=== PATIENT | female | born 1935 | race Caucasian/White ===

== ENCOUNTER 2022-03-20 14:02 | Outpatient (REF) | payer BC, SELFPAY ==
[2022-03-20 15:09] LABS: Appearance Urine Cloudy (Clear); Bilirubin Urine Negative (Negative); Blood Urine Trace-intact (Negative); Color Urine Yellow (Yellow); Glucose Urine Negative (Negative); Ketones Urine Negative (Negative); Leukocyte Esterase Urine 3+ (Negative); Nitrite Urine Positive (Negative); Protein Urine Negative (Negative); Specific Gravity Urine 1.015 (1.000-1.030); Urobilinogen Urine 0.2 (0.2-1.0)
[2022-03-20 15:28] LABS: Bacteria Urine Many
[2022-03-20 15:29] LABS: Coarse Granular Casts Urine Few; Squamous Epithelial Cell Urine Moderate (None-Few)
[2022-03-21 14:09] LABS: RBC Urine 0-2 (0-2)
== END 2022-03-20 14:03 | disposition home or self-care (01) ==
LOC: NPINS 14:02
PROVIDERS: Visit Provider Family Medicine
DX: R31.9 Hematuria, unspecified (principal)
CPT/HCPCS: 81001; 87086; 87186

== ENCOUNTER 2022-05-21 15:24 | Outpatient (REF) | payer BC, SELFPAY ==
[2022-05-21 16:45] LABS: Appearance Urine Clear (Clear); Bilirubin Urine Negative (Negative); Blood Urine Negative (Negative); Color Urine Yellow (Yellow); Glucose Urine Negative (Negative); Ketones Urine Negative (Negative); Leukocyte Esterase Urine Trace (Negative); Nitrite Urine Negative (Negative); Protein Urine Negative (Negative); Specific Gravity Urine 1.015 (1.000-1.030); Urobilinogen Urine 0.2 (0.2-1.0)
[2022-05-21 17:38] LABS: RBC Urine 0-2 (0-2); Squamous Epithelial Cell Urine Few (None-Few); WBC Urine 0-2 (0-5)
[2022-05-21 17:39] LABS: Bacteria Urine Few; Hyaline Casts Urine Few (None-Few)
== END 2022-05-21 15:25 | disposition home or self-care (01) ==
LOC: NPINS 15:24
PROVIDERS: Visit Provider Nurse Practitioner Gerontology
DX: N89.8 Other specified noninflammatory disorders of vagina (principal)
CPT/HCPCS: 81001; 87086

== ENCOUNTER 2022-09-30 09:29 | Outpatient (REF) | payer BC, SELFPAY ==
[2022-09-30 09:51] LABS: Chloride* 101 mmol/L (96-114); Sodium* 143 mmol/L (135-149)
[2022-09-30 09:52] LABS: Potassium* 4.2 mmol/L (3.6-5.1)
[2022-09-30 09:54] LABS: Creatinine* 1.4 mg/dL (0.5-1.5); Estimated Glomerular Filt Rate 37 ml/min
[2022-09-30 09:55] LABS: Blood Urea Nitrogen* 27 mg/dL (7-30); Carbon Dioxide* 34 mmol/L (20-32)
[2022-09-30 09:56] LABS: Calcium* 9.6 mg/dL (8.4-10.6); Glucose* 87 mg/dL (60-115)
== END 2022-09-30 09:30 | disposition home or self-care (01) ==
LOC: NPINS 09:29
PROVIDERS: Visit Provider Family Medicine
DX: I50.9 Heart failure, unspecified (principal); E03.9 Hypothyroidism, unspecified
CPT/HCPCS: 80048; 84443

== ENCOUNTER 2022-12-09 10:59 | Outpatient (REF) | payer BC, SELFPAY ==
[2022-12-09 11:44] LABS: Albumin* 4.5 g/dL (3.3-5.0); Chloride* 105 mmol/L (96-114)
[2022-12-09 11:45] LABS: Potassium* 4.6 mmol/L (3.6-5.1); Sodium* 142 mmol/L (135-149)
[2022-12-09 11:47] LABS: Aspartate Amino Transferase* 26 U/L (12-35); Bilirubin Direct* 0.3 mg/dL (0.0-0.5); Bilirubin Total* 0.5 mg/dL (0.1-1.5); Blood Urea Nitrogen* 26 mg/dL (7-30); Carbon Dioxide* 28 mmol/L (20-32); Creatinine* 1.2 mg/dL (0.5-1.5); Estimated Glomerular Filt Rate 44 ml/min; Total Protein* 7.4 g/dL (6.0-8.3)
[2022-12-09 11:48] LABS: Alanine Aminotransferase* 18 U/L (4-35); Alkaline Phosphatase* 66 U/L (40-150); Calcium* 9.6 mg/dL (8.4-10.6); Glucose* 99 mg/dL (60-115)
== END 2022-12-09 11:00 | disposition home or self-care (01) ==
LOC: NPINS 10:59
PROVIDERS: PCP Family Medicine; Visit Provider Nurse Practitioner Gerontology
DX: E03.9 Hypothyroidism, unspecified (principal); I50.9 Heart failure, unspecified
CPT/HCPCS: 80048; 80076; 84443

== ENCOUNTER 2023-01-08 11:01 | Outpatient (CLI) | payer BC, SELFPAY ==
--- NOTE | 2023-01-08 11:15 | CRLHL7_ITS ---
For Patients: As a result of the Century Cures Act, medical imaging exams and procedure reports are released immediately into your electronic medical record. You may view this report before your referring provider. If you have questions, please contact your health care provider. INDICATION: HIATAL HERNIA TECHNIQUE: Modified barium swallow. Fluoroscopic time 82 seconds. FINDINGS/IMPRESSION: Laryngeal penetration occurred with thin barium. No aspiration. Mild prominence of the cricopharyngeus muscle. Decreased esophageal motility distally with associated hiatal hernia and tertiary distal esophageal contractions. Dictated by Amando Navarro MD @ 01/08/2023 11:43:22 AM (Electronically Signed)
== END 2023-01-08 11:02 | disposition home or self-care (01) ==
LOC: RAD 11:03
PROVIDERS: PCP Family Medicine; Visit Provider Nurse Practitioner Gerontology
DX: K44.9 Diaphragmatic hernia without obstruction or gangrene (principal)
CPT/HCPCS: 74230; 92611

== ENCOUNTER 2023-02-10 10:09 | Outpatient (REF) | payer BC, SELFPAY ==
[2023-02-10 11:32] LABS: Basophils Absolute Auto 0.02 K/uL (0.00-0.30); Basophils Percent Auto 0.3 % (0.0-3.0); Eosinophils Absolute Auto 0.16 K/uL (0.00-0.50); Eosinophils Percent Auto 2.4 % (0.0-7.0); Hematocrit 42.3 % (33.0-51.0); Hemoglobin* 13.6 gm/dL (12.0-16.0); Immature Granulocytes Abs Auto 0.02 K/uL (0.00-0.30); Immature Granulocytes Pct Auto 0.3 %; Lymphocytes Absolute Auto 1.62 K/uL (0.90-2.90); Lymphocytes Percent Auto 24.6 % (20-44); Mean Corpuscular HGB Conc 32 gm/dL (32-36); Mean Corpuscular Hemoglobin 33 pg (26-34); Mean Corpuscular Volume 102 fL (80-100); Monocytes Percent Auto 9.6 % (0.0-11.0); Neutrophils Absolute Auto 4.14 K/uL (1.7-7.0); Neutrophils Percent Auto 62.8 % (42.0-72.0); Platelet Count* 220 K/uL (140-440); RDW Coefficient of Variation % 11.9 % (11.5-15.5); Red Blood Count 4.15 m/uL (4.00-5.20); White Blood Count* 6.59 K/uL (4.50-11.00)
[2023-02-10 11:35] LABS: Slide Review Reflex No
== END 2023-02-10 10:10 | disposition home or self-care (01) ==
LOC: NPINS 10:09
PROVIDERS: PCP Family Medicine; Visit Provider Family Medicine
DX: D64.9 Anemia, unspecified (principal)
CPT/HCPCS: 85025

== ENCOUNTER 2023-03-05 08:50 | Outpatient (CLI) | payer BC, SELFPAY | END 2023-03-05 08:51 | disposition home or self-care (01) | LOC: AMB 03-10 09:22 | PROVIDERS: PCP Family Medicine; Visit Provider Family Medicine | DX: S09.90XA Unspecified injury of head, initial encounter (principal); W01.0XXA Fall on same level from slipping, tripping and stumbling without subsequent striking against object, initial encounter; Y92.120 Kitchen in nursing home as the place of occurrence of the external cause | CPT/HCPCS: A0425; A0429 ==

== ENCOUNTER 2023-03-05 09:02 | Emergency (ER) | payer BC, SELFPAY ==
[2023-03-05] VITALS (14 sets, daily range): BP systolic 158–180; BP diastolic 68–83; PULSE 40–68; RESP 18–22; TEMP 36.4; O2SAT 88–94
--- NOTE | 2023-03-05 09:25 | CT_ITS ---
Patient: NORM KIMBLE Facility:?[facility] RIS Patient ID:?[id number] Site Patient ID:?[id number]. Site :?[id number] Study:?CT-Chest W/O-03/05/2023 10:40:57 AM Ordering Physician:?DR. SOLARES Final Report: INDICATION: History of sternal/chest pain. History of fall. TECHNIQUE: 3 mm axial imaging has been performed through the chest without contrast. Sagittal and coronal reconstructions have been obtained. COMPARISON: 10/01/2020. FINDINGS: Within the chest there is no mediastinal fluid. No suspicious lymphadenopathy is seen. Moderate to large hiatal hernia noted and stable. Extensive endo grafting of aorta with, mesenteric vessels and bilateral renal arteries is again identified and stable. Lungs demonstrate moderate to advanced emphysematous changes. Chronic changes are noted. No acute infiltrate is seen. No pneumothorax is seen. There is no visualized sternal or displaced rib fracture demonstrated. No fluid is seen adjacent to the sternum. Upper abdomen demonstrates a small gallstones. Aortic endograft as described above. Small posterior left diaphragmatic hernia is again identified and stable. IMPRESSION: 1. No mediastinal fluid noted. No visualized sternal fracture seen. 2. Moderate to advanced emphysematous changes of the lungs are noted. No acute appearing infiltrate noted. Chronic changes noted. 3. 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 4. Small gallstone noted. Stable hiatal hernia noted. Please note that all CT scans at this facility use dose modulation, iterative reconstruction, and/or weight-based dosing when appropriate to reduce radiation dose to as low as reasonably achievable. Dictated by José Miguel Franklin MD @ 03/05/2023 11:30:41 AM Signed by:?José Miguel Franklin MD @03/05/2023 11:30:41 AM (Electronic Signature)
--- NOTE | 2023-03-05 09:26 | CT_ITS ---
Patient: NORM KIMBLE Facility:?[facility] RIS Patient ID:?[id number] Site Patient ID:?[id number]. Site :?[id number] Study:?CT-Spine Cervical -03/05/2023 9:44:20 AM Ordering Physician:?DR. SOLARES Final Report: INDICATION: Fall. TECHNIQUE: CT cervical spine without contrast. COMPARISON: None. FINDINGS: Vertebrae: Alignment is normal. There are no fractures or suspicious bony lesions. Discs and facet joints: Disc spaces are within normal limits. Diffuse facet joint spondylosis. Extraspinal findings: Paraspinous soft tissues are unremarkable. IMPRESSION: 1. No sign of acute injury. 2. Multilevel degenerative spondylosis. Please note that all CT scans at this facility use dose modulation, iterative reconstruction, and/or weight-based dosing when appropriate to reduce radiation dose to as low as reasonably achievable. Dictated by Jesus Andino MD @ 03/05/2023 10:22:44 AM Signed by:?Jesus Andino MD @03/05/2023 10:22:44 AM (Electronic Signature)
--- NOTE | 2023-03-05 09:26 | CT_ITS ---
Patient: NORM KIMBLE Facility:?[facility] RIS Patient ID:?[id number] Site Patient ID:?[id number]. Site :?[id number] Study:?CT-Head -03/05/2023 9:45:50 AM Ordering Physician:?DR SOLARES Final Report: INDICATION: Fall. TECHNIQUE: Head CT without contrast. COMPARISON: None. FINDINGS: CSF spaces: Within normal limits for age. Brain parenchyma and extra-axial spaces: There are nonspecific low attenuation white matter changes consistent with chronic microvascular disease. No sign of mass, hemorrhage, or midline shift. Skull base and calvarium: The visualized paranasal sinuses and mastoid air cells demonstrate no acute or significant findings. The visualized orbits are grossly unremarkable. No skull fractures. IMPRESSION: No acute or significant findings. Please note that all CT scans at this facility use dose modulation, iterative reconstruction, and/or weight-based dosing when appropriate to reduce radiation dose to as low as reasonably achievable. Dictated by Jesus Andino MD @ 03/05/2023 10:32:36 AM Signed by:?Jesus Andino MD @03/05/2023 10:32:36 AM (Electronic Signature)
--- NOTE | 2023-03-05 09:37 | ED_ITS ---
HPI - Fall General Date Seen: 03/05/23 Chief Complaint: Fall/Minor Trauma Stated Complaint: Fell, hit head Time Seen by Provider: 03/05/23 09:14 Source: patient and EMS Mode of arrival: EMS Limitations: no limitations History of Present Illness HPI Narrative: Patient is 88-year-old female presents here from assisted living, with a history of a fall, ?that laurel walker that they make me use, cause me to fall she presents on Eliquis, that she takes for anticoagulation, she did hit her head, when she went over her walker, and also struck her chest, and says his sore over the sternal area. She did not have chest pain before this, this was a trip she tells me, no loss of consciousness no amnesia, she denies any extremity injury, she is brought in by EMS for this. Do note that she is supposed to be on oxygen but she was not on oxygen at the residence he was at. She has a history of COPD, complaint: fall Onset (ago): minute(s) Fall from: standing Fall witnessed: no Place fall occurred: home Loss of consciousness: No Prolonged down time: no Symptoms prior to fall: none Context: tripped/slipped Location of injury: head and chest Severity: moderate Associated symptoms (after fall): denies Related Data Home Medications Medication Instructions Recorded Confirmed acetaminophen 500 mg tablet (Pain 1,000 mg PO 3XD 03/05/23 03/05/23 Reliever Extra Strength (acetaminophen)) albuterol sulfate 90 mcg/actuation inhalation 03/05/23 aerosol inhaler amiodarone 200 mg tablet 100 mg PO DAILY 03/05/23 03/05/23 amoxicillin 500 mg capsule 500 mg PO BID 03/05/23 03/05/23 apixaban 2.5 mg tablet (Eliquis) 2.5 mg PO BID 03/05/23 03/05/23 aspirin 81 mg chewable tablet 1 tab PO DAILY 03/05/23 03/05/23 atorvastatin 40 mg tablet 40 mg PO DAILY 03/05/23 03/05/23 furosemide 40 mg tablet 40 mg PO BID 03/05/23 03/05/23 lamotrigine 100 mg tablet 200 mg PO QPM 03/05/23 03/05/23 levothyroxine 100 mcg tablet 100 mcg PO QAM 03/05/23 03/05/23 loratadine 10 mg tablet 10 mg PO DAILY 03/05/23 03/05/23 melatonin 3 mg capsule 3 mg PO HS PRN 03/05/23 03/05/23 pantoprazole 40 mg tablet,delayed 40 mg PO DAILY 03/05/23 03/05/23 release potassium chloride 20 mEq 20 meq PO BID 03/05/23 03/05/23 tablet,extended release(part/cryst) sennosides 8.6 mg tablet (Marley-sheela) 8.6 mg PO BID 03/05/23 03/05/23 simethicone 80 mg chewable tablet 80 mg PO QID PRN 03/05/23 03/05/23 (Gas Relief 80 (simethicone)) tramadol 50 mg tablet mg PO 03/05/23 Allergies Allergy/AdvReac Type Severity Reaction Status Date / Time No Known Drug Allergies Allergy Verified 01/08/23 11:32 Review of Systems Status of ROS: Reports: 10 or more systems reviewed and unremarkable except as noted in History and below PFSH [facility] Social History Smoking Status: Unknown if ever smoked How often do you have a drink containing alcohol: monthly or less AUDIT-C Alcohol total score: 1 Non-prescribed substance use: denies use service: No Exam Narrative: Exam Narrative: She is seen and stabilization room 1, she is speaking to me in room normally she is alert oriented in 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 Pupils are equal round reactive to light, oropharynx is normal, neck as range of motion from 8 cm to 18 cm, which she says is normal, she has no tenderness to palpation over her neck, side flexion is 10?, rotation is 30?, her chest as good air entry bilaterally, no wheezing crackles noted she is somewhat sore over sternal region. On palpation percussion, her heart sounds no clicks murmurs or gallops, poor air entry is noted bilaterally, which may be her normal with a prolonged expiratory phase I do not hear any subcutaneous emphysema, crackles, wheezes. Abdomen is soft and obese, there is no organomegaly, no tenderness to palpation over liver anywhere else, or pelvis normal stable, her back is palpated and thoracic and lumbar spines palpate normally, extremities are all normal, she is able to move them she is very is some bruises on her extremities which she has tells me is from that laurel Herrera neurologically intact in her upper lower extremities both proximally and distally, cranial nerves 3-12 are normal, Const: Vital Signs, click to edit/add: Vital Signs - 24 hr 03/05/23 09:05 03/05/23 09:28 03/05/23 10:12 Temperature 97.6 F Pulse Rate 66 Pulse Rate [Right Pulse Oximeter] 68 Respiratory Rate 18 22 Blood Pressure 180/82 H Blood Pressure [Ri ght Upper Arm] 180/83 H Pulse Oximetry 88 92 93 Oxygen Delivery Me thod Room Air Nasal Cannula Oxygen Flow Rate 2 03/05/23 10:27 03/05/23 10:30 03/05/23 10:31 Temperature Pulse Rate 40 L 61 61 Pulse Rate [Right Pulse Oximeter] Respiratory Rate Blood Pressure 171/74 H Blood Pressure [Ri ght Upper Arm] Pulse Oximetry 92 93 93 Oxygen Delivery Me thod Oxygen Flow Rate 03/05/23 10:32 03/05/23 11:00 03/05/23 11:02 Temperature Pulse Rate 61 58 L 60 Pulse Rate [Right Pulse Oximeter] Respiratory Rate Blood Pressure 167/73 H Blood Pressure [Ri ght Upper Arm] Pulse Oximetry 93 92 92 Oxygen Delivery Me thod Oxygen Flow Rate 03/05/23 11:30 03/05/23 11:32 03/05/23 12:00 Temperature Pulse Rate 57 L 58 L 59 L Pulse Rate [Right Pulse Oximeter] Respiratory Rate Blood Pressure 161/70 H Blood Pressure [Ri ght Upper Arm] Pulse Oximetry 94 94 93 Oxygen Delivery Me thod Oxygen Flow Rate 03/05/23 12:02 Temperature Pulse Rate 59 L Pulse Rate [Right Pulse Oximeter] Respiratory Rate Blood Pressure 158/68 H Blood Pressure [Ri ght Upper Arm] Pulse Oximetry 94 Oxygen Delivery Me thod Oxygen Flow Rate Documenting provider has reviewed patient's vital signs: yes Course Course Hospital Course: Patient's head CT came back showing no acute findings, her cervical spine CT also was negative, she did well here, she received Tylenol for discomfort, and chest CT without contrast showed no evidence of sternal fracture rib fracture no fluid, his troponins x2 were normal, her EKG showed normal sinus rhythm, there is some T-wave flattening but otherwise no acute changes were noted. I discussed with her son in her patient, that we should the lower to go home and she was in agreement. She should wear oxygen, and be more cognizant of walking, she was very comfortable with this plan. Vital Signs Vital signs: Initial Vital Signs Temperature 97.6 F 03/05/23 09:05 Temperature Source Temporal Artery Scan 03/05/23 09:05 Pulse Rate 68 03/05/23 09:05 Respiratory Rate 18 03/05/23 09:05 Blood Pressure 180/83 H 03/05/23 09:05 Blood Pressure Mean 115 H 03/05/23 09:05 Blood Pressure Position Sitting 03/05/23 09:05 Pulse Oximetry 88 03/05/23 09:05 Oxygen Delivery Method Room Air 03/05/23 09:05 Vital Signs Temperature 97.6 F 03/05/23 09:05 Pulse Rate 68 03/05/23 09:05 Respiratory Rate 18 03/05/23 09:05 Blood Pressure 180/83 H 03/05/23 09:05 Pulse Oximetry 88 03/05/23 09:05 Oxygen Delivery Method Room Air 03/05/23 09:05 Temperature 97.6 F 03/05/23 09:05 Pulse Rate 59 L 03/05/23 12:02 Respiratory Rate 22 03/05/23 09:28 Blood Pressure 158/68 H 03/05/23 12:02 Pulse Oximetry 94 03/05/23 12:02 Oxygen Delivery Method Nasal Cannula 03/05/23 09:28 Oxygen Flow Rate 2 03/05/23 09:28 MDM - Fall MDM Narrative Medical decision making narrative: Life-threatening differential diagnosis is considered include: Subarachnoid hemorrhage, subdural hemorrhage, epidural hemorrhage. Other differential diagnosis considered include concussion, closed head injury, or neck fracture. Medical Records Attestation: I reviewed the patient's medical records. Lab Data Attestation: I reviewed the patient's lab results. Labs: Lab Results 03/05/23 03/05/23 03/05/23 Range/Units 09:27 09:28 11:21 WBC 7.31 (4.50-11.00) K/uL RBC 4.27 (4.00-5.20) m/uL Hgb 13.9 (12.0-16.0) gm/dL Hct 43.4 (33.0-51.0) % MCV 102 H (80-100) fL MCH 33 (26-34) pg MCHC 32 (32-36) gm/dL RDW Coeff of Chely 12.3 (11.5-15.5) % Plt Count 212 (140-440) K/uL Neut % (Auto) 63.0 (42.0-72.0) % Lymph % (Auto) 23.8 (20-44) % [place] % (Auto) 11.1 H (0.0-11.0) % Eos % (Auto) 1.5 (0.0-7.0) % Baso % (Auto) 0.1 (0.0-3.0) % Neut # (Auto) 4.60 (1.7-7.0) K/uL Lymph # (Auto) 1.74 (0.90-2.90) K/uL [place] # (Auto) 0.80 (0.00-0.90) K/UL Eos # (Auto) 0.11 (0.00-0.50) K/uL Baso # (Auto) 0.01 (0.00-0.30) K/uL Sodium 141 (135-149) mmol/L Potassium 3.9 (3.6-5.1) mmol/L Chloride 104 (96-114) mmol/L Carbon Dioxide 29 (20-32) mmol/L BUN 23 (7-30) mg/dL Creatinine 1.3 (0.5-1.5) mg/dL Estimated GFR 40 ml/min Glucose 95 (60-115) mg/dL Calcium 9.4 (8.4-10.6) mg/dL POC Troponin I 0.00 L 0.01 (0.01-0.04) ng/ml Imaging Data CT scan - chest: Attestation: I have reviewed the pertinent imaging results. Radiologist's impression: Patient: NORM KIMBLE Facility:?[facility] Patient ID:?[id number] Site Patient ID:?[id number] Site :?[id number] Study:?CT Spine Cervical -03/05/2023 9:44:20 AM Ordering Physician:?DR. MCLEAN Final Report: INDICATION: Fall. TECHNIQUE: CT cervical spine without contrast. COMPARISON: None. FINDINGS: Vertebrae: Alignment is normal. There are no fractures or suspicious bony lesions. Discs and facet joints: Disc spaces are within normal limits. Diffuse facet joint spondylosis. Extraspinal findings: Paraspinous soft tissues are unremarkable. IMPRESSION: 1. No sign of acute injury. 2. Multilevel degenerative spondylosis. Please note that all CT scans at this facility use dose modulation, iterative reconstruction, and/or weight-based dosing when appropriate to reduce radiation dose to as low as reasonably achievable. Dictated by Jesus Andino MD @ 03/05/2023 10:22:44 AM (Electronic Signature) Patient: NORM KIMBLE Facility:?[facility] Patient ID:?[id number] Site Patient ID:?[id number]. Site :?1935 Study:?CT Head -03/05/2023 9:45:50 AM Ordering Physician:?DR MCLEAN Final Report: INDICATION: Fall. TECHNIQUE: Head CT without contrast. COMPARISON: None. FINDINGS: CSF spaces: Within normal limits for age. Brain parenchyma and extra-axial spaces: There are nonspecific low attenuation white matter changes consistent with chronic microvascular disease. No sign of mass, hemorrhage, or midline shift. Skull base and calvarium: The visualized paranasal sinuses and mastoid air cells demonstrate no acute or significant findings. The visualized orbits are grossly unremarkable. No skull fractures. IMPRESSION: No acute or significant findings. Please note that all CT scans at this facility use dose modulation, iterative reconstruction, and/or weight-based dosing when appropriate to reduce radiation dose to as low as reasonably achievable. Dictated by Jesus Andino MD @ 03/05/2023 10:32:36 AM (Electronic Signature) Patient: NORM KIMBLE Facility:?[facility] Patient ID:?[id number] Site Patient ID:?[id number]. Site :?1935 Study:?CT Chest W/O-03/05/2023 10:40:57 AM Ordering Physician:?DR. MCLEAN Final Report: INDICATION: History of sternal/chest pain. History of fall. TECHNIQUE: 3 mm axial imaging has been performed through the chest without contrast. Sagittal and coronal reconstructions have been obtained. COMPARISON: 10/01/2020. FINDINGS: Within the chest there is no mediastinal fluid. No suspicious lymphadenopathy is seen. Moderate to large hiatal hernia noted and stable. Extensive endo grafting of aorta with, mesenteric vessels and bilateral renal arteries is again identified and stable. Lungs demonstrate moderate to advanced emphysematous changes. Chronic changes are noted. No acute infiltrate is seen. No pneumothorax is seen. There is no visualized sternal or displaced rib fracture demonstrated. No fluid is seen adjacent to the sternum. Upper abdomen demonstrates a small gallstones. Aortic endograft as described above. Small posterior left diaphragmatic hernia is again identified and stable. IMPRESSION: 1. No mediastinal fluid noted. No visualized sternal fracture seen. 2. Moderate to advanced emphysematous changes of the lungs are noted. No acute appearing infiltrate noted. Chronic changes noted. 3. 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 4. Small gallstone noted. Stable hiatal hernia noted. Please note that all CT scans at this facility use dose modulation, iterative reconstruction, and/or weight-based dosing when appropriate to reduce radiation dose to as low as reasonably achievable. Dictated by José Miguel Franklin MD @ 03/05/2023 11:30:41 AM (Electronic Signature) ECG Data Attestation: I personally reviewed and interpreted this ECG as follows: ECG interpretation date: 03/05/23 Interpretation: EKG shows normal sinus rhythm, nonspecific ST wave abnormality, abnormal EKG with no acute changes. Discharge Plan Discharge Clinical Impression: Chest wall pain, COPD (chronic obstructive pulmonary disease), Fall Patient Disposition: Home w/ Parent or Adult Condition: Stable Instructions: Chest Pain (DC), Fall Prevention for Older Adults (ED), Fall Prevention (ED), How to Transfer a Person Safely (DC) Additional Instructions: Home rest acetaminophen 1 g p.o. t.i.d., please use her oxygen at home, use the walker and be careful, return as needed. Prescriptions: No Action amoxicillin 500 mg capsule 500 mg PO BID furosemide 40 mg tablet 40 mg PO BID atorvastatin 40 mg tablet 40 mg PO DAILY amiodarone 200 mg tablet 100 mg PO DAILY acetaminophen [Pain Reliever ES(acetaminophn)] 500 mg tablet 1,000 mg PO 3XD levothyroxine 100 mcg tablet 100 mcg PO QAM aspirin 81 mg tablet,chewable 1 tab PO DAILY albuterol sulfate 90 mcg/actuation HFA aerosol inhaler inhalation lamotrigine 100 mg tablet 200 mg PO QPM loratadine 10 mg tablet 10 mg PO DAILY Eliquis 2.5 mg tablet 2.5 mg PO BID melatonin 3 mg capsule 3 mg PO HS PRN sennosides [Marley-sheela] 8.6 mg tablet 8.6 mg PO BID tramadol 50 mg tablet PO potassium chloride 20 mEq tablet,ER particles/crystals 20 meq PO BID pantoprazole 40 mg tablet,delayed release (DR/EC) 40 mg PO DAILY simethicone [Gas Relief 80 (simethicone)] 80 mg tablet,chewable 80 mg PO QID PRN Follow Up/Referrals: Inder Tanner MD [Primary Care Provider] - Stand Alone Forms: [facility] Info Instructions
[2023-03-05 09:40] LABS: Basophils Absolute Auto 0.01 K/uL (0.00-0.30); Basophils Percent Auto 0.1 % (0.0-3.0); Eosinophils Absolute Auto 0.11 K/uL (0.00-0.50); Eosinophils Percent Auto 1.5 % (0.0-7.0); Hematocrit 43.4 % (33.0-51.0); Hemoglobin* 13.9 gm/dL (12.0-16.0); Immature Granulocytes Abs Auto 0.04 K/uL (0.00-0.30); Immature Granulocytes Pct Auto 0.5 %; Lymphocytes Absolute Auto 1.74 K/uL (0.90-2.90); Lymphocytes Percent Auto 23.8 % (20-44); Mean Corpuscular HGB Conc 32 gm/dL (32-36); Mean Corpuscular Hemoglobin 33 pg (26-34); Mean Corpuscular Volume 102 fL (80-100); Monocytes Percent Auto 11.1 % (0.0-11.0); Platelet Count* 212 K/uL (140-440); RDW Coefficient of Variation % 12.3 % (11.5-15.5); Red Blood Count 4.27 m/uL (4.00-5.20); White Blood Count* 7.31 K/uL (4.50-11.00)
[2023-03-05 09:44] LABS: Slide Review Reflex No
[2023-03-05] MEDS: ONDANSETRON 2 MG/ML inj 4 MG IVP (09:45)
[2023-03-05] MEDS: 0.9 % SODIUM CHLORIDE 1000 ml 1,000 ML IV (09:45)
[2023-03-05] MEDS: MORPHINE 2 MG/ML inj IVP (09:46)
[2023-03-05 09:53] LABS: Chloride* 104 mmol/L (96-114); Potassium* 3.9 mmol/L (3.6-5.1); Sodium* 141 mmol/L (135-149)
[2023-03-05 09:56] LABS: Blood Urea Nitrogen* 23 mg/dL (7-30); Carbon Dioxide* 29 mmol/L (20-32); Creatinine* 1.3 mg/dL (0.5-1.5); Estimated Glomerular Filt Rate 40 ml/min; Glucose* 95 mg/dL (60-115)
[2023-03-05 09:57] LABS: Calcium* 9.4 mg/dL (8.4-10.6)
[2023-03-05 11:32] LABS: Troponin, Point-of-Care* 0.01 ng/ml (0.01-0.04)
[2023-03-05] MEDS: OxyCODONE/APAP 5-325 TABLET 2 TAB PO (12:47)
[2023-03-05] MEDS: ONDANSETRON ODT 4 MG TAB PO (12:57)
== END 2023-03-05 13:18 | disposition home or self-care (01) ==
PROVIDERS: Emergency Provider Family Medicine; PCP Family Medicine
DX: R07.9 Chest pain, unspecified (principal); J44.9 Chronic obstructive pulmonary disease, unspecified; W19.XXXA Unspecified fall, initial encounter
CPT/HCPCS: 36415; 70450; 71250; 72125; 80048; 84484; 85025; 93005; 96374; 96375; 99284; 99291; A9270; G0390; J2270; J2405; J7030

== ENCOUNTER 2023-03-26 15:22 | Outpatient (REF) | payer BC, SELFPAY ==
[2023-03-26 15:57] LABS: Basophils Absolute Auto 0.04 K/uL (0.00-0.30); Basophils Percent Auto 0.6 % (0.0-3.0); Eosinophils Absolute Auto 0.21 K/uL (0.00-0.50); Eosinophils Percent Auto 3.1 % (0.0-7.0); Hematocrit 40.3 % (33.0-51.0); Hemoglobin* 12.8 gm/dL (12.0-16.0); Immature Granulocytes Abs Auto 0.02 K/uL (0.00-0.30); Immature Granulocytes Pct Auto 0.3 %; Lymphocytes Percent Auto 27.8 % (20-44); Mean Corpuscular HGB Conc 32 gm/dL (32-36); Mean Corpuscular Hemoglobin 33 pg (26-34); Mean Corpuscular Volume 103 fL (80-100); Monocytes Percent Auto 11.4 % (0.0-11.0); Neutrophils Absolute Auto 3.88 K/uL (1.7-7.0); Neutrophils Percent Auto 56.8 % (42.0-72.0); Platelet Count* 262 K/uL (140-440); RDW Coefficient of Variation % 13.2 % (11.5-15.5); Red Blood Count 3.91 m/uL (4.00-5.20); White Blood Count* 6.83 K/uL (4.50-11.00)
[2023-03-26 16:01] LABS: Slide Review Reflex No
== END 2023-03-26 15:23 | disposition home or self-care (01) ==
LOC: NPINS 15:22
PROVIDERS: PCP Family Medicine; Visit Provider Family Medicine
DX: D64.9 Anemia, unspecified (principal)
CPT/HCPCS: 85025

== ENCOUNTER 2023-04-02 10:47 | Outpatient (CLI) | payer BC, SELFPAY ==
--- NOTE | 2023-04-02 11:00 | CRLHL7_ITS ---
For Patients: As a result of the Century Cures Act, medical imaging exams and procedure reports are released immediately into your electronic medical record. You may view this report before your referring provider. If you have questions, please contact your health care provider. Indication: STERNUM PAIN, RELATED TO FALL Technique: Noncontrast CT chest Please note that all CT scans at this facility use dose modulation, iterative reconstruction, and/or weight-based dosing when appropriate to reduce radiation dose to as low as reasonably achievable. Comparison: 03/05/2023 Findings: Vascular stents are present. Layering densities within the gallbladder. Hiatal hernia. No pleural or pericardial effusion. Left shoulder replacement. No upper abdominal ascites. No adenopathy. COPD/emphysema. Incidental Bochdalek`s hernia contain fat on the left. Patchy areas of parenchymal scarring. No suspicious pulmonary nodule or mass. There is a new mildly displaced fracture involving the proximal sternum. The manubrium appears intact. No thoracic vertebral body compression fracture or evidence of rib fracture. Rightward curvature of the thoracic spine is noted. No retrosternal hematoma. Impression: Acute mildly displaced fracture of the proximal sternum. No retro sternal hematoma. Chronic hiatal hernia and cholelithiasis. COPD/emphysema with bilateral areas of scarring. No pneumothorax. No pleural or pericardial effusion. No pulmonary contusion. Please note that all CT scans at this facility use dose modulation, iterative reconstruction, and/or weight-based dosing when appropriate to reduce radiation dose to as low as reasonably achievable. Dictated by Amando Navarro MD @ 04/02/2023 1:53:54 PM (Electronically Signed)
--- NOTE | 2023-04-02 11:30 | CRLHL7_ITS ---
For Patients: As a result of the Century Cures Act, medical imaging exams and procedure reports are released immediately into your electronic medical record. You may view this report before your referring provider. If you have questions, please contact your health care provider. Pain Technique: Noncontrast CT thoracic spine Please note that all CT scans at this facility use dose modulation, iterative reconstruction, and/or weight-based dosing when appropriate to reduce radiation dose to as low as reasonably achievable. Comparison: CT chest 03/05/2023 Findings: Mild wedging of the T4 vertebral body is similar to the prior study. Chronic benign sclerotic focus within the T9 superior endplate. Increased thoracic kyphosis noted. Mild degenerative disc disease with disc space narrowing and spurring in the mid thoracic spine. Atherosclerotic changes with vascular stents. No intrathoracic adenopathy. Hiatal hernia. Cholelithiasis. Left posterior Bochdalek`s hernia. COPD/emphysema/scarring. No pneumothorax. Intact ribs. Sternum not visualized. Impression: Chronic mild wedging of T4. No acute thoracic spine fracture. Please note that all CT scans at this facility use dose modulation, iterative reconstruction, and/or weight-based dosing when appropriate to reduce radiation dose to as low as reasonably achievable. Dictated by Amando Navarro MD @ 04/02/2023 1:57:40 PM (Electronically Signed)
--- NOTE | 2023-04-02 11:30 | CRLHL7_ITS ---
For Patients: As a result of the Cures Act, medical imaging exams and procedure reports are released immediately into your electronic medical record. You may view this report before your referring provider. If you have questions, please contact your health care provider. Indication: Fall, pain Technique: Noncontrast CT lumbar spine Please note that all CT scans at this facility use dose modulation, iterative reconstruction, and/or weight-based dosing when appropriate to reduce radiation dose to as low as reasonably achievable. Comparison: CT 10/01/2020 Findings: Degenerative facet arthropathy L4-5 and L5-S1 with grade 1 degenerative spondylolisthesis of L4 on L5. This is unchanged. No vertebral body compression fracture. No pars defect. Minimal discogenic spurring throughout the lumbar spine. No evidence of significant canal or foraminal stenosis. Vascular stents are present. No paraspinal soft tissue mass. The transverse processes are intact. Impression: No lumbar spine fracture. Please note that all CT scans at this facility use dose modulation, iterative reconstruction, and/or weight-based dosing when appropriate to reduce radiation dose to as low as reasonably achievable. Dictated by Amando Navarro MD @ 04/02/2023 2:06:55 PM (Electronically Signed)
== END 2023-04-02 10:48 | disposition home or self-care (01) ==
LOC: CT 10:48
PROVIDERS: PCP Family Medicine; Visit Provider Nurse Practitioner Gerontology
DX: R07.89 Other chest pain (principal); S22.20XA Unspecified fracture of sternum, initial encounter for closed fracture; K44.9 Diaphragmatic hernia without obstruction or gangrene; K80.20 Calculus of gallbladder without cholecystitis without obstruction
CPT/HCPCS: 71250; 72128; 72131

== ENCOUNTER 2023-04-17 14:38 | Outpatient (REF) | payer BC, SELFPAY ==
[2023-04-17 15:13] LABS: Appearance Urine Cloudy (Clear); Bilirubin Urine Negative (Negative); Blood Urine Trace-intact (Negative); Color Urine Yellow (Yellow); Glucose Urine Negative (Negative); Ketones Urine Negative (Negative); Leukocyte Esterase Urine 1+ (Negative); Nitrite Urine Negative (Negative); Protein Urine Negative (Negative); Specific Gravity Urine 1.015 (1.000-1.030); Urobilinogen Urine 0.2 (0.2-1.0); pH Urine 5.5 (5.0-8.5)
[2023-04-17 15:22] LABS: Bacteria Urine Moderate; Squamous Epithelial Cell Urine Moderate (None-Few)
== END 2023-04-17 14:39 | disposition home or self-care (01) ==
LOC: NPINS 14:38
PROVIDERS: PCP Family Medicine; Visit Provider Nurse Practitioner Gerontology
DX: R30.0 Dysuria (principal)
CPT/HCPCS: 81003; 81015; 87086; 87186

== ENCOUNTER 2023-05-12 10:33 | Outpatient (REF) | payer BC, SELFPAY ==
[2023-05-12 11:40] LABS: Basophils Absolute Auto 0.03 K/uL (0.00-0.30); Basophils Percent Auto 0.6 % (0.0-3.0); Eosinophils Absolute Auto 0.12 K/uL (0.00-0.50); Eosinophils Percent Auto 2.4 % (0.0-7.0); Hematocrit 38.3 % (33.0-51.0); Hemoglobin* 12.4 gm/dL (12.0-16.0); Lymphocytes Absolute Auto 1.35 K/uL (0.90-2.90); Lymphocytes Percent Auto 26.6 % (20-44); Mean Corpuscular HGB Conc 32 gm/dL (32-36); Mean Corpuscular Hemoglobin 34 pg (26-34); Mean Corpuscular Volume 105 fL (80-100); Monocytes Percent Auto 10.5 % (0.0-11.0); Neutrophils Absolute Auto 3.04 K/uL (1.7-7.0); Neutrophils Percent Auto 59.9 % (42.0-72.0); Platelet Count* 192 K/uL (140-440); RDW Coefficient of Variation % 13.4 % (11.5-15.5); Red Blood Count 3.64 m/uL (4.00-5.20); White Blood Count* 5.07 K/uL (4.50-11.00)
[2023-05-12 11:41] LABS: Slide Review Reflex No
== END 2023-05-12 10:34 | disposition home or self-care (01) ==
LOC: NPINS 10:33
PROVIDERS: PCP Family Medicine; Visit Provider Family Medicine
DX: D50.9 Iron deficiency anemia, unspecified (principal)
CPT/HCPCS: 85025

== ENCOUNTER 2023-05-30 18:54 | Emergency (ER) | payer BC, SELFPAY ==
[2023-05-30 19:06] VITALS: BP 166/80; PULSE 76; RESP 22; TEMP 36.7; O2SAT 92; BMI 29.4
--- NOTE | 2023-05-30 19:59 | CRLHL7_ITS ---
For Patients: As a result of the Century Cures Act, medical imaging exams and procedure reports are released immediately into your electronic medical record. You may view this report before your referring provider. If you have questions, please contact your health care provider. INDICATION: Mid and right-sided back pain for 1 week TECHNIQUE: CT chest without contrast. COMPARISON: April 02, 2023 FINDINGS: Cardiovascular structures: Heart size is normal. Aortic wall and coronary artery calcifications. 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 Mediastinum and ruben: No sign of mass or adenopathy. Large hiatal hernia. Lungs: Emphysema. Pleura and pericardium: No effusions. Chest wall and axilla: No mass or adenopathy. Upper abdomen: Likely layering gallbladder sludge. There is a left-sided Bochdalek hernia. Bones: Status post left shoulder arthroplasty increased kyphosis of the thoracic spine. Old T5 compression fracture. New T7 compression fracture with less than 20 percent vertebral height loss. Old fracture of the proximal sternum. IMPRESSION: New mild compression fracture of the T7 vertebral body. Additional nonacute findings as described above. Please note that all CT scans at this facility use dose modulation, iterative reconstruction, and/or weight-based dosing when appropriate to reduce radiation dose to as low as reasonably achievable. Dictated by Inessa Richard MD @ 05/30/2023 9:39:46 PM (Electronically Signed)
--- NOTE | 2023-05-30 21:17 | ED_ITS ---
HPI - General Adult General Date Seen: 05/30/23 Chief complaint: Back Injury/Pain Stated complaint: pain between shoulder blades in the back Time Seen by Provider: 05/30/23 19:48 Source: patient Mode of arrival: ambulatory Limitations: no limitations History of Present Illness HPI narrative: Patient is an 88-year-old woman who lives at [facility] in assisted living. She is oxygen dependent on 1 L nasal cannula. She said a week ago she bent forward to pick something up off the floor and as she stood up she experienced what she describes as severe pain in her back, she said it extended from her sacrum all the way up to the base of her neck. Initially she said it was in the midline and now it is more on the right side. It is present all the time although it bothers her especially when she is trying to sleep. She says she has experienced a number of injuries over her life time was recently a sternal fracture, for which she was prescribed oxycodone. She had been taking that p.r.n. but had titrated down to just at night. Over the past couple of days she has been taking it p.r.n. again. She says the pain gets so bad that it is making her cry, and she said she needed just to know what was causing it. She has not had any fevers, vomiting, it does hurt to breathe but she has not been more short of breath. Related Data Home Medications Medication Instructions Recorded Confirmed acetaminophen 500 mg tablet (Pain 1,000 mg PO 3XD 03/05/23 03/05/23 Reliever Extra Strength (acetaminophen)) albuterol sulfate 90 mcg/actuation inhalation 03/05/23 aerosol inhaler amiodarone 200 mg tablet 100 mg PO DAILY 03/05/23 03/05/23 amoxicillin 500 mg capsule 500 mg PO BID 03/05/23 03/05/23 apixaban 2.5 mg tablet (Eliquis) 2.5 mg PO BID 03/05/23 03/05/23 aspirin 81 mg chewable tablet 1 tab PO DAILY 03/05/23 03/05/23 atorvastatin 40 mg tablet 40 mg PO DAILY 03/05/23 03/05/23 furosemide 40 mg tablet 40 mg PO BID 03/05/23 03/05/23 lamotrigine 100 mg tablet 200 mg PO QPM 03/05/23 03/05/23 levothyroxine 100 mcg tablet 100 mcg PO QAM 03/05/23 03/05/23 loratadine 10 mg tablet 10 mg PO DAILY 03/05/23 03/05/23 melatonin 3 mg capsule 3 mg PO HS PRN 03/05/23 03/05/23 pantoprazole 40 mg tablet,delayed 40 mg PO DAILY 03/05/23 03/05/23 release potassium chloride 20 mEq 20 meq PO BID 03/05/23 03/05/23 tablet,extended release(part/cryst) sennosides 8.6 mg tablet (Marley-sheela) 8.6 mg PO BID 03/05/23 03/05/23 simethicone 80 mg chewable tablet 80 mg PO QID PRN 03/05/23 03/05/23 (Gas Relief 80 (simethicone)) tramadol 50 mg tablet mg PO 03/05/23 Previous Rx's Medication Instructions Recorded calcitonin (salmon) 200 1 spray intranasal (ALT) DAILY 05/30/23 unit/actuation nasal spray #3.7 mL Allergies Allergy/AdvReac Type Severity Reaction Status Date / Time No Known Drug Allergies Allergy Verified 01/08/23 11:32 [facility] Medical History (Updated 05/30/23 @ 21:44 by Sommer Bhagat MD) POLST (Physician Orders for Life-Sustaining Treatment) ?Z78.9 - Other specified health status (ICD-10) Social History Smoking Status: Former smoker Do you use any of these nicotine containing products: None How often do you have a drink containing alcohol: never AUDIT-C Alcohol total score: 0 Non-prescribed substance use: denies use service: No Exam Narrative: Exam Narrative: Vital signs as noted above. In general, an alert, nontoxic elderly woman. She is breathing easily on her oxygen, speaks in full sentences. Head: Normocephalic, atraumatic. Eyes: Pupils are equal reactive. Extraocular movements are full. Conjunctivae are normal. ENT: Mucous membranes are moist. Throat is normal. Neck: Supple without lymphadenopathy. Heart: Regular rate and rhythm. Lungs: Lungs are clear, no increased work of breathing. Back: Atraumatic in appearance. She has diffuse tenderness of the right back to palpation. No specific midline tenderness. Abdomen: Soft and nontender. No organomegaly. Extremities: Well perfused. No edema. No calf tenderness. Pulses intact. Neurologic: Patient is alert and oriented to person and place. Speech is fluent. Face is symmetric. Moves all extremities equally. Affect: Normal. Skin: Warm and dry. Well perfused. Const: Vital Signs, click to edit/add: Vital Signs - 24 hr 05/30/23 19:06 Temperature 98.0 F Pulse Rate [Apical ] 76 Respiratory Rate 22 Blood Pressure [Ri ght Upper Arm] 166/80 H Pulse Oximetry 92 Oxygen Delivery Me thod Nasal Cannula Oxygen Flow Rate 1 Documenting provider has reviewed patient's vital signs: yes Course Course ED Course: I elected to do a CT scan of the chest without contrast just to see if she has a compression fracture or less likely any kind of rib injury given that she now says the pain is more on the right side of her back. It is very diffuse kind of all up and down her back, more thoracic than lumbar at this point. Discussed with her that if there are no bony injuries then pain is more likely muscle spasm, and will need to focus on pain control and wait till this gets better. By my review, CT does seem to show a compression fracture, awaiting radiology read Final radiology read as follows:Bones: Status post left shoulder arthroplasty increased kyphosis of the thoracic spine. Old T5 compression fracture. New T7 compression fracture with less than 20 percent vertebral height loss. Old fracture of the proximal sternum. IMPRESSION: New mild compression fracture of the T7 vertebral body. Discussed findings with patient and her son. I recommended continued use of p.r.n. oxycodone as she has been and I have added calcitonin nasal spray. Follow up with primary care as needed if she is not doing well with this regimen. Vital Signs Vital signs: Initial Vital Signs Temperature 98.0 F 05/30/23 19:06 Temperature Source Temporal Artery Scan 05/30/23 19:06 Pulse Rate 76 05/30/23 19:06 Pulse Rhythm Regular 05/30/23 19:06 Respiratory Rate 22 05/30/23 19:06 Blood Pressure 166/80 H 05/30/23 19:06 Blood Pressure Mean 108 H 05/30/23 19:06 Blood Pressure Position Sitting 05/30/23 19:06 Pulse Oximetry 92 05/30/23 19:06 Oxygen Delivery Method Nasal Cannula 05/30/23 19:06 Oxygen Flow Rate 1 05/30/23 19:06 Vital Signs Temperature 98.0 F 05/30/23 19:06 Pulse Rate 76 05/30/23 19:06 Respiratory Rate 22 05/30/23 19:06 Blood Pressure 166/80 H 05/30/23 19:06 Pulse Oximetry 92 05/30/23 19:06 Oxygen Delivery Method Nasal Cannula 05/30/23 19:06 Oxygen Flow Rate 1 05/30/23 19:06 Temperature 98.0 F 05/30/23 19:06 Pulse Rate 76 05/30/23 19:06 Respiratory Rate 22 05/30/23 19:06 Blood Pressure 166/80 H 05/30/23 19:06 Pulse Oximetry 92 05/30/23 19:06 Oxygen Delivery Method Nasal Cannula 05/30/23 19:06 Oxygen Flow Rate 1 05/30/23 19:06 Discharge Plan Discharge Clinical Impression: Closed wedge compression fracture of T7 vertebra Patient Disposition: Home, Self-Care Condition: Stable Instructions: Vertebral Compression Fracture (ED) Additional Instructions: P.r.n. oxycodone as you have been. Calcitonin as prescribed. Primary care follow-up as needed for ongoing symptoms. Prescriptions: New calcitonin (salmon) 200 unit/actuation spray,non-aerosol 1 spray intranasal (ALT) DAILY Qty: 3.7 2RF No Action amoxicillin 500 mg capsule 500 mg PO BID furosemide 40 mg tablet 40 mg PO BID atorvastatin 40 mg tablet 40 mg PO DAILY amiodarone 200 mg tablet 100 mg PO DAILY acetaminophen [Pain Reliever ES(acetaminophn)] 500 mg tablet 1,000 mg PO 3XD levothyroxine 100 mcg tablet 100 mcg PO QAM aspirin 81 mg tablet,chewable 1 tab PO DAILY albuterol sulfate 90 mcg/actuation HFA aerosol inhaler inhalation lamotrigine 100 mg tablet 200 mg PO QPM loratadine 10 mg tablet 10 mg PO DAILY Eliquis 2.5 mg tablet 2.5 mg PO BID melatonin 3 mg capsule 3 mg PO HS PRN sennosides [Marley-sheela] 8.6 mg tablet 8.6 mg PO BID tramadol 50 mg tablet PO potassium chloride 20 mEq tablet,ER particles/crystals 20 meq PO BID pantoprazole 40 mg tablet,delayed release (DR/EC) 40 mg PO DAILY simethicone [Gas Relief 80 (simethicone)] 80 mg tablet,chewable 80 mg PO QID PRN Follow Up/Referrals: Inder Tanner MD [Primary Care Provider] - Stand Alone Forms: [employer] Info Instructions
== END 2023-05-30 22:14 | disposition home or self-care (01) ==
PROVIDERS: Emergency Provider Emergency Medicine; PCP Family Medicine
DX: S22.060A Wedge compression fracture of T7-T8 vertebra, initial encounter for closed fracture (principal)
CPT/HCPCS: 71250; 99283; 99284

== ENCOUNTER 2023-06-04 12:59 | Outpatient (CLI) | payer BC, SELFPAY | END 2023-06-04 13:00 | disposition home or self-care (01) | LOC: AMB 06-06 16:13 | PROVIDERS: PCP Family Medicine; Visit Provider Emergency Medicine | DX: M54.9 Dorsalgia, unspecified (principal) | CPT/HCPCS: A0425; A0429 ==

== ENCOUNTER 2023-06-04 13:18 | Observation (INO) | payer BC, SELFPAY ==
[2023-06-04] VITALS (16 sets, daily range): BP systolic 134–162; BP diastolic 63–90; PULSE 62–84; RESP 16–20; TEMP 36.9–37; O2SAT 86–100; BMI 29.3; BMI 30.3
--- NOTE | 2023-06-04 14:22 | PC.NURSE ---
pt states the pain is ridiculous. taking medication today without relief.
--- NOTE | 2023-06-04 14:30 | CRLHL7_ITS ---
For Patients: As a result of the Century Cures Act, medical imaging exams and procedure reports are released immediately into your electronic medical record. You may view this report before your referring provider. If you have questions, please contact your health care provider. INDICATION: Severe thoracic back pain. Recent T7 fracture. TECHNIQUE: CT chest, abdomen and pelvis acquired without contrast. COMPARISON: CT chest May 30, 2023. FINDINGS: CHEST: Cardiovascular structures: Heart size is normal. Thoracic aorta and main pulmonary artery are normal in caliber. Coronary artery atherosclerosis is present. Mediastinum and ruben: Rnutlwvw-[id number]-tlbch hiatal hernia. No mass or lymphadenopathy. Lungs and pleura: Severe emphysema. No nodules or infiltrates. Pleural spaces are clear. No pneumothorax. Chest wall and axilla: No mass or adenopathy. Bones: Interval worsening of a moderately compressed T6 vertebral body compression fracture since the prior exam from 5 days ago. Unchanged subacute or chronic appearing sternal fracture. ABDOMEN AND PELVIS: Liver: Unremarkable. Gallbladder and bile ducts: Few tiny gallbladder stones. Pancreas: Unremarkable. Spleen: Unremarkable. Adrenal glands: Unremarkable. Kidneys: Unremarkable. GI tract: Moderate constipation pattern in the colon. Unremarkable small bowel. 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 Lymph nodes: Unremarkable. Miscellaneous: Unremarkable. No free air or significant free fluid. Pelvic Organs: Unremarkable. Bones: No suspicious bone lesions. Unremarkable for age. IMPRESSION: 1. This is a noncontrast exam due to infiltration of the IV. This precludes assessment for aortic dissection. Repeat exam with IV contrast would be necessary to re-evaluate for dissection if deemed necessary. 2. Interval worsening of a moderately compressed T6 vertebral body compression fracture compared to the prior exam from 5 days ago. 3. No other acute or specific finding to explain pain. Please note that all CT scans at this facility use dose modulation, iterative reconstruction, and/or weight-based dosing when appropriate to reduce radiation dose to as low as reasonably achievable. Dictated by Jesus Andino MD @ 06/04/2023 7:35:50 PM (Electronically Signed)
[2023-06-04] MEDS: ONDANSETRON 2 MG/ML inj 4 MG IVP (15:29)
[2023-06-04 15:30] LABS: Basophils Absolute Auto 0.03 K/uL (0.00-0.30); Basophils Percent Auto 0.4 % (0.0-3.0); Eosinophils Absolute Auto 0.16 K/uL (0.00-0.50); Eosinophils Percent Auto 2.2 % (0.0-7.0); Hematocrit 41.6 % (33.0-51.0); Immature Granulocytes Abs Auto 0.01 K/uL (0.00-0.30); Immature Granulocytes Pct Auto 0.1 %; Lymphocytes Percent Auto 13.6 % (20-44); Mean Corpuscular HGB Conc 31 gm/dL (32-36); Mean Corpuscular Hemoglobin 32 pg (26-34); Mean Corpuscular Volume 104 fL (80-100); Monocytes Percent Auto 10.2 % (0.0-11.0); Neutrophils Percent Auto 73.5 % (42.0-72.0); Platelet Count* 225 K/uL (140-440); Red Blood Count 4.02 m/uL (4.00-5.20); White Blood Count* 7.26 K/uL (4.50-11.00)
[2023-06-04] MEDS: HYDROmorphone 0.5 mg/0.5 ml inj IVP (15:30)
[2023-06-04 15:33] LABS: Slide Review Reflex No
[2023-06-04 15:43] LABS: Chloride* 102 mmol/L (96-114); Potassium* 4.4 mmol/L (3.6-5.1); Sodium* 141 mmol/L (135-149)
[2023-06-04 15:46] LABS: Anion Gap 6 mEq/L (7-15); Blood Urea Nitrogen* 25 mg/dL (7-30); Carbon Dioxide* 33 mmol/L (20-32); Creatinine* 1.3 mg/dL (0.5-1.5); Est. Creatinine Clearance* 24.11; Estimated Glomerular Filt Rate 40 ml/min
[2023-06-04 15:47] LABS: Calcium* 9.7 mg/dL (8.4-10.6); Glucose* 100 mg/dL (60-115)
[2023-06-04 16:01] LABS: Troponin I* < 0.01 ng/mL (0.01-0.04)
--- NOTE | 2023-06-04 16:23 | ED.GENADULT ---
HPI - General Adult General Date Seen: 06/04/23 Chief complaint: Back Injury/Pain Stated complaint: Ill Time Seen by Provider: 06/04/23 13:57 History of Present Illness HPI narrative: This is a pleasant 88-year-old female with a past history including osteoporosis, previous T5 compression fracture, recent T7 compression fracture, COPD, oxygen dependent on 1 L, who presents to the ER today with thoracic back pain. She was seen in the ER on 05/30 for thoracic back pain. She reports that about a week prior to that visit she had bent over to pick something up and had been having pain since then. No falls recently. She had a fall in February for which she was evaluated and had CT scans that apparently did not show any fractures. On 05/30, CT scan showed subacute T5 an acute T7 fractures CT chest 05/30 FINDINGS: Cardiovascular structures: Heart size is normal. Aortic wall and coronary artery calcifications. 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 Mediastinum and ruben: No sign of mass or adenopathy. Large hiatal hernia. Lungs: Emphysema. Pleura and pericardium: No effusions. Chest wall and axilla: No mass or adenopathy. Upper abdomen: Likely layering gallbladder sludge. There is a left-sided Bochdalek hernia. Bones: Status post left shoulder arthroplasty increased kyphosis of the thoracic spine. Old T5 compression fracture. New T7 compression fracture with less than 20 percent vertebral height loss. Old fracture of the proximal sternum. IMPRESSION: New mild compression fracture of the T7 vertebral body. She had been on long-term oxycodone for previous injuries. Not liking the pain medication she had been trying to wean herself off the oxycodone in the weeks leading up to her most recent injury. Since she had bent over to injured her back she has been eating more oxycodone again. She thinks she is taking approximately 3 pills per day. She had 2 pills yesterday, a bili midnight, and another dose this morning. She feels like it is no longer helping her pain. Up until yesterday had been somewhat effective but today her pain is uncontrolled by her usual dose of oxycodone. She does not have any new injuries. The pain is still radiating across the back of her thorax. It is severe and excruciating in nature. It does not radiate through to the front. It hurts when she breathes in and out, but no other shortness of breath. She is on her baseline oxygen supplementation. No abdominal pain. Related Data Home Medications Medication Instructions Recorded Confirmed acetaminophen 500 mg tablet (Pain 1,000 mg PO 3XD 03/05/23 03/05/23 Reliever Extra Strength (acetaminophen)) albuterol sulfate 90 mcg/actuation inhalation 03/05/23 aerosol inhaler amiodarone 200 mg tablet 100 mg PO DAILY 03/05/23 03/05/23 amoxicillin 500 mg capsule 500 mg PO BID 03/05/23 03/05/23 apixaban 2.5 mg tablet (Eliquis) 2.5 mg PO BID 03/05/23 03/05/23 aspirin 81 mg chewable tablet 1 tab PO DAILY 03/05/23 03/05/23 atorvastatin 40 mg tablet 40 mg PO DAILY 03/05/23 03/05/23 furosemide 40 mg tablet 40 mg PO BID 03/05/23 03/05/23 lamotrigine 100 mg tablet 200 mg PO QPM 03/05/23 03/05/23 levothyroxine 100 mcg tablet 100 mcg PO QAM 03/05/23 03/05/23 loratadine 10 mg tablet 10 mg PO DAILY 03/05/23 03/05/23 melatonin 3 mg capsule 3 mg PO HS PRN 03/05/23 03/05/23 pantoprazole 40 mg tablet,delayed 40 mg PO DAILY 03/05/23 03/05/23 release potassium chloride 20 mEq 20 meq PO BID 03/05/23 03/05/23 tablet,extended release(part/cryst) sennosides 8.6 mg tablet (Marley-sheela) 8.6 mg PO BID 03/05/23 03/05/23 simethicone 80 mg chewable tablet 80 mg PO QID PRN 03/05/23 03/05/23 (Gas Relief 80 (simethicone)) tramadol 50 mg tablet mg PO 03/05/23 Previous Rx's Medication Instructions Recorded calcitonin (salmon) 200 1 spray intranasal (ALT) DAILY 05/30/23 unit/actuation nasal spray #3.7 mL Allergies Allergy/AdvReac Type Severity Reaction Status Date / Time No Known Drug Allergies Allergy Verified 06/04/23 13:23 [facility] Medical History (Updated 06/04/23 @ 17:03 by Alcon Mittal MD) POLST (Physician Orders for Life-Sustaining Treatment) ?Z78.9 - Other specified health status (ICD-10) Social History Smoking Status: Former smoker Do you use any of these nicotine containing products: None How often do you have a drink containing alcohol: never AUDIT-C Alcohol total score: 0 Non-prescribed substance use: denies use service: No Exam Narrative: Exam Narrative: Constitutional: Appears well-developed and well-nourished. Alert. Conversant. Non toxic. Breathing easily on nasal cannula. HENT: Head: Atraumatic. Nose: Nose normal. Mouth/Throat: Oral mucosa is clear and moist. no trismus. Pharynx normal. Tonsils symmetric. No tonsillar enlargement, erythema, or exudate. Eyes: Conjunctivae normal. EOM normal. Pupils equal, round, and reactive to light. No scleral icterus. Neck: Normal range of motion. Neck supple. No tracheal deviation present. Cardiovascular: Normal rate, regular rhythm. No gallop. No friction rub. No murmur heard. Symmetric radial artery pulses Pulmonary/Chest: Effort normal. No stridor. No respiratory distress. No wheezes. No rales. No rhonchi . No tenderness. Abdominal: Soft. Bowel sounds normal. No distension. No mass. No tenderness. No rebound. No guarding. Musculoskeletal: RUE: Normal range of motion. No tenderness. No deformity LUE: Normal range of motion. No tenderness. No deformity RLE: Normal range of motion. No edema. No tenderness. No deformity LLE: Normal range of motion. No edema. No tenderness. No deformity Marked tenderness across her thoracic back. no rash. no bruising. No midline step-off. Neurological: Alert and oriented to person, place, and time. Normal strength. CN II-VII intact. No sensory deficit. GCS eye subscore is 4. GCS verbal subscore is 5. GCS motor subscore is 6. Normal flexion and extension of her hips, knees, ankles. Intact sensory function bilaterally in the lower extremities. Normal coordination D[employer] Worker strength 5/5 bilaterally. Biceps, triceps 5/5 bilaterally. Skin: Skin is warm and dry. No rash noted. No pallor. Normal capillary refill. Psychiatric: Normal mood. Normal affect. Const: Vital Signs, click to edit/add: Vital Signs - 24 hr 06/04/23 13:20 06/04/23 14:21 Temperature 98.4 F Pulse Rate [Right Pulse Oximeter] 72 66 Respiratory Rate 18 18 Blood Pressure [Ri t Upper Arm] 150/75 H 162/83 H Pulse Oximetry 95 97 Oxygen Delivery Me thod Nasal Cannula Nasal Cannula Oxygen Flow Rate 2 2 Course Vital Signs Vital signs: Initial Vital Signs Temperature 98.4 F 06/04/23 13:20 Temperature Source Temporal Artery Scan 06/04/23 13:20 Pulse Rate 72 06/04/23 13:20 Pulse Rhythm Regular 06/04/23 13:20 Pulse Strength 3+ Normal 06/04/23 13:20 Respiratory Rate 18 06/04/23 13:20 Blood Pressure 150/75 H 06/04/23 13:20 Blood Pressure Mean 100 06/04/23 13:20 Blood Pressure Position Supine 06/04/23 13:20 Pulse Oximetry 95 06/04/23 13:20 Oxygen Delivery Method Nasal Cannula 06/04/23 13:20 Oxygen Flow Rate 2 06/04/23 13:20 Vital Signs Temperature 98.4 F 06/04/23 13:20 Pulse Rate 72 06/04/23 13:20 Respiratory Rate 18 06/04/23 13:20 Blood Pressure 150/75 H 06/04/23 13:20 Pulse Oximetry 95 06/04/23 13:20 Oxygen Delivery Method Nasal Cannula 06/04/23 13:20 Oxygen Flow Rate 2 06/04/23 13:20 Temperature 98.4 F 06/04/23 13:20 Pulse Rate 66 06/04/23 14:21 Respiratory Rate 18 06/04/23 14:21 Blood Pressure 162/83 H 06/04/23 14:21 Pulse Oximetry 97 06/04/23 14:21 Oxygen Delivery Method Nasal Cannula 06/04/23 14:21 Oxygen Flow Rate 2 06/04/23 14:21 Medical Decision Making MDM Narrative Medical decision making narrative: This is a pleasant 88-year-old female who has a past medical history of COPD (on chronic oxygen) and a recent T7 thoracic compression fracture who presents to the ER today with worsening pain in her upper back. She did not have any recent fall took to cause her T7 fracture but it sounds like it happened when she was bending forward. No clear new injury in the past couple of days to explain her worsening pain. I have ordered repeat CT scan of her chest to reassess the fracture to see if it is worsening or if there are other associated injuries. Differential would also include non orthopedic causes of her upper back pain. I have ordered a aortic protocol CT chest to evaluate for possible aortic dissection. EKG nonischemic and troponin negative. No evidence for acute coronary syndrome. No cough or fever or new shortness of breath or new hypoxia to suggest pneumonia or pleural effusion. At this point initial lab workup and EKG are reassuring. Her chest imaging has been delayed due to the busy ER. I have discussed this patient with my oncoming partner and she will follow up on the chest CT results. Lab Data Labs: Lab Results 06/04/23 Range/Units 15:03 WBC 7.26 (4.50-11.00) K/uL RBC 4.02 (4.00-5.20) m/uL Hgb 13.0 (12.0-16.0) gm/dL Hct 41.6 (33.0-51.0) % MCV 104 H (80-100) fL MCH 32 (26-34) pg MCHC 31 L (32-36) gm/dL RDW Coeff of Chely 13.0 (11.5-15.5) % Plt Count 225 (140-440) K/uL Neut % (Auto) 73.5 H (42.0-72.0) % Lymph % (Auto) 13.6 L (20-44) % [place] % (Auto) 10.2 (0.0-11.0) % Eos % (Auto) 2.2 (0.0-7.0) % Baso % (Auto) 0.4 (0.0-3.0) % Neut # (Auto) 5.30 (1.7-7.0) K/uL Lymph # (Auto) 1.00 (0.90-2.90) K/uL [place] # (Auto) 0.70 (0.00-0.90) K/UL Eos # (Auto) 0.16 (0.00-0.50) K/uL Baso # (Auto) 0.03 (0.00-0.30) K/uL Abs Immat Gran (auto) 0.01 (0.00-0.30) K/uL Imm/Tot Granulo (auto) 0.1 % Sodium 141 (135-149) mmol/L Potassium 4.4 (3.6-5.1) mmol/L Chloride 102 (96-114) mmol/L Carbon Dioxide 33 H (20-32) mmol/L Anion Gap 6 L (7-15) mEq/L BUN 25 (7-30) mg/dL Creatinine 1.3 (0.5-1.5) mg/dL Estimated Creat Clear 24.11 Estimated GFR 40 ml/min Glucose 100 (60-115) mg/dL Calcium 9.7 (8.4-10.6) mg/dL Troponin I < 0.01 L (0.01-0.04) ng/mL Discharge Plan Discharge Clinical Impression: Acute thoracic back pain Prescriptions: No Action calcitonin (salmon) 200 unit/actuation spray,non-aerosol 1 spray intranasal (ALT) DAILY Qty: 3.7 2RF amoxicillin 500 mg capsule 500 mg PO BID furosemide 40 mg tablet 40 mg PO BID atorvastatin 40 mg tablet 40 mg PO DAILY amiodarone 200 mg tablet 100 mg PO DAILY acetaminophen [Pain Reliever ES(acetaminophn)] 500 mg tablet 1,000 mg PO 3XD levothyroxine 100 mcg tablet 100 mcg PO QAM aspirin 81 mg tablet,chewable 1 tab PO DAILY albuterol sulfate 90 mcg/actuation HFA aerosol inhaler inhalation lamotrigine 100 mg tablet 200 mg PO QPM loratadine 10 mg tablet 10 mg PO DAILY Eliquis 2.5 mg tablet 2.5 mg PO BID melatonin 3 mg capsule 3 mg PO HS PRN sennosides [Marley-sheela] 8.6 mg tablet 8.6 mg PO BID tramadol 50 mg tablet PO potassium chloride 20 mEq tablet,ER particles/crystals 20 meq PO BID pantoprazole 40 mg tablet,delayed release (DR/EC) 40 mg PO DAILY simethicone [Gas Relief 80 (simethicone)] 80 mg tablet,chewable 80 mg PO QID PRN Follow Up/Referrals: Inder Tanner MD [Primary Care Provider] -
[2023-06-04] MEDS: OXYCODONE 5 MG TABLET 7.5 MG PO (17:38)
--- NOTE | 2023-06-04 22:52 | PC.NURSE ---
Pt admitted at 2100 accompanied by her son Herbert. She requests him to be her primary contact. VSS, slightly hypertensive and 94% on 1.5L/O2 via NC. She states she is comfortable in a semi-awad's position. She's able to move to the BSC with assist of 1-2 and she has been continent. Pupils noticeably constricted. Occasionally trials off during conversation but is overall a/o and able to verbalize her needs. IV to right AC infiltrated prior to arrival on /S resulting in significant edema. Right arm elevated.
--- NOTE | 2023-06-04 23:27 | P.IMHP_ITS ---
Hospitalist- H&P: [facility] History of Present Illness Time Seen by Provider: 21:00 Date Seen: 06/04/23 Chief complaint: Worsening back pain, s/p T6 compression fracture Narrative: Amy Lobo is a 88 year old woman with advanced osteoporosis presents to the emergency department on 05/30/2023 for thoracic back pain assessment. 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 It did not resolve. It seemed to get worse over time. Thus she presented for assessment on 05/30/2023. CT scan at that time demonstrated subacute T5 fracture and acute T7 fracture. Was started on calcitonin, schedule acetaminophen, as needed oxycodone. Her pain has not resolved since. Her pain has gotten worse. She started schedule oxycodone in addition to the as needed oxycodone and the pain still is not adequately controlled. That she presents to the emergency department tonight. Denies urinary incontinence or bowel incontinence. Continues to be able to stand and move. Hard for her to get comfortable. Notes chronic constipation. Denies any other weakness. Review of Systems Status of ROS: Reports: 10 or more systems reviewed and unremarkable except as noted in History and below Narrative: She notes her thoughts are not as clear as they have been. She thinks part of it is the pain in the other part is the medicine she is using to treat the pain. Because of her discomfort she has not been as interested in eating and drinking. Denies nausea or vomiting. Denies cardiopulmonary symptoms aside from her chronic usual. [facility] Medical History (Updated 06/04/23 @ 23:41 by Carlos Vieira MD) Chronic hypoxemic respiratory failure ?J96.11 - Chronic respiratory failure with hypoxia (ICD-10) Former smoker ?Z87.891 - Personal history of nicotine dependence (ICD-10) Chronic diastolic heart failure ?I50.32 - Chronic diastolic (congestive) heart failure (ICD-10) Chronic kidney disease, stage 3b ?N18.32 - Chronic kidney disease, stage 3b (ICD-10) Normal pressure hydrocephalus ?G91.2 - (Idiopathic) normal pressure hydrocephalus (ICD-10) Diaphragmatic hernia ?K44.9 - Diaphragmatic hernia without obstruction or gangrene (ICD-10) Gastroesophageal reflux disease ?K21.9 - Gastro-esophageal reflux disease without esophagitis (ICD-10) Major depressive disorder ?F32.9 - Major depressive disorder, single episode, unspecified (ICD-10) Bipolar II disorder ?F31.81 - Bipolar II disorder (ICD-10) Osteoporosis ?M81.0 - Age-related osteoporosis without current pathological fracture (ICD- 10) Ventricular premature complexes ?I49.3 - Ventricular premature depolarization (ICD-10) Pulmonary hypertension ?I27.20 - Pulmonary hypertension, unspecified (ICD-10) Paroxysmal atrial fibrillation ?I48.0 - Paroxysmal atrial fibrillation (ICD-10) Primary hypothyroidism ?E03.9 - Hypothyroidism, unspecified (ICD-10) Essential hypertension ?I10 - Essential (primary) hypertension (ICD-10) Hyperlipidemia ?E78.5 - Hyperlipidemia, unspecified (ICD-10) History of bacteremia ?Z87.898 - Personal history of other specified conditions (ICD-10) Unspecified dementia, unspecified severity, without behavioral disturbance, psychotic disturbance, mood disturbance, and anxiety ?F03.90 - Unspecified dementia, unspecified severity, without behavioral disturbance, psychotic disturbance, mood disturbance, and anxiety (ICD-10) Spondylosis of lumbar spine ?M47.816 - Spondylosis without myelopathy or radiculopathy, lumbar region (ICD-10) History of COVID-19 ?Z86.16 - Personal history of COVID-19 (ICD-10) Peripheral vascular disease ?I73.9 - Peripheral vascular disease, unspecified (ICD-10) COPD (chronic obstructive pulmonary disease) ?J44.9 - Chronic obstructive pulmonary disease, unspecified (ICD-10) POLST (Physician Orders for Life-Sustaining Treatment) ?Z78.9 - Other specified health status (ICD-10) Surgical History (Updated 06/04/23 @ 23:27 by Carlos Vieira MD) Status post hysterectomy ?Z90.710 - Acquired absence of both cervix and uterus (ICD-10) Acquired absence of both cervix and uterus ?Z90.710 - Acquired absence of both cervix and uterus (ICD-10) Social History (Updated 06/04/23 @ 23:25 by Carlos Vieira MD) Narrative: Lives in assisted living facility, [place], [place]. Her son, Herbert Lobo, is her power of contract attorney for health should that be required, cell phone [phone]. Requests DNR DNI resuscitation status. Dr. Inder Tanner is her primary care physician What is your current living situation?: I presently have a place to live Problems where you live: no known problems Problems where you live details: N/A In the past 12 months, utilities in danger of being shut off: no In the past 12 mos, have been you worried that your food would run out before you had money to buy more?: never true In the past 12 mos, the food you bought just didn't last and you didn't have money to buy more?: never true Highest level of school completed/degree received: Associate degree: o ccupational, technical, vocational program Smoking Status: Former smoker Do you use any of these nicotine containing products: None How often do you have a drink containing alcohol: never AUDIT-C Alcohol total score: 0 Non-prescribed substance use: denies use Caffeine: Yes How often does anyone, including family, friends and others, physically hurt you : never How often does anyone, including family, friends and others, insult or talk down to you: never How often does anyone, including family, friends and others, threaten you with harm: never How often does anyone, including family, friends and others, scream or curse at you: never service: No Meds Home Medications and Allergies Home Medications Medication Instructions Recorded Confirmed Type acetaminophen 500 mg tablet (Pain 1,000 mg PO 3XD 03/05/23 03/05/23 History Reliever Extra Strength (acetaminophen)) albuterol sulfate 90 mcg/actuation inhalation 03/05/23 History aerosol inhaler amiodarone 200 mg tablet 100 mg PO DAILY 03/05/23 03/05/23 History amoxicillin 500 mg capsule 500 mg PO BID 03/05/23 03/05/23 History apixaban 2.5 mg tablet (Eliquis) 2.5 mg PO BID 03/05/23 03/05/23 History aspirin 81 mg chewable tablet 1 tab PO DAILY 03/05/23 03/05/23 History atorvastatin 40 mg tablet 40 mg PO DAILY 03/05/23 03/05/23 History furosemide 40 mg tablet 40 mg PO BID 03/05/23 03/05/23 History lamotrigine 100 mg tablet 200 mg PO QPM 03/05/23 03/05/23 History levothyroxine 100 mcg tablet 100 mcg PO QAM 03/05/23 03/05/23 History loratadine 10 mg tablet 10 mg PO DAILY 03/05/23 03/05/23 History melatonin 3 mg capsule 3 mg PO HS PRN 03/05/23 03/05/23 History pantoprazole 40 mg tablet,delayed 40 mg PO DAILY 03/05/23 03/05/23 History release potassium chloride 20 mEq 20 meq PO BID 03/05/23 03/05/23 History tablet,extended release(part/cryst) sennosides 8.6 mg tablet (Marley-sheela) 8.6 mg PO BID 03/05/23 03/05/23 History simethicone 80 mg chewable tablet 80 mg PO QID PRN 03/05/23 03/05/23 History (Gas Relief 80 (simethicone)) tramadol 50 mg tablet mg PO 03/05/23 History Allergies Allergy/AdvReac Type Severity Reaction Status Date / Time No Known Drug Allergies Allergy Verified 06/04/23 13:23 Exam 2 Narrative: Exam Narrative: I examine her in her hospital room. Appears comfortable and in no acute distress when laying still. Able to transfer and ambulate with standby assist. Vision and hearing are both grossly adequate. Alert, oriented to self, place, time, in part to situation. Looks to her son, Herbert Lobo, to help her with some of her recollection and thoughts. Articulate and cooperative. Mood and affect are congruent. Tympanic membranes are normal bilaterally. Midline nasal septum. Buccal mucosa is moist. Dentition in fair repair. Pupils equally round and reactive to light and accommodation. Extraocular muscles are intact. Conjugate gaze. No icterus or conjunctival injection. Neck is supple. Midline trachea. No JVD or hepatojugular reflux. No carotid bruits. Lungs clear auscultation at this time. Barrel-shaped chest. Chest wall excursions full with respiratory efforts. No CVA tenderness. Tenderness to palpation mid thoracic spine. Heart tones with regular rhythm, normal S1-S2. Distant sounds. Abdomen with active bowel sounds, soft, nontender. Extravasation of right proximal arm or patient was given IV contrast at time of CT scan. Trace edema pretibial bilaterally. No focal motor neurologic deficits. Const: Vital Signs, click to edit/add: Vital Signs - 24 hr 06/04/23 13:20 06/04/23 14:21 06/04/23 15:38 Temperature 98.4 F Pulse Rate 67 Pulse Rate [Right Pulse Oximeter] 72 66 Respiratory Rate 18 18 Blood Pressure Blood Pressure [Ri ght Arm] Blood Pressure [Ri ght Upper Arm] 150/75 H 162/83 H Pulse Oximetry 95 97 98 Oxygen Delivery Me thod Nasal Cannula Nasal Cannula Oxygen Flow Rate 2 2 06/04/23 15:45 06/04/23 16:00 06/04/23 16:15 Temperature Pulse Rate 67 68 78 Pulse Rate [Right Pulse Oximeter] Respiratory Rate Blood Pressure Blood Pressure [Ri ght Arm] Blood Pressure [Ri ght Upper Arm] Pulse Oximetry 98 99 100 Oxygen Delivery Me thod Oxygen Flow Rate 06/04/23 18:30 06/04/23 18:41 06/04/23 18:45 Temperature Pulse Rate 62 67 Pulse Rate [Right Pulse Oximeter] Respiratory Rate Blood Pressure 135/74 Blood Pressure [Ri ght Arm] Blood Pressure [Ri ght Upper Arm] Pulse Oximetry 91 91 Oxygen Delivery Me thod Oxygen Flow Rate 06/04/23 19:00 06/04/23 19:00 06/04/23 19:00 Temperature Pulse Rate 68 Pulse Rate [Right Pulse Oximeter] Respiratory Rate Blood Pressure Blood Pressure [Ri ght Arm] Blood Pressure [Ri ght Upper Arm] Pulse Oximetry 92 97 98 Oxygen Delivery Me thod Nasal Cannula Oxygen Flow Rate 2 06/04/23 19:01 06/04/23 19:15 06/04/23 19:21 Temperature Pulse Rate 67 69 66 Pulse Rate [Right Pulse Oximeter] Respiratory Rate Blood Pressure 145/79 H 134/90 H Blood Pressure [Ri ght Arm] Blood Pressure [Ri ght Upper Arm] Pulse Oximetry 91 91 91 Oxygen Delivery Me thod Oxygen Flow Rate 06/04/23 19:36 06/04/23 20:19 06/04/23 21:06 Temperature 98.4 F 98.6 F Pulse Rate 84 Pulse Rate [Right Pulse Oximeter] 66 73 Respiratory Rate 18 20 Blood Pressure Blood Pressure [Ri ght Arm] 160/63 H Blood Pressure [Ri ght Upper Arm] 162/83 H Pulse Oximetry 86 L 91 Oxygen Delivery Me thod Nasal Cannula Oxygen Flow Rate 2 06/04/23 21:06 Temperature Pulse Rate Pulse Rate [Right Pulse Oximeter] Respiratory Rate 16 Blood Pressure Blood Pressure [Ri ght Arm] Blood Pressure [Ri ght Upper Arm] Pulse Oximetry 94 Oxygen Delivery Me thod Nasal Cannula Oxygen Flow Rate 1.5 Documenting provider has reviewed patient's vital signs: yes Hospitalist - H&P: Result Labs Labs: Short CBC 06/04/23 Range/Units 15:03 WBC 7.26 (4.50-11.00) K/uL Hgb 13.0 (12.0-16.0) gm/dL Hct 41.6 (33.0-51.0) % Plt Count 225 (140-440) K/uL BMP 06/04/23 15:03 Sodium 141 Potassium 4.4 Chloride 102 Carbon Dioxide 33 H BUN 25 Creatinine 1.3 Glucose 100 Calcium 9.7 Cardiac Enzymes 06/04/23 Range/Units 15:03 Troponin I < 0.01 L (0.01-0.04) ng/mL Imaging CT scan of abdomen and pelvis: Attestation: I have reviewed the pertinent imaging results. Radiologist's impression: 06/04/2023 IMPRESSION: 1. This is a noncontrast exam due to infiltration of the IV. This precludes assessment for aortic dissection. Repeat exam with IV contrast would be necessary to re-evaluate for dissection if deemed necessary. 2. Interval worsening of a moderately compressed T6 vertebral body compression fracture compared to the prior exam from 5 days ago. 3. No other acute or specific finding to explain pain. Assessment and Plan Assessment and plan (1) Extravasation of intravenous contrast medium: Problem comment: Proximal right arm, 06/04/2023 Status: Acute (2) Acute thoracic back pain: Status: Acute (3) Closed wedge compression fracture of T7 vertebra: Problem comment: 06/04/2023: Progression of acute fracture 1st noted on 05/30/2023. No neurologic deficits. Status: Acute (4) Osteoporosis: Status: Acute Plan 1. Reviewed impression with patient and her son, Herbert. Answered their questions. 2. Admit to observation. 3. Physical therapy, occupational therapy, and social services specialist to assist with assessment and establishment of safe discharge disposition plan. Ordinarily lives at [place], [place]. Would prefer to return there if at all possible. Is open to short terms transitional care services if warranted. 4. Scheduled acetaminophen, scheduled oxycodone, p.r.n. oxycodone. Anti muscle spasmodic p.r.n.. Consider lidocaine patch. Intranasal calcitonin. 5. Continue with other supportive efforts. 6. Warm compression to area of extravasation right proximal arm. 7. Consider additional osteoporosis treatment in outpatient setting. 8. Patient and son are agreeable to above stated plans and recommendations.
[2023-06-05 01:00] VITALS: BP 141/62; PULSE 63; PULSE 73; RESP 16; RESP 18; TEMP 36.4; O2SAT 92
[2023-06-05] MEDS: OXYCODONE 5 MG TABLET PO ×2 (01:20→09:10)
[2023-06-05] MEDS: HYDROmorphone 0.5 mg/0.5 ml inj IVP ×2 (01:27→06:23)
[2023-06-05] MEDS: SODIUM CHLORIDE 0.9 % (FLUSH) 10 ML SYRINGE 5 ML IVF ×3 (01:27→09:21)
[2023-06-05 01:46] LABS: Appearance Urine Clear (Clear); Bilirubin Urine Negative (Negative); Blood Urine Negative (Negative); Color Urine Yellow (Yellow); Glucose Urine Negative (Negative); Ketones Urine Negative (Negative); Leukocyte Esterase Urine Negative (Negative); Nitrite Urine Negative (Negative); Protein Urine Negative (Negative); Urobilinogen Urine 0.2 (0.2-1.0); pH Urine 5.5 (5.0-8.5)
[2023-06-05 01:55] LABS: RBC Urine 0-2 (0-2); Squamous Epithelial Cell Urine Few (None-Few); WBC Urine 0-2 (0-5)
[2023-06-05 01:56] LABS: Bacteria Urine Few
[2023-06-05 06:00] VITALS: BP 132/60; PULSE 62; RESP 18; TEMP 36.5; O2SAT 93
[2023-06-05] MEDS: LEVOTHYROXINE 100 MCG TABLET PO (06:25)
[2023-06-05 07:00] VITALS: BP 128/64; PULSE 71; RESP 18; TEMP 36.1; O2SAT 94
--- NOTE | 2023-06-05 07:28 | PC.NURSE ---
END OF SHIFT NOTE: PT PLEASANT AND COOPERATIVE. A&Ox3. DENIES CP, SOB, N/V. A2 PIVOT TO BSC. VSS ON 2L NC; AFEBRILE. C/O BACK PAIN 4-5/10 WITH RELIEF FROM PRN PAIN MEDS (SEE EMAR). BED ALARM ON AND CALL LIGHT WITHIN PT?S REACH.
[2023-06-05] MEDS: POTASSIUM CHLORIDE 10 MEQ CAPSULE ER 20 MEQ PO (09:09)
[2023-06-05] MEDS: ACETAMINOPHEN 325 MG TABLET 650 MG PO (09:10)
[2023-06-05] MEDS: ASPIRIN 81 MG TAB.CHEW PO (09:10)
[2023-06-05] MEDS: GABAPENTIN 100 MG CAPSULE PO (09:10)
[2023-06-05] MEDS: SENNOSIDES/DOCUSATE TABLET 1 TAB PO (09:13)
[2023-06-05] MEDS: APIXABAN 5 MG TABLET 2.5 MG PO (09:13)
[2023-06-05] MEDS: OMEPRAZOLE 20 MG CAPSULE DR 40 MG PO (09:13)
[2023-06-05] MEDS: FUROSEMIDE 40 MG TABLET PO (09:13)
[2023-06-05] MEDS: AMIODARONE 200 MG TABLET 100 MG PO (09:13)
[2023-06-05] MEDS: ATORVASTATIN CALCIUM 40 MG TABLET PO (09:13)
[2023-06-05] MEDS: AMOXICILLIN 250 MG CAPSULE 500 MG PO (09:17)
[2023-06-05] MEDS: ALBUTEROL INHALER 2 PUFF IH (09:17)
[2023-06-05] MEDS: CALCITONIN SALMON NASAL SPRAY 200 UNIT 1 SPRAY NOSTRIL-B (09:18)
--- NOTE | 2023-06-05 10:21 | P.IMPN_ITS ---
Progress Note: A&P Assessment and plan (1) Acute thoracic back pain: Problem details: -Acute on chronic back pain, old T5 fracture along with new T7 fracture noted on CT 05/30/23. T6 fracture noted on CT 06/04/23. Nontraumatic, no falls. H/o osteoporosis -scheduled Tylenol, lidocaine patch, oxycodone p.r.n., ice/heat as needed -senna b.i.d., MiraLax p.r.n. -up with assist, fall precautions -PT/OT consults pending -social studies department chair to assist with discharge planning, may need increased services at [facility] versus SNF placement, patient in agreement Status: Acute (2) Closed wedge compression fracture of T7 vertebra: Problem details: -acute T6/T7 fractures. Management as above Status: Acute (3) Hyperlipidemia: Problem details: -continue statin Status: Acute (4) Essential hypertension: Problem details: -continue amiodarone Status: Acute (5) COPD (chronic obstructive pulmonary disease): Problem details: -baseline 1-2 L O2 per NC. DuoNebs q.i.d., continue home inhalers Status: Acute (6) Paroxysmal atrial fibrillation: Problem details: -on chronic anticoagulation, continue apixaban Status: Acute (7) Chronic kidney disease, stage 3b: Problem details: -creatinine at baseline 1.3, avoid nephrotoxic medications, continue to monitor Status: Acute (8) Chronic diastolic heart failure: Problem details: -Continue furosemide, monitor Status: Acute Plan CODE: DNR/DNI VTE PPX: Apixaban Disposition: Observation, social studies department chair to assist with discharge planning/placement needs Time Spent With Patient Total time spent: Total time spent caring for the patient today was 45 minutes. This includes time spent for the visit reviewing the chart, time spent during the visit, time spent after the visit and documentation and planning in coordination of care. Subjective Date Seen: 06/05/23 Interval history: Patient reports feeling better this morning with improvement in back pain. Slept well overnight. Denies headache or dizziness. Denies chest pain. Smita rtness of breath no worse than usual however has noticed she is more wheezy. Normally uses 1-2 L O2 per NC at home. Uses nebulizers and inhalers at home. Tolerating orals without nausea vomiting. Tells me she is ?discouraged? with her back pain. Has been using scheduled Tylenol which she feels was not helpful. Was previously on tramadol but has since been transitioned to oxycodone. Uses senna twice daily while on narcotics but continues to have issues with constipation. Does not like using MiraLax however as it causes large messy bowel movements. Exam Narrative: Exam Narrative: PHYSICAL EXAM General: Sitting up in bed, very pleasant, conversant, NAD HEENT: Normocephalic, atraumatic, sclera white, EOMI, oral mucosa moist Cardiovascular: RRR, S1S2. No pitting edema Pulmonary: Mildly diminished, few extra wheezes noted, no dyspnea on N/C Abdominal: Soft, nondistended, NTTP Neurological: Alert, answering questions appropriately, cranial nerves intact, no focal findings Extremities: No gross joint deformity or swelling. AROMI Skin: Warm, dry. No rash Const: Vital Signs, click to edit/add: Vital Signs - 24 hr 06/04/23 13:20 06/04/23 14:21 06/04/23 15:38 Temperature 98.4 F Pulse Rate 67 Pulse Rate [Right Pulse Oximeter] 72 66 Respiratory Rate 18 18 Blood Pressure Blood Pressure [Ri ght Arm] Blood Pressure [Ri ght Upper Arm] 150/75 H 162/83 H Pulse Oximetry 95 97 98 Oxygen Delivery Me thod Nasal Cannula Nasal Cannula Oxygen Flow Rate 2 2 06/04/23 15:45 06/04/23 16:00 06/04/23 16:15 Temperature Pulse Rate 67 68 78 Pulse Rate [Right Pulse Oximeter] Respiratory Rate Blood Pressure Blood Pressure [Ri ght Arm] Blood Pressure [Ri ght Upper Arm] Pulse Oximetry 98 99 100 Oxygen Delivery Me thod Oxygen Flow Rate 06/04/23 18:30 06/04/23 18:41 06/04/23 18:45 Temperature Pulse Rate 62 67 Pulse Rate [Right Pulse Oximeter] Respiratory Rate Blood Pressure 135/74 Blood Pressure [Ri ght Arm] Blood Pressure [Ri ght Upper Arm] Pulse Oximetry 91 91 Oxygen Delivery Me thod Oxygen Flow Rate 06/04/23 19:00 06/04/23 19:00 06/04/23 19:00 Temperature Pulse Rate 68 Pulse Rate [Right Pulse Oximeter] Respiratory Rate Blood Pressure Blood Pressure [Ri ght Arm] Blood Pressure [Ri ght Upper Arm] Pulse Oximetry 92 97 98 Oxygen Delivery Me thod Nasal Cannula Oxygen Flow Rate 2 06/04/23 19:01 06/04/23 19:15 06/04/23 19:21 Temperature Pulse Rate 67 69 66 Pulse Rate [Right Pulse Oximeter] Respiratory Rate Blood Pressure 145/79 H 134/90 H Blood Pressure [Ri ght Arm] Blood Pressure [Ri ght Upper Arm] Pulse Oximetry 91 91 91 Oxygen Delivery Me thod Oxygen Flow Rate 06/04/23 19:36 06/04/23 20:19 06/04/23 21:06 Temperature 98.4 F 98.6 F Pulse Rate 84 Pulse Rate [Right Pulse Oximeter] 66 73 Respiratory Rate 18 20 Blood Pressure Blood Pressure [Ri ght Arm] 160/63 H Blood Pressure [Ri ght Upper Arm] 162/83 H Pulse Oximetry 86 L 91 Oxygen Delivery Me thod Nasal Cannula Oxygen Flow Rate 2 06/04/23 21:06 06/05/23 01:00 06/05/23 01:00 Temperature Pulse Rate Pulse Rate [Right Pulse Oximeter] 63 Respiratory Rate 16 18 18 Blood Pressure Blood Pressure [Ri ght Arm] Blood Pressure [Ri ght Upper Arm] Pulse Oximetry 94 92 Oxygen Delivery Me thod Nasal Cannula Nasal Cannula Oxygen Flow Rate 1.5 2 06/05/23 01:00 06/05/23 06:00 06/05/23 07:00 Temperature 97.6 F 97.7 F Pulse Rate Pulse Rate [Right Pulse Oximeter] 73 62 71 Respiratory Rate 16 18 18 Blood Pressure Blood Pressure [Ri ght Arm] 141/62 H 132/60 Blood Pressure [Ri ght Upper Arm] Pulse Oximetry 92 93 Oxygen Delivery Me thod Nasal Cannula Nasal Cannula Oxygen Flow Rate 2 2 06/05/23 07:00 06/05/23 07:00 Temperature 97.0 F L Pulse Rate Pulse Rate [Right Pulse Oximeter] 71 Respiratory Rate 18 18 Blood Pressure Blood Pressure [Ri ght Arm] 128/64 Blood Pressure [Ri ght Upper Arm] Pulse Oximetry 94 94 Oxygen Delivery Me thod Nasal Cannula Nasal Cannula Oxygen Flow Rate 2 2 Labs Labs: Laboratory Results - last 24 hr 06/04/23 06/05/23 15:03 01:30 WBC 7.26 RBC 4.02 Hgb 13.0 Hct 41.6 MCV 104 H MCH 32 MCHC 31 L RDW Coeff of [place] 13.0 Plt Count 225 Neut % (Auto) 73.5 H Lymph % (Auto) 13.6 L [place] % (Auto) 10.2 Eos % (Auto) 2.2 Baso % (Auto) 0.4 Neut # (Auto) 5.30 Lymph # (Auto) 1.00 [place] # (Auto) 0.70 Eos # (Auto) 0.16 Baso # (Auto) 0.03 Abs Immat Gran (auto) 0.01 Imm/Tot Granulo (auto) 0.1 Sodium 141 Potassium 4.4 Chloride 102 Carbon Dioxide 33 H Anion Gap 6 L BUN 25 Creatinine 1.3 Estimated Creat Clear 24.11 Estimated GFR 40 Glucose 100 Calcium 9.7 Troponin I < 0.01 L Urine Color Yellow Urine Appearance Clear Urine pH 5.5 Ur Specific [place] 1.010 Urine Protein Negative Urine Glucose (UA) Negative Urine Ketones Negative Urine Blood Negative Urine Nitrite Negative Urine Bilirubin Negative Urine Urobilinogen 0.2 Ur Leukocyte Esterase Negative Urine RBC 0-2 Urine WBC 0-2 Ur Squamous Epith Cells Few Urine Bacteria Few A
[2023-06-05 11:00] VITALS: BP 133/63; PULSE 71; RESP 18; TEMP 36.4; O2SAT 91
[2023-06-05] MEDS: LORATADINE 10 MG TABLET PO (11:05)
[2023-06-05] MEDS: LIDOCAINE 5% PATCH 1 PATCH TRANSDERMA (11:07)
[2023-06-05] MEDS: IPRAT-ALBUT 0.5-2.5 MG/3 ML NEB 1 NEB IH (11:08)
--- NOTE | 2023-06-05 11:55 | PC.SOCIAL ---
Discharge Planning: Patient will discharge back home to [facility] with PT and OT orders. Son, Herbert ([phone]) will transfer her by car at 1:00pm today. Monet from [facility] evaluated her today and agreed to accept back and facility will provide OT and PT. Patient, Amy is very happy to return back to her apartment. Social work to follow up as needed.
--- NOTE | 2023-06-05 11:58 | P.DS_ITS ---
DS: Providers Provider Date Seen: 06/05/23 Date of admission: 06/04/23 20:11 Primary care physician: Inder Tanner MD Admitting Clinician: Carlos Vieira MD Consults: 06/04/23 22:21 Consult to Physical Therapy [CONS] Routine Comment: Reason(s) for PT Consult:: Evaluate and Treat Any Restrictions?:: No Restrictions Consult to Fire Watcher [CONS] Routine Comment: Reason for Consult:: Discharge Planning Needs 06/04/23 22:22 Consult to Occupational Therapy [CONS] Routine Comment: Reason(s) for OT Consult:: Evaluate and Treat Any Restrictions?:: No Restrictions 06/04/23 22:41 Consult to Occupational Therapy [CONS] Routine Comment: Reason(s) for OT Consult:: ADLs Prior to Discharge Any Restrictions?:: No Restrictions Attending Physician on discharge: GABRIELA Verduzco, IVONNE [facility] Hospitalist Date of Discharge: 06/05/23 DS: Diagnosis Discharge Diagnosis (1) Acute thoracic back pain: Status: Acute Problem details: -Acute on chronic back pain, old T5 fracture along with new T7 fracture noted on CT 05/30/23. T6 fracture noted on CT 06/04/23. Nontraumatic, no falls reported recently. H/o osteoporosis -scheduled Tylenol 650mg qid, lidocaine patch (can be purchased OTC), scheduled oxycodone, ice/heat as needed provided adequate relief and should be continued on discharge. Monitor for sedation, change in mental status. -continued senna b.i.d., MiraLax p.r.n. while on narcotics -PT/OT consulted, recommending ongoing acute therapy upon return to assisted living. -social insurance administrator consulted to assist in discharge planning. RN from [facility] evaluated patient on morning of discharge and accepted patient back to center with PT/OT orders (2) Closed wedge compression fracture of T7 vertebra: Status: Acute Problem details: -acute T6/T7 fractures. Managed as above DS: Summary Hospital Course Hospital Course: [age] year old female past medical history significant for hypertension, hyperlipidemia, COPD on chronic oxygen 1-2 L, PAF on chronic anticoagulation, CKD, CHF was admitted to the medical floor for acute on chronic worsening back pain in setting of old T5 fracture and new T 6-7 fractures. Course of care and details as noted above. Remainder of chronic medical comorbidities were monitored and managed with home medications. Status at Discharge Overall status at discharge: patient is back to baseline Time Spent with Patient Time attestation: Total time spent providing and/or coordinating discharge services: Time spent: Greater than 30 minutes Exam Narrative: Exam Narrative: PHYSICAL EXAM General: Sitting reclined in bed, very pleasant, conversant, NAD HEENT: Normocephalic, atraumatic, sclera white, EOMI, oral mucosa moist Cardiovascular: RRR, no pitting edema Pulmonary: Diffusely diminished, mild expiratory wheezes Abdominal: Soft, nondistended, NTTP Neurological: Alert, answering questions appropriately, cranial nerves intact, no focal findings Extremities: No gross joint deformity or swelling. AROMI Skin: Warm, dry. No rash Const: Vital Signs, click to edit/add: Vital Signs - 24 hr 06/04/23 13:20 06/04/23 14:21 06/04/23 15:38 Temperature 98.4 F Pulse Rate 67 Pulse Rate [Right Pulse Oximeter] 72 66 Respiratory Rate 18 18 Blood Pressure Blood Pressure [Ri ght Arm] Blood Pressure [Ri ght Upper Arm] 150/75 H 162/83 H Pulse Oximetry 95 97 98 Oxygen Delivery Me thod Nasal Cannula Nasal Cannula Oxygen Flow Rate 2 2 06/04/23 15:45 06/04/23 16:00 06/04/23 16:15 Temperature Pulse Rate 67 68 78 Pulse Rate [Right Pulse Oximeter] Respiratory Rate Blood Pressure Blood Pressure [Ri ght Arm] Blood Pressure [Ri ght Upper Arm] Pulse Oximetry 98 99 100 Oxygen Delivery Me thod Oxygen Flow Rate 06/04/23 18:30 06/04/23 18:41 06/04/23 18:45 Temperature Pulse Rate 62 67 Pulse Rate [Right Pulse Oximeter] Respiratory Rate Blood Pressure 135/74 Blood Pressure [Ri ght Arm] Blood Pressure [Ri ght Upper Arm] Pulse Oximetry 91 91 Oxygen Delivery Me thod Oxygen Flow Rate 06/04/23 19:00 06/04/23 19:00 06/04/23 19:00 Temperature Pulse Rate 68 Pulse Rate [Right Pulse Oximeter] Respiratory Rate Blood Pressure Blood Pressure [Ri ght Arm] Blood Pressure [Ri ght Upper Arm] Pulse Oximetry 92 97 98 Oxygen Delivery Me thod Nasal Cannula Oxygen Flow Rate 2 06/04/23 19:01 06/04/23 19:15 06/04/23 19:21 Temperature Pulse Rate 67 69 66 Pulse Rate [Right Pulse Oximeter] Respiratory Rate Blood Pressure 145/79 H 134/90 H Blood Pressure [Ri ght Arm] Blood Pressure [Ri ght Upper Arm] Pulse Oximetry 91 91 91 Oxygen Delivery Me thod Oxygen Flow Rate 06/04/23 19:36 06/04/23 20:19 06/04/23 21:06 Temperature 98.4 F 98.6 F Pulse Rate 84 Pulse Rate [Right Pulse Oximeter] 66 73 Respiratory Rate 18 20 Blood Pressure Blood Pressure [Ri ght Arm] 160/63 H Blood Pressure [Ri ght Upper Arm] 162/83 H Pulse Oximetry 86 L 91 Oxygen Delivery Me thod Nasal Cannula Oxygen Flow Rate 2 06/04/23 21:06 06/05/23 01:00 06/05/23 01:00 Temperature Pulse Rate Pulse Rate [Right Pulse Oximeter] 63 Respiratory Rate 16 18 18 Blood Pressure Blood Pressure [Ri ght Arm] Blood Pressure [Ri ght Upper Arm] Pulse Oximetry 94 92 Oxygen Delivery Me thod Nasal Cannula Nasal Cannula Oxygen Flow Rate 1.5 2 06/05/23 01:00 06/05/23 06:00 06/05/23 07:00 Temperature 97.6 F 97.7 F Pulse Rate Pulse Rate [Right Pulse Oximeter] 73 62 71 Respiratory Rate 16 18 18 Blood Pressure Blood Pressure [Ri ght Arm] 141/62 H 132/60 Blood Pressure [Ri ght Upper Arm] Pulse Oximetry 92 93 Oxygen Delivery Me thod Nasal Cannula Nasal Cannula Oxygen Flow Rate 2 2 06/05/23 07:00 06/05/23 07:00 06/05/23 11:00 Temperature 97.0 F L 97.6 F Pulse Rate Pulse Rate [Right Pulse Oximeter] 71 71 Respiratory Rate 18 18 18 Blood Pressure Blood Pressure [Ri ght Arm] 128/64 133/63 Blood Pressure [Ri ght Upper Arm] Pulse Oximetry 94 94 91 Oxygen Delivery Me thod Nasal Cannula Nasal Cannula Nasal Cannula Oxygen Flow Rate 2 2 2 DS: Data Data Completed and Pending Labs on day of discharge: Labs from last 24 hours 06/05/23 06/04/23 01:30 15:03 WBC 7.26 RBC 4.02 Hgb 13.0 Hct 41.6 MCV 104 H MCH 32 MCHC 31 L RDW Coeff of [place] 13.0 Plt Count 225 Neut % (Auto) 73.5 H Lymph % (Auto) 13.6 L [place] % (Auto) 10.2 Eos % (Auto) 2.2 Baso % (Auto) 0.4 Neut # (Auto) 5.30 Lymph # (Auto) 1.00 [place] # (Auto) 0.70 Eos # (Auto) 0.16 Baso # (Auto) 0.03 Abs Immat Gran (auto) 0.01 Imm/Tot Granulo (auto) 0.1 Sodium 141 Potassium 4.4 Chloride 102 Carbon Dioxide 33 H Anion Gap 6 L BUN 25 Creatinine 1.3 Estimated Creat Clear 24.11 Estimated GFR 40 Glucose 100 Calcium 9.7 Troponin I < 0.01 L Urine Color Yellow Urine Appearance Clear Urine pH 5.5 Ur Specific [place] 1.010 Urine Protein Negative Urine Glucose (UA) Negative Urine Ketones Negative Urine Blood Negative Urine Nitrite Negative Urine Bilirubin Negative Urine Urobilinogen 0.2 Ur Leukocyte Esterase Negative Urine RBC 0-2 Urine WBC 0-2 Ur Squamous Epith Cells Few Urine Bacteria Few A Preliminary micro results at discharge 06/05/23 01:30 Urine Culture - Preliminary Urine,Clean Catch Culture in Progress Discharge Plan Discharge Disposition: [facility] Date of Admission: 06/04/23 20:11 Attending Provider on Discharge: Deidre Diana Primary Care Provider: Inder Tanner Medications: New acetaminophen 325 mg Tablet 650 mg PO QID Qty: 120 0RF Continued calcitonin (salmon) 200 unit/actuation spray,non-aerosol 1 spray intranasal (ALT) DAILY Qty: 3.7 2RF oxycodone 5 mg tablet 5 mg PO TID polyethylene glycol 3350 17 gram/dose powder 17 g PO DAILY amoxicillin 500 mg capsule 500 mg PO BID furosemide 40 mg tablet 40 mg PO BID atorvastatin 40 mg tablet 40 mg PO DAILY amiodarone 200 mg tablet 100 mg PO DAILY levothyroxine 100 mcg tablet 100 mcg PO QAM aspirin 81 mg tablet,chewable 1 tab PO DAILY albuterol sulfate 90 mcg/actuation HFA aerosol inhaler 2 puff inhalation Q4H PRN lamotrigine 100 mg tablet 200 mg PO HS loratadine 10 mg tablet 10 mg PO DAILY Eliquis 2.5 mg tablet 2.5 mg PO BID melatonin 3 mg capsule 3 mg PO HS PRN sennosides [Marley-sheela] 8.6 mg tablet 17.2 mg PO BID potassium chloride 20 mEq tablet,ER particles/crystals 20 meq PO BID pantoprazole 40 mg tablet,delayed release (DR/EC) 40 mg PO DAILY simethicone [Gas Relief 80 (simethicone)] 80 mg tablet,chewable 80 mg PO QID PRN Discontinued acetaminophen [Pain Reliever ES(acetaminophn)] 500 mg tablet 1,000 mg PO TID tramadol 50 mg tablet 50 mg PO BID Discharge Orders: Discharge Order (Routine); Ordered 06/05/23 Ordered By: Deidre Diana Consulting provider completed their portion of the discharge: Yes Activity Level: Activity as Tolerated Activity Detail: per PT/OT recommendations Discharge Diet: Regular Follow Up Appointments: Inder Tanner MD [Primary Care Provider] - 06/12/23 (Follow up acute on chronic back pain with new T6-7 fractures. Pain management) Admit to: Assisted Living Therapy: Physical Therapy and Occupational Therapy Therapy Orders: Evaluate and Treat Oxygen: Yes (continue previous outpatient order, chronic) Oxygen Delivery Method: Nasal Cannula Signature: GABRIELA Verduzco, PA-C [place] Hospitalist
--- NOTE | 2023-06-05 13:50 | PC.NURSE ---
Discharge: Patient alert and oriented, Denies N/V, rates pain at 4/10 Lidocaine patch applied, scheduled Oxy and tylenol administered with relief. Patient on 2 L NC. Discharged today accompanied back to [facility] with Son. Patient's IV removed intact. Patient and son needed some clarification on discharge orders, RADHA Gonzalez. was able to answer questions prior to discharge. Belongings sheet signed and discharge sheet signed. Patient and son verbalized understanding of instructions. Monet Briscoe from [facility] was notified of patients return to facility.
== END 2023-06-05 13:00 ==
LOC: ED 17:11 → MEDSURG 20:11
PROVIDERS: Emergency Medicine; Admitting Provider Internal Medicine; Emergency Provider Family Medicine; PCP Family Medicine; Visit Provider Internal Medicine
DX: S22.060A Wedge compression fracture of T7-T8 vertebra, initial encounter for closed fracture (principal); M81.0 Age-related osteoporosis without current pathological fracture; M54.6 Pain in thoracic spine; T80.818A Extravasation of other vesicant agent, initial encounter; I48.0 Paroxysmal atrial fibrillation; E78.5 Hyperlipidemia, unspecified; J44.9 Chronic obstructive pulmonary disease, unspecified; I13.0 Hypertensive heart and chronic kidney disease with heart failure and stage 1 through stage 4 chronic kidney disease, or unspecified chronic kidney disease; N18.32 Chronic kidney disease, stage 3b; I50.32 Chronic diastolic (congestive) heart failure; K21.9 Gastro-esophageal reflux disease without esophagitis; K59.00 Constipation, unspecified; R06.2 Wheezing; E03.9 Hypothyroidism, unspecified; F03.90 Unspecified dementia, unspecified severity, without behavioral disturbance, psychotic disturbance, mood disturbance, and anxiety; F31.81 Bipolar II disorder; Z99.81 Dependence on supplemental oxygen; F18.90 Inhalant use, unspecified, uncomplicated; Z79.82 Long term (current) use of aspirin; Z79.01 Long term (current) use of anticoagulants; Z87.891 Personal history of nicotine dependence; Z87.310 Personal history of (healed) osteoporosis fracture; Z78.9 Other specified health status; Z87.898 Personal history of other specified conditions; Z86.16 Personal history of COVID-19; Z90.710 Acquired absence of both cervix and uterus; Z66 Do not resuscitate
CPT/HCPCS: 36415; 71275; 74174; 80048; 81001; 84484; 85025; 87081; 87086; 94640; 94761; 96374; 96375; 96376; 97116; 97162; 97165; 99283; 99285; A9270; G0378; J1170; J2405; Q9967

== ENCOUNTER 2023-06-16 11:05 | Outpatient (CLI) | payer BC, SELFPAY | END 2023-06-16 11:06 | disposition home or self-care (01) | LOC: AMB 06-20 13:41 | PROVIDERS: Visit Provider Emergency Medicine | DX: R06.09 Other forms of dyspnea (principal) | CPT/HCPCS: A0425; A0427 ==

== ENCOUNTER 2023-06-16 11:32 | Observation (INO) | payer BC, SELFPAY ==
[2023-06-16] VITALS (27 sets, daily range): BP systolic 128–174; BP diastolic 63–81; PULSE 60–95; RESP 16–18; TEMP 36.6–36.7; O2SAT 88–98
--- NOTE | 2023-06-16 12:10 | CRLHL7_ITS ---
For Patients: As a result of the Century Cures Act, medical imaging exams and procedure reports are released immediately into your electronic medical record. You may view this report before your referring provider. If you have questions, please contact your health care provider. INDICATION: Shortness of breath. Edema, not otherwise described. TECHNIQUE: Chest 2 views. COMPARISON: 02/09/2019, 10/27/2020. CT 06/04/2023. FINDINGS: Heart and mediastinum: Stable. Moderate hiatus hernia. Endovascular stent graft repair of the descending thoracic aorta with multiple abdominal visceral arterial stent limbs, as on the prior exam. Lungs and pleural spaces: Apparent pulmonary vascular redistribution could be due to mild congestive heart failure in the correct clinical setting. No focal pulmonary infiltrates or significant pleural effusion. Bones and soft tissues: No significant interval findings. Reverse left shoulder arthroplasty. IMPRESSION: Apparent pulmonary vascular redistribution could be due to mild congestive heart failure in the correct clinical setting. No focal pulmonary infiltrates or significant pleural effusion. Incidental findings described above. Dictated by Bryson Saba MD @ 06/16/2023 1:58:44 PM (Electronically Signed)
--- NOTE | 2023-06-16 12:12 | ED_ITS ---
HPI - General Adult General Date Seen: 06/16/23 Chief complaint: Shortness of Breath/Dyspnea Stated complaint: Shortness of breath Time Seen by Provider: 06/16/23 11:54 History of Present Illness HPI narrative: This is a pleasant 88-year-old female brought to the ER today by EMS from the [facility] for evaluation of hypoxia. She has a past medical history including atrial fibrillation, diastolic CHF, hypertension, COPD, pulmonary hypertension, and it sounds like she has been on oxygen in the past. It sounds like she is not currently on oxygen at home. She also has recent T6 and T7 fractures (diagnosed by CT within the past several weeks, no definite trauma). She notes that for about the past week or 2 she has developed a little bit of slowly worsening shortness of breath. Along with that she has gained about 10 lb and she has noted that she has some peripheral edema in her ankles in particular for the past couple of days. She was feeling much more short of breath overnight last night and this morning. She had a previously scheduled checkup with [facility] (for her bipolar), but was also very short of breath. When she arrived to the clinic she was apparently hypoxic in the 80s in apparently desaturated temporally down to the 70s. She was placed on 4 L nasal cannula and sats came up to 94. She was brought here to the ER by EMS. Other than shortness of breath and peripheral edema she has no other complaints. She does not have any chest pain. No palpitations. She thinks she might have had a brief run of her paroxysmal AFib for about 15 minutes last week. No cough. No fever. She does have some ongoing back pain from her thoracic compression fractures and takes oxycodone for that. She is not on NSAIDs. She does use Tylenol for that. No abdominal pain. No headache. No vomiting. No diarrhea. He takes Eliquis for stroke prophylaxis with AFib. No recent bloody stools. Related Data Home Medications Medication Instructions Recorded Confirmed albuterol sulfate 90 mcg/actuation 2 puff inhalation TID 03/05/23 06/16/23 aerosol inhaler amiodarone 200 mg tablet 100 mg PO DAILY 03/05/23 06/16/23 amoxicillin 500 mg capsule 500 mg PO BID 03/05/23 06/16/23 apixaban 2.5 mg tablet (Eliquis) 2.5 mg PO BID 03/05/23 06/16/23 aspirin 81 mg chewable tablet 1 tab PO DAILY 03/05/23 06/16/23 atorvastatin 40 mg tablet 40 mg PO HS 03/05/23 06/16/23 furosemide 40 mg tablet 40 mg PO BID 03/05/23 06/16/23 lamotrigine 100 mg tablet 200 mg PO HS 03/05/23 06/16/23 levothyroxine 100 mcg tablet 100 mcg PO QAM 03/05/23 06/16/23 loratadine 10 mg tablet 10 mg PO DAILY 03/05/23 06/16/23 melatonin 3 mg capsule 3 mg PO HS PRN 03/05/23 06/16/23 pantoprazole 40 mg tablet,delayed 40 mg PO DAILY 03/05/23 06/16/23 release potassium chloride 20 mEq 20 meq PO BID 03/05/23 06/16/23 tablet,extended release(part/cryst) sennosides 8.6 mg tablet (Marley-sheela) 17.2 mg PO BID 03/05/23 06/16/23 simethicone 80 mg chewable tablet 80 mg PO QID PRN 03/05/23 06/16/23 (Gas Relief 80 (simethicone)) oxycodone 5 mg tablet 5 mg PO .5X/D 06/05/23 06/16/23 polyethylene glycol 3350 17 17 g PO DAILY 06/05/23 06/16/23 gram/dose oral powder lidocaine 4 % topical patch 1 patch topical BID 06/16/23 06/16/23 (Lidocaine Pain Relief) Previous Rx's Medication Instructions Recorded calcitonin (salmon) 200 1 spray intranasal (ALT) DAILY 05/30/23 unit/actuation nasal spray #3.7 mL acetaminophen 325 mg tablet 650 mg (2 x 325 mg) PO QID #120 06/05/23 tabs Allergies Allergy/AdvReac Type Severity Reaction Status Date / Time No Known Drug Allergies Allergy Verified 06/04/23 13:23 [facility] Medical History (Updated 06/16/23 @ 15:55 by Parag Reyes MD) Chronic diastolic heart failure ?I50.32 - Chronic diastolic (congestive) heart failure (ICD-10) Chronic kidney disease, stage 3b ?N18.32 - Chronic kidney disease, stage 3b (ICD-10) Paroxysmal atrial fibrillation ?I48.0 - Paroxysmal atrial fibrillation (ICD-10) COPD (chronic obstructive pulmonary disease) ?J44.9 - Chronic obstructive pulmonary disease, unspecified (ICD-10) Extravasation of intravenous contrast medium ?T80.818A - Extravasation of other vesicant agent, initial encounter (ICD-10) Chronic hypoxemic respiratory failure ?J96.11 - Chronic respiratory failure with hypoxia (ICD-10) Former smoker ?Z87.891 - Personal history of nicotine dependence (ICD-10) Normal pressure hydrocephalus ?G91.2 - (Idiopathic) normal pressure hydrocephalus (ICD-10) Diaphragmatic hernia ?K44.9 - Diaphragmatic hernia without obstruction or gangrene (ICD-10) Gastroesophageal reflux disease ?K21.9 - Gastro-esophageal reflux disease without esophagitis (ICD-10) Major depressive disorder ?F32.9 - Major depressive disorder, single episode, unspecified (ICD-10) Bipolar II disorder ?F31.81 - Bipolar II disorder (ICD-10) Osteoporosis ?M81.0 - Age-related osteoporosis without current pathological fracture (ICD- 10) Ventricular premature complexes ?I49.3 - Ventricular premature depolarization (ICD-10) Pulmonary hypertension ?I27.20 - Pulmonary hypertension, unspecified (ICD-10) Primary hypothyroidism ?E03.9 - Hypothyroidism, unspecified (ICD-10) Essential hypertension ?I10 - Essential (primary) hypertension (ICD-10) Hyperlipidemia ?E78.5 - Hyperlipidemia, unspecified (ICD-10) History of bacteremia ?Z87.898 - Personal history of other specified conditions (ICD-10) Unspecified dementia, unspecified severity, without behavioral disturbance, psychotic disturbance, mood disturbance, and anxiety ?F03.90 - Unspecified dementia, unspecified severity, without behavioral disturbance, psychotic disturbance, mood disturbance, and anxiety (ICD-10) Spondylosis of lumbar spine ?M47.816 - Spondylosis without myelopathy or radiculopathy, lumbar region (ICD-10) History of COVID-19 ?Z86.16 - Personal history of COVID-19 (ICD-10) Peripheral vascular disease ?I73.9 - Peripheral vascular disease, unspecified (ICD-10) POLST (Physician Orders for Life-Sustaining Treatment) ?Z78.9 - Other specified health status (ICD-10) Surgical History (Updated 06/04/23 @ 23:27 by Carlos Vieira MD) Status post hysterectomy ?Z90.710 - Acquired absence of both cervix and uterus (ICD-10) Acquired absence of both cervix and uterus ?Z90.710 - Acquired absence of both cervix and uterus (ICD-10) Social History (Updated 06/04/23 @ 23:25 by Carlos Vieira MD) Narrative: [place] [facility] [place] [place] Her son, Herbert Lobo, is her power of professor of theater for health should that be required, cell phone [phone]. Requests DNR DNI resuscitation status. Dr. Inder Tanner is her primary care physician What is your current living situation?: I presently have a place to live Problems where you live: no known problems Problems where you live details: NA In the past 12 months, utilities in danger of being shut off: no In past 12 months, lack of transportation kept you from medical appts, meetings, work, or getting things needed for daily living: no In the past 12 mos, have been you worried that your food would run out before you had money to buy more?: never true In the past 12 mos, the food you bought just didn't last and you didn't have money to buy more?: never true Highest level of school completed/degree received: Associate degree: occupational, technical, vocational program Smoking Status: Former smoker Do you use any of these nicotine containing products: None How often do you have a drink containing alcohol: never How often do you have six or more drinks on one occasion: Never AUDIT-C Alcohol total score: 0 Non-prescribed substance use: denies use Caffeine: Yes How often does anyone, including family, friends and others, physically hurt you : never How often does anyone, including family, friends and others, insult or talk down to you: never How often does anyone, including family, friends and others, threaten you with harm: never How often does anyone, including family, friends and others, scream or curse at you: never service: No Exam Narrative: Exam Narrative: Constitutional: Appears well-developed and well-nourished. Alert. Conversant. At times struggles to remember details, such as the name of the facility where she lives. She can not remember the name of her blood pressure medicine, but she is very fascile naming other meds including Eliquis and her dose of Lasix 40 mg twice a day. Non toxic. Breathing easily. Sat 93% on 4 L nasal cannula. HENT: Head: Atraumatic. Nose: Nose normal. Mouth/Throat: Oral mucosa is clear and moist. no trismus. Pharynx normal. Tonsils symmetric. No tonsillar enlargement, erythema, or exudate. Eyes: Conjunctivae normal. EOM normal. Pupils equal, round, and reactive to light. No scleral icterus. Neck: Normal range of motion. Neck supple. No tracheal deviation present. Cardiovascular: Normal rate, regular rhythm. No gallop. No friction rub. No murmur heard. Symmetric radial and DP artery pulses. No JVD Pulmonary/Chest: Effort normal. No stridor. No respiratory distress. No wheezes. Bibasilar rales. No rhonchi . No tenderness. Abdominal: Soft. Bowel sounds normal. No distension. No mass. No tenderness. No rebound. No guarding. Musculoskeletal: RUE: Normal range of motion. No tenderness. No deformity LUE: Normal range of motion. No tenderness. No deformity RLE: Normal range of motion. 1+ edema. No tenderness. No deformity LLE: Normal range of motion. 1+ edema. No tenderness. No deformity Neurological: Alert and oriented to person, place, and time. Normal strength. CN II-VII intact. No sensory deficit. GCS eye subscore is 4. GCS verbal subscore is 5. GCS motor subscore is 6. Normal coordination Skin: Skin is warm and dry. No rash noted. No pallor. Normal capillary refill. Psychiatric: Normal mood. Normal affect. She mentions that people of told her she has dementia but she disputes this. Const: Vital Signs, click to edit/add: Vital Signs - 24 hr 06/16/23 11:35 06/16/23 11:45 06/16/23 11:53 Temperature 98.0 F Pulse Rate 65 Pulse Rate [Left P ulse Oximeter] 73 Respiratory Rate 16 Blood Pressure Blood Pressure [Ri ght Upper Arm] 143/74 H Pulse Oximetry 94 94 95 Oxygen Delivery Me thod Nasal Cannula Nasal Cannula Nasal Cannula Oxygen Flow Rate 3 3 3 06/16/23 12:00 06/16/23 12:02 06/16/23 12:15 Temperature Pulse Rate 67 67 61 Pulse Rate [Left P ulse Oximeter] Respiratory Rate Blood Pressure 148/74 H Blood Pressure [Ri ght Upper Arm] Pulse Oximetry 97 94 95 Oxygen Delivery Me thod Nasal Cannula Nasal Cannula Nasal Cannula Oxygen Flow Rate 3 3 3 06/16/23 12:30 06/16/23 12:32 06/16/23 12:33 Temperature Pulse Rate 62 64 62 Pulse Rate [Left P ulse Oximeter] Respiratory Rate Blood Pressure 134/63 Blood Pressure [Ri ght Upper Arm] Pulse Oximetry 95 95 95 Oxygen Delivery Me thod Nasal Cannula Nasal Cannula Nasal Cannula Oxygen Flow Rate 3 3 3 06/16/23 13:17 06/16/23 13:22 06/16/23 13:37 Temperature Pulse Rate 72 67 80 Pulse Rate [Left P ulse Oximeter] Respiratory Rate Blood Pressure 174/65 H Blood Pressure [Ri ght Upper Arm] Pulse Oximetry 95 93 88 Oxygen Delivery Me thod Nasal Cannula Nasal Cannula Nasal Cannula Oxygen Flow Rate 3 3 3 06/16/23 13:45 06/16/23 14:00 06/16/23 14:02 Temperature Pulse Rate 66 63 65 Pulse Rate [Left P ulse Oximeter] Respiratory Rate Blood Pressure 136/72 Blood Pressure [Ri ght Upper Arm] Pulse Oximetry 94 94 95 Oxygen Delivery Me thod Nasal Cannula Nasal Cannula Nasal Cannula Oxygen Flow Rate 2 2 2 06/16/23 14:15 06/16/23 14:30 06/16/23 14:32 Temperature Pulse Rate 65 68 64 Pulse Rate [Left P ulse Oximeter] Respiratory Rate Blood Pressure 128/80 Blood Pressure [Ri ght Upper Arm] Pulse Oximetry 96 94 96 Oxygen Delivery Me thod Nasal Cannula Nasal Cannula Nasal Cannula Oxygen Flow Rate 2 2 2 06/16/23 14:45 06/16/23 15:00 06/16/23 15:02 Temperature Pulse Rate 64 60 64 Pulse Rate [Left P ulse Oximeter] Respiratory Rate Blood Pressure 149/64 H Blood Pressure [Ri ght Upper Arm] Pulse Oximetry 96 96 98 Oxygen Delivery Me thod Nasal Cannula Nasal Cannula Nasal Cannula Oxygen Flow Rate 2 2 2 06/16/23 15:15 06/16/23 15:30 06/16/23 15:32 Temperature Pulse Rate 71 68 65 Pulse Rate [Left P ulse Oximeter] Respiratory Rate Blood Pressure 146/66 H Blood Pressure [Ri ght Upper Arm] Pulse Oximetry 94 97 95 Oxygen Delivery Me thod Nasal Cannula Nasal Cannula Nasal Cannula Oxygen Flow Rate 2 2 2 06/16/23 15:45 Temperature Pulse Rate 69 Pulse Rate [Left P ulse Oximeter] Respiratory Rate Blood Pressure Blood Pressure [Ri ght Upper Arm] Pulse Oximetry 95 Oxygen Delivery Me thod Nasal Cannula Oxygen Flow Rate 2 Course Vital Signs Vital signs: Initial Vital Signs Pulse Oximetry 94 06/16/23 11:35 Oxygen Delivery Method Nasal Cannula 06/16/23 11:35 Oxygen Flow Rate 3 06/16/23 11:35 Vital Signs Pulse Oximetry 94 06/16/23 11:35 Oxygen Delivery Method Nasal Cannula 06/16/23 11:35 Oxygen Flow Rate 3 06/16/23 11:35 Temperature 98 F 06/16/23 17:17 Pulse Rate 95 06/16/23 17:17 Respiratory Rate 18 06/16/23 17:17 Blood Pressure 141/81 H 06/16/23 17:17 Pulse Oximetry 95 06/16/23 17:17 Oxygen Delivery Method Nasal Cannula 06/16/23 17:17 Oxygen Flow Rate 2 06/16/23 17:17 Medical Decision Making MDM Narrative Medical decision making narrative: This is a pleasant 88-year-old female sent to the ER today from clinic for evaluation of shortness of breath and hypoxia. Differential for her breathing difficulty was broad including COPD, pneumonia, COVID, CHF, pneumothorax, pleural effusion, ACS, PE, among others Patient has no significant wheezing or sounds of bronchospasm on her lung exam. No focal consolidation on clinical exam or x-ray to suggest pneumonia. COVID negative. She is not febrile. White count normal. Clinical history would be suggestive for probable CHF with recent weight gain in bilateral peripheral edema now with shortness of breath and hypoxia. She has a known history of diastolic CHF. Chest x-ray does confirm vascular congestion. Troponin negative. EKG shows no definite ischemia. No clear evidence for CHF. She had received an IV dose of Lasix 40 mg here in the ER. She will be admitted to the hospitalist service. She remained stable on nasal cannula. No signs of a progressive respiratory fatigue requiring BiPAP or CPAP. No marked blood pressure elevation requiring nitro drip. Lab Data Labs: Lab Results 06/16/23 06/16/23 Range/Units 11:43 12:25 WBC 5.79 (4.50-11.00) K/uL RBC 3.58 L (4.00-5.20) m/uL Hgb 11.7 L (12.0-16.0) gm/dL Hct 37.1 (33.0-51.0) % MCV 104 H (80-100) fL MCH 33 (26-34) pg MCHC 32 (32-36) gm/dL RDW Coeff of Chely 12.8 (11.5-15.5) % Plt Count 281 (140-440) K/uL Neut % (Auto) 68.1 (42.0-72.0) % Lymph % (Auto) 16.6 L (20-44) % [place] % (Auto) 11.7 H (0.0-11.0) % Eos % (Auto) 2.6 (0.0-7.0) % Baso % (Auto) 0.5 (0.0-3.0) % Neut # (Auto) 3.94 (1.7-7.0) K/uL Lymph # (Auto) 1.00 (0.90-2.90) K/uL [place] # (Auto) 0.70 (0.00-0.90) K/UL Eos # (Auto) 0.15 (0.00-0.50) K/uL Baso # (Auto) 0.03 (0.00-0.30) K/uL Abs Immat Gran (auto) 0.03 (0.00-0.30) K/uL Imm/Tot Granulo (auto) 0.5 % Sodium 139 (135-149) mmol/L Potassium 4.4 (3.6-5.1) mmol/L Chloride 100 (96-114) mmol/L Carbon Dioxide 32 (20-32) mmol/L Anion Gap 7 (7-15) mEq/L BUN 27 (7-30) mg/dL Creatinine 1.4 (0.5-1.5) mg/dL Estimated GFR 36 ml/min Glucose 97 (60-115) mg/dL Lactate 1.1 (0.5-1.9) mmol/L Calcium 9.3 (8.4-10.6) mg/dL Troponin I < 0.01 L (0.01-0.04) ng/mL NT-Pro-B Natriuret Pep 331 pg/mL SARS-CoV-2 (PCR) Negative SARS-CoV-2 (Negative) Influenza Type A (PCR) Negative PCR FLU A (Negative) Influenza Type B (PCR) Negative PCR FLU B (Negative) RSV (PCR) Negative PCR RSV (Negative) Imaging Data Chest x-ray: Attestation: I have reviewed the pertinent imaging results. Radiologist's impression: IMPRESSION: Apparent pulmonary vascular redistribution could be due to mild congestive heart failure in the correct clinical setting. No focal pulmonary infiltrates or significant pleural effusion. ECG Data Attestation: I personally reviewed and interpreted this ECG as follows: Interpretation: Normal sinus rhythm rate 66 ND 156 QRS axis : Normal axis. No pathologic Q-waves. ST segment/T wave: No ST segment elevation or depression. QTc: 450 Discharge Plan Discharge Patient Disposition: Admitted As Observation
[2023-06-16 12:26] LABS: PCR FLU A Negative PCR FLU A (Negative); PCR FLU B Negative PCR FLU B (Negative); PCR RSV Negative PCR RSV (Negative); SARS PCR* Negative SARS-CoV-2 (Negative)
[2023-06-16] MEDS: FUROSEMIDE 10 MG/ML inj 40 MG IVP (12:30)
[2023-06-16 12:37] LABS: Lactate* 1.1 mmol/L (0.5-1.9)
[2023-06-16 12:42] LABS: Basophils Absolute Auto 0.03 K/uL (0.00-0.30); Basophils Percent Auto 0.5 % (0.0-3.0); Eosinophils Absolute Auto 0.15 K/uL (0.00-0.50); Eosinophils Percent Auto 2.6 % (0.0-7.0); Hematocrit 37.1 % (33.0-51.0); Hemoglobin* 11.7 gm/dL (12.0-16.0); Immature Granulocytes Abs Auto 0.03 K/uL (0.00-0.30); Immature Granulocytes Pct Auto 0.5 %; Lymphocytes Percent Auto 16.6 % (20-44); Mean Corpuscular HGB Conc 32 gm/dL (32-36); Mean Corpuscular Hemoglobin 33 pg (26-34); Mean Corpuscular Volume 104 fL (80-100); Monocytes Percent Auto 11.7 % (0.0-11.0); Neutrophils Absolute Auto 3.94 K/uL (1.7-7.0); Neutrophils Percent Auto 68.1 % (42.0-72.0); Platelet Count* 281 K/uL (140-440); RDW Coefficient of Variation % 12.8 % (11.5-15.5); Red Blood Count 3.58 m/uL (4.00-5.20); White Blood Count* 5.79 K/uL (4.50-11.00)
[2023-06-16 12:45] LABS: Slide Review Reflex No
[2023-06-16 12:57] LABS: Chloride* 100 mmol/L (96-114); Potassium* 4.4 mmol/L (3.6-5.1); Sodium* 139 mmol/L (135-149)
[2023-06-16 13:00] LABS: Anion Gap 7 mEq/L (7-15); Blood Urea Nitrogen* 27 mg/dL (7-30); Carbon Dioxide* 32 mmol/L (20-32); Creatinine* 1.4 mg/dL (0.5-1.5); Estimated Glomerular Filt Rate 36 ml/min
[2023-06-16] MEDS: OXYCODONE 5 MG TABLET PO ×2 (13:00→20:39)
[2023-06-16 13:01] LABS: Calcium* 9.3 mg/dL (8.4-10.6); Glucose* 97 mg/dL (60-115)
--- NOTE | 2023-06-16 13:04 | ED.NURSE ---
Pt assisted to bedside commode. Assist of 2 to transfer and pivot.
[2023-06-16 13:14] LABS: NT Pro B Type NatriureticPept* 331 pg/mL; Troponin I* < 0.01 ng/mL (0.01-0.04)
--- NOTE | 2023-06-16 13:40 | ED.NURSE ---
O2 titrated down to 2L NC.
--- NOTE | 2023-06-16 13:40 | ED.NURSE ---
Pt assisted to use bedside commode. Pt is assist of 2. Pt has difficulty transferring in and out of bed due to back pain.
--- NOTE | 2023-06-16 14:28 | ED.NURSE ---
Pt assisted to transfer to bedside commode. Assist of 2. Pt tolerated movement and transfer somewhat better than last time.
--- NOTE | 2023-06-16 15:24 | P.IMHP_ITS ---
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 The patient was seen in PCP clinic this morning. She complained of SOB and was found to be hypoxic. Endorsed MURRIETA. Endorsed 10 pound weight gain in last 1-2 weeks with increased lower extremity swelling. Denies chest pain, pressure, fever, cough. In the ED notable labs included normal WBC, Cr 1.4, Trop WNL, BNP 331. COVID/Influenza pcr negative. CXR with findings of pulmonary vascular congestion. She was given 40 mg IV lasix and admitted for further evaluation. cxr Apparent pulmonary vascular redistribution could be due to mild congestive heart failure in the correct clinical setting. No focal pulmonary infiltrates or significant pleural effusion. Review of Systems Status of ROS: Reports: 10 or more systems reviewed and unremarkable except as noted in History and below [facility] Medical History (Updated 06/16/23 @ 15:55 by Parag Reyes MD) Chronic diastolic heart failure ?I50.32 - Chronic diastolic (congestive) heart failure (ICD-10) Chronic kidney disease, stage 3b ?N18.32 - Chronic kidney disease, stage 3b (ICD-10) Paroxysmal atrial fibrillation ?I48.0 - Paroxysmal atrial fibrillation (ICD-10) COPD (chronic obstructive pulmonary disease) ?J44.9 - Chronic obstructive pulmonary disease, unspecified (ICD-10) Extravasation of intravenous contrast medium ?T80.818A - Extravasation of other vesicant agent, initial encounter (ICD-10) Chronic hypoxemic respiratory failure ?J96.11 - Chronic respiratory failure with hypoxia (ICD-10) Former smoker ?Z87.891 - Personal history of nicotine dependence (ICD-10) Normal pressure hydrocephalus ?G91.2 - (Idiopathic) normal pressure hydrocephalus (ICD-10) Diaphragmatic hernia ?K44.9 - Diaphragmatic hernia without obstruction or gangrene (ICD-10) Gastroesophageal reflux disease ?K21.9 - Gastro-esophageal reflux disease without esophagitis (ICD-10) Major depressive disorder ?F32.9 - Major depressive disorder, single episode, unspecified (ICD-10) Bipolar II disorder ?F31.81 - Bipolar II disorder (ICD-10) Osteoporosis ?M81.0 - Age-related osteoporosis without current pathological fracture (ICD- 10) Ventricular premature complexes ?I49.3 - Ventricular premature depolarization (ICD-10) Pulmonary hypertension ?I27.20 - Pulmonary hypertension, unspecified (ICD-10) Primary hypothyroidism ?E03.9 - Hypothyroidism, unspecified (ICD-10) Essential hypertension ?I10 - Essential (primary) hypertension (ICD-10) Hyperlipidemia ?E78.5 - Hyperlipidemia, unspecified (ICD-10) History of bacteremia ?Z87.898 - Personal history of other specified conditions (ICD-10) Unspecified dementia, unspecified severity, without behavioral disturbance, psychotic disturbance, mood disturbance, and anxiety ?F03.90 - Unspecified dementia, unspecified severity, without behavioral disturbance, psychotic disturbance, mood disturbance, and anxiety (ICD-10) Spondylosis of lumbar spine ?M47.816 - Spondylosis without myelopathy or radiculopathy, lumbar region (ICD-10) History of COVID-19 ?Z86.16 - Personal history of COVID-19 (ICD-10) Peripheral vascular disease ?I73.9 - Peripheral vascular disease, unspecified (ICD-10) POLST (Physician Orders for Life-Sustaining Treatment) ?Z78.9 - Other specified health status (ICD-10) Surgical History (Updated 06/04/23 @ 23:27 by Carlos Vieira MD) Status post hysterectomy ?Z90.710 - Acquired absence of both cervix and uterus (ICD-10) Acquired absence of both cervix and uterus ?Z90.710 - Acquired absence of both cervix and uterus (ICD-10) Social History (Updated 06/04/23 @ 23:25 by Carlos Vieira MD) Narrative: Lives in assisted living facility, [facility]. Her son, Herbert Lobo, is her power of senior sales manager for health should that be required, cell phone [phone]. Requests DNR DNI resuscitation status. Dr. Inder Tanner is her primary care physician What is your current living situation?: I presently have a place to live Problems where you live: no known problems Problems where you live details: NA In the past 12 months, utilities in danger of being shut off: no In past 12 months, lack of transportation kept you from medical appts, meetings, work, or getting things needed for daily living: no In the past 12 mos, have been you worried that your food would run out before you had money to buy more?: never true In the past 12 mos, the food you bought just didn't last and you didn't have money to buy more?: never true Highest level of school completed/degree received: Associate degree: occupational, technical, vocational program Smoking Status: Former smoker Do you use any of these nicotine containing products: None How often do you have a drink containing alcohol: never How often do you have six or more drinks on one occasion: Never AUDIT-C Alcohol total score: 0 Non-prescribed substance use: denies use Caffeine: Yes How often does anyone, including family, friends and others, physically hurt you : never How often does anyone, including family, friends and others, insult or talk down to you: never How often does anyone, including family, friends and others, threaten you with harm: never How often does anyone, including family, friends and others, scream or curse at you: never service: No Meds Home Medications and Allergies Home Medications Medication Instructions Recorded Confirmed Type albuterol sulfate 90 mcg/actuation 2 puff inhalation TID 03/05/23 06/16/23 History aerosol inhaler amiodarone 200 mg tablet 100 mg PO DAILY 03/05/23 06/16/23 History amoxicillin 500 mg capsule 500 mg PO BID 03/05/23 06/16/23 History apixaban 2.5 mg tablet (Eliquis) 2.5 mg PO BID 03/05/23 06/16/23 History aspirin 81 mg chewable tablet 1 tab PO DAILY 03/05/23 06/16/23 History atorvastatin 40 mg tablet 40 mg PO HS 03/05/23 06/16/23 History furosemide 40 mg tablet 40 mg PO BID 03/05/23 06/16/23 History lamotrigine 100 mg tablet 200 mg PO HS 03/05/23 06/16/23 History levothyroxine 100 mcg tablet 100 mcg PO QAM 03/05/23 06/16/23 History loratadine 10 mg tablet 10 mg PO DAILY 03/05/23 06/16/23 History melatonin 3 mg capsule 3 mg PO HS PRN 03/05/23 06/16/23 History pantoprazole 40 mg tablet,delayed 40 mg PO DAILY 03/05/23 06/16/23 History release potassium chloride 20 mEq 20 meq PO BID 03/05/23 06/16/23 History tablet,extended release(part/cryst) sennosides 8.6 mg tablet (Marley-sheela) 17.2 mg PO BID 03/05/23 06/16/23 History simethicone 80 mg chewable tablet 80 mg PO QID PRN 03/05/23 06/16/23 History (Gas Relief 80 (simethicone)) oxycodone 5 mg tablet 5 mg PO .5X/D 06/05/23 06/16/23 History polyethylene glycol 3350 17 17 g PO DAILY 06/05/23 06/16/23 History gram/dose oral powder lidocaine 4 % topical patch 1 patch topical BID 06/16/23 06/16/23 History (Lidocaine Pain Relief) Allergies Allergy/AdvReac Type Severity Reaction Status Date / Time No Known Drug Allergies Allergy Verified 06/04/23 13:23 Exam Const: Vital Signs, click to edit/add: Vital Signs - 24 hr 06/16/23 11:35 06/16/23 11:45 06/16/23 11:53 Temperature 98.0 F Pulse Rate 65 Pulse Rate [Left P ulse Oximeter] 73 Respiratory Rate 16 Blood Pressure Blood Pressure [Ri ght Upper Arm] 143/74 H Pulse Oximetry 94 94 95 Oxygen Delivery Me thod Nasal Cannula Nasal Cannula Nasal Cannula Oxygen Flow Rate 3 3 3 06/16/23 12:00 06/16/23 12:02 06/16/23 12:15 Temperature Pulse Rate 67 67 61 Pulse Rate [Left P ulse Oximeter] Respiratory Rate Blood Pressure 148/74 H Blood Pressure [Ri ght Upper Arm] Pulse Oximetry 97 94 95 Oxygen Delivery Me thod Nasal Cannula Nasal Cannula Nasal Cannula Oxygen Flow Rate 3 3 3 06/16/23 12:30 06/16/23 12:32 06/16/23 12:33 Temperature Pulse Rate 62 64 62 Pulse Rate [Left P ulse Oximeter] Respiratory Rate Blood Pressure 134/63 Blood Pressure [Ri ght Upper Arm] Pulse Oximetry 95 95 95 Oxygen Delivery Me thod Nasal Cannula Nasal Cannula Nasal Cannula Oxygen Flow Rate 3 3 3 06/16/23 13:17 06/16/23 13:22 06/16/23 13:37 Temperature Pulse Rate 72 67 80 Pulse Rate [Left P ulse Oximeter] Respiratory Rate Blood Pressure 174/65 H Blood Pressure [Ri ght Upper Arm] Pulse Oximetry 95 93 88 Oxygen Delivery Me thod Nasal Cannula Nasal Cannula Nasal Cannula Oxygen Flow Rate 3 3 3 06/16/23 13:45 06/16/23 14:00 06/16/23 14:02 Temperature Pulse Rate 66 63 65 Pulse Rate [Left P ulse Oximeter] Respiratory Rate Blood Pressure 136/72 Blood Pressure [Ri ght Upper Arm] Pulse Oximetry 94 94 95 Oxygen Delivery Me thod Nasal Cannula Nasal Cannula Nasal Cannula Oxygen Flow Rate 2 2 2 06/16/23 14:15 06/16/23 14:30 06/16/23 14:32 Temperature Pulse Rate 65 68 64 Pulse Rate [Left P ulse Oximeter] Respiratory Rate Blood Pressure 128/80 Blood Pressure [Ri ght Upper Arm] Pulse Oximetry 96 94 96 Oxygen Delivery Me thod Nasal Cannula Nasal Cannula Nasal Cannula Oxygen Flow Rate 2 2 2 06/16/23 14:45 Temperature Pulse Rate 64 Pulse Rate [Left P ulse Oximeter] Respiratory Rate Blood Pressure Blood Pressure [Ri ght Upper Arm] Pulse Oximetry 96 Oxygen Delivery Me thod Nasal Cannula Oxygen Flow Rate 2 Hospitalist - H&P: Result Labs Labs: Short CBC 06/16/23 Range/Units 12:25 WBC 5.79 (4.50-11.00) K/uL Hgb 11.7 L (12.0-16.0) gm/dL Hct 37.1 (33.0-51.0) % Plt Count 281 (140-440) K/uL BMP 06/16/23 12:25 Sodium 139 Potassium 4.4 Chloride 100 Carbon Dioxide 32 BUN 27 Creatinine 1.4 Glucose 97 Calcium 9.3 Cardiac Enzymes 06/16/23 Range/Units 12:25 Troponin I < 0.01 L (0.01-0.04) ng/mL Assessment and Plan Assessment and plan (1) Chronic diastolic heart failure: Problem comment: -Continue furosemide, monitor Status: Acute (2) Closed wedge compression fracture of T7 vertebra: Problem comment: -acute T6/T7 fractures. Managed as above Status: Acute (3) COPD (chronic obstructive pulmonary disease): Problem comment: -baseline 1-2 L O2 per NC. 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 The patient was seen in PCP clinic this morning. She complained of SOB and was found to be hypoxic. Endorsed MURRIETA. Endorsed 10 pound weight gain in last 1-2 weeks with increased lower extremity swelling. Denies chest pain, pressure, fever, cough. In the ED notable labs included normal WBC, Cr 1.4, Trop WNL, BNP 331. COVID/Influenza pcr negative. CXR with findings of pulmonary vascular congestion. She was given 40 mg IV lasix and admitted for further evaluation. 1. Acute decompensated CHF exacerbation Plan -admit to inpatient -tele -echo -daily weight -monitor I&O -continue IV lasix -electrolyte replacement as needed -continue eliquis -daily BMP/mg -PT evaluation -pain control Code-DNR/DNI DVT ppx-eliquis
--- NOTE | 2023-06-16 16:00 | ED.NURSE ---
Report called to M/S RN.
[2023-06-16] MEDS: ACETAMINOPHEN 325 MG TABLET 650 MG PO (16:32)
[2023-06-16] MEDS: ATORVASTATIN CALCIUM 40 MG TABLET PO (20:39)
[2023-06-16] MEDS: MELATONIN 3 MG TABLET PO (20:39)
[2023-06-16] MEDS: lamoTRIgine 100 MG TABLET 200 MG PO (20:39)
[2023-06-16] MEDS: APIXABAN 5 MG TABLET 2.5 MG PO (20:39)
[2023-06-16] MEDS: SENNOSIDES 1 TAB TABLET 2 TAB PO (20:39)
[2023-06-16] MEDS: SODIUM CHLORIDE 0.9 % (FLUSH) 10 ML SYRINGE 5 ML IVF (20:40)
--- NOTE | 2023-06-16 22:35 | PC.NURSE ---
Shift [id number]- Patient arrives to floor at approximately 1615. She is slid over from stretcher, which resulted in increase back pain. She agrees to tylenol and eventually aquak pad- which is administered. She is up with assist of 1, gait belt, to [facility]. She states no BM for 5 days, she refuses suppository. Upon arrival, she has ecchymosis/bruising to right lateral arm, she states this is from a previous contrast infiltration. She also arrives with small superficial wound to upper gluteal crease, right side. Quarter sized bruise/echymosis to posterior right hip. Scattered bruises to upper extremities otherwise. She is assisted to reposition for comfort throughout shift.
[2023-06-17] VITALS (11 sets, daily range): BP systolic 135–155; BP diastolic 60–81; PULSE 56–74; RESP 18–20; TEMP 36.3–36.7; O2SAT 91–95
[2023-06-17] MEDS: OXYCODONE 5 MG TABLET PO ×4 (04:07→20:00)
[2023-06-17] MEDS: OMEPRAZOLE 20 MG CAPSULE DR PO (06:23)
[2023-06-17] MEDS: SODIUM CHLORIDE 0.9 % (FLUSH) 10 ML SYRINGE 5 ML IVF ×3 (06:23→20:02)
[2023-06-17] MEDS: FUROSEMIDE 10 MG/ML inj 40 MG IVP ×2 (06:23→14:58)
[2023-06-17] MEDS: LEVOTHYROXINE 100 MCG TABLET PO (06:23)
[2023-06-17 06:26] LABS: Basophils Absolute Auto 0.03 K/uL (0.00-0.30); Basophils Percent Auto 0.6 % (0.0-3.0); Eosinophils Absolute Auto 0.19 K/uL (0.00-0.50); Eosinophils Percent Auto 3.7 % (0.0-7.0); Immature Granulocytes Abs Auto 0.01 K/uL (0.00-0.30); Immature Granulocytes Pct Auto 0.2 %; Lymphocytes Percent Auto 17.8 % (20-44); Mean Corpuscular HGB Conc 31 gm/dL (32-36); Mean Corpuscular Hemoglobin 33 pg (26-34); Mean Corpuscular Volume 104 fL (80-100); Monocytes Percent Auto 13.4 % (0.0-11.0); Neutrophils Absolute Auto 3.32 K/uL (1.7-7.0); Neutrophils Percent Auto 64.3 % (42.0-72.0); Platelet Count* 265 K/uL (140-440); RDW Coefficient of Variation % 12.8 % (11.5-15.5); Red Blood Count 3.38 m/uL (4.00-5.20); White Blood Count* 5.16 K/uL (4.50-11.00)
[2023-06-17 06:33] LABS: Slide Review Reflex No
[2023-06-17 06:44] LABS: Chloride* 100 mmol/L (96-114); Potassium* 3.6 mmol/L (3.6-5.1); Sodium* 139 mmol/L (135-149)
[2023-06-17 06:47] LABS: Anion Gap 5 mEq/L (7-15); Blood Urea Nitrogen* 23 mg/dL (7-30); Carbon Dioxide* 34 mmol/L (20-32); Creatinine* 1.3 mg/dL (0.5-1.5); Estimated Glomerular Filt Rate 40 ml/min
[2023-06-17 06:48] LABS: Calcium* 9.2 mg/dL (8.4-10.6); Glucose* 91 mg/dL (60-115); Magnesium* 2.3 mg/dL (1.5-2.6)
--- NOTE | 2023-06-17 07:18 | PC.NURSE ---
SHIFT NOTE 23-: Pt is A&O, forgetful. Pt had a flair up of back pain after using the BSC, up 2 assist because of pain, called MD and received a one time PRN dose of Oxycodone, given to pt with pt reporting relief. SOB with exertion, oxygen saturation are low 90's on 1.5L O2 (pt on 1-2L O2 at home). Denies CP and N/V. Pt has a calloused area on her left buttock, pt stated it is sore, Mepilex applied.
--- NOTE | 2023-06-17 09:18 | NUTR.NU ---
RDN with nutrition screen for 2 gram sodium diet for heart failure. Patient is familiar with the heart healthy diet and notes being mindful of sodium intake. Patient comes from [facility] where 3 meals are provided daily. Brief education was provided on limiting sodium to 2,000 mg per day per patient request. Discussed foods recommended and to avoid. Handouts provided to support discussion per patient request. RDN's contact information was provided and patient was encouraged to call with questions. RDN will continue to follow PRN.
[2023-06-17] MEDS: polyethylene glycoL 3350 17 GM PACK PO (09:24)
[2023-06-17] MEDS: APIXABAN 5 MG TABLET 2.5 MG PO ×2 (09:24→20:01)
[2023-06-17] MEDS: SENNOSIDES 1 TAB TABLET 2 TAB PO ×2 (09:24→20:00)
[2023-06-17] MEDS: ASPIRIN 81 MG TAB.CHEW PO (09:24)
[2023-06-17] MEDS: LIDOCAINE 5% PATCH 1 PATCH TRANSDERMA ×2 (09:25→20:01)
[2023-06-17] MEDS: LORATADINE 10 MG TABLET PO (09:25)
[2023-06-17] MEDS: AMIODARONE 200 MG TABLET 100 MG PO (09:26)
--- NOTE | 2023-06-17 13:13 | P.IMPN_ITS ---
Progress Note: A&P Assessment and plan (1) Chronic diastolic heart failure: Problem details: -CXR shows pulmonary vascular redistribution consistent with mild congestive heart failure. BNP 331. Peripheral pitting edema noted. -Continue IV furosemide b.i.d., strict I&Os, daily weights. Hold home furosemide, may need to adjust dose at discharge. -ECHO ordered -consider CT chest if new or worsening symptoms or no improvement. Wells Criteria score essentially 0 Status: Acute (2) Closed wedge compression fracture of T7 vertebra: Problem details: -T6/T7 fractures -calcitonin spray, lidocaine patch, ice/heat, Tylenol p.r.n., oxycodone p.r.n. Status: Acute (3) COPD (chronic obstructive pulmonary disease): Problem details: -baseline 1-2 L O2 per NC. Maintain saturations 88-92% -albuterol nebs p.r.n., incentive spirometry Status: Acute (4) Chronic kidney disease, stage 3b: Problem details: -creatinine at baseline 1.3, avoid nephrotoxic medications, continue to monitor Status: Acute (5) Paroxysmal atrial fibrillation: Problem details: -rate controlled, on chronic anticoagulation, continue apixaban Status: Acute Plan CODE: DNR/DNI VTE PPX: Apixaban Disposition: Observation Time Spent With Patient Total time spent: Total time spent caring for the patient today was 45 minutes. This includes time spent for the visit reviewing the chart, time spent during the visit, time spent after the visit and documentation and planning in coordination of care. Subjective Date Seen: 06/17/23 Interval history: Patient reports feeling better this morning since admission. Breathing has improved. Continues to require usual chronic 1-2 L O2. Reports being compliant with her home dose of furosemide. Denies chest pain. Denies headache or dizziness. Continues to have thoracic back pain related to recent T6-7 fractures. Has been using a lidocaine patch to the area for this pain. Frustrated that her health has declined recently and that her pain has been slow to improve. Exam Narrative: Exam Narrative: PHYSICAL EXAM General: Sitting up in chair, very pleasant, conversant, NAD HEENT: Normocephalic, atraumatic, sclera white, EOMI, oral mucosa moist Cardiovascular: IRRR, +2 pitting edema bilaterally Pulmonary: Diffusely mildly diminished without expiratory wheezes. No dyspnea on 1.5 L NC Abdominal: Soft, nondistended, NTTP Neurological: Alert, answering questions appropriately, cranial nerves intact, no focal findings Extremities: No gross joint deformity or swelling. AROMI. Neurovascularly intact Skin: Warm, dry. Const: Vital Signs, click to edit/add: Vital Signs - 24 hr 06/16/23 13:17 06/16/23 13:22 06/16/23 13:37 Temperature Pulse Rate 72 67 80 Pulse Rate [Pulse Oximeter] Respiratory Rate Blood Pressure 174/65 H Blood Pressure [Ri ght Arm] Pulse Oximetry 95 93 88 Oxygen Delivery Me thod Nasal Cannula Nasal Cannula Nasal Cannula Oxygen Flow Rate 3 3 3 06/16/23 13:45 06/16/23 14:00 06/16/23 14:02 Temperature Pulse Rate 66 63 65 Pulse Rate [Pulse Oximeter] Respiratory Rate Blood Pressure 136/72 Blood Pressure [Ri ght Arm] Pulse Oximetry 94 94 95 Oxygen Delivery Me thod Nasal Cannula Nasal Cannula Nasal Cannula Oxygen Flow Rate 2 2 2 06/16/23 14:15 06/16/23 14:30 06/16/23 14:32 Temperature Pulse Rate 65 68 64 Pulse Rate [Pulse Oximeter] Respiratory Rate Blood Pressure 128/80 Blood Pressure [Ri ght Arm] Pulse Oximetry 96 94 96 Oxygen Delivery Me thod Nasal Cannula Nasal Cannula Nasal Cannula Oxygen Flow Rate 2 2 2 06/16/23 14:45 06/16/23 15:00 06/16/23 15:02 Temperature Pulse Rate 64 60 64 Pulse Rate [Pulse Oximeter] Respiratory Rate Blood Pressure 149/64 H Blood Pressure [Ri ght Arm] Pulse Oximetry 96 96 98 Oxygen Delivery Me thod Nasal Cannula Nasal Cannula Nasal Cannula Oxygen Flow Rate 2 2 2 06/16/23 15:15 06/16/23 15:30 06/16/23 15:32 Temperature Pulse Rate 71 68 65 Pulse Rate [Pulse Oximeter] Respiratory Rate Blood Pressure 146/66 H Blood Pressure [Ri ght Arm] Pulse Oximetry 94 97 95 Oxygen Delivery Me thod Nasal Cannula Nasal Cannula Nasal Cannula Oxygen Flow Rate 2 2 2 06/16/23 15:45 06/16/23 17:17 06/16/23 19:15 Temperature 98 F 97.8 F Pulse Rate 69 Pulse Rate [Pulse Oximeter] 95 63 Respiratory Rate 18 18 Blood Pressure Blood Pressure [Ri ght Arm] 141/81 H 150/70 H Pulse Oximetry 95 95 95 Oxygen Delivery Me thod Nasal Cannula Nasal Cannula Nasal Cannula Oxygen Flow Rate 2 2 2 06/17/23 01:00 06/17/23 01:00 06/17/23 01:00 Temperature Pulse Rate 56 L Pulse Rate [Pulse Oximeter] 56 L Respiratory Rate 20 Blood Pressure Blood Pressure [Ri ght Arm] Pulse Oximetry 91 Oxygen Delivery Me thod Oxygen Flow Rate 06/17/23 01:00 06/17/23 01:00 06/17/23 03:00 Temperature 97.5 F L 97.4 F L Pulse Rate Pulse Rate [Pulse Oximeter] 56 L 62 Respiratory Rate 18 18 20 Blood Pressure Blood Pressure [Ri ght Arm] 155/70 H 152/81 H Pulse Oximetry 91 91 92 Oxygen Delivery Me thod Nasal Cannula Nasal Cannula Nasal Cannula Oxygen Flow Rate 1.5 1.5 1.5 06/17/23 07:00 06/17/23 07:31 06/17/23 07:31 Temperature 97.9 F Pulse Rate Pulse Rate [Pulse Oximeter] 70 Respiratory Rate 18 18 Blood Pressure Blood Pressure [Ri ght Arm] 148/69 H Pulse Oximetry 94 94 94 Oxygen Delivery Me thod Nasal Cannula Nasal Cannula Oxygen Flow Rate 1.5 1.5 06/17/23 10:37 06/17/23 10:50 Temperature 97.9 F Pulse Rate 64 Pulse Rate [Pulse Oximeter] 69 Respiratory Rate 18 Blood Pressure Blood Pressure [Ri ght Arm] 150/60 H Pulse Oximetry 93 Oxygen Delivery Me thod Room Air Oxygen Flow Rate Labs Labs: Laboratory Results - last 24 hr 06/16/23 06/17/23 12:25 06:00 WBC 5.16 RBC 3.38 L Hgb 11.0 L Hct 35.0 MCV 104 H MCH 33 MCHC 31 L RDW Coeff of [place] 12.8 Plt Count 265 Neut % (Auto) 64.3 Lymph % (Auto) 17.8 L [place] % (Auto) 13.4 H Eos % (Auto) 3.7 Baso % (Auto) 0.6 Neut # (Auto) 3.32 Lymph # (Auto) 0.90 [place] # (Auto) 0.70 Eos # (Auto) 0.19 Baso # (Auto) 0.03 Abs Immat Gran (auto) 0.01 Imm/Tot Granulo (auto) 0.2 Sodium 139 139 Potassium 4.4 3.6 Chloride 100 100 Carbon Dioxide 32 34 H Anion Gap 7 5 L BUN 27 23 Creatinine 1.4 1.3 Estimated GFR 36 40 Glucose 97 91 Calcium 9.3 9.2 Magnesium 2.3 Troponin I < 0.01 L NT-Pro-B Natriuret Pep 331
--- NOTE | 2023-06-17 18:11 | PC.NURSE ---
Pt alert and oriented. Pt had complaints of pain ranging from 2-4 scheduled medications given; see EMAR. Pt up to chair during shift.? ?
[2023-06-17] MEDS: ALBUTEROL SULFATE 2.5 MG/3 ML VIAL.NEB NEB (19:50)
[2023-06-17] MEDS: ATORVASTATIN CALCIUM 40 MG TABLET PO (20:00)
[2023-06-17] MEDS: lamoTRIgine 100 MG TABLET 200 MG PO (20:01)
[2023-06-18 03:00] VITALS: PULSE 73; RESP 18; TEMP 36.6; O2SAT 92
[2023-06-18] MEDS: ACETAMINOPHEN 325 MG TABLET 650 MG PO ×2 (03:23→08:42)
[2023-06-18 05:48] LABS: Hematocrit 35.5 % (33.0-51.0); Hemoglobin* 11.3 gm/dL (12.0-16.0); Mean Corpuscular HGB Conc 32 gm/dL (32-36); Mean Corpuscular Hemoglobin 33 pg (26-34); Mean Corpuscular Volume 102 fL (80-100); Platelet Count* 263 K/uL (140-440); Red Blood Count 3.47 m/uL (4.00-5.20)
[2023-06-18 06:00] LABS: Slide Review Reflex No
[2023-06-18 06:02] LABS: Chloride* 98 mmol/L (96-114); Potassium* 3.6 mmol/L (3.6-5.1); Sodium* 139 mmol/L (135-149)
[2023-06-18 06:05] LABS: Anion Gap 5 mEq/L (7-15); Blood Urea Nitrogen* 23 mg/dL (7-30); Carbon Dioxide* 36 mmol/L (20-32); Creatinine* 1.1 mg/dL (0.5-1.5); Estimated Glomerular Filt Rate 49 ml/min; Glucose* 94 mg/dL (60-115)
[2023-06-18 06:06] LABS: Calcium* 9.4 mg/dL (8.4-10.6)
[2023-06-18] MEDS: LEVOTHYROXINE 100 MCG TABLET PO (06:32)
[2023-06-18] MEDS: SODIUM CHLORIDE 0.9 % (FLUSH) 10 ML SYRINGE 5 ML IVF (06:32)
[2023-06-18] MEDS: FUROSEMIDE 10 MG/ML inj 40 MG IVP (06:32)
[2023-06-18] MEDS: OMEPRAZOLE 20 MG CAPSULE DR PO (06:32)
--- NOTE | 2023-06-18 06:48 | PC.NURSE ---
[id number] Pt up in recliner for evening and slept well during night in bed, pain managed during shift with scheduled/prn pain medication. O2 1-2 LPM NC to maintain sats >88%. denies SOB, states she feels much better.
[2023-06-18 07:00] VITALS: BP 153/64; PULSE 68; PULSE 73; RESP 18; TEMP 36.4; O2SAT 92; O2SAT 93
[2023-06-18] MEDS: CALCITONIN SALMON NASAL SPRAY 200 UNIT 1 SPRAY NOSTRIL-B (08:41)
[2023-06-18] MEDS: APIXABAN 5 MG TABLET 2.5 MG PO (08:42)
[2023-06-18] MEDS: ASPIRIN 81 MG TAB.CHEW PO (08:43)
[2023-06-18] MEDS: SENNOSIDES 1 TAB TABLET 2 TAB PO (08:43)
[2023-06-18] MEDS: polyethylene glycoL 3350 17 GM PACK PO (08:43)
[2023-06-18] MEDS: OXYCODONE 5 MG TABLET PO (08:43)
[2023-06-18] MEDS: LORATADINE 10 MG TABLET PO (08:43)
[2023-06-18] MEDS: AMIODARONE 200 MG TABLET 100 MG PO (08:43)
--- NOTE | 2023-06-18 11:15 | PM.DS1 ---
DS: Providers Provider Date Seen: 06/18/23 Date of admission: 06/17/23 12:35 Primary care physician: Inder Tanner MD Admitting Clinician: Parag Reyes MD Attending Physician on discharge: Herbert Mota MD Date of Discharge: 06/18/23 DS: Diagnosis Discharge Diagnosis (1) Acute thoracic back pain: Status: Acute Problem details: -Acute on chronic back pain, old T5 fracture along with new T7 fracture noted on CT 05/30/23. T6 fracture noted on CT 06/04/23. Nontraumatic, no falls reported recently. H/o osteoporosis Patient has much improved pain control on acetaminophen and oxycodone. (2) Closed wedge compression fracture of T7 vertebra: Status: Acute Problem details: -T6/T7 fractures (3) COPD (chronic obstructive pulmonary disease): Status: Acute Problem details: -baseline 1-2 L O2 per NC. Maintain saturations 88-92% Also has pulmonary hypertension (4) Chronic diastolic heart failure: Status: Acute Problem details: Respiratory status improved on IV furosemide. Increase home dose of furosemide from 40 mg b.i.d. to 80 mg b.i.d.. May need a reduction in dose depending on clinical course. No increase in potassium does needed so far. Echocardiogram shows fairly severe pulmonary hypertension likely due to COPD. (5) Chronic kidney disease, stage 3b: Status: Acute Problem details: -creatinine at baseline 1.3, improved to 1.1 with diuresis. (6) Constipation: Status: Acute Problem details: Secondary to opioid use. Increased senna and MiraLax as needed. (7) Osteoporosis: Status: Acute Problem details: Not taking anti resorptive therapy, calcium or vitamin-D. Consider initiating outpatient anti resorptive therapy (8) Atrial fibrillation: Status: Acute Problem details: Adequate rate control. On anticoagulation and aspirin. Unclear need for aspirin therapy. Consider discontinuing. DS: Summary Hospital Course Hospital Course: 88-year-old female admitted to the hospital with acute on chronic hypoxic respiratory failure. Also having uncontrolled mid back pain secondary to midthoracic compression fractures. Progression of osteoporotic fractures noted over the last month. During hospital stay sofiya received IV furosemide for volume control for her heart failure exacerbation. With this she is back to her normal oxygen supplementation. Creatinine improved from 1.3-1.1. Potassium was also normal. Echocardiogram showed preserved ejection fraction and fairly severe pulmonary hypertension, presumably secondary to COPD. Rate control with AFib was good. Back pain is treated with oxycodone which worked well for her. She did develop constipation on this. Increased senna. Status at Discharge Functional status at discharge: uses cane/walker Overall status at discharge: patient is progressing back to baseline Time Spent with Patient Time attestation: Total time spent providing and/or coordinating discharge services: 45 minutes Time spent: Greater than 30 minutes Exam Narrative: Exam Narrative: She is alert and in no distress. She gives her own history with fairly good detail. Respirations with diminished breath sounds but otherwise clear to auscultation without wheezing rales or rhonchi. Breathing is unlabored on supplemental oxygen. Cardiovascular: S1, S2, irregular rhythm. Abdomen: Bowel sounds active. Abdomen is soft without tenderness or mass. Extremities with trace edema. Palpation over her back shows tenderness in the area of T6-7 midline Const: Vital Signs, click to edit/add: Vital Signs - 24 hr 06/17/23 15:00 06/17/23 15:00 06/17/23 15:00 Temperature 97.8 F Pulse Rate Pulse Rate [Pulse Oximeter] 62 Respiratory Rate 18 18 Blood Pressure [Ri ght Arm] 141/70 H Pulse Oximetry 95 95 95 Oxygen Delivery Me thod Nasal Cannula Room Air Oxygen Flow Rate 1 06/17/23 16:30 06/17/23 19:00 06/17/23 22:52 Temperature 97.9 F Pulse Rate 74 Pulse Rate [Pulse Oximeter] 72 Respiratory Rate 18 Blood Pressure [Ri ght Arm] 135/75 Pulse Oximetry 92 93 Oxygen Delivery Me thod Nasal Cannula Oxygen Flow Rate 1 06/17/23 22:52 06/17/23 22:52 06/17/23 22:52 Temperature 98.1 F Pulse Rate Pulse Rate [Pulse Oximeter] 72 73 Respiratory Rate 18 18 Blood Pressure [Ri ght Arm] 155/76 H Pulse Oximetry 93 93 Oxygen Delivery Me thod Nasal Cannula Nasal Cannula Oxygen Flow Rate 1 1 06/17/23 23:00 06/18/23 03:00 06/18/23 07:00 Temperature 97.9 F 97.6 F Pulse Rate 74 Pulse Rate [Pulse Oximeter] 73 73 Respiratory Rate 18 18 Blood Pressure [Ri ght Arm] 153/64 H Pulse Oximetry 92 93 Oxygen Delivery Me thod Nasal Cannula Nasal Cannula Oxygen Flow Rate 1 1.5 06/18/23 07:00 06/18/23 07:00 06/18/23 07:00 Temperature Pulse Rate Pulse Rate [Pulse Oximeter] 73 Respiratory Rate 18 18 Blood Pressure [Ri t Arm] Pulse Oximetry 92 93 Oxygen Delivery Me thod Nasal Cannula Oxygen Flow Rate 1.5 06/18/23 07:00 Temperature Pulse Rate 68 Pulse Rate [Pulse Oximeter] Respiratory Rate Blood Pressure [Ri t Arm] Pulse Oximetry Oxygen Delivery Me thod Oxygen Flow Rate Documenting provider has reviewed patient's vital signs: yes DS: Data Data Completed and Pending Labs on day of discharge: Labs from last 24 hours 06/18/23 05:37 WBC 6.20 RBC 3.47 L Hgb 11.3 L Hct 35.5 MCV 102 H MCH 33 MCHC 32 Plt Count 263 Sodium 139 Potassium 3.6 Chloride 98 Carbon Dioxide 36 H Anion Gap 5 L BUN 23 Creatinine 1.1 Estimated GFR 49 Glucose 94 Calcium 9.4 Discharge Plan Discharge Disposition: Home, Self-Care Date of Admission: 06/17/23 12:35 Attending Provider on Discharge: Phong Mota Primary Care Provider: Inder Tanner Condition: Improved Anticipated Discharge Date/Time: 06/18/23 11:07 Discharge Medications: Continued calcitonin (salmon) 200 unit/actuation spray,non-aerosol 1 spray intranasal (ALT) DAILY Qty: 3.7 2RF oxycodone 5 mg tablet 5 mg PO .5X/D Rx Instructions: HAS BEEN TAKING 5 TIMES DAILY PLUS Q4H PRN polyethylene glycol 3350 17 gram/dose powder 17 g PO DAILY acetaminophen 325 mg Tablet 650 mg PO QID Qty: 120 0RF lidocaine [Lidocaine Pain Relief] 4 % adhesive patch,medicated 1 patch topical BID amoxicillin 500 mg capsule 500 mg PO BID atorvastatin 40 mg tablet 40 mg PO HS amiodarone 200 mg tablet 100 mg PO DAILY levothyroxine 100 mcg tablet 100 mcg PO QAM aspirin 81 mg tablet,chewable 1 tab PO DAILY albuterol sulfate 90 mcg/actuation HFA aerosol inhaler 2 puff inhalation TID Rx Instructions: 2 PUFF TID SCHEDULED PLUS Q4H PRN lamotrigine 100 mg tablet 200 mg PO HS loratadine 10 mg tablet 10 mg PO DAILY Eliquis 2.5 mg tablet 2.5 mg PO BID melatonin 3 mg capsule 3 mg PO HS PRN potassium chloride 20 mEq tablet,ER particles/crystals 20 meq PO BID pantoprazole 40 mg tablet,delayed release (DR/EC) 40 mg PO DAILY simethicone [Gas Relief 80 (simethicone)] 80 mg tablet,chewable 80 mg PO QID PRN Changed furosemide 40 mg tablet 80 mg PO BID Qty: 120 0RF sennosides [Marley-sheela] 8.6 mg tablet 34.4 mg PO BID Qty: 100 0RF Discharge Orders: Discharge Order (Routine); Ordered 06/18/23 Ordered By: Phong Mota Additional Instructions: We treated you for congestive heart failure in the hospital. I have increased your furosemide from 40 mg twice a day to 80 mg twice a day. He will need to be checked next week to see if this dose is correct. This will require a blood test and assessment of your symptoms. You should check your weight every day when you wake up. Record your weight on paper and show your doctor your daily weights. We are also treating your back pain from her compression fracture. You on oxycodone 5 mg 3 times a day. As your back is feeling better you can wean the dose down. I would initially wean the medication by cutting the pills in half. This medicine is making you constipated. Because of this I have increased your senna to 4 pills twice a day. You can use MiraLax as well if you are still constipated. As you reduce your oxycodone use, you will need less laxative Activity Level: Activity as Tolerated Discharge Diet: Heart Healthy (2 gm sodium, low fat) Follow Up Appointments: Inder Tanner MD [Primary Care Provider] - Forms: MyHealth Info Instructions Discharge Comments: Check basic metabolic panel in 5-7 days
--- NOTE | 2023-06-18 13:16 | PC.NURSE ---
Discharge-- Very pleasant and cooperative, alert and oriented but forgetful patient discharged back to [facility] via wheelchair with son. VSS and pt is afebrile. SPO2 maintained >90% on 1-2L per n.c. Sats dropped as low as mid 80s with exertion, but patient was able to recover rapidly. Pain in her back has been well controlled with scheduled Oxycodone and Tylenol as needed. A few fine crackles noted in bilateral bases of pt's lungs, but she stated that she feels much better than she did at admission. Telemetry showed a sinus arrhythmia. She denied nausea and ate 50% of a regular breakfast without difficulty. Pt had a large, hard, formed BM this morning. Pt showered prior to discharge and tolerated it well. Discharge education was provided including diagnosis, symptoms to report, medications and follow up plan. All questions answered. SL was removed with tip intact.
--- NOTE | 2023-06-23 16:18 | ED_ITS ---
HPI - General Adult General Chief complaint: Shortness of Breath/Dyspnea Stated complaint: Shortness of breath Time Seen by Provider: 06/16/23 11:54 History of Present Illness HPI narrative: THIS NOTE IS AN ADDENDUM TO MY ER NOTE FROM 06/16/23. THIS NOTE INCLUDES THE CLINICAL IMPRESSION/ DIAGNOSIS SECTION WHICH I INADVERTENTLY OMITTED FROM MY ORIGINAL NOTE. Related Data Home Medications Medication Instructions Recorded Confirmed albuterol sulfate 90 mcg/actuation 2 puff inhalation TID 03/05/23 06/16/23 aerosol inhaler amiodarone 200 mg tablet 100 mg PO DAILY 03/05/23 06/16/23 amoxicillin 500 mg capsule 500 mg PO BID 03/05/23 06/16/23 apixaban 2.5 mg tablet (Eliquis) 2.5 mg PO BID 03/05/23 06/16/23 aspirin 81 mg chewable tablet 1 tab PO DAILY 03/05/23 06/16/23 atorvastatin 40 mg tablet 40 mg PO HS 03/05/23 06/16/23 lamotrigine 100 mg tablet 200 mg PO HS 03/05/23 06/16/23 levothyroxine 100 mcg tablet 100 mcg PO QAM 03/05/23 06/16/23 loratadine 10 mg tablet 10 mg PO DAILY 03/05/23 06/16/23 melatonin 3 mg capsule 3 mg PO HS PRN 03/05/23 06/16/23 pantoprazole 40 mg tablet,delayed 40 mg PO DAILY 03/05/23 06/16/23 release potassium chloride 20 mEq 20 meq PO BID 03/05/23 06/16/23 tablet,extended release(part/cryst) simethicone 80 mg chewable tablet 80 mg PO QID PRN 03/05/23 06/16/23 (Gas Relief 80 (simethicone)) oxycodone 5 mg tablet 5 mg PO .5X/D 06/05/23 06/16/23 polyethylene glycol 3350 17 17 g PO DAILY 06/05/23 06/16/23 gram/dose oral powder lidocaine 4 % topical patch 1 patch topical BID 06/16/23 06/16/23 (Lidocaine Pain Relief) Previous Rx's Medication Instructions Recorded calcitonin (salmon) 200 1 spray intranasal (ALT) DAILY 05/30/23 unit/actuation nasal spray #3.7 mL acetaminophen 325 mg tablet 650 mg (2 x 325 mg) PO QID #120 06/05/23 tabs furosemide 40 mg tablet 80 mg (2 x 40 mg) PO BID #120 tabs 06/18/23 sennosides 8.6 mg tablet (Marley-sheela) 34.4 mg (4 x 8.6 mg) PO BID #100 06/18/23 tabs Allergies Allergy/AdvReac Type Severity Reaction Status Date / Time No Known Drug Allergies Allergy Verified 06/04/23 13:23 [facility] Medical History (Updated 06/23/23 @ 16:18 by Alcon Mittal MD) Atrial fibrillation ?I48.91 - Unspecified atrial fibrillation (ICD-10) Osteoporosis ?M81.0 - Age-related osteoporosis without current pathological fracture (ICD- 10) Chronic diastolic heart failure ?I50.32 - Chronic diastolic (congestive) heart failure (ICD-10) Chronic kidney disease, stage 3b ?N18.32 - Chronic kidney disease, stage 3b (ICD-10) Paroxysmal atrial fibrillation ?I48.0 - Paroxysmal atrial fibrillation (ICD-10) COPD (chronic obstructive pulmonary disease) ?J44.9 - Chronic obstructive pulmonary disease, unspecified (ICD-10) Extravasation of intravenous contrast medium ?T80.818A - Extravasation of other vesicant agent, initial encounter (ICD-10) Chronic hypoxemic respiratory failure ?J96.11 - Chronic respiratory failure with hypoxia (ICD-10) Former smoker ?Z87.891 - Personal history of nicotine dependence (ICD-10) Normal pressure hydrocephalus ?G91.2 - (Idiopathic) normal pressure hydrocephalus (ICD-10) Diaphragmatic hernia ?K44.9 - Diaphragmatic hernia without obstruction or gangrene (ICD-10) Gastroesophageal reflux disease ?K21.9 - Gastro-esophageal reflux disease without esophagitis (ICD-10) Major depressive disorder ?F32.9 - Major depressive disorder, single episode, unspecified (ICD-10) Bipolar II disorder ?F31.81 - Bipolar II disorder (ICD-10) Ventricular premature complexes ?I49.3 - Ventricular premature depolarization (ICD-10) Pulmonary hypertension ?I27.20 - Pulmonary hypertension, unspecified (ICD-10) Primary hypothyroidism ?E03.9 - Hypothyroidism, unspecified (ICD-10) Essential hypertension ?I10 - Essential (primary) hypertension (ICD-10) Hyperlipidemia ?E78.5 - Hyperlipidemia, unspecified (ICD-10) History of bacteremia ?Z87.898 - Personal history of other specified conditions (ICD-10) Unspecified dementia, unspecified severity, without behavioral disturbance, psychotic disturbance, mood disturbance, and anxiety ?F03.90 - Unspecified dementia, unspecified severity, without behavioral disturbance, psychotic disturbance, mood disturbance, and anxiety (ICD-10) Spondylosis of lumbar spine ?M47.816 - Spondylosis without myelopathy or radiculopathy, lumbar region (ICD-10) History of COVID-19 ?Z86.16 - Personal history of COVID-19 (ICD-10) Peripheral vascular disease ?I73.9 - Peripheral vascular disease, unspecified (ICD-10) POLST (Physician Orders for Life-Sustaining Treatment) ?Z78.9 - Other specified health status (ICD-10) Surgical History (Updated 06/04/23 @ 23:27 by Carlos Vieira MD) Status post hysterectomy ?Z90.710 - Acquired absence of both cervix and uterus (ICD-10) Acquired absence of both cervix and uterus ?Z90.710 - Acquired absence of both cervix and uterus (ICD-10) Social History (Updated 06/04/23 @ 23:25 by Carlos Vieira MD) Narrative: Lives in assisted living facility, [place], [place]. Her son, Herbert Lobo, is her power of estate attorney for health should that be required, cell phone [phone]. Requests DNR DNI resuscitation status. Dr. Inder Tanner is her primary care physician What is your current living situation?: I presently have a place to live Problems where you live: no known problems Problems where you live details: NA In the past 12 months, utilities in danger of being shut off: no In past 12 months, lack of transportation kept you from medical appts, meetings, work, or getting things needed for daily living: no In the past 12 mos, have been you worried that your food would run out before you had money to buy more?: never true In the past 12 mos, the food you bought just didn't last and you didn't have money to buy more?: never true Highest level of school completed/degree received: Associate degree: occupational, technical, vocational program Smoking Status: Former smoker Do you use any of these nicotine containing products: None How often do you have a drink containing alcohol: never How often do you have six or more drinks on one occasion: Never AUDIT-C Alcohol total score: 0 Non-prescribed substance use: denies use Caffeine: Yes How often does anyone, including family, friends and others, physically hurt you : never How often does anyone, including family, friends and others, insult or talk down to you: never How often does anyone, including family, friends and others, threaten you with harm: never How often does anyone, including family, friends and others, scream or curse at you: never service: No Course Vital Signs Vital signs: Initial Vital Signs Pulse Oximetry 94 06/16/23 11:35 Oxygen Delivery Method Nasal Cannula 06/16/23 11:35 Oxygen Flow Rate 3 06/16/23 11:35 Vital Signs Pulse Oximetry 94 06/16/23 11:35 Oxygen Delivery Method Nasal Cannula 06/16/23 11:35 Oxygen Flow Rate 3 06/16/23 11:35 Temperature 97.6 F 06/18/23 07:00 Pulse Rate 73 06/18/23 07:00 Respiratory Rate 18 06/18/23 07:00 Blood Pressure 153/64 H 06/18/23 07:00 Pulse Oximetry 93 06/18/23 07:00 Oxygen Delivery Method Nasal Cannula 06/18/23 07:00 Oxygen Flow Rate 1.5 06/18/23 07:00 Medical Decision Making Lab Data Labs: Lab Results 06/16/23 06/16/23 06/17/23 Range/Units 11:43 12:25 06:00 WBC 5.79 5.16 (4.50-11.00) K/uL RBC 3.58 L 3.38 L (4.00-5.20) m/uL Hgb 11.7 L 11.0 L (12.0-16.0) gm/dL Hct 37.1 35.0 (33.0-51.0) % MCV 104 H 104 H (80-100) fL MCH 33 33 (26-34) pg MCHC 32 31 L (32-36) gm/dL RDW Coeff of Chely 12.8 12.8 (11.5-15.5) % Plt Count 281 265 (140-440) K/uL Neut % (Auto) 68.1 64.3 (42.0-72.0) % Lymph % (Auto) 16.6 L 17.8 L (20-44) % Nuckolls % (Auto) 11.7 H 13.4 H (0.0-11.0) % Eos % (Auto) 2.6 3.7 (0.0-7.0) % Baso % (Auto) 0.5 0.6 (0.0-3.0) % Neut # (Auto) 3.94 3.32 (1.7-7.0) K/uL Lymph # (Auto) 1.00 0.90 (0.90-2.90) K/uL Nuckolls # (Auto) 0.70 0.70 (0.00-0.90) K/UL Eos # (Auto) 0.15 0.19 (0.00-0.50) K/uL Baso # (Auto) 0.03 0.03 (0.00-0.30) K/uL Abs Immat Gran (auto) 0.03 0.01 (0.00-0.30) K/uL Imm/Tot Granulo (auto) 0.5 0.2 % Sodium 139 139 (135-149) mmol/L Potassium 4.4 3.6 (3.6-5.1) mmol/L Chloride 100 100 (96-114) mmol/L Carbon Dioxide 32 34 H (20-32) mmol/L Anion Gap 7 5 L (7-15) mEq/L BUN 27 23 (7-30) mg/dL Creatinine 1.4 1.3 (0.5-1.5) mg/dL Estimated GFR 36 40 ml/min Glucose 97 91 (60-115) mg/dL Lactate 1.1 (0.5-1.9) mmol/L Calcium 9.3 9.2 (8.4-10.6) mg/dL Magnesium 2.3 (1.5-2.6) mg/dL Troponin I < 0.01 L (0.01-0.04) ng/mL NT-Pro-B Natriuret Pep 331 pg/mL SARS-CoV-2 (PCR) Negative SARS-CoV-2 (Negative) Influenza Type A (PCR) Negative PCR FLU A (Negative) Influenza Type B (PCR) Negative PCR FLU B (Negative) RSV (PCR) Negative PCR RSV (Negative) Discharge Plan Discharge Clinical Impression: CHF (congestive heart failure), Hypoxia Patient Disposition: Admitted As Observation Condition: Improved Activity Level: Activity as Tolerated Activity Detail: PT and OT evaluate and treat Discharge Diet: Heart Healthy (2 gm sodium, low fat)
== END 2023-06-18 13:15 | disposition home or self-care (01) ==
LOC: ED 12:20 → MEDSURG 16:17
PROVIDERS: Physician Assistant; Admitting Provider Hospitalist; Emergency Provider Emergency Medicine; PCP Family Medicine; Visit Provider Hospitalist
DX: I50.32 Chronic diastolic (congestive) heart failure (principal); J96.21 Acute and chronic respiratory failure with hypoxia; I27.20 Pulmonary hypertension, unspecified; J44.9 Chronic obstructive pulmonary disease, unspecified; S22.060A Wedge compression fracture of T7-T8 vertebra, initial encounter for closed fracture; M54.9 Dorsalgia, unspecified; R60.0 Localized edema; K59.00 Constipation, unspecified; R63.5 Abnormal weight gain; M54.6 Pain in thoracic spine; I48.0 Paroxysmal atrial fibrillation; N18.32 Chronic kidney disease, stage 3b; F11.90 Opioid use, unspecified, uncomplicated; E03.9 Hypothyroidism, unspecified; M80.8AXA Other osteoporosis with current pathological fracture, other site, initial encounter for fracture; F32.9 Major depressive disorder, single episode, unspecified; E78.5 Hyperlipidemia, unspecified; K21.9 Gastro-esophageal reflux disease without esophagitis; I48.91 Unspecified atrial fibrillation; Z79.01 Long term (current) use of anticoagulants; Z79.82 Long term (current) use of aspirin; Z86.16 Personal history of COVID-19; Z87.898 Personal history of other specified conditions; Z87.891 Personal history of nicotine dependence; Z90.710 Acquired absence of both cervix and uterus; Z78.9 Other specified health status; Z20.822 Contact with and (suspected) exposure to COVID-19; Z66 Do not resuscitate
CPT/HCPCS: 36415; 71046; 80048; 83605; 83735; 83880; 84484; 85025; 85027; 87631; 93005; 93306; 94640; 94761; 99283; 99284; 99285; G0378; A9270; J1940

== ENCOUNTER 2023-06-23 13:26 | Outpatient (REF) | payer BC, SELFPAY ==
[2023-06-23 14:17] LABS: Chloride* 98 mmol/L (96-114); Potassium* 4.6 mmol/L (3.6-5.1); Sodium* 139 mmol/L (135-149)
[2023-06-23 14:20] LABS: Anion Gap 11 mEq/L (7-15); Blood Urea Nitrogen* 24 mg/dL (7-30); Calcium* 8.9 mg/dL (8.4-10.6); Carbon Dioxide* 30 mmol/L (20-32); Creatinine* 1.3 mg/dL (0.5-1.5); Estimated Glomerular Filt Rate 40 ml/min; Glucose* 121 mg/dL (60-115)
== END 2023-06-23 13:27 | disposition home or self-care (01) ==
LOC: NPINS 13:26
PROVIDERS: PCP Family Medicine; Visit Provider Family Medicine
DX: I50.9 Heart failure, unspecified (principal); N18.9 Chronic kidney disease, unspecified
CPT/HCPCS: 80048

== ENCOUNTER 2023-06-26 10:49 | Outpatient (REF) | payer BC, SELFPAY ==
[2023-06-26 11:45] LABS: NT Pro B Type NatriureticPept* 472 pg/mL
== END 2023-06-26 10:50 | disposition home or self-care (01) ==
LOC: NPINS 10:49
PROVIDERS: PCP Family Medicine; Visit Provider Nurse Practitioner Gerontology
DX: I50.9 Heart failure, unspecified (principal); N18.9 Chronic kidney disease, unspecified
CPT/HCPCS: 83880

== ENCOUNTER 2023-06-30 17:42 | Outpatient (REF) | payer BC, SELFPAY ==
[2023-07-01 05:10] LABS: Chloride* 97 mmol/L (96-114)
[2023-07-01 05:11] LABS: Potassium* 5.2 mmol/L (3.6-5.1); Sodium* 141 mmol/L (135-149)
[2023-07-01 05:13] LABS: Creatinine* 1.3 mg/dL (0.5-1.5); Estimated Glomerular Filt Rate 40 ml/min
[2023-07-01 05:14] LABS: Anion Gap 14 mEq/L (7-15); Blood Urea Nitrogen* 38 mg/dL (7-30); Calcium* 9.2 mg/dL (8.4-10.6); Carbon Dioxide* 30 mmol/L (20-32); Glucose* 84 mg/dL (60-115)
[2023-07-01 05:31] LABS: Free T4 Free Thyroxine* 2.59 ng/dL (0.70-1.85)
[2023-07-03 05:28] LABS: Total T3 36 ng/dL (80-200)
== END 2023-06-30 17:43 | disposition home or self-care (01) ==
LOC: NPINS 17:42
PROVIDERS: PCP Family Medicine; Visit Provider Family Medicine
DX: E03.9 Hypothyroidism, unspecified (principal); I50.9 Heart failure, unspecified; J44.9 Chronic obstructive pulmonary disease, unspecified
CPT/HCPCS: 80048; 84436; 84439; 84443; 84480

== ENCOUNTER 2023-08-11 11:20 | Outpatient (REF) | payer BC, SELFPAY ==
[2023-08-11 13:10] LABS: Chloride* 98 mmol/L (96-114); Sodium* 140 mmol/L (135-149)
[2023-08-11 13:13] LABS: Anion Gap 6 mEq/L (7-15); Blood Urea Nitrogen* 25 mg/dL (7-30); Carbon Dioxide* 36 mmol/L (20-32); Creatinine* 1.2 mg/dL (0.5-1.5); Estimated Glomerular Filt Rate 44 ml/min
[2023-08-11 13:14] LABS: Glucose* 113 mg/dL (60-115)
== END 2023-08-11 11:21 | disposition home or self-care (01) ==
LOC: NPINS 11:20
PROVIDERS: PCP Family Medicine; Visit Provider Nurse Practitioner Gerontology
DX: I50.9 Heart failure, unspecified (principal)
CPT/HCPCS: 80048

== ENCOUNTER 2023-10-02 18:13 | Emergency (ER) | payer BC, SELFPAY ==
[2023-10-02] VITALS (10 sets, daily range): BP systolic 130–145; BP diastolic 71–85; PULSE 78–91; RESP 22; TEMP 36.8; O2SAT 88–98; BMI 25.6
--- NOTE | 2023-10-02 18:38 | ED_ITS ---
HPI - Abdominal Pain General Time Seen by Provider: 18:38 Date Seen: 10/02/23 Chief Complaint: Abdominal Pain Stated Complaint: abdominal pain L side Time Seen by Provider: 10/02/23 18:31 Source: patient, RN notes reviewed and old records reviewed Mode of arrival: ambulatory Limitations: no limitations History of Present Illness HPI narrative: 88-year-old female with history of heart failure, COPD, chronic back pain, atrial fibrillation who presents today with left-sided abdominal pain. Patient with left lower quadrant pain that had been going on all day, small bowel movement earlier today. Nausea but no vomiting. Denies urinary symptoms. Prior hysterectomy and appendectomy as well as AAA repair. Related Data Home Medications Medication Instructions Recorded Confirmed albuterol sulfate 90 mcg/actuation 2 puff inhalation TID 03/05/23 06/16/23 aerosol inhaler amiodarone 200 mg tablet 100 mg PO DAILY 03/05/23 06/16/23 amoxicillin 500 mg capsule 500 mg PO BID 03/05/23 06/16/23 apixaban 2.5 mg tablet (Eliquis) 2.5 mg PO BID 03/05/23 06/16/23 aspirin 81 mg chewable tablet 1 tab PO DAILY 03/05/23 06/16/23 atorvastatin 40 mg tablet 40 mg PO HS 03/05/23 06/16/23 lamotrigine 100 mg tablet 200 mg PO HS 03/05/23 06/16/23 levothyroxine 100 mcg tablet 100 mcg PO QAM 03/05/23 06/16/23 loratadine 10 mg tablet 10 mg PO DAILY 03/05/23 06/16/23 melatonin 3 mg capsule 3 mg PO HS PRN 03/05/23 06/16/23 pantoprazole 40 mg tablet,delayed 40 mg PO DAILY 03/05/23 06/16/23 release potassium chloride 20 mEq 20 meq PO BID 03/05/23 06/16/23 tablet,extended release(part/cryst) simethicone 80 mg chewable tablet 80 mg PO QID PRN 03/05/23 06/16/23 (Gas Relief 80 (simethicone)) oxycodone 5 mg tablet 5 mg PO .5X/D 06/05/23 06/16/23 polyethylene glycol 3350 17 17 g PO DAILY 06/05/23 06/16/23 gram/dose oral powder lidocaine 4 % topical patch 1 patch topical BID 06/16/23 06/16/23 (Lidocaine Pain Relief) Previous Rx's Medication Instructions Recorded calcitonin (salmon) 200 1 spray intranasal (ALT) DAILY 05/30/23 unit/actuation nasal spray #3.7 mL acetaminophen 325 mg tablet 650 mg (2 x 325 mg) PO QID #120 06/05/23 tabs furosemide 40 mg tablet 80 mg (2 x 40 mg) PO BID #120 tabs 06/18/23 sennosides 8.6 mg tablet (Marley-sheela) 34.4 mg (4 x 8.6 mg) PO BID #100 06/18/23 tabs Allergies Allergy/AdvReac Type Severity Reaction Status Date / Time No Known Drug Allergies Allergy Verified 10/02/23 19:37 [facility] Medical History (Updated 10/02/23 @ 20:59 by Josr Perdomo MD) Atrial fibrillation ?I48.91 - Unspecified atrial fibrillation (ICD-10) Osteoporosis ?M81.0 - Age-related osteoporosis without current pathological fracture (ICD- 10) Chronic diastolic heart failure ?I50.32 - Chronic diastolic (congestive) heart failure (ICD-10) Chronic kidney disease, stage 3b ?N18.32 - Chronic kidney disease, stage 3b (ICD-10) Paroxysmal atrial fibrillation ?I48.0 - Paroxysmal atrial fibrillation (ICD-10) COPD (chronic obstructive pulmonary disease) ?J44.9 - Chronic obstructive pulmonary disease, unspecified (ICD-10) Extravasation of intravenous contrast medium ?T80.818A - Extravasation of other vesicant agent, initial encounter (ICD-10) Chronic hypoxemic respiratory failure ?J96.11 - Chronic respiratory failure with hypoxia (ICD-10) Former smoker ?Z87.891 - Personal history of nicotine dependence (ICD-10) Normal pressure hydrocephalus ?G91.2 - (Idiopathic) normal pressure hydrocephalus (ICD-10) Diaphragmatic hernia ?K44.9 - Diaphragmatic hernia without obstruction or gangrene (ICD-10) Gastroesophageal reflux disease ?K21.9 - Gastro-esophageal reflux disease without esophagitis (ICD-10) Major depressive disorder ?F32.9 - Major depressive disorder, single episode, unspecified (ICD-10) Bipolar II disorder ?F31.81 - Bipolar II disorder (ICD-10) Ventricular premature complexes ?I49.3 - Ventricular premature depolarization (ICD-10) Pulmonary hypertension ?I27.20 - Pulmonary hypertension, unspecified (ICD-10) Primary hypothyroidism ?E03.9 - Hypothyroidism, unspecified (ICD-10) Essential hypertension ?I10 - Essential (primary) hypertension (ICD-10) Hyperlipidemia ?E78.5 - Hyperlipidemia, unspecified (ICD-10) History of bacteremia ?Z87.898 - Personal history of other specified conditions (ICD-10) Unspecified dementia, unspecified severity, without behavioral disturbance, psychotic disturbance, mood disturbance, and anxiety ?F03.90 - Unspecified dementia, unspecified severity, without behavioral disturbance, psychotic disturbance, mood disturbance, and anxiety (ICD-10) Spondylosis of lumbar spine ?M47.816 - Spondylosis without myelopathy or radiculopathy, lumbar region (ICD-10) History of COVID-19 ?Z86.16 - Personal history of COVID-19 (ICD-10) Peripheral vascular disease ?I73.9 - Peripheral vascular disease, unspecified (ICD-10) POLST (Physician Orders for Life-Sustaining Treatment) ?Z78.9 - Other specified health status (ICD-10) Surgical History (Updated 06/04/23 @ 23:27 by Carlos Vieira MD) Status post hysterectomy ?Z90.710 - Acquired absence of both cervix and uterus (ICD-10) Acquired absence of both cervix and uterus ?Z90.710 - Acquired absence of both cervix and uterus (ICD-10) Social History (Updated 06/04/23 @ 23:25 by Carlos Vieira MD) N[place]ative[place] Her son, Herbert Lobo, is her power of voip engineer for health should that be required, cell phone [phone]. Requests DNR DNI resuscitation status. Dr. Inder Tanner is her primary care physician What is your current living situation?: I presently have a place to live Problems where you live: no known problems Problems where you live details: NA In the past 12 months, utilities in danger of being shut off: no In past 12 months, lack of transportation kept you from medical appts, meetings, work, or getting things needed for daily living: no In the past 12 mos, have been you worried that your food would run out before you had money to buy more?: never true In the past 12 mos, the food you bought just didn't last and you didn't have money to buy more?: never true Highest level of school completed/degree received: Associate degree: occupational, technical, vocational program Smoking Status: Former smoker Do you use any of these nicotine containing products: None How often do you have a drink containing alcohol: never How often do you have six or more drinks on one occasion: Never AUDIT-C Alcohol total score: 0 Non-prescribed substance use: denies use Caffeine: Yes How often does anyone, including family, friends and others, physically hurt you : never How often does anyone, including family, friends and others, insult or talk down to you: never How often does anyone, including family, friends and others, threaten you with harm: never How often does anyone, including family, friends and others, scream or curse at you: never service: No Exam Narrative: Exam Narrative: General: Well-developed and well-nourished, no acute distress Head: Atraumatic and normocephalic Eyes: Pupils are equal reactive, extraocular motions intact, conjunctiva clear ENT: External nose and ears are normal, posterior pharynx without erythema or exudate Neck: No midline cervical tenderness, full spontaneous range of motion the neck, trachea midline, no adenopathy Heart: Regular rate and rhythm no murmurs or thrills Lungs: Prolonged expiratory phase with poor air movement throughout, pursed lip breathing Abdomen: Soft, left lower quadrant tenderness, nondistended with active bowel sounds Musculoskeletal: No tenderness, deformity, or edema Neurologic: Awake, alert, and oriented x3, no gross focal neurologic deficits, cranial nerves intact as tested Psych: Mood and affect are appropriate Skin: No rashes Const: Vital Signs, click to edit/add: Vital Signs - 24 hr 10/02/23 18:33 10/02/23 19:00 Temperature 98.2 F Pulse Rate [Pulse Oximeter] 84 Respiratory Rate 22 Blood Pressure [Ri ght Upper Arm] 145/76 H Pulse Oximetry 93 95 Oxygen Delivery Me thod Nasal Cannula Nasal Cannula Oxygen Flow Rate 2 2 Course Course ED Course: Patient seen examined, prior records are reviewed. Patient reports that she has had left lower quadrant pain all day today with nausea but no vomiting. No diarrhea. Denies chest pain or shortness of breath out of the ordinary for her. Left lower quadrant tenderness on exam, concern for diverticulitis or colitis, kidney stone less likely. Labs and CT scan are ordered Reevaluation(s) Time of Reevaluation #1: 19:50 Reevaluation #1: Labs ordered and independently interpreted by me with leukocytosis, stable anemia. Basic panel is reassuring, lactate normal. Time of Reevaluation #2: 19:58 Reevaluation #2: CT abdomen and pelvis independently interpreted by me demonstrates large volume of stool with some wall thickening and stranding of the sigmoid colon without definite diverticulitis. Patient was given enemas as well as magnesium citrate and did pass stool in the department. Stable for discharge Vital Signs Vital signs: Initial Vital Signs Pulse Rate 85 10/02/23 18:29 Blood Pressure 145/76 H 10/02/23 18:29 Blood Pressure Mean 99 10/02/23 18:29 Pulse Oximetry 93 10/02/23 18:29 Vital Signs Pulse Rate 85 10/02/23 18:29 Blood Pressure 145/76 H 10/02/23 18:29 Pulse Oximetry 93 10/02/23 18:29 Temperature 98.2 F 10/02/23 18:33 Pulse Rate 91 10/02/23 21:17 Respiratory Rate 22 10/02/23 18:33 Blood Pressure 123/65 10/03/23 00:22 Pulse Oximetry 88 10/02/23 21:17 Oxygen Delivery Method Nasal Cannula 10/02/23 19:00 Oxygen Flow Rate 2 10/02/23 19:00 Medications Administered Medications: Discontinued Medications Generic Name Dose Route Start Last Admin Trade Name Freq PRN Reason Stop Dose Admin Docusate Sodium 1,000 mg 10/02/23 21:54 10/02/23 22:27 Docusate Sodium 10 Mg/Ml Liquid PO 10/02/23 21:55 1,000 mg ONCE ONE Administration Docusate Sodium/Benzocaine 5 ml 10/02/23 20:15 10/02/23 21:08 Docusate Sodium/Benzocaine 5 Ml Enema [place] 10/02/23 20:16 5 ml ONCE ONE Administration Hydromorphone HCl 0.3 mg 10/02/23 18:57 10/02/23 19:25 Hydromorphone 0.5 Mg/0.5 Ml Inj IVP 10/02/23 18:58 0.3 mg ONCE ONE Administration Magnesium Citrate 300 ml 10/02/23 20:15 10/02/23 20:24 Magnesium Citrate 300 Ml Solution PO 10/02/23 20:16 300 ml ONCE ONE Administration Magnesium Citrate 150 ml 10/02/23 21:52 10/02/23 22:27 Magnesium Citrate 300 Ml Solution PO 10/02/23 21:53 150 ml ONCE ONE Administration Mineral Oil 60 ml 10/02/23 21:53 10/02/23 22:27 Mineral Oil [place] 10/02/23 21:54 60 ml ONCE ONE Administration Ondansetron HCl 4 mg 10/02/23 18:57 10/02/23 19:20 Ondansetron 2 Mg/Ml Inj IVP 10/02/23 18:58 4 mg ONCE ONE Administration MDM - Abdominal Pain Lab Data Labs: Lab Results 10/02/23 10/02/23 Range/Units 19:15 20:18 WBC 12.79 H (4.50-11.00) K/uL RBC 3.58 L (4.00-5.20) m/uL Hgb 11.7 L (12.0-16.0) gm/dL Hct 38.2 (33.0-51.0) % MCV 107 H (80-100) fL MCH 33 (26-34) pg MCHC 31 L (32-36) gm/dL RDW Coeff of Chely 13.2 (11.5-15.5) % Plt Count 195 (140-440) K/uL Neut % (Auto) 88.4 H (42.0-72.0) % Lymph % (Auto) 4.5 L (20-44) % Bledsoe % (Auto) 6.2 (0.0-11.0) % Eos % (Auto) 0.5 (0.0-7.0) % Baso % (Auto) 0.2 (0.0-3.0) % Neut # (Auto) 11.30 H (1.7-7.0) K/uL Lymph # (Auto) 0.60 L (0.90-2.90) K/uL Bledsoe # (Auto) 0.80 (0.00-0.90) K/UL Eos # (Auto) 0.10 (0.00-0.50) K/uL Baso # (Auto) 0.00 (0.00-0.30) K/uL Abs Immat Gran (auto) 0.00 (0.00-0.30) K/uL Imm/Tot Granulo (auto) 0.2 % Sodium 141 (135-149) mmol/L Potassium 3.7 (3.6-5.1) mmol/L Chloride 103 (96-114) mmol/L Carbon Dioxide 30 (20-32) mmol/L Anion Gap 8 (7-15) mEq/L BUN 20 (7-30) mg/dL Creatinine 1.0 (0.5-1.5) mg/dL Estimated Creat Clear 31.35 Estimated GFR 55 ml/min Glucose 116 H (60-115) mg/dL Lactate 1.1 (0.5-1.9) mmol/L Calcium 8.8 (8.4-10.6) mg/dL Urine Color Yellow (Yellow) Urine Appearance Clear (Clear) Urine pH 5.5 (5.0-8.5) Ur Specific [place] 1.010 (1.000-1.030) Urine Protein Negative (Negative) Urine Glucose (UA) Negative (Negative) Urine Ketones Negative (Negative) Urine Blood Trace-intact A (Negative) Urine Nitrite Negative (Negative) Urine Bilirubin Negative (Negative) Urine Urobilinogen 0.2 (0.2-1.0) Ur Leukocyte Esterase Negative (Negative) Urine RBC 2-5 A (0-2) Urine WBC 2-5 (0-5) Urine WBC Clumps None (None) Ur Squamous Epith Cells None (None-Few) Urine Bacteria None (None) POC Creatinine 1.2 (0.6-1.3) mg/dl Discharge Plan Discharge Clinical Impression: Abdominal pain, LLQ, Stercoral colitis Patient Disposition: Home w/ Parent or Adult Condition: Improved Instructions: Colitis (ED) Additional Instructions: The activity and diet as tolerated. Make sure your getting enough fluids. Take MiraLax daily. Follow-up with your primary care doctor this week Activity Level: No Restrictions Discharge Diet: Heart Healthy (2 gm sodium, low fat) Prescriptions: No Action calcitonin (salmon) 200 unit/actuation spray,non-aerosol 1 spray intranasal (ALT) DAILY Qty: 3.7 2RF oxycodone 5 mg tablet 5 mg PO .5X/D Rx Instructions: HAS BEEN TAKING 5 TIMES DAILY PLUS Q4H PRN polyethylene glycol 3350 17 gram/dose powder 17 g PO DAILY acetaminophen 325 mg Tablet 650 mg PO QID Qty: 120 0RF lidocaine [Lidocaine Pain Relief] 4 % adhesive patch,medicated 1 patch topical BID furosemide 40 mg tablet 80 mg PO BID Qty: 120 0RF sennosides [Marley-sheela] 8.6 mg tablet 34.4 mg PO BID Qty: 100 0RF amoxicillin 500 mg capsule 500 mg PO BID atorvastatin 40 mg tablet 40 mg PO HS amiodarone 200 mg tablet 100 mg PO DAILY levothyroxine 100 mcg tablet 100 mcg PO QAM aspirin 81 mg tablet,chewable 1 tab PO DAILY albuterol sulfate 90 mcg/actuation HFA aerosol inhaler 2 puff inhalation TID Rx Instructions: 2 PUFF TID SCHEDULED PLUS Q4H PRN lamotrigine 100 mg tablet 200 mg PO HS loratadine 10 mg tablet 10 mg PO DAILY Eliquis 2.5 mg tablet 2.5 mg PO BID melatonin 3 mg capsule 3 mg PO HS PRN potassium chloride 20 mEq tablet,ER particles/crystals 20 meq PO BID pantoprazole 40 mg tablet,delayed release (DR/EC) 40 mg PO DAILY simethicone [Gas Relief 80 (simethicone)] 80 mg tablet,chewable 80 mg PO QID PRN Follow Up/Referrals: Inder Tanner MD [Primary Care Provider] - Stand Alone Forms: [facility] Info Instructions
--- NOTE | 2023-10-02 18:57 | CRLHL7_ITS ---
For Patients: As a result of the Century Cures Act, medical imaging exams and procedure reports are released immediately into your electronic medical record. You may view this report before your referring provider. If you have questions, please contact your health care provider. INDICATION: Left lower quadrant pain TECHNIQUE: CT abdomen and pelvis acquired with 69 cc Isovue 370 IV contrast. Permanently recorded images are archived. COMPARISON: CT chest, abdomen and pelvis and pelvis 06/04/2023 FINDINGS: Lower chest: Severe emphysema. Moderate hiatal hernia. Liver: Unremarkable. Normal in size and attenuation. No suspicious masses. Gallbladder and bile ducts: Hydropic gallbladder containing few layering calcified stones. Mild intrahepatic and extrahepatic biliary ductal dilatation. The common bile duct measures up to 12 mm. No discrete filling defect identified. Pancreas: Unremarkable. No mass or inflammation. Spleen: Unremarkable. Normal in size. No masses. Adrenal glands: Unremarkable. No nodules. Kidneys, Ureters, and Bladder: Small simple right renal cyst. No suspicious masses, stones, or hydronephrosis. Unremarkable ureters and bladder. GI tract: Large colonic stool burden. Mild mural thickening of the rectum. No obstruction. The appendix is not clearly visualized. Vasculature: Similar appearing thoracic and abdominal aortic endograft and moderate-sized abdominal aortic aneurysm. Lymph nodes: No lymphadenopathy. Peritoneum/Abdominal Wall: Unremarkable. No free air or significant free fluid. Pelvis: Status post hysterectomy. Bones: Unremarkable for age. IMPRESSION: 1. Mild mural thickening of the rectum in the setting of a large colonic stool burden. Findings may represent proctitis or stercoral colitis. Also recommend correlation for constipation. 2. Hydropic gallbladder containing small layering stones. While there is mild intra and extrahepatic biliary ductal dilatation, there is no evidence for acute cholecystitis. Consider MRCP for further evaluation. Please note that all CT scans at this facility use dose modulation, iterative reconstruction, and/or weight-based dosing when appropriate to reduce radiation dose to as low as reasonably achievable. Dictated by Alcon Flores MD @ 10/02/2023 8:06:20 PM (Electronically Signed)
[2023-10-02] MEDS: ONDANSETRON 2 MG/ML inj 4 MG IVP (19:20)
[2023-10-02] MEDS: HYDROmorphone 0.5 mg/0.5 ml inj 0.3 MG IVP (19:25)
[2023-10-02 19:26] LABS: Basophils Percent Auto 0.2 % (0.0-3.0); Eosinophils Percent Auto 0.5 % (0.0-7.0); Hematocrit 38.2 % (33.0-51.0); Hemoglobin* 11.7 gm/dL (12.0-16.0); Immature Granulocytes Pct Auto 0.2 %; Lymphocytes Percent Auto 4.5 % (20-44); Mean Corpuscular HGB Conc 31 gm/dL (32-36); Mean Corpuscular Hemoglobin 33 pg (26-34); Mean Corpuscular Volume 107 fL (80-100); Monocytes Percent Auto 6.2 % (0.0-11.0); Neutrophils Percent Auto 88.4 % (42.0-72.0); Platelet Count* 195 K/uL (140-440); RDW Coefficient of Variation % 13.2 % (11.5-15.5); Red Blood Count 3.58 m/uL (4.00-5.20); White Blood Count* 12.79 K/uL (4.50-11.00)
[2023-10-02 19:27] LABS: Lactate* 1.1 mmol/L (0.5-1.9)
[2023-10-02 19:29] LABS: Slide Review Reflex No
--- OUTSIDE RECORDS SUMMARY | 2023-10-02 19:40 | XMS_ITS | Clinical Summary ---
Author Name Unknown Organization [facility] Address [place], [place] [address] Care Team Providers Care Eyeletter Name Role Phone Steph Harrington NP Primary Care Provider [phone] Eric Harrington MD Unavailable [phone] [facility], [place] Unavailable Allergies Active Allergy Reactions Criticality Noted Date Comments Amlodipine Edema High 09/10/2021 Other reaction(s): Edema Codeine Nausea And Vomiting Erythromycin Nausea And Vomiting Morphine Nausea And Vomiting Penicillins Hives High 08/08/1992 Has tolerated cephalexin. Tolerated ampicillin 01/2019 (after 48 hrs of treatment) Medications Medication Sig Dispensed Refills Start Date End Date Status pantoprazole (PROTONIX) 40 mg delayed-release tabletIndications:Gas tritis without bleeding, unspecified chronicity, unspecified gastritis type Take 1 tablet by mouth once daily. To block acid release in the stomach. 90 tablet 3 12/27/2018 Active ondansetron (ZOFRAN ODT) 4 mg disintegrating tablet DISSOLVE 1 TAB BY MOUTH EVERY 4 HOURS NEEDED for nausea 99 11/30/2018 Active levothyroxine (SYNTHROID) 100 mcg tabletIndications:Hyp othyroidism, unspecified type TAKE ONE TABLET BY MOUTH IN THE MORNING 90 tablet 3 04/18/2019 Active apixaban (ELIQUIS) 2.5 mg tabletIndications:Atr ial fibrillation, unspecified type (HC) Take 1 tablet by mouth 2 times daily. 60 tablet 0 10/11/2019 Active carboxymethylcellulos e 0.5% 0.5 % drop ophthalmic dropsIndications:Dry eyes Place 1 Drop into both eyes every 2 hours if needed for Dry Eyes. 0 10/12/2019 Active dextromethorphan polistirex 30 mg in 5 ml (DELSYM) 30 mg/5 mL liquidIndications:Cou gh Take 10 mL by mouth every 12 hours if needed for Cough. 0 10/12/2019 Active nitroglycerin (NITROSTAT) 0.4 mg sublingual tabletIndications:Abd ominal cramping [The details of the medication are not available because there are pending changes by a home health clinician.] 10 tablet 0 10/12/2019 Active Additional Information Patient not taking.Reason: See Comment (DC by another provider), Informant: [facility]idential [facility], Reported on 08/17/2023 amoxicillin (AMOXIL) 500 mg capsuleIndications:In fection Take 1 capsule by mouth 2 times daily. 0 10/12/2019 Active albuterol HFA (PRO-AIR; VENTOLIN; PROVENTIL) 90 mcg/actuation inhaler 2 Puffs 3 times daily if needed for Shortness Of Breath. 0 07/06/2020 Active lamoTRIgine (LAMICTAL) 100 mg tablet Take 200 mg by mouth once daily. 0 Active aspirin chewable 81 mg chewable tablet Take 81 mg by mouth once daily with a meal. 0 Active atorvastatin (LIPITOR) 40 mg tablet Take 40 mg by mouth at bedtime. 0 Active loratadine (CLARITIN) 10 mg tablet Take 10 mg by mouth once daily. 0 Active simethicone chewable (MYLANTA GAS RELIEF; GAS X) 80 mg chewable tablet Take 80 mg by mouth 4 times daily. Max dose: 500 mg per 24 hrs 0 Active acetaminophen (TYLENOL EXTRA STRGTH) 500 mg tabletIndications:Nelly sed fracture of olecranon process of left ulna with routine healing, subsequent encounter [The details of the medication are not available because there are pending changes by a home health clinician.] 30 tablet 0 11/16/2020 Active Additional Information Patient not taking.Reported on 08/17/2023 sennosides-docusate, 8.6-50 mg, (SENOKOT S) 8.6-50 mg tabletIndications:Con stipation, unspecified constipation type Take 2 tablets by mouth 2 times daily if needed for Constipation. 0 11/19/2020 Active hydroCHLOROthiazide (HCTZ) 25 mg tabletIndications:Hyp ertension, unspecified type [The details of the medication are not available because there are pending changes by a home health clinician.] 0 11/19/2020 Active Additional Information Patient not taking.Reason: See Comment (DC by another clinician), Informant: Patient's Med List, Reported on 08/17/2023 multivitamins-mineral s-lutein (CENTRUM SILVER) 0.4 mg-300 mcg- 250 mcg tab TAKE ONE TABLET BY MOUTH DAILY 0 01/13/2022 Active melatonin 3 mg tablet TAKE ONE TABLET BY MOUTH EVERY DAY 0 01/05/2023 Active trolamine salicylate 10% topical (MYOFLEX) 10 % cream Apply topically to affected area(s) 3 times daily if needed. Apply topically to affected area(s) 3 times daily if needed. 0 Active amiodarone (CORDARONE) 200 mg tablet Take 100 mg by mouth once daily. 0 01/05/2023 Active potassium chloride (KLOR-CON) 20 mEq extended-release tablet (part/cryst) Take 1 Tablet by mouth two times daily with meals. 0 08/14/2021 Active acetaminophen (TYLENOL EXTRA STRGTH) 500 mg tabletIndications:art hritic pain Take 500 mg by mouth 3 times daily if needed for Pain. max does: 4000 mg in 24 hours Indications: pain associated with arthritis 0 11/16/2020 Active mineral oil enema Insert 133 mL rectally one time if needed (Constipation). 0 Active alendronate (Fosamax) 70 mg tablet Take 70 mg by mouth every Thursday morning. 0 Active BLUE-EMU LIDOCAINE PATCH TOP 5 % once daily. 0 Active torsemide (DEMADEX) 20 mg tablet Take 20 mg by mouth once daily. 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) 02/15/2019 Bacteremia due to Enterococcus 02/15/2019 ACP (advance care planning) 01/17/2019 Gastritis 12/27/2018 AAA (abdominal aortic aneurysm) 12/27/2018 COPD (chronic obstructive pulmonary disease) 04/2019 Hyperlipidemia 12/27/2018 Hypothyroid 12/27/2018 PAF (paroxysmal atrial fibrillation) 12/27/2018 NPH (normal pressure hydrocephalus) 12/27/2018 Chronic diastolic congestive heart failure 12/27 Environmental allergies 12/27/2018 half-way (current) use of anticoagulants 2017 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 Subclavian artery stenosis 12/04/2017 Bipolar disorder 05/10/2015 Hypertensive disorder 05/10/2015 Pulmonary hypertension 05/10/2015 Senile osteoporosis 05/10/2015 Fever Hypoxia Encounters Date Type Department Care Team Description 09/25/2023 Home Care Visit [facility] [address] [place] [address] Macarena Draper, PT CARE COORDINATION 09/24/2023 3:00 PM AGER TENDER Home Care Visit [facility] [address] [place] [address] Macarena Draper, PT PT - OASIS DISCHARGE 09/23/2023 11:30 AM AGER TENDER Home Care Visit [facility] [address] [place] [address] Rui Nicolas, OT OT - DISCIPLINE DISCHARGE 09/22/2023 Home Care Visit [facility] [address] [place] [address] Rui Nicolas, OT CARE COORDINATION 09/17/2023 3:30 PM AGER TENDER Home Care Visit [facility] [address] [facility] [address] Elizabeth Sabillon COTA OT - HOME VISIT 09/17/2023 Home Care Visit [facility] [address] [place] [address] Elizabeth Sabillon, TAN CARE COORDINATION 09/16/2023 10:30 AM AGER TENDER Home Care Visit [facility] [address] [facility] [address] Macarena Draper, PT PT - HOME VISIT 09/16/2023 Home Care Visit [facility] [address] [place] [address] Macarena Draper, PT CARE COORDINATION 09/11/2023 Home Care Visit [facility] [address] [place] [address] Rui Nicolas, OT CARE COORDINATION 09/11/2023 Home Care Visit [facility] [address] [facility] [address] Elizabeth Sabillon, TAN CARE COORDINATION 09/10/2023 2:30 PM AGER TENDER Home Care Visit [facility] [address] [place] [address] Elizabeth Sabillon, TAN OT - HOME VISIT 09/08/2023 Home Care Visit [facility] [address] [place] [address] Macarena Draper, PT CARE COORDINATION 09/07/2023 3:00 PM AGER TENDER Home Care Visit [facility] [address] [place] [address] Macarena Draper, PT PT - HOME VISIT 09/06/2023 Home Care Visit [facility] [address] [place] [address] Rui Nicolas, OT CARE COORDINATION 09/04/2023 [place] [facility] [place] [address] [place] [address] Kuldeep Lorenz MD Appointment 09/02/2023 9:15 AM AGER TENDER Home Care Visit [facility] [address] [place] [address] Rui Nicolas, OT OT - REASSESSMENT 08/31/2023 3:00 PM AGER TENDER Home Care Visit [facility] [address] [facility] [address] Macarena Draper, PT PT - REASSESSMENT 08/31/2023 Home Care Visit [facility] [address] [facility] [address] Macarena Draper, PT CARE COORDINATION 08/27/2023 10:30 AM AGER TENDER Home Care Visit [facility] [address] [facility] [address] Macarena Draper, PT PT - HOME VISIT 08/27/2023 Home Care Visit [facility] [address] [facility] [address] Macarena Draper, PT CARE COORDINATION 08/26/2023 2:30 PM AGER TENDER Home Care Visit [facility] [address] [place] [address] Elizabeth Sabillon, TAN OT - HOME VISIT 08/26/2023 Home Care Visit [facility] [address] [facility] [address] Elizabeth Sabillon, TAN CARE COORDINATION 08/24/2023 3:00 PM AGER TENDER Home Care Visit [facility] [address] [facility] [address] Macarena Draper, PT PT - HOME VISIT 08/24/2023 Home Care Visit [facility] [address] [facility] [address] Macarena Draper, PT CARE COORDINATION 08/21/2023 9:00 AM AGER TENDER Home Care Visit [facility] [address] [facility] [address] Elizabeth Sabillon TAN OT - HOME VISIT 08/21/2023 Home Care Visit [facility] [address] [facility] [address] Elizabeth Sabillon, TAN CARE COORDINATION 08/20/2023 3:00 PM AGER TENDER Home Care Visit [facility] [address] [facility] [address] Macarena Draper, PT PT - HOME VISIT 08/20/2023 9:00 AM AGER TENDER Home Care Visit [facility] [address] [facility] [address] Elizabeth Sabillon, TAN OT - HOME VISIT 08/20/2023 Home Care Visit [facility] [address] [facility] [address] Macarena Draper, PT CARE COORDINATION 08/20/2023 Home Care Visit [facility] [address] [facility] [address] Elizabeth Sabillon, TAN CARE COORDINATION 08/19/2023 Home Care Visit [facility] [address] [facility] [address] Elizabeth Sabillon, TAN CARE COORDINATION 08/18/2023 3:00 PM AGER TENDER Home Care Visit [facility] [address] [facility] [address] Macarena Draper, PT PT - HOME VISIT 08/18/2023 Home Care Visit [facility] [address] [facility] [address] Macarena Draper, PT CARE COORDINATION 08/17/2023 Home Care Visit [facility] [address] [facility] [address] Briseida Harrington, PT CARE COORDINATION 08/12/2023 4:00 PM AGER TENDER Home Care Visit [facility] [address] [facility] [address] Elizabeth Sabillon, TAN OT - HOME VISIT 08/12/2023 3:00 PM AGER TENDER Home Care Visit [facility] [address] [facility] [address] Macarena Draper, PT PT - HOME VISIT 08/12/2023 Home Care Visit [facility] [address] [facility] [address] Macarena Draper, PT CARE COORDINATION 08/10/2023 2:30 PM AGER TENDER Home Care Visit [facility] [address] [place] [address] Macarena Draper, PT PT - HOME VISIT 08/10/2023 1:00 PM AGER TENDER Home Care Visit [facility] [address] [place] [address], [place] [address] Rui Nicolas, OT OT - INITIAL ASSESSMENT 08/10/2023 Home Care Visit [facility] [address] [place] [address], [place] [address] Macarena Draper, PT CARE COORDINATION 08/06/2023 Home Care Visit [facility] [address] [place] [address], [place] [address] Macarena Draper, PT PT - MISSED VISIT 08/04/2023 9:45 AM AGER TENDER Home Care Visit [facility] [address] [place] [address], [place] [address] Briseida Harrington, PT PT - OASIS START OF CARE 08/04/2023 Plan of Care Documentation [address] [address] 08/03/2023 Transcribe Orders [facility] [address] [place] [phone] Steph Harrington NP 07/27/2023 11:59 PM AGER TENDER Hospital Encounter [facility] [address] [place] [address] Kuldeep Lorenz MD No Show 07/17/2023 Lab Requisition [facility] [phone] Inder Tanner MD from Last 3 Months Immunizations Name Administration Dates Next Due COVID-19 vaccine (Moderna 10 0mcg/0.5mL) PF, MDV 03/17/2022 COVID-19 vaccine (Pfizer-Bio NTech 30mcg/0.3mL) PF, MDV 02/05/2021,01/15/2021 Influenza, High-dose Inactivated 07/08/2019 Influenza, High-dose Quadriv alent Inactivated 07/09/2022,07/15/2021,07/12/2020 Influenza, IIV3 (Age >=3 years) 07/21/2018,06/12,09/11/2015 Pneumococcal Poly,23-Valent (Pneumovax) 12/01/19 19,07/21/2018 Pneumococcal conj 13-Valent (Prevnar 13) 017 Family History Medical History Relation Name Comments Cancer-colon Brother Hypertension Brother Coronary artery disease Father Coronary artery disease Mother Cancer-breast Sister Dementia Sister Hypertension Sister Relation Name Status Comments Brother Father Mother Sister Social History Tobacco Use Types Packs/Day Years Used Date Smoking Tobacco: Former Cigarettes 1 5 - 1989 Smokeless Tobacco: Never Tobacco Cessation:Counseling Given: Not Answered Alcohol Use Standard Drinks/Week Comments Yes 0 (1 standard drink = 0.6 oz pure alcohol) 4 ounces of wine nightly/or almost nightly - 01/27/2023 PHQ-2 Answer Date Recorded PHQ-2 TOTAL SCORE 2 01/27/2023 Social Connections Answer Date Recorded Frequency of Communication with Friends and Fami ly Not on file 09/21/2021 Financial Resource Strain Answer Date R ecorded Difficulty of Paying Living Expenses Not on file 09/21/2021 Difficulty of Paying Living Expenses Not on file 09/21/2021 Sex and Gender Information Value Date Recorded Sex Assigned at Not on file Gender Identity Not on file Sexual Orientation Not on file Obstetrics History Last Filed Vital Signs Vital Sign Reading Time Taken Comments Blood Pressure 129/69 09/24/2023 2:45 PM AGER TENDER Pulse 72 09/24/2023 2:45 PM AGER TENDER Temperature 37.3 ??C (99.1 ??F) 09/24/2023 2:45 PM CS T Respiratory Rate 16 09/24/2023 2:45 PM AGER TENDER Oxygen Saturation 92% 09/24/2023 2:45 PM AGER TENDER Inhaled Oxygen Concentration - - Weight 76.7 kg (169 lb) 01/27/2023 1:12 PM CDT Height 157.5 cm (5' 2) 09/23/2022 9:57 AM AGER TENDER Body Mass Index 30.91 09/23/2022 9:57 AM AGER TENDER Plan of Treatment Health Maintenance Due Date Last Done Comments Tdap 1947 Tetanus booster 1956 Zoster (shingles) series for age 50+ (1 of 2) 1986 DEXA/DXA scan for age 65+ 2001 Medicare Wellness for age 65+ 2001 COVID-19 vaccine series ( season) 2023 07/18/2022, 03/17/2022, 02/05/2021, Additional history exists Influenza for age 65+ 05/22/2023 07/09/2022 , 07/15/2021, 07/12/2020, Additional history exists BMI (ht and wt on same day) for age 18+ 09/23/2023 09/23/2022, 01/03/2019, 09/24/2018 Depression screening for age 12+ 01/28/2024 01/27/2023, 11/18/2022, 09/23/2022, Additional history exists Pneumococcal series for age 65+ Completed 11/30/2018, 07/21/2018, 06/12/2017 Medical Devices Implanted Type Area Barrel Turner Device Identifier Shelf Expiration Date Model / Serial / Lot Screw Cortex 3.5x26 Implanted:Qty: 1 on 11/12/2020 at [facility] Left: Elbow [id number] / / Description:SCREW CORTEX 3.5 X26 Evos [id number] Lock Screw Implanted:Qty: 1 on 11/12/2020 at [facility] Left: Elbow [id number] / / Description:EVOS [id number] LOCK SCREW Screw Lock 2.7x60 Implanted:Qty: 1 on 11/12/2020 at [facility] Left: Elbow [id number] / / Description:SCREW LOCK 2.7X6 0 Screw Lock 2.7x55 Implanted:Qty: 1 on 11/12/2020 at [facility] Left: Elbow [id number] / / Description:SCREW LOCK 2.7X5 5 Screw Bone 3.5x22mm Evos Small Cortex Slf Tppng - [id number] Implanted:Qty: 1 on 11/12/2020 at [facility] Left: Elbow [employer] [id number] / / Screw Bone 3.5x18mm Evos Small Cortex Slf Tppng - [id number] Implanted:Qty: 1 on 11/12/2020 at [facility] Left: Elbow [employer] [id number] / / Plate Olecranon 2.7/3.5 Implanted:Qty: 1 on 11/12/2020 at [facility] Left: Elbow [id number] / / Description:PLATE OLECRANON 2.7/3.5 Explanted Type Area Barrel Turner Device Identifier Shelf Expiration Date Model / Serial / Lot Sandy-Loc K-Wire 1.25mm Explanted:Qty: 5 on 11/12/2020 at [facility] Left: Elbow [id number] / / Description:SANDY-LOC K-WIRE 1.25MM Washer 2.7 Explanted:Qty: 1 on 11/12/2020 at [facility] Left: Elbow [id number] / / Description:WASHER 2.7 Evos [id number] Lock Screw Explanted:Qty: 1 on 11/12/2020 at [facility] Left: Elbow [id number] / / Description:EVOS [id number] LOCK SCREW Screw Bone 3.5x24mm Evos Small Cortex Slf Tppng - [id number] Explanted:Qty: 1 on 11/12/2020 at [facility] Left: Elbow [employer] [id number] / / Sandy-Loc K-Wire 1.6mm Explanted:Qty: 2 on 11/12/2020 at [facility] Left: Elbow [id number] / / Description:SANDY-LOC K-WIRE 1.6MM Evos [id number] Ctx Screw Explanted:Qty: 1 on 11/12/2020 at [facility] Left: Elbow [id number] / / Description:EVOS [id number] CTX SCREW Procedures Procedure Name Priority Date/Time Associated Diagnosis Comments BASIC METABOLIC PANEL Routine 07/21/2023 7:31 AM CDT Chronic diastolic (congestive) heart failure (HC) from Last 3 Months Results * (ABNORMAL) BASIC METABOLIC PANEL (07/21/2023 7:31 AM CDT) SODIUM 143 136 - 145 mmol/L 07/21/2023 9:26 AM CDT [facility] POTASSIUM 3.8 3.5 - 5.1 mmol/L 07/21/2023 9:26 AM CDT [facility] CHLORIDE 99 98 - 107 mmol/L 07/21/2023 9:26 AM CDT [facility] CO2,TOTAL 33(H) 22 - 29 mmol/L 07/21/2023 9:26 AM CDT [facility] ANION GAP 11 5 - 18 07/21/2023 9:26 AM CDT [facility] GLUCOSE 97 70 - 99 mg/dL 07/21/2023 9:26 AM CDT [facility] CALCIUM 9.7 8.8 - 10.2 mg/dL 07/21/2023 9:26 AM CDT [facility] BUN 16 8 - 23 mg/dL 07/21/2023 9:26 AM CDT [facility] CREATININE 1.19(H) 0.50 - 0.90 mg/dL 07/21/2023 9:26 AM CDT [facility] BUN/CREAT RATIO 13 10 - 20 9:26 AM CDT [facility] eGFR 44(L) >90 mL/min/1.7 3m2 07/21/2023 9:26 AM CDT [facility] Comment:As of 2021, eG FR is calculated by the CKD-EPI creatinine equation without race adjustment. ??eGFR can be influenced by muscle mass, exercise, and diet. ??The reported eGFR is an estimation only and is only applicable if the renal function is stable. Blood BLOOD SPECIMEN / Unknown Butterfly / Unknown 07/21/2023 7:31 AM CDT 07/21/2023 9:00 AM CDT Inder Tanner MD CHEMISTRY [facility] [address] [place] [address] from Last 3 Months Additional Health Concerns Infection Onset Date Last Indicated COVID History Comment:Patient had positive COVID test on 09/27/2020 Patient met COVID clearance criteria on 10/28/2020atient no longer requires enhanced respiratory precautions. It is not recommended to collect additional COVID-19 tests until 90 days have passed since first positive test. Exception: patient develops new COVID-19 symptoms. 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 Power of Kitchen Food Assembler 09/01/2019 1:08 PM Power of Kitchen Food Assembler 08/03/2019 3:11 PM POLST 03/31/2019 12:00 AM 11/30/18 Latest Code Status on File Code Status Date Activated Date Inactivated Comments DNR 11/13/2020 1:10 PM 11/20/2020 12:38 PM Question Answer Comments Code Status Discussion: Discussed Code Status History Code Status Date Activated Date Inactivated Comments DNR 10/27/2020 8:25 PM 11/13/2020 1:10 PM Question Answer Comments Code Status Discussion: Discussed DNR 02/16/2019 11:57 AM 02/22/2019 5:41 PM Healthcare Agents on File Name Relationship Healthcare Agent Relationshi p Communication Phong Pardo Health Care Agent Care Teams Eyeletter Relationship Specialty Start Date End Date Steph Harrington NP [address] [place] [address] [address] [place] [address] PCP - General Geriatric Medicine - Internal Medicine 11/20/19 Eric Harrington MD [address] [place] [address] Provider Family Practice 11/20/19 [place], [place] [address] 08/03/23
[2023-10-02 19:44] LABS: Chloride* 103 mmol/L (96-114); Sodium* 141 mmol/L (135-149)
[2023-10-02 19:45] LABS: Potassium* 3.7 mmol/L (3.6-5.1)
[2023-10-02 19:46] LABS: Creatinine, Point-of-Care* 1.2 mg/dl (0.6-1.3)
[2023-10-02 19:47] LABS: Anion Gap 8 mEq/L (7-15); Blood Urea Nitrogen* 20 mg/dL (7-30); Carbon Dioxide* 30 mmol/L (20-32); Est. Creatinine Clearance* 31.35; Estimated Glomerular Filt Rate 55 ml/min
[2023-10-02 19:48] LABS: Calcium* 8.8 mg/dL (8.4-10.6); Glucose* 116 mg/dL (60-115)
[2023-10-02] MEDS: MAGNESIUM CITRATE 300 ML SOLUTION PO (20:24)
[2023-10-02 20:35] LABS: Appearance Urine Clear (Clear); Bilirubin Urine Negative (Negative); Blood Urine Trace-intact (Negative); Color Urine Yellow (Yellow); Glucose Urine Negative (Negative); Ketones Urine Negative (Negative); Leukocyte Esterase Urine Negative (Negative); Nitrite Urine Negative (Negative); Protein Urine Negative (Negative); Urobilinogen Urine 0.2 (0.2-1.0); pH Urine 5.5 (5.0-8.5)
[2023-10-02] MEDS: DOCUSATE SODIUM/BENZOCAINE 5 ML ENEMA PR (21:08)
--- NOTE | 2023-10-02 21:21 | ED.NURSE ---
Patient to commode x1, no results. Enemeez administered. Assisted her to recliner for comfort to relax for 20 minutes and will try again. Vital signs obtained. She had one bought of emesis.
[2023-10-02] MEDS: MINERAL OIL 60 ML PR (22:27)
[2023-10-02] MEDS: DOCUSATE SODIUM 10 MG/ML LIQUID 1000 MG PO (22:27)
[2023-10-02] MEDS: MAGNESIUM CITRATE 300 ML SOLUTION 150 ML PO (22:27)
--- NOTE | 2023-10-02 23:35 | ED.NURSE ---
Patient had one small bowel movement, still having back and abdominal pain. Sitting in recliner. Provider updated. Son sitting in lobby, went to update him but he must have stepped outside.
[2023-10-03 00:22] VITALS: BP 123/65
--- NOTE | 2023-10-03 00:28 | ED.NURSE ---
Patient had large bowel movement.
== END 2023-10-03 00:44 | disposition home or self-care (01) ==
PROVIDERS: Emergency Provider Family Medicine; PCP Family Medicine
DX: K52.89 Other specified noninfective gastroenteritis and colitis (principal)
CPT/HCPCS: 36415; 74177; 80048; 81001; 82565; 83605; 85025; 96374; 96375; 99284; A9270; J1170; J2405; Q9967

== ENCOUNTER 2023-10-14 16:42 | Outpatient (REF) | payer BC, SELFPAY ==
--- OUTSIDE RECORDS SUMMARY | 2023-10-14 16:45 | XMS_ITS | Clinical Summary ---
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 Subclavian artery stenosis 12/04/2017 Bipolar disorder 05/10/2015 Hypertensive disorder 05/10/2015 Pulmonary hypertension 05/10/2015 Senile osteoporosis 05/10/2015 Fever Hypoxia Encounters Date Type Department Care Team Description 09/25/2023 Home Care Visit [facility] [address] [place] [address] Macarena Draper, PT CARE COORDINATION 09/24/2023 3:00 PM INTERNET SALES MANAGER Home Care Visit [facility] [address] [place] [address] Macarena Draper, PT PT - OASIS DISCHARGE 09/23/2023 11:30 AM INTERNET SALES MANAGER Home Care Visit [facility] [address] [place] [address] Rui Nicolas OT OT - DISCIPLINE DISCHARGE 09/22/2023 Home Care Visit [facility] [address] [place] [address] Rui Nicolas OT CARE COORDINATION 09/17/2023 3:30 PM INTERNET SALES MANAGER Home Care Visit [facility] [address] [place] [address] Elizabeth Sabillon COTA OT - HOME VISIT 09/17/2023 Home Care Visit [facility] [address] [place] [address] Elizabeth Sabillon COTA CARE COORDINATION 09/16/2023 10:30 AM INTERNET SALES MANAGER Home Care Visit [facility] [address] [place] [address] Macarena Drapre, PT PT - HOME VISIT 09/16/2023 Home Care Visit [facility] [address] [place] [address] Macarena Draper, PT CARE COORDINATION 09/11/2023 Home Care Visit [facility] [address] [place] [address] Rui Nicolas, OT CARE COORDINATION 09/11/2023 Home Care Visit [facility] [address] [place] [address] Elizabeth Sabillon, TAN CARE COORDINATION 09/10/2023 2:30 PM INTERNET SALES MANAGER Home Care Visit [facility] [address] [place] [address] Elizabeth Sabillon TAN OT - HOME VISIT 09/08/2023 Home Care Visit [facility] [address] [place] [address] Macarena Draper, PT CARE COORDINATION 09/07/2023 3:00 PM INTERNET SALES MANAGER Home Care Visit [facility] [address] [place] [address] Macarena Draper, PT PT - HOME VISIT 09/06/2023 Home Care Visit [facility] [address] [place] [address] Rui Nicolas, OT CARE COORDINATION 09/04/2023 Telephone [facility] [address] [place] [address] Kuldeep Lorenz MD Appointment 09/02/2023 9:15 AM INTERNET SALES MANAGER Home Care Visit [facility] [address] [place] [address] Rui Nicolas, OT OT - REASSESSMENT 08/31/2023 3:00 PM INTERNET SALES MANAGER Home Care Visit [facility] [address] [place] [address] Macarena Draper, PT PT - REASSESSMENT 08/31/2023 Home Care Visit [facility] [address] [place] [address] Macarena Draper, PT CARE COORDINATION 08/27/2023 10:30 AM INTERNET SALES MANAGER Home Care Visit [facility] [address] [place] [address] Macarena Draper, PT PT - HOME VISIT 08/27/2023 Home Care Visit [facility] [address] [place] [address] Macarena Draper, PT CARE COORDINATION 08/26/2023 2:30 PM INTERNET SALES MANAGER Home Care Visit [facility] [address] [place] [address] Elizabeth Sabillon, TAN OT - HOME VISIT 08/26/2023 Home Care Visit [facility] [address] [place] [address] Elizabeth Sabillon, TAN CARE COORDINATION 08/24/2023 3:00 PM INTERNET SALES MANAGER Home Care Visit [facility] [address] [place] [address] Macarena Draper, PT PT - HOME VISIT 08/24/2023 Home Care Visit [facility] [address] [place] [address] Macarena Draper, PT CARE COORDINATION 08/21/2023 9:00 AM INTERNET SALES MANAGER Home Care Visit [facility] [address] [place] [address] Elizabeth Sabillon, TAN OT - HOME VISIT 08/21/2023 Home Care Visit [facility] [address] [place] [address] Elizabeth Sabillon, TAN CARE COORDINATION 08/20/2023 3:00 PM INTERNET SALES MANAGER Home Care Visit [facility] [address] [place] [address] Macarena Draper, PT PT - HOME VISIT 08/20/2023 9:00 AM INTERNET SALES MANAGER Home Care Visit [facility] [address] [place] [address] Elizabeth Sabillon, TAN OT - HOME VISIT 08/20/2023 Home Care Visit [facility] [address] [place] [address] Macarena Draper, PT CARE COORDINATION 08/20/2023 Home Care Visit [facility] [address] [place] [address] Elizabeth Sabillon, TAN CARE COORDINATION 08/19/2023 Home Care Visit [facility] [address] [place] [address] Elizabeth Sabillon, TAN CARE COORDINATION 08/18/2023 3:00 PM INTERNET SALES MANAGER Home Care Visit [facility] [address] [place] [address] Macarena Draper, PT PT - HOME VISIT 08/18/2023 Home Care Visit [facility] [address] [place] [address] Macarena Draper, PT CARE COORDINATION 08/17/2023 Home Care Visit [facility] [address] [place] [address] Briseida Harrington, PT CARE COORDINATION 08/12/2023 4:00 PM INTERNET SALES MANAGER Home Care Visit [facility] [address] [place] [address] Elizabeth Sabillon, TAN OT - HOME VISIT 08/12/2023 3:00 PM INTERNET SALES MANAGER Home Care Visit [facility] [address] [place] [address] Macarena Draper, PT PT - HOME VISIT 08/12/2023 Home Care Visit [facility] [address] [place] [address] Macarena Draper, PT CARE COORDINATION 08/10/2023 2:30 PM INTERNET SALES MANAGER Home Care Visit [facility] [address] [place] [address], [place] [address] Macarena Draper, PT PT - HOME VISIT 08/10/2023 1:00 PM INTERNET SALES MANAGER Home Care Visit [facility] [address] [place] [address], [place] [address] Rui Nicolas, OT OT - INITIAL ASSESSMENT 08/10/2023 Home Care Visit [facility] [address] [place] [address], [place] [address] Macarena Draper, PT CARE COORDINATION 08/06/2023 Home Care Visit [facility] [address] [place] [address], [place] [address] Macarena Draper, PT PT - MISSED VISIT 08/04/2023 9:45 AM INTERNET SALES MANAGER Home Care Visit [facility] [address] [place] [address], [place] [address] Briseida Harrington, PT PT - OASIS START OF CARE 08/04/2023 Plan of Care Documentation [facility] [address] [place] [address] 08/03/2023 Transcribe Orders [place] 534234 [address] [place] [address] Steph Harrington NP 07/27/2023 11:59 PM INTERNET SALES MANAGER Hospital Encounter [facility] [address] [place] [address] Kuldeep Lorenz MD No Show 07/17/2023 Lab Requisition [facility] [phone] Inder Tanner MD from Last 3 Months Immunizations Name Administration Dates Next Due COVID-19 vaccine (Moderna 10 0mcg/0.5mL) KRISTA STOKES 03/17/2022 COVID-19 vaccine (Kyruus NTPureLiFi 30mcg/0.3mL) PF, MDV 02/05/2021,01/15/2021 Influenza, High-dose Inactivated [...] Years Used Date Smoking Tobacco: Former Cigarettes 5 - 1989 Smokeless Tobacco: Never Tobacco [...] Comments Blood Pressure 129/69 09/24/2023 2:45 PM INTERNET SALES MANAGER Pulse 72 09/24/2023 2:45 PM INTERNET SALES MANAGER Temperature 37.3 ??C (99.1 ??F) 09/24/2023 2:45 PM CS T Respiratory Rate 16 09/24/2023 2:45 PM INTERNET SALES MANAGER Oxygen Saturation 92% 09/24/2023 2:45 PM INTERNET SALES MANAGER Inhaled Oxygen Concentration - - Weight 76.7 kg (169 lb) 01/27/2023 1:12 PM CDT Height 157.5 cm (5' 2) 09/23/2022 9:57 AM INTERNET SALES MANAGER Body Mass Index 30.91 09/23/2022 9:57 AM INTERNET SALES MANAGER Plan of Treatment Health Maintenance Due Date [...] 07/21/2018, 06/12/2017 Medical Devices Implanted Type Area Certified Midwife Device Identifier Shelf Expiration Date Model / Serial / Lot Screw Cortex 3.5x26 Implanted:Qty: 1 on 11/12/[address] [facility] Left: Elbow [id number] / / Description:SCREW CORTEX 3.5 X26 Evos [id number] Lock Screw Implanted:Qty: 1 on 11/12/[address] [facility] Left: Elbow [id number] / / Description:EVOS [id number] LOCK SCREW Screw Lock 2.7x60 Implanted:Qty: 1 on 11/12/[address] [facility] Left: Elbow [id number] / / Description:SCREW LOCK 2.7X6 0 Screw Lock 2.7x55 Implanted:Qty: 1 on 11/12/[address] [facility] Left: Elbow [id number] / / Description:SCREW LOCK 2.7X5 5 Screw Bone 3.5x22mm Evos Small Cortex Slf Tppng - [id number] Implanted:Qty: 1 on 11/12/[address] [facility] Left: Elbow [employer] [id number] / / Screw Bone 3.5x18mm Evos Small Cortex Slf Tppng - [id number] Implanted:Qty: 1 on 11/12/[address] [facility] Left: Elbow [employer] [id number] / / Plate Olecranon 2.7/3.5 Implanted:Qty: 1 on 11/12/[address] [facility] Left: Elbow [id number] / / Description:PLATE OLECRANON 2.7/3.5 Explanted Type Area Certified Midwife Device Identifier Shelf Expiration Date Model / Serial / Lot Sandy-Loc K-Wire 1.25mm Explanted:Qty: 5 on 11/12/[address] [facility] Left: Elbow [id number] / / Description:SANDY-LOC K-WIRE 1.25MM Washer 2.7 Explanted:Qty: 1 on 11/12/[address] [facility] Left: Elbow [id number] / / Description:WASHER 2.7 Evos 2.7jsy11ac Lock Screw Explanted:Qty: 1 on 11/12/[address] [facility] Left: Elbow [id number] / / Description:EVOS 2.0YYH70YK LOCK SCREW Screw Bone 3.5x24mm Evos Small Cortex Slf Tppng - [id number] Explanted:Qty: 1 on 11/12/[address] [facility] Left: Elbow [employer] [id number] / / Sandy-Loc K-Wire 1.6mm Explanted:Qty: 2 on 11/12/[address] [facility] Left: Elbow [id number] / / Description:SANDY-LOC K-WIRE 1.6MM Evos 2.2pxg37or Ctx Screw Explanted:Qty: 1 on 11/12/[address] [facility] Left: Elbow [id number] / / Description:EVOS 2.7SWD99RX CTX SCREW Procedures Procedure Name Priority Date/Time Associated Diagnosis Comments BASIC METABOLIC PANEL Routine 07/21/2023 7:31 AM CDT Chronic diastolic (congestive) heart failure (HC) from Last 3 Months Results * (ABNORMAL) BASIC METABOLIC PANEL (07/21/2023 7:31 AM CDT) SODIUM 143 136 - 145 mmol/L 07/21/2023 9:26 AM CDT [facility] POTASSIUM 3.8 3.5 - 5.1 mmol/L 07/21/2023 9:26 AM CDT [facility] CHLORIDE 99 98 - 107 mmol/L 07/21/2023 9:26 AM CDT [facility] CO2,TOTAL 33(H) 22 - 29 mmol/L 07/21/2023 9:26 AM CDT [facility] ANION GAP 11 5 - 18 07/21/2023 9:26 AM CDT [facility] GLUCOSE 97 70 - 99 mg/dL 07/21/2023 9:26 AM CDT [facility] CALCIUM 9.7 8.8 - 10.2 mg/dL 07/21/2023 9:26 AM CDT [facility] BUN 16 8 - 23 mg/dL 07/21/2023 9:26 AM CDT [facility] CREATININE 1.19(H) 0.50 - 0.90 mg/dL 07/21/2023 9:26 AM CDT [facility] BUN/CREAT RATIO 13 10 - 20 9:26 AM CDT [facility] eGFR 44(L) >90 mL/min/1.7 3m2 07/21/2023 9:26 AM CDT [facility] Comment:As of 2021, eG FR is calculated by the CKD-EPI creatinine equation without race adjustment. ??eGFR can be influenced by muscle mass, exercise, and diet. ??The reported eGFR is an estimation only and is only applicable if the renal function is stable. Blood BLOOD SPECIMEN / Unknown Butterfly / Unknown 07/21/2023 7:31 AM CDT 07/21/2023 9:00 AM CDT Inder Tanner MD CHEMISTRY [facility] [address] [place] [address] from Last 3 Months Additional Health Concerns [...] Documents on File Type Date Recorded Patient Lpn Rn Hospice Expl anation Power of Director Marketing Analytics 09/01/2019 1:08 PM Power of Director Marketing Analytics 08/03/2019 3:11 PM POLST 03/31/2019 12:00 AM [...] Agents on File Name Relationship Healthcare Agent [facility] Ranjana Phong Pardo Health Care Agent Care Teams Grab Operator Relationship Specialty Start Date End Date Steph Harrington NP [address] [facility] [address] [place] [address] PCP - General Geriatric Medicine - Internal Medicine 11/20/19 Eric Harrington MD [address] [facility] [address] [place] [address] Provider Family Practice 11/20/19
[2023-10-14 18:17] LABS: Free T4 Free Thyroxine* 1.93 ng/dL (0.70-1.85)
[2023-10-16 22:33] LABS: Total T3 62 ng/dL (80-200)
== END 2023-10-14 16:43 | disposition home or self-care (01) ==
LOC: NPINS 16:42
PROVIDERS: PCP Family Medicine; Visit Provider Nurse Practitioner Gerontology
DX: R63.4 Abnormal weight loss (principal)
CPT/HCPCS: 84439; 84443; 84480

== ENCOUNTER 2024-01-06 14:45 | Outpatient (REF) | payer BC, OTHER, SELFPAY ==
--- OUTSIDE RECORDS SUMMARY | 2024-01-06 14:49 | XMS_ITS | Clinical Summary ---
Author Name Unknown Organization [employer] [facility] Address [place], [place] [address] Care Team Providers Care Mechanical And Auto Body Car Checker Name Role Phone Steph Harrington NP Primary Care Provider [phone] Eric Harrington MD Unavailable [phone] Allergies Active Allergy Reactions Criticality Noted Date [...] by mouth 2 times daily. 60 tablet 10/11/2019 Active carboxymethylcellulos e 0.5% 0.5 % [...] by a home health clinician.] 10 tablet 10/12/2019 Active Additional Information Patient not taking.Reason: See Comment (DC by another provider), Informant: [facility], Reported on 08/17/2023 amoxicillin (AMOXIL) 500 mg capsuleIndications:In fection Take 1 capsule by mouth 2 times daily. 0 10/12/2019 Active albuterol HFA (PRO-AIR; VENTOLIN; PROVENTIL) 90 mcg/actuation inhaler 2 Puffs 3 times daily if needed for Shortness Of Breath. 07/06/2020 Active lamoTRIgine (LAMICTAL) 100 mg tablet Take 200 mg by mouth once daily. Active aspirin chewable 81 mg chewable tablet Take 81 mg by mouth once daily with a meal. Active atorvastatin (LIPITOR) 40 mg tablet Take 40 mg by mouth at bedtime. Active loratadine (CLARITIN) 10 mg tablet Take 10 mg by mouth once daily. Active simethicone chewable (MYLANTA GAS RELIEF; GAS X) 80 mg chewable tablet Take 80 mg by mouth 4 times daily. Max dose: 500 mg per 24 hrs Active acetaminophen (TYLENOL EXTRA STRGTH) 500 mg tabletIndications:Nelly sed fracture of olecranon process of left ulna with routine healing, subsequent encounter [The details of the medication are not available because there are pending changes by a home health clinician.] 30 tablet 11/16/2020 Active Additional Information Patient not taking.Reported [...] tab TAKE ONE TABLET BY MOUTH DAILY 01/13/2022 Active melatonin 3 mg tablet TAKE ONE TABLET BY MOUTH EVERY DAY 01/05/2023 Active trolamine salicylate 10% topical (MYOFLEX) 10 % cream Apply topically to affected area(s) 3 times daily if needed. Apply topically to affected area(s) 3 times daily if needed. Active amiodarone (CORDARONE) 200 mg tablet Take 100 mg by mouth once daily. 01/05/2023 Active potassium chloride (KLOR-CON) 20 mEq extended-release tablet (part/cryst) Take 1 Tablet by mouth two times daily with meals. 08/14/2021 Active acetaminophen (TYLENOL EXTRA STRGTH) 500 mg tabletIndications:art hritic pain Take 500 mg by mouth 3 times daily if needed for Pain. max does: 4000 mg in 24 hours Indications: pain associated with arthritis 11/16/2020 Active mineral oil enema Insert 133 mL rectally one time if needed (Constipation). Active alendronate (Fosamax) 70 mg tablet Take 70 mg by mouth every Thursday morning. Active BLUE-EMU LIDOCAINE PATCH TOP 5 % once daily. Active torsemide (DEMADEX) 20 mg tablet Take 20 mg by mouth once daily. 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 Subclavian artery stenosis 12/04/2017 Bipolar disorder 05/10/2015 Hypertensive disorder 05/10/2015 Pulmonary hypertension 05/10/2015 Senile osteoporosis 05/10/2015 Fever Hypoxia Immunizations Name Administration Dates Next Due COVID-19 vaccine (Moderna 10 0mcg/0.5mL) PF, MDV 03/17/2022 COVID-19 vaccine (Invoiceable-Bio NTech 30mcg/0.3mL) PF, MDV 02/05/2021,01/15/2021 Influenza, High-dose [...] Used Date Smoking Tobacco: Former Cigarettes 1 25 1 965 - 1989 Smokeless Tobacco: Never Tobacco Cessation:Counseling [...] Comments Blood Pressure 129/69 09/24/2023 2:45 PM ACCESS SERVICES REPRESENTATIVE Pulse 72 09/24/2023 2:45 PM ACCESS SERVICES REPRESENTATIVE Temperature 37.3 ??C (99.1 ??F) 09/24/2023 2:45 PM CS T Respiratory Rate 16 09/24/2023 2:45 PM ACCESS SERVICES REPRESENTATIVE Oxygen Saturation 92% 09/24/2023 2:45 PM ACCESS SERVICES REPRESENTATIVE Inhaled Oxygen Concentration - - Weight 76.7 kg (169 lb) 01/27/2023 1:12 PM CDT Height 157.5 cm (5' 2) 09/23/2022 9:57 AM ACCESS SERVICES REPRESENTATIVE Body Mass Index 30.91 09/23/2022 9:57 AM ACCESS SERVICES REPRESENTATIVE Plan of Treatment Health Maintenance Due Date Last Done Comments Tdap 1947 Tetanus booster 1956 Zoster (shingles) series for age 50+ (1 of 2) 1986 DEXA/DXA scan for age 65+ 2001 Medicare Wellness for age 65+ 2001 COVID-19 vaccine series ( season) 2023 07/18/2022, 03/17/2022, 02/05/2021, Additional history exists BMI (ht and wt on same day) for age 18+ 09/23/2023 09/23/2022, 01/03/2019, 09/24/2018 Depression screening for age 12+ 01/28/2024 01/27/2023, 11/18/2022, 09/23/2022, Additional history exists Influenza for age 65+ 05/22/2024 07/09/2022 , 07/15/2021, 07/12/2020, Additional history exists Pneumococcal series for age 65+ Completed 11/30/2018, 07/21/2018, 06/12/2017 Medical Devices Implanted Type Area Clin Nurse Spec Device Identifier Shelf Expiration Date Model / Serial / Lot Screw Cortex 3.5x26 Implanted:Qty: 1 on 11/12/2020 at [facility] Left: Elbow [id number] / / Description:SCREW CORTEX 3.5 X26 Evos 2.5box89if Lock Screw Implanted:Qty: 1 on 11/12/2020 at [facility] Left: Elbow [id number] / / Description:EVOS [id number] LOCK SCREW Screw Lock 2.7x60 Implanted:Qty: 1 on 11/12/2020 at [facility] Left: Elbow [id number] / / Description:SCREW LOCK 2.7X6 0 Screw Lock 2.7x55 Implanted:Qty: 1 on 11/12/2020 at [facility] Left: Elbow [id number] / / Description:SCREW LOCK 2.7X5 5 Screw Bone 3.5x22mm Evos Small Cortex Slf Tppng - [id number] Implanted:Qty: 1 on 11/12/2020 at [facility] Left: Elbow [employer] [id number] / / Screw Bone 3.5x18mm Evos Small Cortex Slf Tppng - [id number] Implanted:Qty: 1 on 11/12/2020 at [facility] Left: Elbow [employer] [id number] / / Plate Olecranon 2.7/3.5 Implanted:Qty: 1 on 11/12/2020 at [facility] Left: Elbow [id number] / / Description:PLATE OLECRANON 2.7/3.5 Explanted Type Area Clin Nurse Spec Device Identifier Shelf Expiration Date Model / Serial / Lot Sandy-Loc K-Wire 1.25mm Explanted:Qty: 5 on 11/12/2020 at [facility] Left: Elbow [id number] / / Description:SANDY-LOC K-WIRE 1.25MM Washer 2.7 Explanted:Qty: 1 on 11/12/2020 at [facility] Left: Elbow [id number] / / Description:WASHER 2.7 Evos 2.6ivk39ix Lock Screw Explanted:Qty: 1 on 11/12/2020 at [facility] Left: Elbow [id number] / / Description:EVOS 2.2WYI88VD LOCK SCREW Screw Bone 3.5x24mm Evos Small Cortex Slf Tppng - [id number] Explanted:Qty: 1 on 11/12/2020 at [facility] Left: Elbow [employer] [id number] / / Sandy-Loc K-Wire 1.6mm Explanted:Qty: 2 on 11/12/2020 at [facility] Left: Elbow [id number] / / Description:SANDY-LOC K-WIRE 1.6MM Evos 2.2gxi10jx Ctx Screw Explanted:Qty: 1 on 11/12/2020 at [facility] Left: Elbow [id number] / / Description:EVOS 2.3SLS42ZC CTX SCREW Additional Health Concerns Infection Onset Date Last [...] Documents on File Type Date Recorded Patient Plasticator Expl anation Power of Tile Layer Helper 09/01/2019 1:08 PM Power of Tile Layer Helper 08/03/2019 3:11 PM POLST 03/31/2019 12:00 AM 11/30/18 * DNR (Latest Code Status on File) Date Activated Date Inactivated Comments 11/13/2020 1:10 PM 11/20/2020 12:38 PM Question Answer Comments Code Status Discussion: Discussed * DNR Date Activated Date Inactivated Comments 10/27/2020 8:25 PM 11/13/2020 1:10 PM Question Answer Comments Code Status Discussion: Discussed * DNR Date Activated Date Inactivated Comments 02/16/2019 11:57 AM 02/22/2019 5:41 PM Healthcare Agents on File Name Relationship Healthcare Agent Relationshi p Communication Phong Pardo Health Care Agent Care Teams Mechanical And Auto Body Car Checker Relationship Specialty Start Date End Date Steph Harrington NP [address] [place] [id number] PCP - General Geriatric Medicine - Internal Medicine 11/20/19 Eric Harringotn MD [address] [place] [id number] Provider Family Practice 11/20/19
[2024-01-06 14:57] LABS: Basophils Absolute Auto 0.02 K/uL (0.00-0.30); Basophils Percent Auto 0.3 % (0.0-3.0); Eosinophils Percent Auto 1.5 % (0.0-7.0); Hemoglobin* 11.4 gm/dL (12.0-16.0); Immature Granulocytes Abs Auto 0.05 K/uL (0.00-0.30); Immature Granulocytes Pct Auto 0.8 %; Lymphocytes Absolute Auto 1.57 K/uL (0.90-2.90); Lymphocytes Percent Auto 23.6 % (20-44); Mean Corpuscular HGB Conc 31 gm/dL (32-36); Mean Corpuscular Hemoglobin 32 pg (26-34); Mean Corpuscular Volume 105 fL (80-100); Monocytes Percent Auto 9.8 % (0.0-11.0); Neutrophils Absolute Auto 4.27 K/uL (1.7-7.0); Platelet Count* 204 K/uL (140-440); RDW Coefficient of Variation % 13.4 % (11.5-15.5); Red Blood Count 3.54 m/uL (4.00-5.20); White Blood Count* 6.66 K/uL (4.50-11.00)
[2024-01-06 15:23] LABS: Slide Review Reflex No
[2024-01-06 15:59] LABS: Chloride* 106 mmol/L (96-114); Sodium* 141 mmol/L (135-149)
[2024-01-06 16:00] LABS: Potassium* 4.3 mmol/L (3.6-5.1)
[2024-01-06 16:02] LABS: Creatinine* 1.5 mg/dL (0.5-1.5); Estimated Glomerular Filt Rate 34 ml/min
[2024-01-06 16:03] LABS: Anion Gap 6 mEq/L (7-15); Blood Urea Nitrogen* 32 mg/dL (7-30); Calcium* 9.5 mg/dL (8.4-10.6); Carbon Dioxide* 29 mmol/L (20-32); Glucose* 94 mg/dL (60-115)
== END 2024-01-06 14:46 | disposition home or self-care (01) ==
LOC: NPINS 14:45
PROVIDERS: PCP Family Medicine; Visit Provider Nurse Practitioner Gerontology
DX: R06.02 Shortness of breath (principal)
CPT/HCPCS: 80048; 85025

== ENCOUNTER 2024-01-21 13:26 | Outpatient (REF) | payer BC, OTHER, SELFPAY ==
--- OUTSIDE RECORDS SUMMARY | 2024-01-21 13:32 | XMS_ITS | Clinical Summary ---
Author Name Unknown Organization [employer] [facility] [employer] Address [place], [place] [address] Care Team Providers Care Parks And Recreation Manager Name Role Phone Steph Harrington NP Primary Care Provider [phone] Eric Harrington MD Unavailable Allergies Active Allergy Reactions Criticality Noted [...] See Comment (DC by another provider), Informant: [facility] RE[facility], Reported on 08/17/2023 amoxicillin (AMOXIL) 500 [...] Diagnosed Date Acute respiratory failure with hypoxia Closed fracture of left olecranon process 2020 [...] congestive heart failure 12/27 Environmental allergies 12/27/2018 skilled nursing (current) use of anticoagulants 2017 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 Subclavian artery stenosis 12/04/2017 Bipolar disorder 05/10/2015 Hypertensive disorder 05/10/2015 Pulmonary hypertension 05/10/2015 Senile osteoporosis 05/10/2015 Fever Hypoxia Encounters Date Type Department Care Team Description 01/14/2024 Transcribe Orders Social DJ [address] [address] Steph Harrington NP 01/12/2024 [facility]phone [facility] [address] [place] [address] Kuldeep Lorenz MD Appointment 01/12/2024 Orders Only [facility] [address] [place] [address] Kuldeep Lorenz MD <No scans attached> from Last 3 Months Immunizations Name Administration Dates Next Due COVID-19 vaccine (Moderna 10 0mcg/0.5mL) KRISTA STOKES 03/17/2022 COVID-19 vaccine (Pfizer-Bio NTech 30mcg/0.3mL) PF, [...] Comments Blood Pressure 129/69 09/24/2023 2:45 PM STILE RIPSAW OPERATOR Pulse 72 09/24/2023 2:45 PM STILE RIPSAW OPERATOR Temperature 37.3 ??C (99.1 ??F) 09/24/2023 2:45 PM CS T Respiratory Rate 16 09/24/2023 2:45 PM STILE RIPSAW OPERATOR Oxygen Saturation 92% 09/24/2023 2:45 PM STILE RIPSAW OPERATOR Inhaled Oxygen Concentration - - Weight 76.7 kg (169 lb) 01/27/2023 1:12 PM CDT Height 157.5 cm (5' 2) 09/23/2022 9:57 AM STILE RIPSAW OPERATOR Body Mass Index 30.91 09/23/2022 9:57 AM STILE RIPSAW OPERATOR Plan of Treatment Upcoming Encounters Date Type Department Care Team (Late st Contact Info) Description 01/25/2024 11:00 AM CDT [facility] [address] [address] Antonio Acosta MD [address] [address] 02/01/2024 12:50 PM CDT Orders Only [facility] [address] [place] [phone] 02/01/2024 2:00 PM CDT Appointment [facility] [address] [place] [address] 02/01/2024 3:30 PM CDT Office Visit [facility] [address] [place] [address] Kuldeep Lorenz MD [address] [place] [address] Health Maintenance Due Date Last Done Comments Tdap 1947 Tetanus booster 1956 Zoster (shingles) series for age 50+ (1 of 2) 1986 DEXA/DXA scan for age 65+ 2001 Medicare Wellness for age 65+ 2001 COVID-19 vaccine series (2022- season) 2023 07/18/2022, 03/17/2022, 02/05/2021, Additional history exists BMI (ht and wt on same day) for age 18+ 09/23/2023 09/23/2022, 01/03/2019, 09/24/2018 Depression screening for age 12+ 01/28/2024 01/27/2023, 11/18/2022, 09/23/2022, Additional history exists Influenza for age 65+ 05/22/2024 07/09/2022 , 07/15/2021, 07/12/2020, Additional history exists Pneumococcal series for age 65+ Completed 11/30/2018, 07/21/2018, 06/12/2017 Medical Devices Implanted Type Area Supervisor Poultry Processing Device Identifier Shelf Expiration Date Model / Serial / Lot Screw Cortex 3.5x26 Implanted:Qty: 1 on 11/12/2020 at [facility] Left: Elbow [id number] / / Description:SCREW CORTEX 3.5 X26 Evos 2.7zwo20cm Lock Screw Implanted:Qty: 1 on 11/12/2020 at [facility] Left: Elbow [id number] / / Description:EVOS 2.4FIL83GC LOCK SCREW Screw Lock 2.7x60 Implanted:Qty: 1 on 11/12/2020 at [facility] Left: Elbow [id number] / / Description:SCREW LOCK 2.7X6 0 Screw Lock 2.7x55 Implanted:Qty: 1 on 11/12/2020 at [facility] Left: Elbow [id number] / / Description:SCREW LOCK 2.7X5 5 Screw Bone 3.5x22mm Evos Small Cortex Slf Tppng - [id number] Implanted:Qty: 1 on 11/12/2020 at [facility] Left: Elbow [employer] [id number] / / Screw Bone 3.5x18mm Evos Small Cortex Slf Tppng - [id number] Implanted:Qty: 1 on 11/12/2020 at [facility] Left: Elbow [employer] [id number] / / Plate Olecranon 2.7/3.5 Implanted:Qty: 1 on 11/12/2020 at [facility] Left: Elbow [id number] / / Description:PLATE OLECRANON 2.7/3.5 Explanted Type Area Supervisor Poultry Processing Device Identifier Shelf Expiration Date Model / Serial / Lot Sandy-Loc K-Wire 1.25mm Explanted:Qty: 5 on 11/12/2020 at [facility] Left: Elbow [id number] / / Description:SANDY-LOC K-WIRE 1.25MM Washer 2.7 Explanted:Qty: 1 on 11/12/2020 at [facility] Left: Elbow [id number] / / Description:WASHER 2.7 Evos 2.9pix90zj Lock Screw Explanted:Qty: 1 on 11/12/2020 at [facility] Left: Elbow [id number] / / Description:EVOS 2.9FYP08HK LOCK SCREW Screw Bone 3.5x24mm Evos Small Cortex Slf Tppng - [id number] Explanted:Qty: 1 on 11/12/2020 at [facility] Left: Elbow [employer] [id number] / / Sandy-Loc K-Wire 1.6mm Explanted:Qty: 2 on 11/12/2020 at [facility] Left: Elbow [id number] / / Description:SANDY-LOC K-WIRE 1.6MM Evos 2.9wel20qn Ctx Screw Explanted:Qty: 1 on 11/12/2020 at [facility] Left: Elbow [id number] / / Description:EVOS 2.5KNY84TX CTX SCREW Additional Health Concerns Infection Onset [...] Documents on File Type Date Recorded Patient Assistant Superintendent Expl anation Power of Arts Therapist 09/01/2019 1:08 PM Power of Arts Therapist 08/03/2019 3:11 PM POLST 03/31/2019 12:00 AM [...] Phong Pardo Health Care Agent Care Teams Parks And Recreation Manager Relationship Specialty Start Date End Date Steph Harrington NP [address] [place] [address] PCP - General Geriatric Medicine - Internal Medicine 11/20/19 Eric Harrington MD [address] [place] [address] Provider Family Practice 11/20/19
[2024-01-21 14:30] LABS: Free T4 Free Thyroxine* 1.95 ng/dL (0.70-1.85)
--- OUTSIDE RECORDS SUMMARY | 2024-01-21 14:43 | XMS_ITS | Clinical Summary ---
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 Subclavian artery stenosis 12/04/2017 Bipolar disorder 05/10/2015 Hypertensive disorder 05/10/2015 Pulmonary hypertension 05/10/2015 Senile osteoporosis 05/10/2015 Fever Hypoxia Encounters Date Type Department Care Team Description 01/14/2024 Transcribe Orders D2S [address] [address] Steph Harrington NP 01/12[facility]2024 [facility] [address] [place] [address] Kuldeep Lorenz MD Appointment 01/12/2024 Orders [facility] [address] [place] [address] Kuldeep Lorenz MD <No scans attached> from [...] Comments Blood Pressure 129/69 09/24/2023 2:45 PM STRUCTURAL DESIGN ENGINEER Pulse 72 09/24/2023 2:45 PM STRUCTURAL DESIGN ENGINEER Temperature 37.3 ??C (99.1 ??F) 09/24/2023 2:45 PM CS T Respiratory Rate 16 09/24/2023 2:45 PM STRUCTURAL DESIGN ENGINEER Oxygen Saturation 92% 09/24/2023 2:45 PM STRUCTURAL DESIGN ENGINEER Inhaled Oxygen Concentration - - Weight 76.7 kg (169 lb) 01/27/2023 1:12 PM CDT Height 157.5 cm (5' 2) 09/23/2022 9:57 AM STRUCTURAL DESIGN ENGINEER Body Mass Index 30.91 09/23/2022 9:57 AM STRUCTURAL DESIGN ENGINEER Plan of Treatment Upcoming Encounters Date Type Department Care Team (Late st Contact Info) Description 01/25/2024 11:00 AM CDT [facility] [address] [address] Antonio Acosta MD [address] [address] 02/01/2024 12:50 PM CDT Orders Only [facility] [address] [place] [phone] 02/01/2024 2:00 PM CDT Appointment [facility] [address] [place] [address] 02/01/2024 3:30 PM CDT Office Visit [facility] [address] [place] [address] Kuldeep Lorenz MD [address] [place] [address] Health Maintenance Due Date Last Done Comments [...] 07/21/2018, 06/12/2017 Medical Devices Implanted Type Area Cost Clerk Device Identifier Shelf Expiration Date Model / Serial / Lot Screw Cortex 3.5x26 Implanted:Qty: 1 on 11/12/2020 at [facility] Left: Elbow [id number] / / Description:SCREW CORTEX 3.5 X26 Evos 2.0yhb25su Lock Screw Implanted:Qty: 1 on 11/12/2020 at [facility] Left: Elbow [id number] / / Description:EVOS 2.5YUK55KV LOCK SCREW Screw Lock 2.7x60 Implanted:Qty: 1 on 11/12/2020 at [facility] Left: Elbow [id number] / / Description:SCREW LOCK 2.7X6 0 Screw Lock 2.7x55 Implanted:Qty: 1 on 11/12/2020 at [facility] Left: Elbow [id number] / / Description:SCREW LOCK 2.7X5 5 Screw Bone 3.5x22mm Evos Small Cortex Slf Tppng - [id number] Implanted:Qty: 1 on 11/12/2020 at [facility] Left: Elbow [employer] [id number] / / Screw Bone 3.5x18mm Evos Small Cortex Slf Tppng - [id number] Implanted:Qty: 1 on 11/12/2020 at [facility] Left: Elbow [employer] [id number] / / Plate Olecranon 2.7/3.5 Implanted:Qty: 1 on 11/12/2020 at [facility] Left: Elbow [id number] / / Description:PLATE OLECRANON 2.7/3.5 Explanted Type Area Cost Clerk Device Identifier Shelf Expiration Date Model / Serial / Lot Sandy-Loc K-Wire 1.25mm Explanted:Qty: 5 on 11/12/2020 at [facility] Left: Elbow [id number] / / Description:SANDY-LOC K-WIRE 1.25MM Washer 2.7 Explanted:Qty: 1 on 11/12/2020 at [facility] Left: Elbow [id number] / / Description:WASHER 2.7 Evos 2.8xsu40iw Lock Screw Explanted:Qty: 1 on 11/12/2020 at [facility] Left: Elbow [id number] / / Description:EVOS 2.1PJS10GQ LOCK SCREW Screw Bone 3.5x24mm Evos Small Cortex Slf Tppng - [id number] Explanted:Qty: 1 on 11/12/2020 at [facility] Left: Elbow [employer] [id number] / / Sandy-Loc K-Wire 1.6mm Explanted:Qty: 2 on 11/12/2020 at [facility] Left: Elbow [id number] / / Description:SANDY-LOC K-WIRE 1.6MM Evos 2.6lxk56tx Ctx Screw Explanted:Qty: 1 on 11/12/2020 at [facility] Left: Elbow [id number] / / Description:EVOS 2.7DEA50DE CTX SCREW Additional Health Concerns Infection Onset [...] Documents on File Type Date Recorded Patient Junior Engineer Expl anation Power of Jack Prizer 09/01/2019 1:08 PM Power of Jack Prizer 08/03/2019 3:11 PM POLST 03/31/2019 12:00 AM [...] Phong Pardo Health Care Agent Care Teams Textile Machinery Sales Representative Relationship Specialty Start Date End Date Steph Harrington NP [address] [place] [id number] PCP - General Geriatric Medicine - Internal Medicine 11/20/19 Eric Harrington MD [address] [place] [address] Provider Family Practice 11/20/19
== END 2024-01-21 13:27 | disposition home or self-care (01) ==
LOC: NPINS 13:26
PROVIDERS: PCP Family Medicine; Visit Provider Nurse Practitioner Gerontology
DX: E03.9 Hypothyroidism, unspecified (principal)
CPT/HCPCS: 84436; 84439; 84443; 84479

== ENCOUNTER 2024-03-10 21:10 | Outpatient (CLI) | payer BC, OTHER, SELFPAY ==
--- OUTSIDE RECORDS SUMMARY | 2024-03-12 06:59 | XMS_ITS | Clinical Summary ---
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 CTA prior to OV.) 02/01/2024 1:14 PM CDT - 02/01/2024 11:59 PM CDT Hospital Encounter [facility] [address] [place] [address] Kuldeep Lorenz MD Thoracoabdominal aortic aneurysm (TAAA) without rupture, unspecified part (HC) 02/01/2024 12:50 PM CDT Orders [place] [facility] [address] [facility] [address] [place] [address] Lab 02/01/2024 Travel 01/28/2024 Telephone [facility] [address] [address] Antonio Acosta MD FAX 01/25/2024 11:00 AM CDT Office Visit [facility] [address] [id number] Antonio Acosta MD Consult (COPD- referred by Steph Harrington NP) 01/25/2024 Travel 01/14/2024 Transcribe Orders [facility] [address] [place] [address] Steph Harrington NP 01/12/2024 Telephone [facility] [address] [place] [address] Kuldeep Lorenz MD Appointment 01/12/2024 Orders Only [facility] [address] [place] [address] Kuldeep Lorenz MD <No scans attached> from [...] 07/21/2018, 06/12/2017 Medical Devices Implanted Type Area Meat Cutter Device Identifier Shelf Expiration Date Model / Serial / Lot Screw Cortex 3.5x26 Implanted:Qty: 1 on 11/12/2020 at [facility] Left: Elbow [id number] / / Description:SCREW CORTEX 3.5 X26 Evos [id number] Lock Screw Implanted:Qty: 1 on 11/12/2020 at [facility] Left: Elbow [id number] / / Description:EVOS [id number] LOCK SCREW Screw Lock 2.7x60 Implanted:Qty: 1 on 11/12/2020 at [facility] Left: Elbow [id number] / / Description:SCREW LOCK 2.7X6 0 Screw Lock 2.7x55 Implanted:Qty: 1 on 11/12/2020 at [facility] Left: Elbow [id number] / / Description:SCREW LOCK 2.7X5 5 Screw Bone 3.5x22mm Evos Small Cortex Slf Tppng - [id number] Implanted:Qty: 1 on 11/12/2020 at [facility] Left: Elbow [employer] [id number] / / Screw Bone 3.5x18mm Evos Small Cortex Slf Tppng - [id number] Implanted:Qty: 1 on 11/12/2020 at [facility] Left: Elbow [employer] [id number] / / Plate Olecranon 2.7/3.5 Implanted:Qty: 1 on 11/12/2020 at [facility] Left: Elbow [id number] / / Description:PLATE OLECRANON 2.7/3.5 Explanted Type Area Meat Cutter Device Identifier Shelf Expiration Date Model / Serial / Lot Sandy-Loc K-Wire 1.25mm Explanted:Qty: 5 on 11/12/2020 at [facility] Left: Elbow [id number] / / Description:SANDY-LOC K-WIRE 1.25MM Washer 2.7 Explanted:Qty: 1 on 11/12/2020 at [facility] Left: Elbow [id number] / / Description:WASHER 2.7 Evos [id number] Lock Screw Explanted:Qty: 1 on 11/12/2020 at [facility] Left: Elbow [id number] / / Description:EVOS [id number] LOCK SCREW Screw Bone 3.5x24mm Evos Small Cortex Slf Tppng - [id number] Explanted:Qty: 1 on 11/12/2020 at [facility] Left: Elbow [employer] [id number] / / Sandy-Loc K-Wire 1.6mm Explanted:Qty: 2 on 11/12/2020 at [facility] Left: Elbow [id number] / / Description:SANDY-LOC K-WIRE 1.6MM Evos [id number] Ctx Screw Explanted:Qty: 1 on 11/12/2020 at [facility] Left: Elbow [id number] / / Description:EVOS [id number] CTX SCREW Procedures Procedure Name Priority Date/Time [...] nonvascular findings. FINDINGS: Thoracic aorta: Left-sided arch. Ufks-mi-emshulrt atheromatous disease in the arch. Patent endograft begins in the mid descending thoracic aorta and extends into the abdominal aorta. 4 separate grafts to the major abdominal branch arteries arise along the endograft in the distal descending thoracic aorta. Maximum true cross-sectional dimensions are - Aortic sinus: 39 mm maximum [id number]. Ascending aorta: 33 x 33 mm. Arch: [...] PATIENT: Results are automatically released to your [employer] account once available, in compliance with federal [...] chest, abdomen and pelvis was performed per [facility] protocol. Please see Cardiology dictation for details on technique. ??80 cc Omnipaque-350 intravenous contrast. ?? This exam is being performed in conjunction with the services provided by the [facility] ([facility]). CLINICAL HISTORY: ??Over-read of non-cardiovascular structures, FINDINGS: [...] * (ABNORMAL) CREATININE,ISTAT (02/01/2024 2:01 PM CDT) [facility] CREATININE, POCT 1.30(H) 0.57 - 1.11 mg/dL 02/01/2024 2:18 PM CDT [facility] The Training Room (TTR) [facility] Comment:Caution: Patients ta dede Hydroxyurea have falsely increased iStat Creatinine results. Verify creatinine results ordering a Creatinine (09898.2) eGFR 40(L) >90 mL/min/1.7 3m2 02/01/2024 2:18 PM CDT [facility] Comment:As of 2021, eG FR is calculated by the CKD-EPI creatinine equation without race adjustment. eGFR can be influenced by muscle mass, exercise, and diet. The reported eGFR is an estimation only and is only applicable if the renal function is stable. Blood BLOOD SPECIMEN / Unknown 02/01/2024 2:01 PM CDT 02/01/2024 2:18 PM CDT Kuldeep Lorenz MD CHEMISTRY [facility] [address] [place] [address], [place] * (ABNORMAL) CBC WITH AUTO DIFFERENTIAL (02/01/2024 12:55 PM CDT) [facility] WHITE BLOOD COUNT 6.4 4.5 - 11.0 thou/cu mm 02/01/2024 1:14 PM [facility] RED BLOOD COUNT 3.50(L) 4.00 - 5.20 mil/cu mm 02/01/2024 1:14 PM [facility] HEMOGLOBIN 11.5(L) 12.0 - 16.0 g/dL 02/01/2024 1:14 PM [facility] HEMATOCRIT 36.2 33.0 - 51.0 % 02/01/2024 1:14 PM [facility] MCV 103(H) 80 - 100 fL 02/01/2024 1:14 PM [facility] MCH 32.9 26.0 - 34.0 pg 02/01/2024 1:14 PM [facility] MCHC 31.8(L) 32.0 - 36.0 g/dL 02/01/2024 1:14 PM [facility] RDW 13.2 11.5 - 15.5 % 02/01/2024 1:14 PM [facility] PLATELET COUNT 217 140 - 440 thou/cu mm 02/01/2024 1:14 PM [facility] MPV 9.5 6.5 - 11.0 fL 02/01/2024 1:14 PM [facility] NRBC 0.0 % 02/01/2024 1:14 PM [facility] ABS NRBC 0.0 thou /cu mm 02/01/2024 1:14 PM [facility] % NEUT 58.1 % 02/01/2024 1:14 PM [facility] % LYMPH 29.1 % 02/01/2024 1:14 PM [facility] % MONO 10.6 % 02/01/2024 1:14 PM [facility] % EOS 1.4 % 02/01/2024 1:14 PM CDT [facility] % BASO 0.5 % 02/01/2024 1:14 PM CDT [facility] % IMMATURE GRAN (METAS,MYELOS,OH OS) 0.3 % 02/01/2024 1:14 PM CDT [facility] ABSOLUTE NEUTROPHILS 3.7 1.7 - 7.0 thou/cu mm 02/01/2024 1:14 PM CDT [facility] ABSOLUTE LYMPHOCYTES 1.9 0.9 - 2.9 thou/cu mm 02/01/2024 1:14 PM CDT [facility] ABSOLUTE MONOCYTES 0.7 <0.9 thou/cu mm 02/01/2024 1:14 PM CDT [facility] ABSOLUTE EOSINOPHILS 0.1 <0.5 thou/cu mm 02/01/2024 1:14 PM CDT [facility] ABSOLUTE BASOPHILS 0.0 <0.3 thou/cu mm 02/01/2024 1:14 PM CDT [facility] ABSOLUTE IMMATURE GRANULOCYTES(MET ,MYELOS,PROS) 0.0 <0.3 thou/cu mm 02/01/2024 1:14 PM CDT [facility] Blood BLOOD SPECIMEN / Unknown Non-Lab Venipuncture / Unknown 02/01/2024 12:55 PM CDT 02/01/2024 1:05 PM CDT Narrative [facility] - 02/01/2024 1:14 PM CDT This procedure was originally ordered at [facility] Kuldeep Lorenz MD HEMATOLOGY [facility] [address] [place] [address], * (ABNORMAL) BASIC METABOLIC PANEL (02/01/2024 12:55 PM CDT) SODIUM 140 136 - 145 mmol/L 02/01/2024 2:58 PM CDT [facility] POTASSIUM 4.0 3.5 - 5.1 mmol/L 02/01/2024 2:58 PM CDT [facility] CHLORIDE 99 98 - 107 mmol/L 02/01/2024 2:58 PM CDT [facility] CO2,TOTAL 28 22 - 29 mmol/L 02/01/2024 2:58 PM CDT [facility] ANION GAP 13 5 - 18 02/01/2024 2:58 PM CDT [facility] GLUCOSE 93 70 - 99 mg/dL 02/01/2024 2:58 PM CDT [facility] CALCIUM 9.4 8.8 - 10.2 mg/dL 02/01/2024 2:58 PM CDT [facility] BUN 25(H) 8 - 23 mg/dL 02/01/2024 2:58 PM T [facility] CREATININE 1.27(H) 0.50 - 0.90 mg/dL 02/01/2024 2:58 PM CDT [facility] BUN/CREAT RATIO 20 10 - 20 2:58 PM CDT [facility] eGFR 41(L) >90 mL/min/1.7 3m2 02/01/2024 2:58 PM CDT [facility] Comment:As of 2021, eG FR [...] PM CDT Kuldeep Steven Lorenz MD CHEMISTRY [facility] 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
== END 2024-03-10 21:11 | disposition home or self-care (01) ==
LOC: AMB 03-12 06:58
PROVIDERS: PCP Family Medicine; Visit Provider Emergency Medicine
DX: S79.912A Unspecified injury of left hip, initial encounter (principal); W19.XXXA Unspecified fall, initial encounter; Y93.9 Activity, unspecified
CPT/HCPCS: A0425; A0427

== ENCOUNTER 2024-03-10 21:36 | Observation (INO) | payer BC, OTHER, SELFPAY ==
--- NOTE | 2024-03-10 21:49 | CRLHL7_ITS ---
For Patients: As a result of the Century Cures Act, medical imaging exams and procedure reports are released immediately into your electronic medical record. You may view this report before your referring provider. If you have questions, please contact your health care provider. INDICATION: Trauma. TECHNIQUE: Left hip and pelvis radiographs, 3 views. COMPARISON: None. FINDINGS: No acute fractures or dislocation. The femoral heads maintain normal sphericity and are in normal anatomic alignment with the acetabulum. The acetabulum appear unremarkable. 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 No diastasis of the pubic symphysis. Unremarkable bowel gas pattern. Moderate colonic stool burden, correlate for constipation. The sacroiliac joints appear unremarkable. No significant soft tissue edema or radiopaque foreign bodies. IMPRESSION: No acute displaced fractures or dislocation. Dictated by Lonny Villasenor MD @ 03/10/2024 11:11:12 PM (Electronically Signed)
[2024-03-10] MEDS: ONDANSETRON 2 MG/ML inj 4 MG IVP (21:50)
[2024-03-10] MEDS: fentaNYL 100 MCG/2 ML inj 25 MCG IVP (21:50)
[2024-03-10 22:00] VITALS: BP 136/67; PULSE 68; RESP 20; TEMP 37.1; O2SAT 93; BMI 24.5
--- OUTSIDE RECORDS SUMMARY | 2024-03-10 22:22 | XMS_ITS | Clinical Summary ---
Author Organization [facility] Address [place], [place] [address] Care Team Providers Care Associate Professor Of Medicine Name Role Phone Steph Harrington NP Primary Care Provider [phone] Eric Harrington MD Unavailable [phone] Allergies Active Allergy Reactions Criticality Noted Date Comments Amlodipine Edema High 09/10/2021 Other reaction(s): Edema Codeine Nausea And Vomiting Erythromycin Nausea And Vomiting Morphine Nausea And Vomiting Penicillins Hives High 08/08/1992 Has tolerated cephalexin. Tolerated ampicillin 01/2019 (after 48 hrs of treatment) Medications Medication Sig Dispensed Refills Start Date End Date Status pantoprazole (PROTONIX) 40 mg delayed-release tabletIndications:Ga stritis without bleeding, unspecified chronicity, unspecified gastritis type Take 1 tablet by mouth once daily. To block acid release in the stomach. 90 tablet 3 12/27/2018 Active ondansetron (ZOFRAN ODT) 4 mg disintegrating tablet DISSOLVE 1 TAB BY MOUTH EVERY 4 HOURS NEEDED for nausea 99 11/30/2018 Active levothyroxine (SYNTHROID) 100 mcg tabletIndications:Hy pothyroidism, unspecified type TAKE ONE TABLET BY MOUTH IN THE MORNING 90 tablet 3 04/18/2019 Active apixaban (ELIQUIS) 2.5 mg tabletIndications:At rial fibrillation, unspecified type (HC) Take 1 tablet by mouth 2 times daily. 60 tablet 10/11/2019 Active carboxymethylcellulo se 0.5% 0.5 % drop ophthalmic dropsIndications:Dry eyes Place 1 Drop into both eyes every 2 hours if needed for Dry Eyes. 0 10/12/2019 Active dextromethorphan polistirex 30 mg in 5 ml (DELSYM) 30 mg/5 mL liquidIndications:Co ugh Take 10 mL by mouth every 12 hours if needed for Cough. 0 10/12/2019 Active nitroglycerin (NITROSTAT) 0.4 mg sublingual tabletIndications:Ab dominal cramping 0.4 mg under tongue x 1 for abdomen pain 10 tablet 10/12/2019 Active amoxicillin (AMOXIL) 500 mg capsuleIndications:I nfection Take 1 capsule by mouth 2 times [...] Active acetaminophen (TYLENOL EXTRA STRGTH) 500 mg tabletIndications:Cl osed fracture of olecranon process of left ulna with routine healing, subsequent encounter Take 2 tablets by mouth 3 times daily if needed. Max acetaminophen dose: 4000mg in 24 hrs. 30 tablet 11/16/2020 Active sennosides-docusate, 8.6-50 mg, (SENOKOT S) 8.6-50 mg tabletIndications:Co nstipation, unspecified constipation type Take 2 tablets by mouth 2 times daily if needed for Constipation. 0 11/19/2020 Active hydroCHLOROthiazide (HCTZ) 25 mg tabletIndications:Hy pertension, unspecified type Take 1 tablet by mouth once daily. Hold if SBP < 110. 0 11/19/2020 Active multivitamins-minera ls-lutein (CENTRUM SILVER) 0.4 mg-300 mcg- 250 mcg [...] two times daily with meals. 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 CTA prior to OV.) 02/01/2024 1:14 PM CDT - 02/01/2024 11:59 PM CDT Hospital Encounter [facility] [address] [place] [address] Kuldeep Lorenz MD Thoracoabdominal aortic aneurysm (TAAA) without rupture, unspecified part (HC) 02/01/2024 12:50 PM CDT Orders Only [facility] [address] [facility] [address] [place] [address] Lab 02/01/2024 Travel 01/28/2024 Telephone [facility] [address] [place] [address] Antonio Acosta MD FAX 01/25/2024 11:00 AM CDT Office [place] [facility] [address] [place] [address] Antonio Acosta MD Consult (COPD- referred by Steph Harrington NP) 01/25/2024 Travel 01/14/2024 Transcribe Orders [facility] [address] [place] [address] Steph Harrington NP 01/12/2024 Telephone [facility] [address] [place] [address] Kuldeep Lorenz MD Appointment 01/12/2024 Orders Only [facility] [address] [place] [address] Kuldeep Lorenz MD <No scans attached> from Last 3 Months Immunizations Name Administration Dates Next Due COVID-19 vaccine (Moderna 100mcg/0.5mL) PF, MDV 03/17/2022 COVID-19 vaccine (Pfizer-Bio NTech 30mcg/0.3mL) PF, MDV 02/05/2021,01/15/2021 Influenza, High-dose Inactivated 07/08/2019 Influenza, High-dose Quadriv alent Inactivated 07/14/2023,07/09/2022,07/15/2021,07/12 Influenza, IIV3 (Age >=3 years) 07/21/2018,06/12,09/11/2015 Pneumococcal Poly,23-Valent (Pneumovax) 11/30/2018,07/21/2018 Pneumococcal conj 13-Valent (Prevnar 13) 06/12/2017 RSV, Bivalent Vaccine Recons tituted (Abrysvo 120MCG/0.5mL) 10/27/2023 Zoster (Shingrix-RZV, recombinant) 09/29/2023 Family History Medical History Relation Name Comments [...] Sign Reading Time Taken Comments Blood Pressure 130/68 01/25/2024 11:16 AM CDT Pulse 96 02/01/2024 3:27 PM CDT Temperature 37.3 ??C (99.1 ??F) 09/24/2023 2:45 PM CS T Respiratory Rate 18 02/01/2024 3:27 PM CDT Oxygen Saturation 94% 02/01/2024 3:27 PM CDT Inhaled Oxygen Concentration - - Weight 60.3 kg (133 lb) 01/25/2024 11:16 AM CDT Height 157.5 cm (5' 2) 01/25/2024 11:16 AM CDT Body Mass Index 24.33 01/25/2024 11:16 AM CDT Plan of Treatment Health Maintenance Due Date Last Done Comments Tdap 1946 Tetanus booster 1956 DEXA/DXA scan for age 65+ 2001 Medicare Wellness for age 65+ 2001 Zoster (shingles) series for age 50+ (2 of 2) 11/24/2023 09/29/2023 Depression screening for age 12+ 01/28/2024 01/27/2023, 11/18/2022, 09/23/2022, Additional history exists COVID-19 vaccine series ( season) 2024 10/27/2023, 07/14/2023, 07/18/2022, Additional history exists Influenza for age 65+ 05/22/2024 07/14/2023 , 07/09/2022, 07/15/2021, Additional history exists BMI (ht and wt on same day) for age 18+ 01/24/2025 01/25/2024, 09/23/2022, 01/03/2019, Additional history exists Pneumococcal series for age 65+ Completed 11/30/2018, 07/21/2018, 06/12/2017 Medical Devices Implanted Type Area Fuel Cell Test Engineer Device Identifier Shelf Expiration Date Model / Serial / Lot Screw Cortex 3.5x26 Implanted:Qty: 1 on 11/12/2020 at [facility] Left: Elbow [id number] / / Description:SCREW CORTEX 3.5 X26 Evos [id number] Lock Screw Implanted:Qty: 1 on 11/12/2020 at [facility] Left: Elbow [id number] / / Description:EVOS [id number] LOCK SCREW Screw Lock 2.7x60 Implanted:Qty: 1 on 11/12/2020 at [facility] Left: Elbow [id number] / / Description:SCREW LOCK 2.7X6 0 Screw Lock 2.7x55 Implanted:Qty: 1 on 11/12/2020 at [facility] Left: Elbow [id number] / / Description:SCREW LOCK 2.7X5 5 Screw Bone 3.5x22mm Evos Small Cortex Slf Tppng - [id number] Implanted:Qty: 1 on 11/12/2020 at [facility] Left: Elbow [employer] [id number] / / Screw Bone 3.5x18mm Evos Small Cortex Slf Tppng - [id number] Implanted:Qty: 1 on 11/12/2020 at [facility] Left: Elbow [employer] [id number] / / Plate Olecranon 2.7/3.5 Implanted:Qty: 1 on 11/12/2020 at [facility] Left: Elbow [id number] / / Description:PLATE OLECRANON 2.7/3.5 Explanted Type Area Fuel Cell Test Engineer Device Identifier Shelf Expiration Date Model / Serial / Lot Sandy-Loc K-Wire 1.25mm Explanted:Qty: 5 on 11/12/2020 at [facility] Left: Elbow [id number] / / Description:SANDY-LOC K-WIRE 1.25MM Washer 2.7 Explanted:Qty: 1 on 11/12/2020 at [facility] Left: Elbow [id number] / / Description:WASHER 2.7 Evos [id number] Lock Screw Explanted:Qty: 1 on 11/12/2020 at [facility] Left: Elbow [id number] / / Description:EVOS [id number] LOCK SCREW Screw Bone 3.5x24mm Evos Small Cortex Slf Tppng - [id number] Explanted:Qty: 1 on 11/12/2020 at [facility] Left: Elbow [employer] [id number] / / Sandy-Loc K-Wire 1.6mm Explanted:Qty: 2 on 11/12/2020 at [facility] Left: Elbow [id number] / / Description:SANDY-LOC K-WIRE 1.6MM Evos [id number] Ctx Screw Explanted:Qty: 1 on 11/12/2020 at [facility] Left: Elbow [id number] / / Description:EVOS [id number] CTX SCREW Procedures Procedure Name Priority Date/Time Associated Diagnosis Comments CTA CHEST ABDOMEN PELVIS - DUAL Routine 02/01/2024 3:20 PM CDT Thoracoabdominal aortic aneurysm (TAAA) without rupture, unspecified part (HC) CREATININE,ISTAT Routine 02/01/2024 2:01 PM CDT CBC WITH AUTO DIFFERENTIAL Routine 02/01/2024 12:55 PM CDT History of endovascular stent graft for abdominal aortic aneurysm (AAA) CBC WITH AUTO DIFFERENTIAL Routine 02/01/2024 12:55 PM CDT History of endovascular stent graft for abdominal aortic aneurysm (AAA) BASIC METABOLIC PANEL Routine 02/01/2024 12:55 PM CDT History of endovascular stent graft for abdominal aortic aneurysm (AAA) from Last 3 Months Results * CTA CHEST ABDOMEN PELVIS - DUAL (02/01/2024 3:20 PM CDT) Anatomical Region Laterality Modality Abdomen, CHEST Computed Tomogra phy Impressions 02/03/2024 10:00 AM CDT ?? 1. Please see separate dictation for all cardiac and arterial structures. 2. Non cardiovascular findings most notable for new compression fractures in the upper thoracic spine, which appears to be involving T5 and T6. No definite retropulsion. Please note that all CT scans at this facility use dose modulation, iterative reconstruction, and/or weight-based dosing when appropriate to reduce radiation dose to as low as reasonably achievable. Dictated by Shekhar Eldridge MD @ 02/02/2024 8:03:20 AM (Electronic Signature) Narrative 02/03/2024 10:00 AM CDT STUDY: CHEST, ABDOMEN, AND PELVIS AORTIC CT ANGIOGRAPHY Study date: 02/01/2024 Indication: 88 year-old woman with complex endovascular repair of the thoracoabdominal aorta has been referred for evaluation of thoracic and abdominal aorta morphology. STUDY PARAMETERS: Scanner: Siemens Definition Force Contrast: 80 ml of Omnipaque 350 Scan protocol: Gated high-pitch for noncontrast phase. Gated high-pitch for arterial phase. Gated high-pitch for delayed phase. Radiation dose length product: 933 FINAL IMPRESSIONS: Patent endograft from the mid descending thoracic aorta, through the abdominal aorta, with graft legs ending in bilateral common iliac arteries. Patent debranching grafts from the aortic endograft to the celiac, superior mesenteric, and bilateral renal arteries. Maximum cross-sectional dimensions of the residual abdominal aorta aneurysm measures 39 x 36 mm. No evidence of endoleak. Severe stenosis in the right common femoral artery. Severe stenosis in the left internal iliac artery. Dissection in the mid and distal left common iliac artery and in the left common femoral artery. Compared to prior study on 02/13/21 (direct image comparison): No significant interval change. Please see separate radiology report for nonvascular findings. FINDINGS: Thoracic aorta: Left-sided arch. Bdaq-[id number] atheromatous disease in the arch. Patent endograft begins in the mid descending thoracic aorta and extends into the abdominal aorta. 4 separate grafts to the major abdominal branch arteries arise along the endograft in the distal descending thoracic aorta. Maximum true cross-sectional dimensions are - Aortic sinus: 39 mm maximum [id number]. Ascending aorta: 33 x 33 mm. Arch: 28 x 25 mm Descending thoracic aorta: 28 x 28 mm proximal to graft; 25 x 25 mm within endograft. Left atrium: Normal contrast opacification Coronary arteries: Mild calcification noted in the LAD territory. Pericardium: No effusion Great arteries: Bovine great artery branching pattern. ??Brachiocephalic artery: Nonobstructive atherosclerosis. ??Visualized right subclavian artery: Moderate proximal stenosis. ??Visualized right common carotid artery: Nonobstructive atherosclerosis. ??Visualized left common carotid artery: Nonobstructive atherosclerosis. ??Visualized left subclavian artery: Subtotal proximal stenosis. Abdominal aorta: Endograft travels the length of the abdominal aorta, with graft legs ending in bilateral common iliac arteries. Residual aneurysm sac maximum cross-section dimensions are 39 x 36 mm. No evidence of endoleak. Abdominal aorta branch arteries: Celiac artery: Patent and fed by patent graft. Superior mesenteric artery: Patent and fed by patent graft. Right renal artery: Patent and fed by patent graft. Left renal artery: Nonobstructive atherosclerosis and fed by patent graft. Inferior mesenteric artery: Not visualized. Pelvic arteries (RIGHT): Common iliac artery: Nonobstructive atherosclerosis. Patent graft leg ends in the proximal artery. Internal iliac artery: Nonobstructive atherosclerosis. Proximal aneurysm measures 12 x 7 mm in maximum cross-section. External iliac artery: Nonobstructive atherosclerosis. Common femoral artery: Severe stenosis from dense calcification. Pelvic arteries (LEFT): Common iliac artery: Nonobstructive atherosclerosis. Patent graft leg ends in the proximal artery. Dissection flap from the mid to distal artery. Region of dissection is dilated with maximum cross-sectional dimensions of 13 x 10 mm. Internal iliac artery: Severe proximal-mid stenosis. External iliac artery: Patent. Common femoral artery: Complex focal dissection ending at the femoral artery bifurcation. Dilated artery with maximum cross-sectional dimension of 12 x 9 mm. Other findings: Hiatal hernia. FOR PATIENT: Results are automatically released to your [employer] account once available, in compliance with federal regulations. ?? This means that you may see your results before your provider has had a chance to review them. ??Please allow 2-3 business days for your provider to comment on the results. Uriel Dillard MD 02/01/2024 For Patients: As a result of the Century Cures Act, medical imaging exams and procedure reports are released immediately into your electronic medical record. ??You may view this report before your referring provider. ?? If you have questions, please contact your health care provider. OVER-READ ??OVER-READ ??OVER-READ OVER-READ: DETAILED RADIOLOGY EXTRACARDIAC OVER-READ OF CARDIAC CT 02/01/2024 COMPARISON: ??01/20/2022 TECHNIQUE: ??CTA of the chest, abdomen and pelvis was performed per [facility] protocol. Please see Cardiology dictation for details on technique. ??80 cc Omnipaque-350 intravenous contrast. ?? This exam is being performed in conjunction with the services provided by the [facility] ([facility]). CLINICAL HISTORY: ??Over-read of non-cardiovascular structures, FINDINGS: ??Please see separate dictation for all cardiac and arterial structures. Severe kyphosis redemonstrated. New compression fractures in the upper thoracic spine proximally involving T5 and T6. No definite retropulsion. Scoliosis is also present. Minor height loss of other vertebral bodies. Moderate severity hiatal hernia, unchanged. Pulmonary fibrosis similar in appearance. Left-sided Bochdalek`s hernia. No new focal or diffuse pulmonary opacities. Pulmonary emphysema, at least moderate in severity. The gallbladder measures in the upper limits of normal in size. Moderate to severe colonic stool burden. No obvious urinary bladder abnormality. Hysterectomy change. No suspicious adnexal mass. Renal cysts. Symmetric enhancement the kidneys. No splenomegaly. Adrenal glands, and pancreas appear unremarkable. A subtle small arterial phase hyperenhancing focus is seen in segment 4A or 8 measuring 7 mm on image 166, series 6, stable from 2020, therefore likely benign. Kuldeep Lorenz MD CT * (ABNORMAL) CREATININE,ISTAT (02/01/2024 2:01 PM CDT) [facility] CREATININE, POCT 1.30(H) 0.57 - 1.11 mg/dL 02/01/2024 2:18 PM CDT [facility] [employer] [facility] Comment:Caution: Patients ta dede Hydroxyurea have falsely increased iStat Creatinine results. Verify creatinine results ordering a Creatinine (76356.2) eGFR 40(L) >90 mL/min/1.7 3m2 02/01/2024 2:18 PM CDT [facility] Comment:As of 2021, eG FR is calculated by the CKD-EPI creatinine equation without race adjustment. eGFR can be influenced by muscle mass, exercise, and diet. The reported eGFR is an estimation only and is only applicable if the renal function is stable. Blood BLOOD SPECIMEN / Unknown 02/01/2024 2:01 PM CDT 02/01/2024 2:18 PM CDT Kuldeep Lorenz MD [facility] [address] [place] [address], [place] * (ABNORMAL) CBC WITH AUTO DIFFERENTIAL (02/01/2024 12:55 PM CDT) [facility] WHITE BLOOD COUNT 6.4 4.5 - 11.0 thou/cu mm 02/01/2024 1:14 PM [facility] RED BLOOD COUNT 3.50(L) 4.00 - 5.20 mil/cu mm 02/01/2024 1:14 PM [facility] HEMOGLOBIN 11.5(L) 12.0 - 16.0 g/dL 02/01/2024 1:14 PM [facility] HEMATOCRIT 36.2 33.0 - 51.0 % 02/01/2024 1:14 PM [facility] MCV 103(H) 80 - 100 fL 02/01/2024 1:14 PM [facility] MCH 32.9 26.0 - 34.0 pg 02/01/2024 1:14 PM [facility] MCHC 31.8(L) 32.0 - 36.0 g/dL 02/01/2024 1:14 PM [facility] RDW 13.2 11.5 - 15.5 % 02/01/2024 1:14 PM [facility] PLATELET COUNT 217 140 - 440 thou/cu mm 02/01/2024 1:14 PM [facility] MPV 9.5 6.5 - 11.0 fL 02/01/2024 1:14 PM [facility] NRBC 0.0 % 02/01/2024 1:14 PM [facility] ABS NRBC 0.0 thou /cu mm 02/01/2024 1:14 PM [facility] % NEUT 58.1 % 02/01/2024 1:14 PM [facility] % LYMPH 29.1 % 02/01/2024 1:14 PM [facility] % MONO 10.6 % 02/01/2024 1:14 PM [facility] % EOS 1.4 % 02/01/2024 1:14 PM CDT [facility] % BASO 0.5 % 02/01/2024 1:14 PM CDT [facility] % IMMATURE GRAN (METAS,MYELOS,GA OS) 0.3 % 02/01/2024 1:14 PM CDT [facility] ABSOLUTE NEUTROPHILS 3.7 1.7 - 7.0 thou/cu mm 02/01/2024 1:14 PM CDT [facility] ABSOLUTE LYMPHOCYTES 1.9 0.9 - 2.9 thou/cu mm 02/01/2024 1:14 PM CDT [facility] ABSOLUTE MONOCYTES 0.7 <0.9 thou/cu mm 02/01/2024 1:14 PM CDT [facility] ABSOLUTE EOSINOPHILS 0.1 <0.5 thou/cu mm 02/01/2024 1:14 PM CDT [facility] ABSOLUTE BASOPHILS 0.0 <0.3 thou/cu mm 02/01/2024 1:14 PM CDT [facility] ABSOLUTE IMMATURE GRANULOCYTES(MET ,MYELOS,PROS) 0.0 <0.3 thou/cu mm 02/01/2024 1:14 PM CDT [facility] Blood BLOOD SPECIMEN / Unknown Non-Lab Venipuncture / Unknown 02/01/2024 12:55 PM CDT 02/01/2024 1:05 PM CDT Narrative [facility] - 02/01/2024 1:14 PM CDT This procedure was originally ordered at [facility]. Kuldeep Lorenz MD HEMATOLOGY [facility] [address] [place] [address], * (ABNORMAL) BASIC METABOLIC PANEL (02/01/2024 12:55 PM CDT) SODIUM 140 136 - 145 mmol/L 02/01/2024 2:58 PM CDT [facility] POTASSIUM 4.0 3.5 - 5.1 mmol/L 02/01/2024 2:58 PM CDT [facility] CHLORIDE 99 98 - 107 mmol/L 02/01/2024 2:58 PM CDT [facility] CO2,TOTAL 28 22 - 29 mmol/L 02/01/2024 2:58 PM CDT [facility] ANION GAP 13 5 - 18 02/01/2024 2:58 PM CDT [facility] GLUCOSE 93 70 - 99 mg/dL 02/01/2024 2:58 PM CDT [facility] CALCIUM 9.4 8.8 - 10.2 mg/dL 02/01/2024 2:58 PM CDT [facility] BUN 25(H) 8 - 23 mg/dL 02/01/2024 2:58 PM T [facility] CREATININE 1.27(H) 0.50 - 0.90 mg/dL 02/01/2024 2:58 PM CDT [facility] BUN/CREAT RATIO 20 10 - 20 2:58 PM CDT [facility] eGFR 41(L) >90 mL/min/1.7 3m2 02/01/2024 2:58 PM CDT [facility] Comment:As of 2021, eG FR is calculated by the CKD-EPI creatinine equation without race adjustment. ??eGFR can be influenced by muscle mass, exercise, and diet. ??The reported eGFR is an estimation only and is only applicable if the renal function is stable. Blood BLOOD SPECIMEN / Unknown Non-Lab Venipuncture / Unknown 02/01/2024 12:55 PM CDT 02/01/2024 1:05 PM CDT Kuldeep Steven Lorenz MD CHEMISTRY [facility] 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
[2024-03-10 23:09] VITALS: O2SAT 94
--- NOTE | 2024-03-10 23:31 | ED_ITS ---
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 She was reaching on the table in she says she knew that she should not be doing that. She fell forward and landed directly on her left hip. She is having pain in her left hip and in her left iliac crest. She was able to move her hip a little bit and able to stand for pivoting with EMS. She has not really been up and walking since she fell. No other injuries from the fall. She did not hit her head. No headache. No neck pain. No injury to her upper extremities or shoulder. No back pain. No right leg pain. No numbness or weakness in her right leg. She does take Eliquis for stroke prophylaxis for AFib. Related Data Home Medications ?Medication ?Instructions ?Recorded ?Confirmed albuterol sulfate 90 mcg/actuation 2 puff inhalation TID 03/05/23 06/16/23 aerosol inhaler amiodarone 200 mg tablet 100 mg PO DAILY 03/05/23 03/10/24 amoxicillin 500 mg capsule 500 mg PO BID 03/05/23 03/10/24 apixaban 2.5 mg tablet (Eliquis) 2.5 mg PO BID 03/05/23 03/10/24 aspirin 81 mg chewable tablet 1 tab PO DAILY 03/05/23 03/10/24 atorvastatin 40 mg tablet 40 mg PO HS 03/05/23 03/10/24 lamotrigine 100 mg tablet 200 mg PO HS 03/05/23 03/10/24 levothyroxine 100 mcg tablet 100 mcg PO QAM 03/05/23 03/10/24 loratadine 10 mg tablet 10 mg PO DAILY 03/05/23 03/10/24 melatonin 3 mg capsule 3 mg PO HS PRN 03/05/23 03/10/24 pantoprazole 40 mg tablet,delayed 40 mg PO DAILY 03/05/23 03/10/24 release potassium chloride 20 mEq 20 meq PO BID 03/05/23 03/10/24 tablet,extended release(part/cryst) simethicone 80 mg chewable tablet 80 mg PO QID PRN 03/05/23 06/16/23 (Gas Relief 80 (simethicone)) oxycodone 5 mg tablet 5 mg PO .5X/D 06/05/23 03/10/24 polyethylene glycol 3350 17 17 g PO DAILY 06/05/23 03/10/24 gram/dose oral powder lidocaine 4 % topical patch 1 patch topical BID 06/16/23 06/16/23 (Lidocaine Pain Relief) acetaminophen 650 mg 1,300 mg PO BID 03/10/24 03/10/24 tablet,extended release albuterol sulfate 2.5 mg/3 mL 1 Q4H PRN dyspnea 03/10/24 (0.083 %) solution for nebulization alendronate 70 mg tablet 70 mg PO DAILY 03/10/24 03/10/24 calcium carbonate 600 mg-vitamin 1 tab PO BID 03/10/24 03/10/24 D3 10 mcg (400 unit) tablet torsemide 20 mg tablet mg PO 03/10/24 Previous Rx's ?Medication ?Instructions ?Recorded calcitonin (salmon) 200 1 spray intranasal (ALT) DAILY 05/30/23 unit/actuation nasal spray #3.7 mL acetaminophen 325 mg tablet 650 mg (2 x 325 mg) PO QID #120 06/05/23 tabs furosemide 40 mg tablet 80 mg (2 x 40 mg) PO BID #120 tabs 06/18/23 sennosides 8.6 mg tablet (Marley-sheela) 34.4 mg (4 x 8.6 mg) PO BID #100 06/18/23 tabs Allergies Allergy/AdvReac Type Severity Reaction Status Date / Time amlodipine Allergy Unknown Verified 03/10/24 22:14 codeine Allergy Unknown Verified 03/10/24 22:14 erythromycin base Allergy Unknown Verified 03/10/24 22:14 morphine Allergy Unknown Verified 03/10/24 22:14 Penicillins Allergy Unknown Verified 03/10/24 22:14 [facility] Medical History (Updated 03/11/24 @ 00:59 by Alcon Mittal MD) Atrial fibrillation ?I48.91 - Unspecified atrial fibrillation (ICD-10) Osteoporosis ?M81.0 - Age-related osteoporosis without current pathological fracture (ICD- 10) Chronic diastolic heart failure ?I50.32 - Chronic diastolic (congestive) heart failure (ICD-10) Chronic kidney disease, stage 3b ?N18.32 - Chronic kidney disease, stage 3b (ICD-10) Paroxysmal atrial fibrillation ?I48.0 - Paroxysmal atrial fibrillation (ICD-10) COPD (chronic obstructive pulmonary disease) ?J44.9 - Chronic obstructive pulmonary disease, unspecified (ICD-10) Extravasation of intravenous contrast medium ?T80.818A - Extravasation of other vesicant agent, initial encounter (ICD-10) Chronic hypoxemic respiratory failure ?J96.11 - Chronic respiratory failure with hypoxia (ICD-10) Former smoker ?Z87.891 - Personal history of nicotine dependence (ICD-10) Normal pressure hydrocephalus ?G91.2 - (Idiopathic) normal pressure hydrocephalus (ICD-10) Diaphragmatic hernia ?K44.9 - Diaphragmatic hernia without obstruction or gangrene (ICD-10) Gastroesophageal reflux disease ?K21.9 - Gastro-esophageal reflux disease without esophagitis (ICD-10) Major depressive disorder ?F32.9 - Major depressive disorder, single episode, unspecified (ICD-10) Bipolar II disorder ?F31.81 - Bipolar II disorder (ICD-10) Ventricular premature complexes ?I49.3 - Ventricular premature depolarization (ICD-10) Pulmonary hypertension ?I27.20 - Pulmonary hypertension, unspecified (ICD-10) Primary hypothyroidism ?E03.9 - Hypothyroidism, unspecified (ICD-10) Essential hypertension ?I10 - Essential (primary) hypertension (ICD-10) Hyperlipidemia ?E78.5 - Hyperlipidemia, unspecified (ICD-10) History of bacteremia ?Z87.898 - Personal history of other specified conditions (ICD-10) Unspecified dementia, unspecified severity, without behavioral disturbance, psychotic disturbance, mood disturbance, and anxiety ?F03.90 - Unspecified dementia, unspecified severity, without behavioral disturbance, psychotic disturbance, mood disturbance, and anxiety (ICD-10) Spondylosis of lumbar spine ?M47.816 - Spondylosis without myelopathy or radiculopathy, lumbar region (ICD-10) History of COVID-19 ?Z86.16 - Personal history of COVID-19 (ICD-10) Peripheral vascular disease ?I73.9 - Peripheral vascular disease, unspecified (ICD-10) POLST (Physician Orders for Life-Sustaining Treatment) ?Z78.9 - Other specified health status (ICD-10) Surgical History (Updated 06/04/23 @ 23:27 by Carlos Vieira MD) Status post hysterectomy ?Z90.710 - Acquired absence of both cervix and uterus (ICD-10) Acquired absence of both cervix and uterus ?Z90.710 - Acquired absence of both cervix and uterus (ICD-10) Social History (Updated 06/04/23 @ 23:25 by Carlos Vieira MD) [place]ative[place] Her son, Herbert Lobo, is her power of tax associate attorney for health should that be required, cell phone [phone]. Requests DNR DNI resuscitation status. Dr. Inder Tanner is her primary care physician What is your current living situation?: I presently have a place to live Problems where you live: no known problems Problems where you live details: NA In the past 12 months, utilities in danger of being shut off: no In past 12 months, lack of transportation kept you from medical appts, meetings, work, or getting things needed for daily living: no In the past 12 mos, have been you worried that your food would run out before you had money to buy more?: never true In the past 12 mos, the food you bought just didn't last and you didn't have money to buy more?: never true Highest level of school completed/degree received: Associate degree: occupational, technical, vocational program Smoking Status: Former smoker Do you use any of these nicotine containing products: None Second hand tobacco smoke exposure: No How often do you have a drink containing alcohol: never How often do you have six or more drinks on one occasion: Never AUDIT-C Alcohol total score: 0 Non-prescribed substance use: denies use Caffeine: Yes How often does anyone, including family, friends and others, physically hurt you : never How often does anyone, including family, friends and others, insult or talk down to you: never How often does anyone, including family, friends and others, threaten you with harm: never How often does anyone, including family, friends and others, scream or curse at you: never service: No Exam Narrative: Exam Narrative: Constitutional: Appears well-developed and well-nourished. Alert. Conversant. She remembers me from previous visits. She is spunky with her nurse. Non toxic, but uncomfortable HENT: Head: Atraumatic. Nose: Nose normal. Mouth/Throat: Oral mucosa is clear and moist. no trismus. Pharynx normal. Tonsils symmetric. No tonsillar enlargement, erythema, or exudate. Eyes: Conjunctivae normal. EOM normal. Pupils equal, round, and reactive to light. No scleral icterus. Neck: No posterior midline tenderness Normal range of motion. Neck supple. No tracheal deviation present. Cardiovascular: Normal rate, regular rhythm. No gallop. No friction rub. No murmur heard. Symmetric DP artery pulses . Normal brisk distal capillary refill. Pulmonary/Chest: Effort normal. No stridor. No respiratory distress. No wheezes. No rales. No rhonchi . No tenderness. Abdominal: Soft. Bowel sounds normal. No distension. No mass. No tenderness. No rebound. No guarding. Musculoskeletal: No tenderness of the thoracic or lumbar spine. RUE: Normal range of motion. No tenderness. No deformity LUE: Normal range of motion. No tenderness. No deformity RLE: Normal range of motion. No edema. No tenderness. No deformity Pelvis is stable per LLE: She is tender over the left lateral iliac crest and little bit over the left hip. No definite deformity, rotation, foreshortening. She is able to flex her hip to about 30?. Femoral shaft, quadriceps, hamstring nontender. Knee nontender. Lower leg is nontender. Ankle and foot nontender. Normal range of motion. No edema. No tenderness. No deformity. She is able to flex her hip to about 30? and flex her knee to almost 90?. ROM Limited by hip pain. No bruising or ecchymosis or redness on the hip. Lymph: No cervical adenopathy. Neurological: Alert and oriented to person, place, and time. Normal strength. CN II-VII intact. No sensory deficit. GCS eye subscore is 4. GCS verbal subscore is 5. GCS motor subscore is 6. Normal coordination . Intact sensory function on the medial and lateral thigh, mediolateral calf, medial and lateral malleolus, dorsal 1st webspace, sole of the foot. Intact toe wiggling. Normal plantar flexion dorsiflexion of the ankle. Skin: Skin is warm and dry. No rash noted. No pallor. Normal capillary refill. Psychiatric: Normal mood. Normal affect. Const: Vital Signs, click to edit/add: Vital Signs - 24 hr 03/10/24 22:00 03/10/24 23:09 03/11/24 00:23 Temperature 98.7 F Pulse Rate [Pulse Oximeter] 68 Respiratory Rate 20 Blood Pressure [Ri ght Upper Arm] 136/67 Pulse Oximetry 93 94 94 Oxygen Delivery Me thod Nasal Cannula Oxygen Flow Rate 3 03/11/24 00:58 Temperature Pulse Rate [Pulse Oximeter] Respiratory Rate Blood Pressure [Ri ght Upper Arm] Pulse Oximetry 96 Oxygen Delivery Me thod Nasal Cannula Oxygen Flow Rate 2 Course Vital Signs Vital signs: Initial Vital Signs Temperature 98.7 F 03/10/24 22:00 Temperature Source Temporal Artery Scan 03/10/24 22:00 Pulse Rate 68 03/10/24 22:00 Pulse Rhythm Regular 03/10/24 22:00 Pulse Strength 3+ Normal 03/10/24 22:00 Respiratory Rate 20 03/10/24 22:00 Blood Pressure 136/67 03/10/24 22:00 Blood Pressure Mean 90 03/10/24 22:00 Blood Pressure Position Semi-Fowlers 03/10/24 22:00 Pulse Oximetry 93 03/10/24 22:00 Oxygen Delivery Method Nasal Cannula 03/10/24 22:00 Oxygen Flow Rate 3 03/10/24 22:00 Vital Signs Temperature 98.7 F 03/10/24 22:00 Pulse Rate 68 03/10/24 22:00 Respiratory Rate 20 03/10/24 22:00 Blood Pressure 136/67 03/10/24 22:00 Pulse Oximetry 93 03/10/24 22:00 Oxygen Delivery Method Nasal Cannula 03/10/24 22:00 Oxygen Flow Rate 3 03/10/24 22:00 Temperature 98.7 F 03/10/24 22:00 Pulse Rate 68 03/10/24 22:00 Respiratory Rate 20 03/10/24 22:00 Blood Pressure 136/67 03/10/24 22:00 Pulse Oximetry 96 03/11/24 00:58 Oxygen Delivery Method Nasal Cannula 03/11/24 00:58 Oxygen Flow Rate 2 03/11/24 00:58 Medications Administered Medications: Generic Name Dose Route Start Last Admin Trade Name Juan Ramon PRN Reason Stop Dose Admin Hydromorphone HCl 0.5 mg 03/11/24 00:49 03/11/24 01:00 Hydromorphone 0.5 Mg/0.5 Ml Inj IVP 03/11/24 00:50 0.5 mg ONCE ONE Administration Discontinued Medications Generic Name Dose Route Start Last Admin Trade Name Juan Ramon PRN Reason Stop Dose Admin Fentanyl 25 mcg 03/10/24 21:49 03/10/24 21:50 Fentanyl 100 Mcg/2 Ml Inj IVP 03/10/24 21:50 25 mcg ONCE ONE Administration Ondansetron HCl 4 mg 03/10/24 21:49 03/10/24 21:50 Ondansetron 2 Mg/Ml Inj IVP 03/10/24 21:50 4 mg ONCE ONE Administration Medical Decision Making MDM Narrative Medical decision making narrative: This is a very pleasant 89-year-old female brought to the ER today by EMS for evaluation of isolated left hip pain after a mechanical ground level fall. Initial evaluation revealed left hip tenderness and tenderness on the left side of the hemipelvis and iliac crest. No definite bruising or laceration or abrasion. She was neurovascularly intact in the left leg. She did denies any head injury or head trauma. No headache. Normal mental status. No neck pain or other signs of C-spine injury. She is not having any numbness or weakness down her leg to suggest a lumbar radiculopathy. X-rays of the patient's left hip and pelvis were fortunately negative for any fracture. She received Dilaudid in EMS and additional Dilaudid here in the ER and was more comfortable resting in bed but still not able to really bear weight or pass an ambulation trial. Concern for possible hip or pelvic fracture not visualized on plain film. Pelvis CT shows left L3-L4 transverse process fractures. No evidence for hip or pelvic fracture. She will require admission for pain control. Discussed with hospitalist through [facility], Dr. Do Son. He graciously accepts for admission. Imaging Data xr left hip and pelvis: Attestation: I have reviewed the pertinent imaging results. My impression: No acute fracture or dislocation. Radiologist's impression: IMPRESSION: No acute displaced fractures or dislocation. CT Pelvis: Attestation: I have reviewed the pertinent imaging results. Radiologist's impression: IMPRESSION: 1. No hip fracture. 2. Acute, nondisplaced left L3 and L4 transverse process fractures. 3. Partially imaged infrarenal abdominal aortic aneurysm, measuring at least 3.6 x 2.9 cm, status post aorto bi-iliac endovascular stent graft placement Discharge Plan Discharge Clinical Impression: Multiple transverse process fractures, Acute pain of left hip Prescriptions: No Action calcitonin (salmon) 200 unit/actuation spray,non-aerosol 1 spray intranasal (ALT) DAILY Qty: 3.7 2RF oxycodone 5 mg tablet 5 mg PO .5X/D Rx Instructions: HAS BEEN TAKING 5 TIMES DAILY PLUS Q4H PRN polyethylene glycol 3350 17 gram/dose powder 17 g PO DAILY acetaminophen 325 mg Tablet 650 mg PO QID Qty: 120 0RF lidocaine [Lidocaine Pain Relief] 4 % adhesive patch,medicated 1 patch topical BID furosemide 40 mg tablet 80 mg PO BID Qty: 120 0RF sennosides [Marley-sheela] 8.6 mg tablet 34.4 mg PO BID Qty: 100 0RF torsemide 20 mg tablet PO albuterol sulfate 2.5 mg /3 mL (0.083 %) solution for nebulization 1 Q4H PRN (Reason: dyspnea) alendronate 70 mg tablet 70 mg PO DAILY acetaminophen 650 mg tablet extended release 1,300 mg PO BID calcium carbonate-vitamin D3 600 mg-10 mcg (400 unit) tablet 1 tab PO BID amoxicillin 500 mg capsule 500 mg PO BID atorvastatin 40 mg tablet 40 mg PO HS amiodarone 200 mg tablet 100 mg PO DAILY levothyroxine 100 mcg tablet 100 mcg PO QAM aspirin 81 mg tablet,chewable 1 tab PO DAILY albuterol sulfate 90 mcg/actuation HFA aerosol inhaler 2 puff inhalation TID Rx Instructions: 2 PUFF TID SCHEDULED PLUS Q4H PRN lamotrigine 100 mg tablet 200 mg PO HS loratadine 10 mg tablet 10 mg PO DAILY Eliquis 2.5 mg tablet 2.5 mg PO BID melatonin 3 mg capsule 3 mg PO HS PRN potassium chloride 20 mEq tablet,ER particles/crystals 20 meq PO BID pantoprazole 40 mg tablet,delayed release (DR/EC) 40 mg PO DAILY simethicone [Gas Relief 80 (simethicone)] 80 mg tablet,chewable 80 mg PO QID PRN Follow Up/Referrals: Inder Tanner MD [Primary Care Provider] -
--- NOTE | 2024-03-10 23:43 | CRLHL7_ITS ---
For Patients: As a result of the Century Cures Act, medical imaging exams and procedure reports are released immediately into your electronic medical record. You may view this report before your referring provider. If you have questions, please contact your health care provider. INDICATION: Fall, left hip pain and left iliac crest pain. TECHNIQUE: CT pelvis without contrast. COMPARISON: Pelvic radiographs 03/10/2024. FINDINGS: Bones: Acute, nondisplaced left L3 and L4 transverse process fractures. No hip fracture or aggressive osseous lesion. Joints: Mild degenerative changes of the bilateral hips. Grade 1 anterolisthesis L4 on L5 secondary to facet arthrosis.. Soft tissues: Partially imaged infrarenal abdominal aortic aneurysm, measuring at least 3.6 x 2.9 cm, status post aorto bi-iliac endovascular stent graft placement. 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 Small fat-containing right inguinal hernia. No free fluid in the pelvis. IMPRESSION: 1. No hip fracture. 2. Acute, nondisplaced left L3 and L4 transverse process fractures. 3. Partially imaged infrarenal abdominal aortic aneurysm, measuring at least 3.6 x 2.9 cm, status post aorto bi-iliac endovascular stent graft placement Please note that all CT scans at this facility use dose modulation, iterative reconstruction, and/or weight-based dosing when appropriate to reduce radiation dose to as low as reasonably achievable. Dictated by Alcon Flores MD @ 03/11/2024 12:53:32 AM (Electronically Signed)
[2024-03-11] VITALS (12 sets, daily range): BP systolic 97–125; BP diastolic 51–84; PULSE 67–125; RESP 16–20; TEMP 36.2–36.9; O2SAT 94–97; BMI 24.6
[2024-03-11] MEDS: HYDROmorphone 0.5 mg/0.5 ml inj IVP (01:00)
--- NOTE | 2024-03-11 02:41 | CRLHL7_ITS ---
For Patients: As a result of the Century Cures Act, medical imaging exams and procedure reports are released immediately into your electronic medical record. You may view this report before your referring provider. If you have questions, please contact your health care provider. INDICATION: Unwitnessed fall TECHNIQUE: CT of the head without contrast. Coronal and sagittal reformats. Bone and soft tissue algorithms. COMPARISON: No prior studies available for comparison at this institution. FINDINGS: No acute intracranial hemorrhage or extra-axial collection. No evidence of acute cortical infarction. No mass effect or midline shift. Mild generalized cerebral/cerebellar parenchymal volume loss. Mild regions of decreased attenuation within the periventricular and subcortical white matter of both cerebral hemispheres most likely reflects chronic microvascular ischemic disease and age related change in this patient. Vascular calcifications within the carotid siphons. No calvarial fractures. No lytic or sclerotic osseous lesions within the calvarium or skull base. Scalp and other imaged soft tissue structures are normal. Mastoid air cells are clear. Minimal mucosal thickening in the right posterior ethmoid air cells. Bilateral pseudophakia. IMPRESSION: No acute intracranial abnormality. Please note that all CT scans at this facility use dose modulation, iterative reconstruction, and/or weight-based dosing when appropriate to reduce radiation dose to as low as reasonably achievable. Dictated by Amando Cruz MD @ 03/11/2024 7:05:13 AM (Electronically Signed)
--- NOTE | 2024-03-11 02:42 | W.PM.TELEH&P ---
Telehealth- H&P: HPI History of Present Illness Date Seen: 03/11/24 Chief complaint: Fall with Back Pain Narrative: Amy Lobo is seen as an Interactive Telehealth visit. Amy Lobo is a 89 year old female who was brought into the emergency room after having a fall earlier this evening. Amy has a significant past medical history of atrial fibrillation currently anticoagulated on Eliquis, hypertension, hyperlipidemia, congestive heart failure, oxygen dependent COPD, pulmonary hypertension , normal pressure hydrocephalus per patient report and previous aortic aneurysm with repair. Amy was apparently leaning forward to pick something up on the floor and states that she was reaching over a table and fell forward landing on her left hip. She states that she immediately felt pain and was unable to get up. She was brought into the emergency room for evaluation and x-rays and CT did not show any hip or pelvic fracture, but unfortunately showed left L3- L4 transverse process fractures. With her unrelenting pain hindering her from doing ADLs, she is currently being admitted to the medical service for further evaluation and treatment. At the time I am seeing Amy, she does confirm the above history. She is somewhat slow to answer some questions, but contributes this to the pain medications that she received in the emergency room. She denies any headache and denies hitting her head when she fell. She otherwise denies any other acute complaints or problems at the time I am seeing her. Review of Systems Status of ROS: Reports: 10 or more systems reviewed and unremarkable except as noted in History and below [facility] Medical History Atrial fibrillation ?I48.91 - Unspecified atrial fibrillation (ICD-10) Osteoporosis ?M81.0 - Age-related osteoporosis without current pathological fracture (ICD-10) Chronic diastolic heart failure ?I50.32 - Chronic diastolic (congestive) heart failure (ICD-10) Chronic kidney disease, stage 3b ?N18.32 - Chronic kidney disease, stage 3b (ICD-10) Paroxysmal atrial fibrillation ?I48.0 - Paroxysmal atrial fibrillation (ICD-10) COPD (chronic obstructive pulmonary disease) ?J44.9 - Chronic obstructive pulmonary disease, unspecified (ICD-10) Extravasation of intravenous contrast medium ?T80.818A - Extravasation of other vesicant agent, initial encounter (ICD-10) Chronic hypoxemic respiratory failure ?J96.11 - Chronic respiratory failure with hypoxia (ICD-10) Former smoker ?Z87.891 - Personal history of nicotine dependence (ICD-10) Normal pressure hydrocephalus ?G91.2 - (Idiopathic) normal pressure hydrocephalus (ICD-10) Diaphragmatic hernia ?K44.9 - Diaphragmatic hernia without obstruction or gangrene (ICD-10) Gastroesophageal reflux disease ?K21.9 - Gastro-esophageal reflux disease without esophagitis (ICD-10) Major depressive disorder ?F32.9 - Major depressive disorder, single episode, unspecified (ICD-10) Bipolar II disorder ?F31.81 - Bipolar II disorder (ICD-10) Ventricular premature complexes ?I49.3 - Ventricular premature depolarization (ICD-10) Pulmonary hypertension ?I27.20 - Pulmonary hypertension, unspecified (ICD-10) Primary hypothyroidism ?E03.9 - Hypothyroidism, unspecified (ICD-10) Essential hypertension ?I10 - Essential (primary) hypertension (ICD-10) Hyperlipidemia ?E78.5 - Hyperlipidemia, unspecified (ICD-10) History of bacteremia ?Z87.898 - Personal history of other specified conditions (ICD-10) Unspecified dementia, unspecified severity, without behavioral disturbance, psychotic disturbance, mood disturbance, and anxiety ?F03.90 - Unspecified dementia, unspecified severity, without behavioral disturbance, psychotic disturbance, mood disturbance, and anxiety (ICD-10) Spondylosis of lumbar spine ?M47.816 - Spondylosis without myelopathy or radiculopathy, lumbar region (ICD-10) History of COVID-19 ?Z86.16 - Personal history of COVID-19 (ICD-10) Peripheral vascular disease ?I73.9 - Peripheral vascular disease, unspecified (ICD-10) POLST (Physician Orders for Life-Sustaining Treatment) ?Z78.9 - Other specified health status (ICD-10) Surgical History Status post hysterectomy ?Z90.710 - Acquired absence of both cervix and uterus (ICD-10) Acquired absence of both cervix and uterus ?Z90.710 - Acquired absence of both cervix and uterus (ICD-10) Social History Narrative: Lives in assisted living [place], [place]. Her son, Herbert Lobo, is her power of operating room scheduler for health should that be required, cell phone [phone]. Requests DNR DNI resuscitation status. Dr. Inder Tanner is her primary care physician What is your current living situation?: I presently have a place to live Problems where you live: no known problems Problems where you live details: NA In the past 12 months, utilities in danger of being shut off: no In past 12 months, lack of transportation kept you from medical appts, meetings, work, or getting things needed for daily living: no In the past 12 mos, have been you worried that your food would run out before you had money to buy more?: never true In the past 12 mos, the food you bought just didn't last and you didn't have money to buy more?: never true Highest level of school completed/degree received: Associate degree: occupational, technical, vocational program Smoking Status: Former smoker Do you use any of these nicotine containing products: None Second hand tobacco smoke exposure: No How often do you have a drink containing alcohol: never How often do you have six or more drinks on one occasion: Never AUDIT-C Alcohol total score: 0 Non-prescribed substance use: denies use Caffeine: Yes How often does anyone, including family, friends and others, physically hurt you: never How often does anyone, including family, friends and others, insult or talk down to you: never How often does anyone, including family, friends and others, threaten you with harm: never How often does anyone, including family, friends and others, scream or curse at you: never service: No Meds Home Medications and Allergies Home Medications ?Medication ?Instructions ?Recorded ?Confirmed ?Type albuterol sulfate 90 mcg/actuation 2 puff inhalation TID 03/05/23 06/16/23 History aerosol inhaler amiodarone 200 mg tablet 100 mg PO DAILY 03/05/23 03/10/24 History amoxicillin 500 mg capsule 500 mg PO BID 03/05/23 03/10/24 History apixaban 2.5 mg tablet (Eliquis) 2.5 mg PO BID 03/05/23 03/10/24 History aspirin 81 mg chewable tablet 1 tab PO DAILY 03/05/23 03/10/24 History atorvastatin 40 mg tablet 40 mg PO HS 03/05/23 03/10/24 History lamotrigine 100 mg tablet 200 mg PO HS 03/05/23 03/10/24 History levothyroxine 100 mcg tablet 100 mcg PO QAM 03/05/23 03/10/24 History loratadine 10 mg tablet 10 mg PO DAILY 03/05/23 03/10/24 History melatonin 3 mg capsule 3 mg PO HS PRN 03/05/23 03/10/24 History pantoprazole 40 mg tablet,delayed 40 mg PO DAILY 03/05/23 03/10/24 History release potassium chloride 20 mEq 20 meq PO BID 03/05/23 03/10/24 History tablet,extended release(part/cryst) simethicone 80 mg chewable tablet 80 mg PO QID PRN 03/05/23 06/16/23 History (Gas Relief 80 (simethicone)) oxycodone 5 mg tablet 5 mg PO .5X/D 06/05/23 03/10/24 History polyethylene glycol 3350 17 17 g PO DAILY 06/05/23 03/10/24 History gram/dose oral powder lidocaine 4 % topical patch 1 patch topical BID 06/16/23 06/16/23 History (Lidocaine Pain Relief) acetaminophen 650 mg 1,300 mg PO BID 03/10/24 03/10/24 History tablet,extended release albuterol sulfate 2.5 mg/3 mL 1 Q4H PRN dyspnea 03/10/24 History (0.083 %) solution for nebulization alendronate 70 mg tablet 70 mg PO DAILY 03/10/24 03/10/24 History calcium carbonate 600 mg-vitamin 1 tab PO BID 03/10/24 03/10/24 History D3 10 mcg (400 unit) tablet torsemide 20 mg tablet mg PO 03/10/24 History Allergies Allergy/AdvReac Type Severity Reaction Status Date / Time amlodipine Allergy Unknown Verified 03/10/24 22:14 codeine Allergy Unknown Verified 03/10/24 22:14 erythromycin base Allergy Unknown Verified 03/10/24 22:14 morphine Allergy Unknown Verified 03/10/24 22:14 Penicillins Allergy Unknown Verified 03/10/24 22:14 Exam Narrative Exam Narrative: Physical Exam GENERAL: vital signs reviewed, well developed and nourished, in no distress HEENT: pupils are equal round and reactive to light, extraocular movements are grossly within normal limits and oral mucosa is moist. NECK: Supple without lymphadenopathy or thyromegaly according to nursing staff examination observation HEART: irregularly irregular rate and rhythm consistent with atrial fibrillation with a rapid ventricular response. LUNGS: Clear to auscultation bilaterally with good air movement throughout ABDOMEN: Observation from nurse assisted exam, abdomen appears soft, nontender, and nondistended with Positive bowel sounds noted. EXTREMITIES: Strength and sensation is observed to be grossly within normal limits in the upper and lower extremities. No focal strength deficit is observed SKIN: Observed warm and dry with color normal NEURO: Alert, awake and oriented ?3. Answers all questions appropriately. No focal neuro deficits are noted. PSYCH: Affect normal Const Vital Signs, click to edit/add: Vital Signs - 24 hr 03/10/24 22:00 03/10/24 23:09 03/11/24 00:23 Temperature 98.7 F Pulse Rate [Pulse Oximeter] 68 Respiratory Rate 20 Blood Pressure [Right Upper Arm] 136/67 Pulse Oximetry 93 94 94 Oxygen Delivery Method Nasal Cannula Oxygen Flow Rate 3 03/11/24 00:58 Temperature Pulse Rate [Pulse Oximeter] Respiratory Rate Blood Pressure [Right Upper Arm] Pulse Oximetry 96 Oxygen Delivery Method Nasal Cannula Oxygen Flow Rate 2 Documenting provider has reviewed patient's vital signs: yes Hospitalist - H&P: Result Imaging CT Chest/Ab/Pelvis: Attestation: I have reviewed the pertinent imaging results. Assessment and Plan Assessment and plan (1) Fall: Status: Inactive (2) Back pain: Status: Acute (3) Atrial fibrillation: Problem comment: Adequate rate control. On anticoagulation and aspirin. Unclear need for aspirin therapy. Consider discontinuing. Status: Acute (4) COPD (chronic obstructive pulmonary disease): Problem comment: -baseline 1-2 L O2 per NC. Maintain saturations 88-92% Also has pulmonary hypertension Status: Acute Plan Assessment: 1. Recent falls 2. Possible history of NPH question contribution #1 3. Chronic atrial fibrillation anticoagulated on Eliquis currently with rapid ventricular response question contribution to or resultant of #1 above 4. L3-L4 transverse process fractures from #1 above with previous history of thoracic fractures from falls 5. Unrelenting pain and inability to do ADLs from #1 and #4 above 6. Hypertension 7. Hyperlipidemia 8. Congestive heart failure currently quiescent 9. Pulmonary hypertension 10. Oxygen dependent COPD Plan: At this time Amy has been admitted to the medical service for ongoing evaluation of her recent falls and current pain from her L3-L4 transverse process fractures. I will ask for physical therapy and Occupational Therapy to evaluate and treat Amy. If she continues to have significant pain with movement or ambulation, may need to consider a TLSO brace if therapy recommends. I will order some oral and IV pain medications for pain control. I will ask pharmacy to reconcile her medications and will reinitiate her medications for hypertension and also for her atrial fibrillation. She does currently have a rapid ventricular response to her atrial fibrillation and will order her rate controlling medications currently. I will continue her Eliquis for anticoagulation for her atrial fibrillation. She does currently look to be euvolemic and will need to watch her volume status closely with her history of congestive heart failure and pulmonary hypertension. I will continue with oxygen as needed for her oxygen dependent COPD. I have discussed this plan with Amy and she is agreeable to proceed. Will continue to follow closely from medical standpoint. I have discussed CODE STATUS with Amy and she does wish to be a DNI/DNR and I will delineate this in her chart. Telehealth: Statement Statement Telehealth Visit: Today's History and Physical is provided via interactive telehealth by Srinath Schrader MD.? Patient is located at [facility].? Provider is located at [facility].? Nursing staff assisted with the patient's exam. The visit being done today meets criteria for a telehealth visit and the patient or patient?s parent/guardian is aware the visit is a telehealth visit. Camera Start Time: 02:11 Camera End Time: 02:33
[2024-03-11] MEDS: HYDROmorphone 0.5 mg/0.5 ml inj 0.2 MG IVP ×2 (04:25→07:01)
[2024-03-11] MEDS: SODIUM CHLORIDE 0.9 % (FLUSH) 10 ML SYRINGE 5 ML IVF ×4 (04:26→21:16)
[2024-03-11] MEDS: LEVOTHYROXINE 100 MCG TABLET PO (07:00)
--- NOTE | 2024-03-11 07:29 | PC.NURSE ---
Pt came to unit around 0120.Pt alert and oriented x3 but forgetful at times. Afebrile. Pt reports 10/10 pain in left hip, pain managed with PRN medications. Pt was turned and repositioned, using bed pain to void.?
[2024-03-11] MEDS: ALBUTEROL INHALER 2 PUFF IH ×3 (09:14→21:15)
[2024-03-11] MEDS: AMIODARONE 200 MG TABLET 100 MG PO (09:15)
[2024-03-11] MEDS: FUROSEMIDE 40 MG TABLET 80 MG PO (09:16)
[2024-03-11] MEDS: ASPIRIN 81 MG TAB.CHEW PO (09:16)
[2024-03-11] MEDS: OXYCODONE 5 MG TABLET PO ×4 (09:16→21:08)
[2024-03-11] MEDS: APIXABAN 5 MG TABLET 2.5 MG PO ×2 (09:16→21:07)
[2024-03-11] MEDS: OMEPRAZOLE 20 MG CAPSULE DR 40 MG PO (09:16)
[2024-03-11] MEDS: ACETAMINOPHEN 650 MG TABLET ER 1300 MG PO ×2 (09:16→21:06)
--- NOTE | 2024-03-11 11:40 | P.IMPN_ITS ---
Progress Note: A&P Assessment and plan (1) Orthostatic hypotension: Problem details: - Suspect volume depletion. hypotension maybe exacerbated by acute opioid use. Has h/o CHF. Give gentle IVF bolus. Hold tonight's furosemide. Monitor BMP. Recheck orthostatic BPs in am and discharge home if improved. Status: Acute (2) Acute pain of left hip: Problem details: - Bruising, this appears to be the main cause of her pain. - Continue PT/OT - oxycodone, acetaminophen for pain control. Avoid NSAIDs due to apixaban use for afib. Status: Acute (3) Atrial fibrillation with RVR: Problem details: - HR 118 on admission. RVR appears to have spontaneously resolved. Continue amiodarone. Status: Acute (4) Multiple transverse process fractures: Problem details: L3-L4 Status: Acute (5) Atrial fibrillation: Problem details: - Chronically on amiodarone, anticoagulation and aspirin. Unclear need for aspirin therapy. Status: Chronic (6) Osteoporosis: Problem details: - L3-L4 fractures. These do not appear painful at this time as pain is localized to bruise on left low back. Continue alendronate, calcium or vitamin-D. Status: Chronic (7) COPD (chronic obstructive pulmonary disease): Problem details: -baseline 1-2 L O2 per NC. Maintain saturations 88-92% Also has pulmonary hypertension Status: Chronic (8) Pulmonary hypertension: Status: Chronic (9) Chronic diastolic heart failure: Problem details: - nothing acute. She appears volume depleted today. Hold torsemide today, restart in am. Status: Chronic (10) Bipolar II disorder: Problem details: c/o hypomania for the past 3 weeks. None appreciated on today's exam. Continue lamotrigine. f/u with psychiatrist as outpatient. Status: Chronic Subjective Time Seen by Provider: 09:50 Date Seen: 03/11/24 Interval history: Amy tells me that she is very painful in her left hip. She feels distressed because she is not sure how she will rehab since she gets SOB with just a few feet of movement. Amy tells me that she saw metal shaping machine operator a few months ago who prescribed inhalers for her. She did not know what diagnosis she had. She admits that she has dementia and cannot remember her full history. I looked through her chart and found that she has oxygen-dependent COPD and pulmonary hypertension. Additionally she is concerned about some recent hypomanic symptoms. She tells me she has a history of bipolar 2 disorder and has felt depressed in addition to hypomania. Exam Narrative: Exam Narrative: General: No acute distress. Awake, alert, oriented x3. No pallor. No jaundice. Speech not pressured, appropriate. Oropharynx: Clear. Mucous membranes moist. Cardiovascular: Irregularly irregular. No murmurs, gallops, or rubs. Respiratory: Clear to auscultation bilaterally. No wheezes or crackles. Back: Bruising noted on the back of each shoulder and left lower back. Small gum ball size nodule that is mobile was noted in the center of the bruising of her left low back. This area was also tender. No tenderness to palpation over the spine or paraspinous musculature. Abdomen: Bowel sounds present. Soft, nondistended, nontender. Extremities: No pedal edema. Const: Vital Signs, click to edit/add: Vital Signs - 24 hr 03/10/24 22:00 03/10/24 23:09 03/11/24 00:23 Temperature 98.7 F Pulse Rate Pulse Rate [Pulse Oximeter] 68 Respiratory Rate 20 Blood Pressure [Ri ght Arm] Blood Pressure [Ri ght Upper Arm] 136/67 Pulse Oximetry 93 94 94 Oxygen Delivery Me thod Nasal Cannula Oxygen Flow Rate 3 03/11/24 00:58 03/11/24 01:35 03/11/24 01:35 Temperature 98.5 F Pulse Rate Pulse Rate [Pulse Oximeter] 125 H Respiratory Rate 20 20 Blood Pressure [Ri ght Arm] 117/84 Blood Pressure [Ri ght Upper Arm] Pulse Oximetry 96 95 95 Oxygen Delivery Me thod Nasal Cannula Nasal Cannula Nasal Cannula Oxygen Flow Rate 2 2 2 03/11/24 03:42 03/11/24 05:06 03/11/24 07:00 Temperature 98.4 F 98.5 F Pulse Rate 94 Pulse Rate [Pulse Oximeter] 113 H 71 Respiratory Rate 18 18 Blood Pressure [Ri ght Arm] 114/64 117/55 L Blood Pressure [Ri ght Upper Arm] Pulse Oximetry 95 97 Oxygen Delivery Me thod Nasal Cannula Nasal Cannula Oxygen Flow Rate 2 3
[2024-03-11] MEDS: LACTATED RINGERS 500 ML 500 ML IV (14:23)
--- NOTE | 2024-03-11 15:41 | PC.SOCIAL ---
Discharge planning: Pt lives on the [facility] campus in [facility]. Pt is in observation status and will be staying in the hospital again tonight due to low blood pressures when standing up during OT and needing continued monitoring. Pt and her son were informed of this update by the provider on duty. Pt brought up the concern that when she is at [facility] walking back from the dining room with her walker, a staff members follows her with a wheelchair about two feet behind her and she felt that there was no point of them doing that because if she fell they would not be able to catch her or help her in time. Pt's son was also present when pt talked about this concern. pipe production worker explained that this worker would address the concern with the staff at [facility]. pipe production worker talked to Skylar at [facility] about the concern and Skylar said that a staff member is always with the pt when she walks back from the dining room because the pt is on oxygen and a staff member carries her oxygen tank for her because she is not able too. Skylar stated that sometimes the pt has to wait for a staff member to be available to escort her with her oxygen and the staff are not always able to go with her right away, if they are in the middle of completing another task, and the pt gets upset about this. Skylar then also shared that the pt has a diagnosis of Bi-polar and sees a mental health therapist. Skylar said that she has known the pt four fourteen years and that they have a good relationship and that she would follow-up with the pt about this concern and work through it with her. pipe production worker explained to Skylar that pt is being recommended to start up PT/OT again at [facility]. pipe production worker sent the face to face home care orders to Skylar via secure email. Skylar stated that if pt is ready to discharge over the weekend, to call the machine precision engraver nursing number at #[phone] and they will be able to coordinate the pt's return. Skylar may want to come to the hospital to complete a face to face assessment; otherwise, she will complete a nurse to nurse over the phone. pipe production worker also asked Skylar to call pt's son, Herbert, as he had some questions about whether or not [facility] would be able to accommodate the pt's needs when she is ready for discharge. pipe production worker also explained to ute's son that the pt is not being recommended for rehab at a [facility] facility and can complete rehab in home at [facility] with [facility], Thursday-Thursday. pipe production worker talked to pt's son later in the day via phone. Pt's son had some questions about his mother's health and related low blood pressures when she was working with OT. pipe production worker asked the provider on duty to call pt's son. Social work to follow-up as needed.
[2024-03-11 16:23] LABS: Hemoglobin* 10.9 gm/dL (12.0-16.0)
--- NOTE | 2024-03-11 19:16 | PC.NURSE ---
End of shift: Patient pleasant and cooperative, A&O, but forgetful. When patient was working with therapy today, she complained of dizziness when standing, and when I did orthostatic BP's she did have orthostatic hypotension, MD notified, gave IV bolus. All other VSS. Patient maintained SpO2 above 90% on 2L O2. Patient reports pain in her back, and hip when ambulating, managed with scheduled medication, see MAR. Tolerating regular diet. 2A walker to bedside commode.
[2024-03-11] MEDS: ATORVASTATIN CALCIUM 40 MG TABLET PO (21:08)
[2024-03-11] MEDS: lamoTRIgine 100 MG TABLET 200 MG PO (21:10)
[2024-03-12 01:32] VITALS: PULSE 101
[2024-03-12 03:00] VITALS: BP 108/52; PULSE 63; RESP 20; TEMP 36.8; O2SAT 95
--- NOTE | 2024-03-12 05:55 | PC.NURSE ---
Patient pleasant, alert and oriented. Walker and assist of two from recliner to chair. Stand pivot transfer to commode. Assist of two for sitting to lying in bed. Tolerating regular diet. Rated pain in back and hip 4/10. Given scheduled Oxycodone. Oxygen 95-96% on 2.5 LPM. No complaints of SOB.
[2024-03-12] MEDS: LEVOTHYROXINE 100 MCG TABLET PO (06:33)
[2024-03-12 06:45] LABS: Basophils Absolute Auto 0.02 K/uL (0.00-0.30); Basophils Percent Auto 0.3 % (0.0-3.0); Eosinophils Absolute Auto 0.14 K/uL (0.00-0.50); Eosinophils Percent Auto 2.2 % (0.0-7.0); Hematocrit 33.4 % (33.0-51.0); Hemoglobin* 10.3 gm/dL (12.0-16.0); Immature Granulocytes Abs Auto 0.01 K/uL (0.00-0.30); Immature Granulocytes Pct Auto 0.2 %; Lymphocytes Percent Auto 12.6 % (20-44); Mean Corpuscular HGB Conc 31 gm/dL (32-36); Mean Corpuscular Hemoglobin 32 pg (26-34); Mean Corpuscular Volume 105 fL (80-100); Monocytes Percent Auto 12.5 % (0.0-11.0); Neutrophils Percent Auto 72.2 % (42.0-72.0); Platelet Count* 170 K/uL (140-440); RDW Coefficient of Variation % 12.8 % (11.5-15.5); Red Blood Count 3.19 m/uL (4.00-5.20); White Blood Count* 6.33 K/uL (4.50-11.00)
[2024-03-12] MEDS: HYDROmorphone 0.5 mg/0.5 ml inj 0.2 MG IVP (06:54)
[2024-03-12 06:58] LABS: Chloride* 99 mmol/L (96-114); Potassium* 3.7 mmol/L (3.6-5.1); Sodium* 139 mmol/L (135-149)
[2024-03-12 07:00] VITALS: BP 101/59; PULSE 78; RESP 16; TEMP 36.4; O2SAT 96
[2024-03-12 07:01] LABS: Anion Gap 6 mEq/L (7-15); Carbon Dioxide* 34 mmol/L (20-32); Est. Creatinine Clearance* 30.76; Estimated Glomerular Filt Rate 54 ml/min; Slide Review Reflex No
[2024-03-12 07:02] LABS: Blood Urea Nitrogen* 29 mg/dL (7-30); Calcium* 8.9 mg/dL (8.4-10.6); Glucose* 91 mg/dL (60-115)
[2024-03-12 07:30] VITALS: PULSE 78; RESP 16
[2024-03-12] MEDS: TORSEMIDE 20 MG TABLET 40 MG PO (07:34)
[2024-03-12] MEDS: ALBUTEROL INHALER 2 PUFF IH (08:55)
[2024-03-12] MEDS: ASPIRIN 81 MG TAB.CHEW PO (08:55)
[2024-03-12] MEDS: ACETAMINOPHEN 650 MG TABLET ER 1300 MG PO (08:55)
[2024-03-12] MEDS: POTASSIUM CHLORIDE 10 MEQ CAPSULE ER 20 MEQ PO (08:55)
[2024-03-12] MEDS: AMIODARONE 200 MG TABLET 100 MG PO (08:55)
[2024-03-12] MEDS: OMEPRAZOLE 20 MG CAPSULE DR 40 MG PO (08:56)
[2024-03-12] MEDS: LORATADINE 10 MG TABLET PO (08:57)
[2024-03-12] MEDS: OXYCODONE 5 MG TABLET PO ×2 (08:57→12:00)
[2024-03-12] MEDS: APIXABAN 5 MG TABLET 2.5 MG PO (08:57)
[2024-03-12] MEDS: LIDOCAINE 5% PATCH 1 PATCH TRANSDERMA (09:04)
[2024-03-12] MEDS: SODIUM CHLORIDE 0.9 % (FLUSH) 10 ML SYRINGE 5 ML IVF (09:05)
[2024-03-12 11:00] VITALS: BP 111/52; PULSE 73; RESP 16; TEMP 36.5; O2SAT 95
--- NOTE | 2024-03-12 11:30 | PC.NURSE ---
Spoke with Marah, nurse at [facility] about patient returning today. Dr. Mota has started long acting Oxycodone at d/t concerns of paint control at and limited nurse availability.
[2024-03-12 11:57] VITALS: PULSE 67
--- NOTE | 2024-03-12 13:56 | PC.NURSE ---
Discharge: Patient pleasant and cooperative, A&O. VSS, afebrile. Patient was on 2L O2 via nasal cannula, maintained SpO2 above 90%. Patient reports pain on her back and left hip this shift, managed by scheduled medication. Discharged to [facility] assisted living via non emergent ambulance. IV removed with tip intact.
--- NOTE | 2024-03-12 14:41 | PM.DS1 ---
DS: Providers Provider Date Seen: 03/12/24 Date of admission: 03/11/24 01:16 Primary care physician: Inder Tanner MD Admitting Clinician: Srinath Schrader MD Attending Physician on discharge: Herbert Mota MD Date of Discharge: 03/12/24 DS: Diagnosis Discharge Diagnosis (1) Multiple transverse process fractures: Status: Acute Problem details: L3-L4 level left-sided transverse process fractures. Stable. Still having quite a bit of pain but tolerating current treatment with oxycodone (2) Chronic diastolic heart failure: Status: Chronic Problem details: - nothing acute. She appears volume depleted today. Hold torsemide today, restart in am. (3) COPD (chronic obstructive pulmonary disease): Status: Chronic Problem details: Chronic hypoxic respiratory failure due to COPD and pulmonary hypertension. On chronic oxygen 2 L at rest and 4 L with activity (4) Bipolar II disorder: Status: Chronic Problem details: Patient reports concerns about recent depressed mood. Recommend she find a new psychiatrist or therapist to establish care for management of bipolar 2 (5) Pulmonary hypertension: Status: Chronic Problem details: Chronic hypoxic respiratory failure on oxygen 2 L per nasal cannula at rest and 4 L with activity (6) Orthostatic hypotension: Status: Acute Problem details: Appeared to be volume depleted on admission. At discharge was put on torsemide 60 mg daily. Re-evaluate volume status and orthostatic blood pressure and basic metabolic panel and daily weights over the next week or 2. 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 Patient says she was trying to lean forward to pickle pumper something on the floor. She was reaching on the table in she says she knew that she should not be doing that. She fell forward and landed directly on her left hip. She is having pain in her left hip and in her left iliac crest. She was able to move her hip a little bit and able to stand for pivoting with EMS. She has not really been up and walking since she fell. No other injuries from the fall. She did not hit her head. No headache. No neck pain. No injury to her upper extremities or shoulder. No back pain. No right leg pain. No numbness or weakness in her right leg. She does take Eliquis for stroke prophylaxis for AFib. Evaluation at the time of admission showed L3-4 transverse process fractures as the likely cause for acute on chronic back pain. She was continued on oxycodone 5 mg approximately every 4 hours which gave adequate pain control with acceptable side effects. She was also evaluated by Physical therapy. He felt she would need some increase in the assistance she has received on return to the [facility] enhanced assisted living. She had relatively low blood pressure and some orthostatic hypotension at times on this admission. This was managed by decreasing her diuretic dose. She seemed to tolerate this well without complication. This will need close follow-up as an outpatient to determine appropriate level of diuresis. In the next 1-2 weeks she should have daily weights, monitoring of respiratory status and hypoxia, basic metabolic panel and daily vital sign monitoring. Status at Discharge Cognitive/behavioral status at discharge: Baseline Functional status at discharge: uses cane/walker (Standby assist) Overall status at discharge: patient is progressing back to baseline Time Spent with Patient Time attestation: Total time spent providing and/or coordinating discharge services: 50 minutes Time spent: Greater than 30 minutes Exam Narrative: Exam Narrative: She is alert and appears in no distress. She is oriented to her circumstances. Respirations with a few coarse breath sounds. No wheezing or consolidation. Cardiovascular: S1, S2, somewhat irregular rhythm. Abdomen: Bowel sounds active. Abdomen is soft without tenderness or mass. Palpation over her low back shows [id number] tenderness to the left of the midline on the lumbar spine. No obvious bruising or deformity. Lower extremities with intact pulses sensation and motion and strength Const: Vital Signs, click to edit/add: Vital Signs - 24 hr 03/11/24 15:00 03/11/24 15:00 03/11/24 17:32 Temperature 97.6 F Pulse Rate 75 Pulse Rate [Pulse Oximeter] 67 67 Respiratory Rate 16 16 Blood Pressure [Ri ght Arm] 115/60 Pulse Oximetry 96 Oxygen Delivery Me thod Nasal Cannula Oxygen Flow Rate 2 03/11/24 19:00 03/11/24 22:18 03/12/24 01:32 Temperature 98.0 F 98.0 F Pulse Rate 101 H Pulse Rate [Pulse Oximeter] 76 67 Respiratory Rate 20 20 Blood Pressure [Ri ght Arm] 122/61 114/54 L Pulse Oximetry 96 95 Oxygen Delivery Me thod Nasal Cannula Nasal Cannula Oxygen Flow Rate 2.5 2.5 03/12/24 03:00 03/12/24 07:00 03/12/24 07:30 Temperature 98.2 F 97.6 F Pulse Rate Pulse Rate [Pulse Oximeter] 63 78 78 Respiratory Rate 20 16 16 Blood Pressure [Ri ght Arm] 108/52 L 101/59 L Pulse Oximetry 95 96 Oxygen Delivery Me thod Nasal Cannula Nasal Cannula Oxygen Flow Rate 2.5 2 03/12/24 11:00 03/12/24 11:57 Temperature 97.7 F Pulse Rate 67 Pulse Rate [Pulse Oximeter] 73 Respiratory Rate 16 Blood Pressure [Ri ght Arm] 111/52 L Pulse Oximetry 95 Oxygen Delivery Me thod Nasal Cannula Oxygen Flow Rate 2 Documenting provider has reviewed patient's vital signs: yes DS: Data Data Completed and Pending Labs on day of discharge: Labs from last 24 hours 03/12/24 03/11/24 06:27 16:19 WBC 6.33 RBC 3.19 L Hgb 10.3 L 10.9 L Hct 33.4 MCV 105 H MCH 32 MCHC 31 L RDW Coeff of Chely 12.8 Plt Count 170 Neut % (Auto) 72.2 H Lymph % (Auto) 12.6 L Reagan % (Auto) 12.5 H Eos % (Auto) 2.2 Baso % (Auto) 0.3 Neut # (Auto) 4.60 Lymph # (Auto) 0.80 L Reagan # (Auto) 0.80 Eos # (Auto) 0.14 Baso # (Auto) 0.02 Abs Immat Gran (auto) 0.01 Imm/Tot Granulo (auto) 0.2 Sodium 139 Potassium 3.7 Chloride 99 Carbon Dioxide 34 H Anion Gap 6 L BUN 29 Creatinine 1.0 Estimated Creat Clear 30.76 Estimated GFR 54 Glucose [address] scan - pelvis: Radiologist's impression: INDICATION: Fall, left hip pain and left iliac crest pain. TECHNIQUE: CT pelvis without contrast. COMPARISON: Pelvic radiographs 03/10/2024. FINDINGS: Bones: Acute, nondisplaced left L3 and L4 transverse process fractures. No hip fracture or aggressive osseous lesion. Joints: Mild degenerative changes of the bilateral hips. Grade 1 anterolisthesis L4 on L5 secondary to facet arthrosis.. Soft tissues: Partially imaged infrarenal abdominal aortic aneurysm, measuring at least 3.6 x 2.9 cm, status post aorto bi-iliac endovascular stent graft placement. 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 Small fat-containing right inguinal hernia. No free fluid in the pelvis. IMPRESSION: 1. No hip fracture. 2. Acute, nondisplaced left L3 and L4 transverse process fractures. 3. Partially imaged infrarenal abdominal aortic aneurysm, measuring at least 3.6 x 2.9 cm, status post aorto bi-iliac endovascular stent graft placement CT scan - head: Radiologist's impression: INDICATION: Unwitnessed fall TECHNIQUE: CT of the head without contrast. Coronal and sagittal reformats. Bone and soft tissue algorithms. COMPARISON: No prior studies available for comparison at this institution. FINDINGS: No acute intracranial hemorrhage or extra-axial collection. No evidence of acute cortical infarction. No mass effect or midline shift. Mild generalized cerebral/cerebellar parenchymal volume loss. Mild regions of decreased attenuation within the periventricular and subcortical white matter of both cerebral hemispheres most likely reflects chronic microvascular ischemic disease and age related change in this patient. Vascular calcifications within the carotid siphons. No calvarial fractures. No lytic or sclerotic osseous lesions within the calvarium or skull base. Scalp and other imaged soft tissue structures are normal. Mastoid air cells are clear. Minimal mucosal thickening in the right posterior ethmoid air cells. Bilateral pseudophakia. IMPRESSION: No acute intracranial abnormality. Left hip radiograph: Radiologist's impression: NDICATION: Trauma. TECHNIQUE: Left hip and pelvis radiographs, 3 views. COMPARISON: None. FINDINGS: No acute fractures or dislocation. The femoral heads maintain normal sphericity and are in normal anatomic alignment with the acetabulum. The acetabulum appear unremarkable. 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 No diastasis of the pubic symphysis. Unremarkable bowel gas pattern. Moderate colonic stool burden, correlate for constipation. The sacroiliac joints appear unremarkable. No significant soft tissue edema or radiopaque foreign bodies. IMPRESSION: No acute displaced fractures or dislocation. Discharge Plan Discharge Disposition: [facility] Date of Admission: 03/11/24 01:16 Attending Provider on Discharge: Phong Mota Primary Care Provider: Inder Tanner Anticipated Discharge Date/Time: 03/12/24 10:56 Discharge Medications: New oxycodone 10 mg tablet,oral only,ext.rel.12 hr 10 mg PO HS Qty: 30 0RF Continued polyethylene glycol 3350 17 gram/dose powder 17 g PO DAILY albuterol sulfate 2.5 mg /3 mL (0.083 %) solution for nebulization 2.5 mg inhalation Q4H PRN (Reason: dyspnea) alendronate 70 mg tablet 70 mg PO .thursday acetaminophen 650 mg tablet extended release 1,300 mg PO BID calcium carbonate-vitamin D3 600 mg-10 mcg (400 unit) tablet 1 tab PO BID lidocaine [DermacinRx Lidocan] 5 % adhesive patch,medicated 1 patch topical DAILY Rx Instructions: leave on most painful area for up to 12 hrs amoxicillin 500 mg capsule 500 mg PO BID atorvastatin 40 mg tablet 40 mg PO HS amiodarone 200 mg tablet 100 mg PO DAILY levothyroxine 100 mcg tablet 100 mcg PO QAM aspirin 81 mg tablet,chewable 1 tab PO DAILY lamotrigine 100 mg tablet 200 mg PO HS loratadine 10 mg tablet 10 mg PO DAILY Eliquis 2.5 mg tablet 2.5 mg PO BID melatonin 3 mg capsule 3 mg PO HS PRN potassium chloride 20 mEq tablet,ER particles/crystals 20 meq PO DAILY pantoprazole 40 mg tablet,delayed release (DR/EC) 40 mg PO DAILY Changed torsemide 20 mg tablet 60 mg PO DAILY Qty: 90 0RF oxycodone 5 mg tablet 5 mg PO Q4H PRN (Reason: Back Pain) Qty: 60 0RF Rx Instructions: HAS BEEN TAKING 5 TIMES DAILY PLUS Q4H PRN Discharge Orders: Discharge Order (Routine); Ordered 03/12/24 Ordered By: Phong Mota Activity Level: Activity as Tolerated, Up with assist and Use Walker Discharge Diet: 2 gm Sodium Follow Up Appointments: [facility] [Outside] (Patient is being discharged to [facility]) Inder Tanner MD [Primary Care Provider] - Forms: [facility] Discharge Comments: Check daily weight for at least 1 week. Diuretic dose was decreased due to low blood pressure. Monitor for heart failure/edema and dyspnea. Admit to: Assisted Living Discharge Potential: Poor Length of Stay: >90 days Can use facility standing orders?: Yes Code Status: DNR/DNI TEDs: Bilateral Knee Rehab Potential: Fair Therapy: Physical Therapy and Occupational Therapy Therapy Orders: Evaluate and Treat Oxygen: Yes Oxygen Delivery Method: Nasal Cannula Oxygen Flow Rate: 2 LPM at rest and 4 LPM with activity Urinary Catheter: No Lab Orders: Basic metabolic panel in 1 week
== END 2024-03-12 13:30 ==
LOC: ED 22:40 → MEDSURG 03-11 01:18
PROVIDERS: Family Medicine; Admitting Provider Internal Medicine; Emergency Provider Emergency Medicine; PCP Family Medicine; Visit Provider Internal Medicine
DX: J44.9 Chronic obstructive pulmonary disease, unspecified (principal); I50.32 Chronic diastolic (congestive) heart failure; M25.552 Pain in left hip; I48.91 Unspecified atrial fibrillation; M54.9 Dorsalgia, unspecified; I27.20 Pulmonary hypertension, unspecified; F31.81 Bipolar II disorder; R09.02 Hypoxemia; M81.0 Age-related osteoporosis without current pathological fracture
CPT/HCPCS: 36415; 70450; 72192; 73502; 80048; 85018; 85025; 87081; 94761; 96361; 96374; 96375; 96376; 97116; 97162; 97165; 97530; 97535; 99283; 99285; G0378; A9270; J1170; J2405; J3010; J7120

== ENCOUNTER 2024-03-12 13:21 | Outpatient (CLI) | payer BC, OTHER, SELFPAY ==
--- OUTSIDE RECORDS SUMMARY | 2024-03-16 00:40 | XMS_ITS | Clinical Summary ---
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 CTA prior to OV.) 02/01/2024 1:14 PM CDT - 02/01/2024 11:59 PM CDT Hospital Encounter [facility] [address] [place] [address] Kuldeep Lorenz MD Thoracoabdominal aortic aneurysm (TAAA) without rupture, unspecified part (HC) 02/01/2024 12:50 PM CDT Orders Only [facility] [address] [facility] [address] [place] [address] Lab 02/01/2024 Travel 01/28/2024 Telephone [facility] [address] [place] [address] Antonio Acosta MD FAX 01/25/2024 11:00 AM CDT Office Visit [facility] [address] [place] [address] Antonio Acosta MD Consult (COPD- referred by Steph Harrington NP) 01/25/2024 Travel 01/14/2024 Transcribe Orders [facility] [address] [place] [address] Steph Harrington NP 01/12/2024 Telephone [facility] [address] [place] [address] Kuldeep Lorenz MD Appointment 01/12/2024 Orders Only [facility] [address] [place] [address] Kuldeep Lorenz MD <No scans attached> from [...] 07/21/2018, 06/12/2017 Medical Devices Implanted Type Area Radiographer Angiogram Device Identifier Shelf Expiration Date Model / Serial / Lot Screw Cortex 3.5x26 Implanted:Qty: 1 on 11/12/2020 at [facility] Left: Elbow [id number] / / Description:SCREW CORTEX 3.5 X26 Evos [id number] Lock Screw Implanted:Qty: 1 on 11/12/2020 at [facility] Left: Elbow [id number] / / Description:EVOS 2.7TZL95VB LOCK SCREW Screw Lock 2.7x60 Implanted:Qty: 1 on 11/12/2020 at [facility] Left: Elbow [id number] / / Description:SCREW LOCK 2.7X6 0 Screw Lock 2.7x55 Implanted:Qty: 1 on 11/12/2020 at [facility] Left: Elbow [id number] / / Description:SCREW LOCK 2.7X5 5 Screw Bone 3.5x22mm Evos Small Cortex Slf Tppng - [id number] Implanted:Qty: 1 on 11/12/2020 at [facility] Left: Elbow [employer] [id number] / / Screw Bone 3.5x18mm Evos Small Cortex Slf Tppng - [id number] Implanted:Qty: 1 on 11/12/2020 at [facility] Left: Elbow [employer] [id number] / / Plate Olecranon 2.7/3.5 Implanted:Qty: 1 on 11/12/2020 at [facility] Left: Elbow [id number] / / Description:PLATE OLECRANON 2.7/3.5 Explanted Type Area Radiographer Angiogram Device Identifier Shelf Expiration Date Model / Serial / Lot Sandy-Loc K-Wire 1.25mm Explanted:Qty: 5 on 11/12/2020 at [facility] Left: Elbow [id number] / / Description:SANDY-LOC K-WIRE 1.25MM Washer 2.7 Explanted:Qty: 1 on 11/12/2020 at [facility] Left: Elbow [id number] / / Description:WASHER 2.7 Evos [id number] Lock Screw Explanted:Qty: 1 on 11/12/2020 at [facility] Left: Elbow [id number] / / Description:EVOS 2.3THJ25YC LOCK SCREW Screw Bone 3.5x24mm Evos Small Cortex Slf Tppng - [id number] Explanted:Qty: 1 on 11/12/2020 at [facility] Left: Elbow [employer] [id number] / / Sandy-Loc K-Wire 1.6mm Explanted:Qty: 2 on 11/12/2020 at [facility] Left: Elbow [id number] / / Description:SANDY-LOC K-WIRE 1.6MM Evos [id number] Ctx Screw Explanted:Qty: 1 on 11/12/2020 at [facility] Left: Elbow [id number] / / Description:EVOS 2.3LJC24WG CTX SCREW Procedures Procedure Name Priority Date/Time [...] nonvascular findings. FINDINGS: Thoracic aorta: Left-sided arch. Mcpo-cu-cpflzjcz atheromatous disease in the arch. Patent endograft begins in the mid descending thoracic aorta and extends into the abdominal aorta. 4 separate grafts to the major abdominal branch arteries arise along the endograft in the distal descending thoracic aorta. Maximum true cross-sectional dimensions are - Aortic sinus: 39 mm maximum boaq-aq-ecsa. Ascending aorta: 33 x 33 mm. Arch: [...] PATIENT: Results are automatically released to your [employer] account once available, in compliance with federal [...] chest, abdomen and pelvis was performed per [facility] protocol. Please see Cardiology dictation for details on technique. ??80 cc Omnipaque-350 intravenous contrast. ?? This exam is being performed in conjunction with the services provided by the [facility] ([facility]). CLINICAL HISTORY: ??Over-read of non-cardiovascular structures, [...] * (ABNORMAL) CREATININE,ISTAT (02/01/2024 2:01 PM CDT) [facility] CREATININE, POCT 1.30(H) 0.57 - 1.11 mg/dL 02/01/2024 2:18 PM CDT [facility] Comment:Caution: Patients ta dede Hydroxyurea have falsely increased iStat Creatinine results. Verify creatinine results ordering a Creatinine (53911.2) eGFR 40(L) >90 mL/min/1.7 3m2 02/01/2024 2:18 PM CDT [facility] Comment:As of [...] 2:18 PM CDT Kuldeep Lorenz MD CHEMISTRY [facility] [address] [place] [address], [place] * (ABNORMAL) CBC WITH AUTO DIFFERENTIAL (02/01/2024 12:55 PM CDT) [facility] WHITE BLOOD COUNT 6.4 4.5 - 11.0 thou/cu mm 02/01/2024 1:14 PM [facility] RED BLOOD COUNT 3.50(L) 4.00 - 5.20 mil/cu mm 02/01/2024 1:14 PM [facility] HEMOGLOBIN 11.5(L) 12.0 - 16.0 g/dL 02/01/2024 1:14 PM [facility] HEMATOCRIT 36.2 33.0 - 51.0 % 02/01/2024 1:14 PM [facility] MCV 103(H) 80 - 100 fL 02/01/2024 1:14 PM [facility] MCH 32.9 26.0 - 34.0 pg 02/01/2024 1:14 PM [facility] MCHC 31.8(L) 32.0 - 36.0 g/dL 02/01/2024 1:14 PM [facility] RDW 13.2 11.5 - 15.5 % 02/01/2024 1:14 PM [facility] PLATELET COUNT 217 140 - 440 thou/cu mm 02/01/2024 1:14 PM [facility] MPV 9.5 6.5 - 11.0 fL 02/01/2024 1:14 PM [facility] NRBC 0.0 % 02/01/2024 1:14 PM [facility] ABS NRBC 0.0 thou /cu mm 02/01/2024 1:14 PM [facility] % NEUT 58.1 % 02/01/2024 1:14 PM [facility] % LYMPH 29.1 % 02/01/2024 1:14 PM [facility] % MONO 10.6 % 02/01/2024 1:14 PM [facility] % EOS 1.4 % 02/01/2024 1:14 PM CDT [facility] % BASO 0.5 % 02/01/2024 1:14 PM CDT [facility] % IMMATURE GRAN (METAS,MYELOS,DC OS) 0.3 % 02/01/2024 1:14 PM CDT [facility] ABSOLUTE NEUTROPHILS 3.7 1.7 - 7.0 thou/cu mm 02/01/2024 1:14 PM CDT [facility] ABSOLUTE LYMPHOCYTES 1.9 0.9 - 2.9 thou/cu mm 02/01/2024 1:14 PM CDT [facility] ABSOLUTE MONOCYTES 0.7 <0.9 thou/cu mm 02/01/2024 1:14 PM CDT [facility] ABSOLUTE EOSINOPHILS 0.1 <0.5 thou/cu mm 02/01/2024 1:14 PM CDT [facility] ABSOLUTE BASOPHILS 0.0 <0.3 thou/cu mm 02/01/2024 1:14 PM CDT [facility] ABSOLUTE IMMATURE GRANULOCYTES(MET ,MYELOS,PROS) 0.0 <0.3 thou/cu mm 02/01/2024 1:14 PM CDT [facility] Blood BLOOD SPECIMEN / Unknown Non-Lab Venipuncture / Unknown 02/01/2024 12:55 PM CDT 02/01/2024 1:05 PM CDT Narrative [facility] - 02/01/2024 1:14 PM CDT This procedure was originally ordered at [facility]. Kuldeep Lorenz MD HEMATOLOGY [facility] [address] [place] [address], * (ABNORMAL) BASIC METABOLIC PANEL (02/01/2024 12:55 PM CDT) SODIUM 140 136 - 145 mmol/L 02/01/2024 2:58 PM CDT [facility] POTASSIUM 4.0 3.5 - 5.1 mmol/L 02/01/2024 2:58 PM CDT [facility] CHLORIDE 99 98 - 107 mmol/L 02/01/2024 2:58 PM CDT [facility] CO2,TOTAL 28 22 - 29 mmol/L 02/01/2024 2:58 PM CDT [facility] ANION GAP 13 5 - 18 02/01/2024 2:58 PM CDT [facility] GLUCOSE 93 70 - 99 mg/dL 02/01/2024 2:58 PM CDT [facility] CALCIUM 9.4 8.8 - 10.2 mg/dL 02/01/2024 2:58 PM CDT [facility] BUN 25(H) 8 - 23 mg/dL 02/01/2024 2:58 PM T [facility] CREATININE 1.27(H) 0.50 - 0.90 mg/dL 02/01/2024 2:58 PM CDT [facility] BUN/CREAT RATIO 20 10 - 20 2:58 PM CDT [facility] eGFR 41(L) >90 mL/min/1.7 3m2 02/01/2024 2:58 PM CDT [facility] TR[facility] Comment:As of [...] PM CDT Kuldeep Steven Lorenz MD CHEMISTRY [facility] [address] [place] [address], [place] from Last 3 Months Additional Health [...] Documents on File Type Date Recorded Patient Outsole Splicer Expl anation Power of Carpet Cleaner 09/01/2019 1:08 PM Power of Carpet Cleaner 08/03/2019 3:11 PM POLST 03/31/2019 12:00 AM [...] [employer] [facility] Health Care Agent Care Teams Rug Receiving Clerk Relationship Specialty Start Date End Date Steph Harrington NP [address] [place] [address] [address] [place] [address] PCP - General Geriatric Medicine - Internal Medicine 11/20/19 Eric Harrington MD [address] [place] [address] Provider Family Practice 11/20/19
== END 2024-03-12 13:22 | disposition home or self-care (01) ==
LOC: AMB 03-16 00:38
PROVIDERS: PCP Family Medicine; Visit Provider Student in an Organized Health Care Education/Training Program
DX: S32.039A Unspecified fracture of third lumbar vertebra, initial encounter for closed fracture (principal); S32.049A Unspecified fracture of fourth lumbar vertebra, initial encounter for closed fracture
CPT/HCPCS: A0425; A0428

== ENCOUNTER 2024-04-12 12:56 | Outpatient (REF) | payer BC, OTHER, SELFPAY ==
--- OUTSIDE RECORDS SUMMARY | 2024-04-12 13:00 | XMS_ITS | Clinical Summary ---
Author Organization [employer] [facility] Address [place], [place] [address] Care Team Providers Care Embedded Case Manager Name Role Phone Steph Harrington NP Primary Care Provider [phone] Eric Harrington MD Unavailable [phone] Allergies Active Allergy Reactions Criticality Noted Date [...] Description 02/01/2024 3:30 PM CDT Office [place] [facility] [address] [place] [address] Kuldeep Lorenz MD CV Vascular Est (3 year follow up, previously seen by Dr. 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 CTA prior to OV.) 02/01/2024 1:14 PM CDT - 02/01/2024 11:59 PM CDT Hospital Encounter [facility] [address] [place] [address] Kuldeep Lorenz MD Thoracoabdominal aortic aneurysm (TAAA) without rupture, unspecified part (HC) 02/01/2024 12:50 PM CDT Orders Only [facility] [address] [facility] [address] [place] [address] Lab 02/01/2024 Travel 01/28/2024 Telephone [facility] [address] [place] [address] Antonio Acosta MD FAX 01/25/2024 11:00 AM CDT Office Visit [facility] [address] [place] [address] Antonio Acosta MD Consult (COPD- referred by Steph Harrington NP) 01/25/2024 Travel 01/14/2024 Transcribe Orders [facility] [address] [place] [address] Steph Harrington NP 01/12/2024 Telephone [facility] [address] [place] [address] Kuldeep Lorenz MD Appointment 01/12/2024 Orders Only [facility] [address] [place] [address] Kuldeep Lorenz MD <No scans attached> from [...] 07/21/2018, 06/12/2017 Medical Devices Implanted Type Area Body Builder Apprentice Device Identifier Shelf Expiration Date Model / Serial / Lot Screw Cortex 3.5x26 Implanted:Qty: 1 on 11/12/2020 at [facility] Left: Elbow [id number] / / Description:SCREW CORTEX 3.5 X26 Evos [id number] Lock Screw Implanted:Qty: 1 on 11/12/2020 at [facility] Left: Elbow [id number] / / Description:EVOS [id number] LOCK SCREW Screw Lock 2.7x60 Implanted:Qty: 1 on 11/12/2020 at [facility] Left: Elbow [id number] / / Description:SCREW LOCK 2.7X6 0 Screw Lock 2.7x55 Implanted:Qty: 1 on 11/12/2020 at [facility] Left: Elbow [id number] / / Description:SCREW LOCK 2.7X5 5 Screw Bone 3.5x22mm Evos Small Cortex Slf Tppng - [id number] Implanted:Qty: 1 on 11/12/2020 at [facility] Left: Elbow [employer] [id number] / / Screw Bone 3.5x18mm Evos Small Cortex Slf Tppng - [id number] Implanted:Qty: 1 on 11/12/2020 at [facility] Left: Elbow [employer] [id number] / / Plate Olecranon 2.7/3.5 Implanted:Qty: 1 on 11/12/2020 at [facility] Left: Elbow [id number] / / Description:PLATE OLECRANON 2.7/3.5 Explanted Type Area Body Builder Apprentice Device Identifier Shelf Expiration Date Model / Serial / Lot Sandy-Loc K-Wire 1.25mm Explanted:Qty: 5 on 11/12/2020 at [facility] Left: Elbow [id number] / / Description:SANDY-LOC K-WIRE 1.25MM Washer 2.7 Explanted:Qty: 1 on 11/12/2020 at [facility] Left: Elbow [id number] / / Description:WASHER 2.7 Evos 2.3pab68bj Lock Screw Explanted:Qty: 1 on 11/12/2020 at [facility] Left: Elbow [id number] / / Description:EVOS 2.1YIK51SK LOCK SCREW Screw Bone 3.5x24mm Evos Small Cortex Slf Tppng - [id number] Explanted:Qty: 1 on 11/12/2020 at [facility] Left: Elbow [employer] [id number] / / Sandy-Loc K-Wire 1.6mm Explanted:Qty: 2 on 11/12/2020 at [facility] Left: Elbow [id number] / / Description:SANDY-LOC K-WIRE 1.6MM Evos 2.3ocf57so Ctx Screw Explanted:Qty: 1 on 11/12/2020 at [facility] Left: Elbow [id number] / / Description:EVOS 2.6NIK18BV CTX SCREW Procedures Procedure Name Priority Date/Time [...] nonvascular findings. FINDINGS: Thoracic aorta: Left-sided arch. Jtgn-mt-tsidtzuz atheromatous disease in the arch. Patent endograft begins in the mid descending thoracic aorta and extends into the abdominal aorta. 4 separate grafts to the major abdominal branch arteries arise along the endograft in the distal descending thoracic aorta. Maximum true cross-sectional dimensions are - Aortic sinus: 39 mm maximum rhqu-rl-xdzv. Ascending aorta: 33 x 33 mm. Arch: [...] PATIENT: Results are automatically released to your [employer] account once available, in compliance with federal [...] abdomen and pelvis was performed per [facility] protocol. Please see Cardiology dictation for details on technique. ??80 cc Omnipaque-350 intravenous contrast. ?? This exam is being performed in conjunction with the services provided by the [facility] ([facility]). CLINICAL HISTORY: ??Over-read of non-cardiovascular [...] * (ABNORMAL) CREATININE,ISTAT (02/01/2024 2:01 PM CDT) [facility] CREATININE, POCT 1.30(H) 0.57 - 1.11 mg/dL 02/01/2024 2:18 PM CDT [facility] [employer] [facility] Comment:Caution: Patients ta dede Hydroxyurea have falsely increased iStat Creatinine results. Verify creatinine results ordering a Creatinine (73700.2) eGFR 40(L) >90 mL/min/1.7 3m2 02/01/2024 2:18 PM CDT [facility] TRAL LABORATORY Comment:As of 2021, eG FR is calculated by the CKD-EPI creatinine equation without race adjustment. eGFR can be influenced by muscle mass, exercise, and diet. The reported eGFR is an estimation only and is only applicable if the renal function is stable. Blood BLOOD SPECIMEN / Unknown 02/01/2024 2:01 PM CDT 02/01/2024 2:18 PM CDT Kuldeep Lorenz MD CHEMISTRY [facility] [address] [place] [address], [place] * (ABNORMAL) CBC WITH AUTO DIFFERENTIAL (02/01/2024 12:55 PM CDT) [facility] WHITE BLOOD COUNT 6.4 4.5 - 11.0 thou/cu mm 02/01/2024 1:14 PM [facility] TRAL LABORATORY RED BLOOD COUNT 3.50(L) 4.00 - 5.20 mil/cu mm 02/01/2024 1:14 PM [facility] HEMOGLOBIN 11.5(L) 12.0 - 16.0 g/dL 02/01/2024 1:14 PM [facility] HEMATOCRIT 36.2 33.0 - 51.0 % 02/01/2024 1:14 PM [facility] MCV 103(H) 80 - 100 fL 02/01/2024 1:14 PM [facility] MCH 32.9 26.0 - 34.0 pg 02/01/2024 1:14 PM [facility] MCHC 31.8(L) 32.0 - 36.0 g/dL 02/01/2024 1:14 PM [facility] RDW 13.2 11.5 - 15.5 % 02/01/2024 1:14 PM [facility] PLATELET COUNT 217 140 - 440 thou/cu mm 02/01/2024 1:14 PM [facility] MPV 9.5 6.5 - 11.0 fL 02/01/2024 1:14 PM [facility] NRBC 0.0 % 02/01/2024 1:14 PM [facility] ABS NRBC 0.0 thou /cu mm 02/01/2024 1:14 PM [facility] % NEUT 58.1 % 02/01/2024 1:14 PM [facility] % LYMPH 29.1 % 02/01/2024 1:14 PM [facility] % MONO 10.6 % 02/01/2024 1:14 PM [facility] % EOS 1.4 % 02/01/2024 1:14 PM CDT [facility] % BASO 0.5 % 02/01/2024 1:14 PM CDT [facility] % IMMATURE GRAN (METAS,MYELOS,NH OS) 0.3 % 02/01/2024 1:14 PM CDT [facility] ABSOLUTE NEUTROPHILS 3.7 1.7 - 7.0 thou/cu mm 02/01/2024 1:14 PM CDT [facility] ABSOLUTE LYMPHOCYTES 1.9 0.9 - 2.9 thou/cu mm 02/01/2024 1:14 PM CDT [facility] ABSOLUTE MONOCYTES 0.7 <0.9 thou/cu mm 02/01/2024 1:14 PM CDT [facility] ABSOLUTE EOSINOPHILS 0.1 <0.5 thou/cu mm 02/01/2024 1:14 PM CDT [facility] ABSOLUTE BASOPHILS 0.0 <0.3 thou/cu mm 02/01/2024 1:14 PM CDT [facility] ABSOLUTE IMMATURE GRANULOCYTES(MET ,MYELOS,PROS) 0.0 <0.3 thou/cu mm 02/01/2024 1:14 PM CDT [facility] Blood BLOOD SPECIMEN / Unknown Non-Lab Venipuncture / Unknown 02/01/2024 12:55 PM CDT 02/01/2024 1:05 PM CDT Narrative [facility] - 02/01/2024 1:14 PM CDT This procedure was originally [place] [facility] Kuldeep Lorenz MD HEMATOLOGY [facility] [address] [place] [address], * (ABNORMAL) BASIC METABOLIC PANEL (02/01/2024 12:55 PM CDT) SODIUM 140 136 - 145 mmol/L 02/01/2024 2:58 PM CDT [facility] POTASSIUM 4.0 3.5 - 5.1 mmol/L 02/01/2024 2:58 PM CDT [facility] CHLORIDE 99 98 - 107 mmol/L 02/01/2024 2:58 PM CDT [facility] CO2,TOTAL 28 22 - 29 mmol/L 02/01/2024 2:58 PM CDT [facility] ANION GAP 13 5 - 18 02/01/2024 2:58 PM CDT [facility] GLUCOSE 93 70 - 99 mg/dL 02/01/2024 2:58 PM CDT [facility] CALCIUM 9.4 8.8 - 10.2 mg/dL 02/01/2024 2:58 PM CDT [facility] BUN 25(H) 8 - 23 mg/dL 02/01/2024 2:58 PM T [facility] CREATININE 1.27(H) 0.50 - 0.90 mg/dL 02/01/2024 2:58 PM CDT [facility] BUN/CREAT RATIO 20 10 - 20 2:58 PM CDT [facility] eGFR 41(L) >90 mL/min/1.7 3m2 02/01/2024 2:58 PM CDT [facility] Comment:As of 2021, eG FR [...] PM CDT Kuldeep Steven Lorenz MD CHEMISTRY [facility] [address] [place] [address], [place] from Last 3 Months Additional Health [...] Documents on File Type Date Recorded Patient [employer] Professor Expl anation Power of Ore Storage Drier 09/01/2019 1:08 PM Power of Ore Storage Drier 08/03/2019 3:11 PM POLST 03/31/2019 12:00 AM [...] Phong Pardo Health Care Agent Care Teams Embedded Case Manager Relationship Specialty Start Date End Date Steph Harrington NP [address] [place] [address] [address] [place] [address] PCP - General Geriatric Medicine - Internal Medicine 11/20/19 Eric Harrington MD [address] [place] [address] Provider Family Practice 11/20/19
[2024-04-12 13:29] LABS: Chloride* 102 mmol/L (96-114); Potassium* 4.3 mmol/L (3.6-5.1); Sodium* 139 mmol/L (135-149)
[2024-04-12 13:32] LABS: Anion Gap 4 mEq/L (7-15); Blood Urea Nitrogen* 18 mg/dL (7-30); Carbon Dioxide* 33 mmol/L (20-32); Estimated Glomerular Filt Rate 54 ml/min; Glucose* 114 mg/dL (60-115)
[2024-04-12 13:33] LABS: Calcium* 8.8 mg/dL (8.4-10.6)
== END 2024-04-12 12:57 | disposition home or self-care (01) ==
LOC: NPINS 12:56
PROVIDERS: PCP Family Medicine; Visit Provider Nurse Practitioner Gerontology
DX: I50.9 Heart failure, unspecified (principal)
CPT/HCPCS: 80048

== ENCOUNTER 2024-05-10 13:44 | Outpatient (REF) | payer BC, OTHER, SELFPAY ==
--- OUTSIDE RECORDS SUMMARY | 2024-05-10 13:57 | XMS_ITS | Clinical Summary ---
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 [...] 07/21/2018, 06/12/2017 Medical Devices Implanted Type Area Motor Vehicle Compliance Analyst Device Identifier Shelf Expiration Date Model / Serial / Lot Screw Cortex 3.5x26 Implanted:Qty: 1 on 11/12/2020 at [facility] Left: Elbow [id number] / / Description:SCREW CORTEX 3.5 X26 Evos [id number] Lock Screw Implanted:Qty: 1 on 11/12/2020 at [facility] Left: Elbow [id number] / / Description:EVOS 2.3BIT57NW LOCK SCREW Screw Lock 2.7x60 Implanted:Qty: 1 on 11/12/2020 at [facility] Left: Elbow [id number] / / Description:SCREW LOCK 2.7X6 0 Screw Lock 2.7x55 Implanted:Qty: 1 on 11/12/2020 at [facility] Left: Elbow [id number] / / Description:SCREW LOCK 2.7X5 5 Screw Bone 3.5x22mm Evos Small Cortex Slf Tppng - [id number] Implanted:Qty: 1 on 11/12/2020 at [facility] Left: Elbow [employer] [id number] / / Screw Bone 3.5x18mm Evos Small Cortex Slf Tppng - [id number] Implanted:Qty: 1 on 11/12/2020 at [facility] Left: Elbow [employer] [id number] / / Plate Olecranon 2.7/3.5 Implanted:Qty: 1 on 11/12/2020 at [facility] Left: Elbow [id number] / / Description:PLATE OLECRANON 2.7/3.5 Explanted Type Area Motor Vehicle Compliance Analyst Device Identifier Shelf Expiration Date Model / Serial / Lot Sandy-Loc K-Wire 1.25mm Explanted:Qty: 5 on 11/12/2020 at [facility] Left: Elbow [id number] / / Description:SANDY-LOC K-WIRE 1.25MM Washer 2.7 Explanted:Qty: 1 on 11/12/2020 at [facility] Left: Elbow [id number] / / Description:WASHER 2.7 Evos 2.1oox24ip Lock Screw Explanted:Qty: 1 on 11/12/2020 at [facility] Left: Elbow [id number] / / Description:EVOS [id number] LOCK SCREW Screw Bone 3.5x24mm Evos Small Cortex Slf Tppng - [id number] Explanted:Qty: 1 on 11/12/2020 at [facility] Left: Elbow [employer] [id number] / / Sandy-Loc K-Wire 1.6mm Explanted:Qty: 2 on 11/12/2020 at [facility] Left: Elbow [id number] / / Description:SANDY-LOC K-WIRE 1.6MM Evos [id number] Ctx Screw Explanted:Qty: 1 on 11/12/2020 at [facility] Left: Elbow [id number] / / Description:EVOS 2.9IFL88XY CTX SCREW Additional Health Concerns Infection Onset [...] Documents on File Type Date Recorded Patient E Commerce Merchant Expl anation Power of Coverer 09/01/2019 1:08 PM Power of Coverer 08/03/2019 3:11 PM POLST 03/31/2019 12:00 AM [...] Phong Pardo Health Care Agent Care Teams Group Home Worker Relationship Specialty Start Date End Date Steph Harrington NP [address] [place] [id number] PCP - General Geriatric Medicine - Internal Medicine 11/20/19 Eric Harrington MD [address] [place] [id number] Provider Family Practice 11/20/19
[2024-05-10 14:30] LABS: Digoxin* 0.6 ng/mL (0.8-2.0)
== END 2024-05-10 13:45 | disposition home or self-care (01) ==
LOC: NPINS 13:44
PROVIDERS: PCP Family Medicine; Visit Provider Nurse Practitioner Gerontology
DX: E03.9 Hypothyroidism, unspecified (principal); R79.89 Other specified abnormal findings of blood chemistry
CPT/HCPCS: 80162; 84443

== ENCOUNTER 2024-05-31 12:06 | Outpatient (REF) | payer BC, OTHER, SELFPAY ==
--- OUTSIDE RECORDS SUMMARY | 2024-05-31 12:08 | XMS_ITS | Clinical Summary ---
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 [...] for age 65+ Completed 11/30/2018, 07/21/2018, 06/12/2017 RSV vaccine for adults or Completed 10/27/2023 Medical Devices Implanted Type Area Aircraft Tool Maker Device Identifier Shelf Expiration Date Model / Serial / Lot Screw Cortex 3.5x26 Implanted:Qty: 1 on 11/12/2020 at [facility] Left: Elbow [id number] / / Description:SCREW CORTEX 3.5 X26 Evos [id number] Lock Screw Implanted:Qty: 1 on 11/12/2020 at [facility] Left: Elbow [id number] / / Description:EVOS [id number] LOCK SCREW Screw Lock 2.7x60 Implanted:Qty: 1 on 11/12/2020 at [facility] Left: Elbow [id number] / / Description:SCREW LOCK 2.7X6 0 Screw Lock 2.7x55 Implanted:Qty: 1 on 11/12/2020 at [facility] Left: Elbow [id number] / / Description:SCREW LOCK 2.7X5 5 Screw Bone 3.5x22mm Evos Small Cortex Slf Tppng - [id number] Implanted:Qty: 1 on 11/12/2020 at [facility] Left: Elbow [employer] [id number] / / Screw Bone 3.5x18mm Evos Small Cortex Slf Tppng - [id number] Implanted:Qty: 1 on 11/12/2020 at [facility] Left: Elbow [employer] [id number] / / Plate Olecranon 2.7/3.5 Implanted:Qty: 1 on 11/12/2020 at [facility] Left: Elbow [id number] / / Description:PLATE OLECRANON 2.7/3.5 Explanted Type Area Aircraft Tool Maker Device Identifier Shelf Expiration Date Model / Serial / Lot Sandy-Loc K-Wire 1.25mm Explanted:Qty: 5 on 11/12/2020 at [facility] Left: Elbow [id number] / / Description:SANDY-LOC K-WIRE 1.25MM Washer 2.7 Explanted:Qty: 1 on 11/12/2020 at [facility] Left: Elbow [id number] / / Description:WASHER 2.7 Evos [id number] Lock Screw Explanted:Qty: 1 on 11/12/2020 at [facility] Left: Elbow [id number] / / Description:EVOS 2.2GYU37WA LOCK SCREW Screw Bone 3.5x24mm Evos Small Cortex Slf Tppng - [id number] Explanted:Qty: 1 on 11/12/2020 at [facility] Left: Elbow [employer] [id number] / / Sandy-Loc K-Wire 1.6mm Explanted:Qty: 2 on 11/12/2020 at [facility] Left: Elbow [id number] / / Description:SANDY-LOC K-WIRE 1.6MM Evos 2.6exk66yj Ctx Screw Explanted:Qty: 1 on 11/12/2020 at [facility] Left: Elbow [id number] / / Description:EVOS 2.0QPH26MJ CTX SCREW Additional Health Concerns Infection Onset [...] Documents on File Type Date 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
[2024-05-31 14:33] LABS: Digoxin* 1.1 ng/mL (0.8-2.0)
== END 2024-05-31 12:07 | disposition home or self-care (01) ==
LOC: NPINS 12:06
PROVIDERS: PCP Family Medicine; Visit Provider Nurse Practitioner Gerontology
DX: R79.89 Other specified abnormal findings of blood chemistry (principal)
CPT/HCPCS: 80162

== ENCOUNTER 2024-07-27 11:31 | Emergency (ER) | payer BC, SELFPAY ==
[2024-07-27 11:38] VITALS: BP 184/77; PULSE 70; RESP 24; TEMP 36.6; O2SAT 93; BMI 23.6
--- NOTE | 2024-07-27 12:10 | CRLHL7_ITS ---
For Patients: As a result of the Cures Act, medical imaging exams and procedure reports are released immediately into your electronic medical record. You may view this report before your referring provider. If you have questions, please contact your health care provider. INDICATION: Injury COMPARISON: 06/16/2023 chest radiograph TECHNIQUE: Single frontal view of the chest and two views of the left hemithorax FINDINGS: No substantial pleural effusion. Similar mild prominence of the pulmonary interstitial markings and scarring throughout the lungs. Status post thoracoabdominal endovascular aortic prosthesis. Normal heart size. There is calcified aortic atherosclerosis. There is diffuse osseous demineralization. There are osseous degenerative changes. There is a partially imaged left shoulder arthroplasty. There is an old left posterior 3rd rib fracture there is an acute mildly displaced left lateral 7th and 8th rib fracture. IMPRESSION: Acute mildly displaced left lateral 7th and 8th rib fractures. Similar mild prominence of the pulmonary interstitial markings and scarring throughout the lungs. Dictated by Edd Webster MD @ 07/27/2024 1:02:59 PM (Electronically Signed)
--- NOTE | 2024-07-27 12:14 | ED.GENADULT ---
HPI - General Adult General Chief complaint: Rib Pain Stated complaint: in terrible pain today-fell Time Seen by Provider: 07/27/24 11:34 History of Present Illness HPI narrative: This 89-year-old female comes in from her assisted living facility because of rib injury to the lateral left posterior aspect of her ribs. She was sitting on a toilet and fell into it hitting this area of her ribs. She now has lots of pain in this area. She did not hit her head or have loss of consciousness. She does have a history of vertebral compression fractures and states that she is currently taking 1 oxycodone tablet at night and has been doing this for quite a while. She does not report any shortness of breath but states that any kind of movement or deep breath of course makes her pain significantly worse. Related Data Home Medications ?Medication ?Instructions ?Recorded ?Confirmed amiodarone 200 mg tablet 100 mg PO DAILY 03/05/23 03/10/24 amoxicillin 500 mg capsule 500 mg PO BID 03/05/23 03/10/24 apixaban 2.5 mg tablet (Eliquis) 2.5 mg PO BID 03/05/23 03/10/24 aspirin 81 mg chewable tablet 1 tab PO DAILY 03/05/23 03/10/24 atorvastatin 40 mg tablet 40 mg PO HS 03/05/23 03/10/24 lamotrigine 100 mg tablet 200 mg PO HS 03/05/23 03/10/24 levothyroxine 100 mcg tablet 100 mcg PO QAM 03/05/23 03/10/24 loratadine 10 mg tablet 10 mg PO DAILY 03/05/23 03/10/24 melatonin 3 mg capsule 3 mg PO HS PRN 03/05/23 03/10/24 pantoprazole 40 mg tablet,delayed 40 mg PO DAILY 03/05/23 03/10/24 release potassium chloride 20 mEq 20 meq PO DAILY 03/05/23 03/11/24 tablet,extended release(part/cryst) polyethylene glycol 3350 17 17 g PO DAILY 06/05/23 03/10/24 gram/dose oral powder acetaminophen 650 mg 1,300 mg PO BID 03/10/24 03/10/24 tablet,extended release albuterol sulfate 2.5 mg/3 mL 2.5 mg inhalation Q4H PRN dyspnea 03/10/24 03/11/24 (0.083 %) solution for nebulization alendronate 70 mg tablet 70 mg PO .thursday03/10/24 03/11/24 calcium 600 mg (as 1 tab PO BID 03/10/24 03/10/24 carbonate)-vitamin D3 10 mcg (400 unit) tablet lidocaine 5 % topical patch 1 patch topical DAILY 03/11/24 03/11/24 (DermacinRx Lidocan) Previous Rx's ?Medication ?Instructions ?Recorded oxycodone 10 mg tablet,crush 10 mg PO HS #30 tabs 03/12/24 resistant,extended release 12 hr oxycodone 5 mg tablet 5 mg PO Q4H PRN Back Pain #60 tabs 03/12/24 torsemide 20 mg tablet 60 mg (3 x 20 mg) PO DAILY #90 tabs 03/12/24 oxycodone 5 mg capsule 5 mg PO Q6H PRN pain #30 caps 07/27/24 Allergies Allergy/AdvReac Type Severity Reaction Status Date / Time amlodipine Allergy Unknown Verified 03/10/24 22:14 codeine Allergy Unknown Verified 03/10/24 22:14 erythromycin base Allergy Unknown Verified 03/10/24 22:14 morphine Allergy Unknown Verified 03/10/24 22:14 Penicillins Allergy Unknown Verified 03/10/24 22:14 Review of Systems Status of ROS: Reports: 10 or more systems reviewed and unremarkable except as noted in History and below Narrative: Constitutional: No fevers, no weight gain or loss. Eyes: No discharge. No vision changes. HENT: No congestion, no sore throat, no ear pain. Cardiovascular: No palpitations. Respiratory: No shortness of breath, no wheezes, no cough. Gastrointestinal: No abdominal pain, no vomiting, no diarrhea. Genitourinary: No dysuria, no hematuria. Musculoskeletal: Normal range of motion. Skin: No rashes, no pruritis. Neurological: No dizziness, weakness, sensory change, speech change. Endo/Heme/Allergies: No bruising or bleeding. No polydipsia. Pysch: no suicidality, no anxiety, no insomnia. All other systems reviewed and are negative. [facility] Medical History (Updated 07/27/24 @ 13:41 by Ranjan Quintanilla MD) Atrial fibrillation ?I48.91 - Unspecified atrial fibrillation (ICD-10) Osteoporosis ?M81.0 - Age-related osteoporosis without current pathological fracture (ICD-10) Chronic diastolic heart failure ?I50.32 - Chronic diastolic (congestive) heart failure (ICD-10) Chronic kidney disease, stage 3b ?N18.32 - Chronic kidney disease, stage 3b (ICD-10) Paroxysmal atrial fibrillation ?I48.0 - Paroxysmal atrial fibrillation (ICD-10) COPD (chronic obstructive pulmonary disease) ?J44.9 - Chronic obstructive pulmonary disease, unspecified (ICD-10) Extravasation of intravenous contrast medium ?T80.818A - Extravasation of other vesicant agent, initial encounter (ICD-10) Chronic hypoxemic respiratory failure ?J96.11 - Chronic respiratory failure with hypoxia (ICD-10) Former smoker ?Z87.891 - Personal history of nicotine dependence (ICD-10) Normal pressure hydrocephalus ?G91.2 - (Idiopathic) normal pressure hydrocephalus (ICD-10) Diaphragmatic hernia ?K44.9 - Diaphragmatic hernia without obstruction or gangrene (ICD-10) Gastroesophageal reflux disease ?K21.9 - Gastro-esophageal reflux disease without esophagitis (ICD-10) Major depressive disorder ?F32.9 - Major depressive disorder, single episode, unspecified (ICD-10) Bipolar II disorder ?F31.81 - Bipolar II disorder (ICD-10) Ventricular premature complexes ?I49.3 - Ventricular premature depolarization (ICD-10) Pulmonary hypertension ?I27.20 - Pulmonary hypertension, unspecified (ICD-10) Primary hypothyroidism ?E03.9 - Hypothyroidism, unspecified (ICD-10) Essential hypertension ?I10 - Essential (primary) hypertension (ICD-10) Hyperlipidemia ?E78.5 - Hyperlipidemia, unspecified (ICD-10) History of bacteremia ?Z87.898 - Personal history of other specified conditions (ICD-10) Unspecified dementia, unspecified severity, without behavioral disturbance, psychotic disturbance, mood disturbance, and anxiety ?F03.90 - Unspecified dementia, unspecified severity, without behavioral disturbance, psychotic disturbance, mood disturbance, and anxiety (ICD-10) Spondylosis of lumbar spine ?M47.816 - Spondylosis without myelopathy or radiculopathy, lumbar region (ICD-10) History of COVID-19 ?Z86.16 - Personal history of COVID-19 (ICD-10) Peripheral vascular disease ?I73.9 - Peripheral vascular disease, unspecified (ICD-10) POLST (Physician Orders for Life-Sustaining Treatment) ?Z78.9 - Other specified health status (ICD-10) Surgical History Status post hysterectomy ?Z90.710 - Acquired absence of both cervix and uterus (ICD-10) Acquired absence of both cervix and uterus ?Z90.710 - Acquired absence of both cervix and uterus (ICD-10) Social History Narrative[place] Her son, Herbert Lobo, is her power of assistant city attorney for health should that be required, cell phone [phone]. Requests DNR DNI resuscitation status. Dr. Inder Tanner is her primary care physician What is your current living situation?: I presently have a place to live Problems where you live: no known problems Problems where you live details: no known problems In the past 12 months, utilities in danger of being shut off: no In past 12 months, lack of transportation kept you from medical appts, meetings, work, or getting things needed for daily living: no In the past 12 mos, have been you worried that your food would run out before you had money to buy more?: never true In the past 12 mos, the food you bought just didn't last and you didn't have money to buy more?: never true Highest level of school completed/degree received: Associate degree: occupational, technical, vocational program Smoking Status: Former smoker Do you use any of these nicotine containing products: None Second hand tobacco smoke exposure: No How often do you have a drink containing alcohol: never How often do you have six or more drinks on one occasion: Never AUDIT-C Alcohol total score: 0 Non-prescribed substance use: denies use Caffeine: Yes (Coffee) How often does anyone, including family, friends and others, physically hurt you: never How often does anyone, including family, friends and others, insult or talk down to you: never How often does anyone, including family, friends and others, threaten you with harm: never How often does anyone, including family, friends and others, scream or curse at you: never service: No Exam Narrative: Exam Narrative: Constitutional: Well-developed, well-nourished, no acute distress. HEENT: Normocephalic, atraumatic. Neck: Normal range of motion. Nontender. Supple. Heart: Regular. No murmurs. Normal rate. Intact distal pulses. Lungs: Clear to auscultation. No wheezes, rhonchi, or rales. Chest wall: Pain in the left lateral lower ribs. Abdomen: Normal bowel sounds. Nontender. No rebound tenderness. Genitalia: Deferred. Back: No midline tenderness. Normal range of motion. Extremities: Normal range of motion. No injury. Skin: Intact. No rash. Warm. No erythema or pallor. Neurologic: No altered sensation. No weakness. Alert and oriented. Psychiatric: No suicidality. No anxiety or depression. No insomnia. Nursing notes and vitals signs are reviewed. Const: Vital Signs, click to edit/add: Vital Signs - 24 hr 07/27/24 11:38 Temperature 97.8 F Pulse Rate [Pulse Oximeter] 70 Respiratory Rate 24 Blood Pressure [Ri t Upper Arm] 184/77 H Pulse Oximetry 93 Oxygen Delivery Me thod Nasal Cannula Oxygen Flow Rate 3 Course Vital Signs Vital signs: Initial Vital Signs Temperature 97.8 F 07/27/24 11:38 Temperature Source Temporal Artery Scan 07/27/24 11:38 Pulse Rate 70 07/27/24 11:38 Respiratory Rate 24 07/27/24 11:38 Blood Pressure 184/77 H 07/27/24 11:38 Blood Pressure Mean 112 H 07/27/24 11:38 Blood Pressure Position Sitting 07/27/24 11:38 Pulse Oximetry 93 07/27/24 11:38 Oxygen Delivery Method Nasal Cannula 07/27/24 11:38 Oxygen Flow Rate 3 07/27/24 11:38 Vital Signs Temperature 97.8 F 07/27/24 11:38 Pulse Rate 70 07/27/24 11:38 Respiratory Rate 24 07/27/24 11:38 Blood Pressure 184/77 H 07/27/24 11:38 Pulse Oximetry 93 07/27/24 11:38 Oxygen Delivery Method Nasal Cannula 07/27/24 11:38 Oxygen Flow Rate 3 07/27/24 11:38 Temperature 97.8 F 07/27/24 11:38 Pulse Rate 70 07/27/24 11:38 Respiratory Rate 24 07/27/24 11:38 Blood Pressure 184/77 H 07/27/24 11:38 Pulse Oximetry 93 07/27/24 11:38 Oxygen Delivery Method Nasal Cannula 07/27/24 11:38 Oxygen Flow Rate 3 07/27/24 11:38 Medications Administered Medications: Discontinued Medications Generic Name Dose Route Start Last Admin Trade Name Juan Ramon PRN Reason Stop Dose Admin Morphine Sulfate 5 mg 07/27/24 12:10 07/27/24 12:25 Morphine 10 Mg/Ml Inj IM 07/27/24 12:11 5 mg ONCE ONE Administration Ondansetron HCl 4 mg 07/27/24 12:14 07/27/24 12:24 Ondansetron Odt 4 Mg Tab PO 07/27/24 12:15 4 mg ONCE ONE Administration Medical Decision Making MDM Narrative Medical decision making narrative: This patient fell backwards into the toilet earlier today and injured her left lateral ribs. She does not have any other injury. She is in a fair amount of discomfort in this area because of the injury to her ribs. X-ray images do indicate nondisplaced acute fractures of the left lateral 7th and 8th ribs. Lung piedra appear normal. The patient did receive an intramuscular injection of morphine 5 mg. She is in an assisted living facility and here with her son. She is okay to be discharged home. I did provide a prescription for more tablets of oxycodone for symptomatic relief. She understands that she will need to follow-up with her primary physician regarding pain management. Discharge Plan Discharge Clinical Impression: Fracture, ribs Additional Instructions: Take medication as needed and indicated. Increase activity as tolerated. Follow up with MD for ongoing management. Return if worsening. Prescriptions: New oxycodone 5 mg capsule 5 mg PO Q6H PRN (Reason: pain) Qty: 30 0RF No Action polyethylene glycol 3350 17 gram/dose powder 17 g PO DAILY albuterol sulfate 2.5 mg /3 mL (0.083 %) solution for nebulization 2.5 mg inhalation Q4H PRN (Reason: dyspnea) alendronate 70 mg tablet 70 mg PO .thursday acetaminophen 650 mg tablet extended release 1,300 mg PO BID calcium carbonate-vitamin D3 600 mg-10 mcg (400 unit) tablet 1 tab PO BID lidocaine [DermacinRx Lidocan] 5 % adhesive patch,medicated 1 patch topical DAILY Rx Instructions: leave on most painful area for up to 12 hrs oxycodone 10 mg tablet,oral only,ext.rel.12 hr 10 mg PO HS Qty: 30 0RF torsemide 20 mg tablet 60 mg PO DAILY Qty: 90 0RF oxycodone 5 mg tablet 5 mg PO Q4H PRN (Reason: Back Pain) Qty: 60 0RF Rx Instructions: HAS BEEN TAKING 5 TIMES DAILY PLUS Q4H PRN amoxicillin 500 mg capsule 500 mg PO BID atorvastatin 40 mg tablet 40 mg PO HS amiodarone 200 mg tablet 100 mg PO DAILY levothyroxine 100 mcg tablet 100 mcg PO QAM aspirin 81 mg tablet,chewable 1 tab PO DAILY lamotrigine 100 mg tablet 200 mg PO HS loratadine 10 mg tablet 10 mg PO DAILY Eliquis 2.5 mg tablet 2.5 mg PO BID melatonin 3 mg capsule 3 mg PO HS PRN potassium chloride 20 mEq tablet,ER particles/crystals 20 meq PO DAILY pantoprazole 40 mg tablet,delayed release (DR/EC) 40 mg PO DAILY Follow Up/Referrals: Inder Tanner MD [Primary Care Provider] - Stand [facility]one [facility] Info Instructions
[2024-07-27] MEDS: ONDANSETRON ODT 4 MG TAB PO (12:24)
[2024-07-27] MEDS: MORPHINE 10 MG/ML inj 5 MG IM (12:25)
--- OUTSIDE RECORDS SUMMARY | 2024-07-27 12:30 | XMS_ITS | Encounter Summary ---
Author Organization [facility] Address [address] [place] [address] Care Team Providers Care Senior Marketing Analyst Name Role Phone Griselda Chavez MD Primary Care Provider [phone] Provider, No Attributed RESOURCE Unavailable Unavailable Ranjan Alamo MD Unavailable [phone] Eric Harrington MD Primary Care Provider Unavail able Eric Harrington MD Primary Care Provider Unavail able Encounter Details Date Type Department Care Team (Late st Contact Info) Description 01/20/2018 Lab Requisition [facility] Patient Financial Services [place], [place] Tay Ignacio, DO [address] [place] [id number] Other penitentiary (current) drug therapy; Essential (primary) hypertension; Presence of coronary angioplasty implant and graft Social History Tobacco Use Types Packs/Day Years Used Date Smoking Tobacco: Former Cigarettes Q uit: 07/29/2003 Smokeless Tobacco: Never Alcohol Use Standard Drinks/Week Comments Yes 2 (1 standard drink = 0.6 oz pur e alcohol) Sex and Gender Information Value Date Recorded Sex Assigned at Not on file Gender Identity Not on file Sexual Orientation Not on file documented as of this encounter Functional Status Functional Status Response Date of Assess ment Is the person deaf or does h e/she have serious difficulty hearing? No 12/22/2017 Is this person blind or does he/she have difficulty seeing even when wearing glasses? No 12/22/2017 Do you have difficulty with walking, balance, climbing stairs, or had a fall in the last 3 months? No 01/05/2018 Does the patient have difficulty dressing or bat ladonna? No 12/22/2017 Because of a physical, menta l, or emotional condition; does this person have difficulty doing errands alone such as visiting a doctor's office or shopping? No 12/22/2017 Cognitive Status Response Date of Assessm ent Because of a physical, menta l, or emotional condition; does this person have serious difficulty concentrating, remembering, or making decisions? No 12/22/2017 documented as of this encounter Plan of Treatment Not on file documented as of this encounter Procedures Procedure Name Priority Date/Time Associated Diagnosis Comments LAB ONLY-COMPLETE BLOOD COUNT WITH DIFFERENTIAL Routine 01/20/2018 6:35 AM CDT Other intermediate designer (current) drug therapy Essential (primary) hypertension Presence of coronary angioplasty implant and graft BASIC METABOLIC PANEL Routine 01/20/2018 6:35 AM CDT Other intermediate designer (current) drug therapy Essential (primary) hypertension Presence of coronary angioplasty implant and graft COMPLETE BLOOD COUNT WITH DIFFERENTIAL Routine 01/20/2018 6:35 AM CDT documented in this encounter Results * (ABNORMAL) LAB ONLY-COMPLETE BLOOD COUNT WITH DIFFERENTIAL (01/20/2018 6:35 AM CDT) [facility] WBC 7.2 4.0 - 11.0 K/uL 01/20/2018 7:[address] [facility] RBC 3.37(L) 3.80 - 5.30 M/uL 01/20/2018 7:[address] [facility] Hemoglobin 10.6(L) 11.5 - 15.8 g/dL 01/20/2018 7:[address] [facility] Hematocrit 32.9(L) 35.0 - 45.0 % 01/20/2018 7:[address] [facility] MCV 97.6 80.0 - 98.0 fL 01/20/2018 7:[address] [facility] MCH 31.5 25.5 - 34.0 pg 01/20/2018 7:[address] [facility] MCHC 32.2 31.5 - 36.5 g/dL 01/20/2018 7:[address] [facility] RDW-CV 15.0 11.5 - 15.5 % 01/20/2018 7:[address] [facility] RDW-SD 52.4(H) 35.5 - 50.0 fl 01/20/2018 7:[address] [facility] Platelet Count 263 140 - 400 K/uL 01/20/2018 7:[address] [facility] MPV 9.2 8.5 - 12.0 fL 01/20/2018 7:[address] [facility] Seg Neut Absolute 5.1 1.8 - 8.0 K/uL 01/20/2018 7:[address] [facility] Lymphocytes Absolute 1.2 0.8 - 4.1 K/uL 01/20/2018 7:[address] [facility] Monocytes Absolute 0.5 0.0 - 1.0 K/uL 01/20/2018 7:[address] [facility] Eosinophils Absolute 0.4 0.0 - 0.7 K/uL 01/20/2018 7:[address] [facility] Basophil Absolute 0.0 0.0 - 0.2 K/uL 01/20/2018 7:[address] [facility] Immature Granulocyte Absolute 0.01 0.00 - 0.06 K/uL 01/20/2018 7:[address] [facility] Neutrophils Abs. (Segs and Bands) 5,100 /uL 01/20/2018 7:[address] [facility] Neutrophils Percent 71.0 % 01/20/2018 7:[address] [facility] Lymphocytes Percent 15.9 % 01/20/2018 7:[address] [facility] Monocytes Percent 7.0 % 01/20/2018 7:[address] [facility] Immature Granulocyte Percent 0.1 % 01/20/2018 7:[address] [facility] Eosinophils Percent 5.4 % 01/20/2018 7:[address] [facility] Basophil Percent 0.6 % 01/21/20 18 7:[address] [facility] Blood BLOOD SPECIMEN / Unknown 01/20/2018 6:35 AM CDT 01/20/2018 7:15 AM T Tay Ignacio DO LAB ONLY ORDERS [facility] [address] [place] [address] * BASIC METABOLIC PANEL (01/20/2018 6:35 AM CDT) Glucose 95 70 - 100 mg/dL 01/20/2018 7:[address] [facility] BUN 17 5 - 20 mg/dL 01/20/2018 7:[address] [facility] Creatinine 0.98 0.50 - 1.30 mg/dL 01/20/2018 7:[address] [facility] BUN/Creatinine Ratio 17.3 10.0 - 25.0 01/20/2018 7:[address] [facility] Sodium 142 135 - 145 meq/L 01/20/2018 7:[address] [facility] Potassium 4.4 3.5 - 5.4 meq/L 01/20/2018 7:[address] [facility] Chloride 100 99 - 109 meq/L 01/20/2018 7:[address] [facility] CO2 31 24 - 34 meq/L 01/20/2018 7:[address] [facility] Anion Gap with K 15 6 - 20 meq/L 01/20/2018 7:[address] [facility] Calcium 9.5 8.4 - 10.5 mg/dL 01/20/2018 7:[address] [facility] Age 82 Years 01/20/2018 7:[address] [facility] eGFR Non- 54 mL/min/1. 73m2 01/20/2018 7:[address] [facility] eGFR 66 mL/min/1. 73m2 01/20/2018 7:[address] [facility] Comment: The estimated Glomerular Filtration Rate (eGFR) is calculated using the Abbreviated Modification of Diet in Renal Disease (MDRD) equation. ??The eGFR is reported out in mL/min. per 1.73 meter squared units. The National Kidney Foundation action value for patients without a diagnosis of chronic kidney disease is a eGFR of < 60 mL/min per 1.73M2. The National Kidney Foundation stages listed below apply to patients with a diagnosis of chronic kidney disease (defined as either kidney damage or eGFR <60 mL/min/1.73 m2 for 3 months). ??Kidney damage is defined as pathologic abnormalities or markers of damage, including abnormalities in blood or urine tests or imaging studies. ??These stages apply to adults. ??No standardized classification has yet been established for pediatric patients. Stage ?eGFR in ml/min per 1.73M2 1 Kidney abnormality with normal or increased eGFR ? >or=90 2 Kidney abnormality with mild decreased eGFR ? 60-89 3 Moderately decreased ??eGFR ?30-59 4 Severely decreased eGFR ? 15-29 5 Kidney failure ? <15 The eGFR varies with age, sex, race and body size and normally decreases with age. Blood BLOOD SPECIMEN / Unknown 01/20/2018 6:35 AM CDT 01/20/2018 7:15 AM CDT Tay Ignacio DO LAB BLOOD [facility] [address] [place] [address] documented in this encounter Visit Diagnoses Diagnosis Other penitentiary (current) drug therapy Essential (primary) hypertension Unspecified essential hypertension Presence of coronary angioplasty implant and graft Postsurgical percutaneous transluminal coronary angioplasty status documented in this encounter Care Teams Senior Marketing Analyst Relationship Specialty Start Date End Date Griselda Chavez MD [address] [place] [address] PCP - General 02/11/10 12/19/18 Provider, No Attributed, RESOURCE [address] PCP - Attributed Provider 07/22/16 Eric Harrington MD [address] [facility] [place] [address] PCP - General Family Medicine 12/20/18 08/14/19 Eric Harrington MD [address] [place] [address] PCP - General 08/15/19 Ranjan Alamo MD [address] [facility] [place] [address] Vascular Surgery (Surgery) 11/12/16 01/17/22 documented as of this encounter
--- OUTSIDE RECORDS SUMMARY | 2024-07-27 12:30 | XMS_ITS | Encounter Summary ---
Author Organization [facility] Address [address] [place] [address] Care Team Providers Care Ironing Machine Operator Name Role Phone Griselda Chavez MD Primary Care Provider [phone] Provider, No Attributed RESOURCE Unavailable Unavailable aRnjan Alamo MD Unavailable [phone] Eric Harrington MD Primary Care Provider Unavail able Eric Harrington MD Primary Care Provider Unavail able Encounter Details Date Type Department Care Team (Late st Contact Info) Description 05/12/2017 Lab Requisition [facility] Patient Financial Services [place] Dave Joie Dc, EVENT PRODUCER-CASTING CARRIER [address] [place] [address] Urinary tract infection Social History Tobacco Use Types Packs/Day Years [...] h e/she have serious difficulty hearing? No 04/24/2017 Is this person blind or does he/she have difficulty seeing even when wearing glasses? No 04/24/2017 Do you have difficulty with walking, balance, climbing stairs, or had a fall in the last 3 months? Yes 05/05/2017 documented as of this encounter Plan of Treatment Not on file documented as of this encounter Procedures Procedure Name Priority Date/Time Associated Diagnosis Comments CULTURE BACTERIAL, URINE Routine 05/12/2017 1:17 PM CDT Urinary tract infection documented in this encounter Results * (ABNORMAL) CULTURE BACTERIAL, URINE (05/12/2017 1:17 PM CDT) Culture Result >100,000 CFU/mL Escherichia coli(!) [place] 05/14/2017 5:[address] [facility] Urine 05/12/2017 1:17 PM CDT 05/12/2017 9:46 PM CDT Narrative Organism Antibiotic Method Susceptibility Escherichia coli Ampicillin [place]IGH 4.0 ug/mL: Sensitive Escherichia coli Ampicillin/sulbactam [place] <=2.0 ug/mL: Sensitive Escherichia coli Cefazolin [place] <=4.0 ug/mL: Sensitive Escherichia coli Ceftriaxone [place] <=1.0 ug/mL: Sensitive Escherichia coli Ciprofloxacin [place] <=0.25 ug/mL: Sensitive Escherichia coli Gentamicin [place] <=1.0 ug/mL: Sensitive Escherichia coli Nitrofurantoin [place] <=16.0 ug/mL: Sensitive Comment:Do not use f or pyelonephritis. Escherichia coli Piperacillin/Tazobactam [place]IGH <=4.0 ug/mL: Sensitive Escherichia coli Tobramycin [place]IGH <=1.0 ug/mL: Sensitive Escherichia coli Trimethoprim/Sulfame thoxaz ole [place]IGH <=20.0 ug/mL: Sensitive Comment: Cefazolin predicts susceptibility to oral agents cephalexin, cefdinir, cefpodoxime and cefuroxime when used for therapy of uncomplicated UTIs. Ceftriaxone: ??3rd generation cephalosporin (cefotaxime) may demonstrate a similar antimicrobial activity. Joie Dc APRN-CASTING CARRIER LAB MICROBIOLOGY [facility] [address] [place] [id number] documented in this encounter Visit Diagnoses Diagnosis Urinary tract infection Urinary tract infection, site not specified documented in this encounter Care Teams Ironing Machine Operator Relationship Specialty Start Date End Date Griselda Chavez MD [address] [place] [address] PCP - General 02/11/10 12/19/18 Provider, No Attributed, RESOURCE [address] PCP - Attributed Provider 07/22/16 Eric Harrington MD [address] [place] [address] PCP - General Family Medicine 12/20/18 08/14/19 Eric Harrington MD [address] [place] [address] PCP - General 08/15/19 Ranjan Alamo MD [address] [place] [address] Vascular Surgery (Surgery) 11/12/16 01/17/22 documented as of this encounter
--- OUTSIDE RECORDS SUMMARY | 2024-07-27 12:30 | XMS_ITS | Clinical Summary ---
Author Organization [facility] Address [address] [place] [address] Care Team Providers Care Supervisor [employer]ension [employer] Name Role Phone Provider, No Attributed RESOURCE Unavailable Unavailable Eric Harrington MD Primary Care Provider Unavail able Allergies Active Allergy Reactions Criticality Noted Date Comments Amlodipine Edema High Codeine Nausea and Vomiting Erythromycin Nausea and Vomiting Morphine Sulfate Nausea and Vomiting 07/29/2011 Penicillin Hives (High) High Has tolerated cephalexin. Tramadol Nausea and Vomiting 08/23/2018 Medications Medication Sig Dispensed Refills Start Date End Date Status acetaminophen (TYLENOL) 500 mg tablet Take 500-1,000 mg by mouth every 6 hours as needed for mild pain Active atorvaSTATin (LIPITOR) 40 mg tablet Take 40 mg by mouth every night at bedtime Active Oxygen therapy 1-2 L by Nasal route every night at bedtime And as needed during the day. Active calcium carbonate-vitamin D (OSCAL 500 + VIT D) 500 mg-200 unit tablet Take 1 tablet by mouth 1 time per day Active vitamin D3, cholecalciferol, 1000 units tablet Take 1,000 Units by mouth 1 time per day Active loratadine (CLARITIN) 10 mg tablet Take 10 mg by mouth 1 time a day as needed for other (Specify) (allergies) Active carboxymethylcellu lose (REFRESH TEARS) 0.5 % SOLN Place 1 drop into both eyes every 2 hours as needed for dry eyes Active Multiple Vitamins-Minerals (MULTIVITAMIN THERAPEUTIC WITH MINERALS) tablet Take 1 tablet by mouth 1 time per day Active omega-3 fatty acids (FISH OIL) 1200 mg capsule Take 1,200 mg by mouth 1 time per day Active apixaban (ELIQUIS) 5 MG tabletIndications: Atrial Fibrillation,Histo ry of Pulmonary Embolism Take 1 tablet (5 mg) by mouth 2 times a day Indications: Atrial Fibrillation, History of Pulmonary Embolism 180 tablet 09/17/2018 Active amiodarone (CORDARONE, PACERONE) 200 mg tabletIndications: Atrial fibrillation, unspecified type (HCC) Take 1 tablet (200 mg) by mouth every night at bedtime 90 tablet 09/17/2018 Active ondansetron (ZOFRAN ODT) 4 mg dispersible tablet Take 4 mg by mouth Every 4 hours as needed Active docusate sodium (COLACE) 100 MG capsuleIndications :Normal pressure hydrocephalus (HCC) Take 1 capsule (100 mg) by mouth 2 times a day 0 11/30/2018 Active lamoTRIgine (LAMICTAL) 100 mg tabletIndications: Bipolar 2 disorder (HCC) Take 0.5 tablets (50 mg) by mouth 1 time per day 30 tablet 11/30/2018 Active Additional Information Patient taking differently: 100 mgOral DAILY, Reported on 06/10/2019 furosemide (LASIX) 20 mg tabletIndications: SOB (shortness of breath) Take 1 tablet (20 mg) by mouth 1 time per day 60 tablet 11/30/2018 Active bisacodyl (DULCOLAX) 10 mg suppositoryIndicat ions:Fall, initial encounter Insert 1 suppository (10 mg) rectally 1 time a day as needed for constipation Unwrap before inserting. Do not swallow. 30 suppository 11/30/2018 Active potassium chloride (KLOR-CON M20) 20 MEQ CR tabletIndications: Essential hypertension Take 1 tablet (20 mEq) by mouth 1 time per day 60 tablet 11/30/2018 Active pantoprazole (PROTONIX) 40 mg enteric coated tablet Take 20 mg by mouth 1 time per day 12/27/2018 Active levothyroxine 137 mcg tablet Take 100 mcg by mouth 1 time per day 12/29/2018 Active losartan 100 mg tablet Take 50 mg by mouth 1 time per day Taking half tablet daily (50 mg) Active amoxicillin (AMOXIL) 500 mg capsule Take 500 mg by mouth 2 times a day For 30 days 11 04/21/2019 Active Oxygen therapy as needed Active aspirin 81 mg enteric coated tablet Take 81 mg by mouth 1 time per day Active metoprolol tartrate (LOPRESSOR) 25 mg tablet Take 12.5 mg by mouth 2 times a day Active sennosides (SENNA) 8.6 mg tablet Take 8.6 mg by mouth 2 times a day as needed for constipation Active Active Problems Problem Noted Date Diagnosed Date Acute blood loss anemia 11/22/2018 Acute lower GI bleeding 11/22/2018 Falls 11/21/2018 long term care administrator (current) use of anticoagulants 2017 PVD (peripheral vascular disease) 05/13/2018 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 Gastroesophageal reflux disease 03/18/2018 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 Subclavian artery stenosis 12/04/2017 Senile osteoporosis 05/10/2015 Bipolar 2 disorder 12/08/2013 Hypertension Hyperlipidemia Hiatal hernia Hypothyroid Depression Pulmonary hypertension PAF (paroxysmal atrial fibrillation) AAA (abdominal aortic aneurysm) COPD (chronic obstructive pulmonary disease) Immunizations Name Administration Dates Next Due Pneumococcal Conj PCV13 06/12/2017 Family History Medical History Relation Comments Not otherwise listed - Cancer Brother 3 co dianne cancer Diabetes Brother 4 Heart Brother 5 at fib Heart Father VSD,CAD Heart Disease Father Heart Mother rheumatic heart disease Parkinsonism Sister 1 Hypertension Sister 3 Heart Sister 4 murmur Hypertension Sister 5 Relation Status Comments Brother 1 Alive Brother 2 Alive Brother 3 Brother 4 Brother 5 Father (Age 50) VSD Mother (Age 42) Sister 1 Alive Sister 2 Alive Sister 3 Sister 4 Sister 5 Social History Tobacco Use Types Packs/Day Years Used Date Smoking Tobacco: Former Cigarettes Q uit: 07/29/2003 Smokeless Tobacco: Never Alcohol Use Standard Drinks/Week Comments Yes 2 (1 standard drink = 0.6 oz pur e alcohol) Sexually Active Control Partners Comments Never Sex and Gender Information Value Date Recorded Sex Assigned at Not on file Gender Identity Not on file Sexual Orientation Not on file Last Filed Vital Signs Vital Sign Reading Time Taken Comments Blood Pressure 137/54 01/14/2019 1:00 PM CDT Pulse 55 01/14/2019 1:00 PM CDT Temperature 36.9 ??C (98.5 ??F) 01/14/2019 12:29 PM C DT Respiratory Rate 18 01/14/2019 12:29 PM CDT Oxygen Saturation 97% 11/30/2018 5:30 AM CDT Inhaled Oxygen Concentration - - Weight 62.4 kg (137 lb 8 oz) 01/14/2019 12:29 PM CDT Height 157.5 cm (5' 2) 11/21/2018 9:11 PM DE ALCHOLIZER Body Mass Index 25.15 11/21/2018 9:11 PM DE ALCHOLIZER Plan of Treatment Health Maintenance Due Date Last Done Comments Microalbumin 1935 TDAP/TD (1 - Tdap) 1957 Zoster Vaccine (1 of 2) 1986 DEXA/Heel Scan 2001 RSV Vaccine, Adult (1 - 1-dose 75+ series) 2011 Pneumococcal Vaccine 65yr + (2 of 2 - PPSV23 or PCV20) 08/07/2017 06/12/2017 Amiodarone TSH 01/13/2020 07/14/2019, 030 11/2018, 06/29/2018, Additional history exists TSH Every Year 07/14/2020 07/14/2019, 030 11/2018, 06/29/2018, Additional history exists ALT 04/26/2021 10/27/2020, 03/0 11/2018, 04/21/2018, Additional history exists AST 04/26/2021 10/27/2020, 03/0 11/2018, 04/21/2018, Additional history exists Amiodarone Chest X-ray 11/12/2021 , 10/28/2020, 08/23/2019, Additional history exists Covid-19 Vaccine ( season) 2024 03/17/2022, 02/05/2021, 01/15/2021 Influenza Vaccine (#1) 2024 3, 07/09/2022, 07/15/2021, Additional history exists Lipid Screening 01/31/2025 02/01/2024, 050 10/2021, 02/13/2021, Additional history exists Diabetes Screening 01/31/2027 02/01/2024, 0 11/20/2020, 11/17/2020, Additional history exists Hepatitis B Vaccine Aged Out No longe r eligible based on patient's age to complete this topic Medical Devices Implanted Type Area Second Baker Device Identifier Shelf Expiration Date Model / Serial / Lot Stnt Viabahn 0.035 7x2.5120cm N [id number] Ea1 - [id number] Implanted:Qty: 1 on 01/05/2018 by Bryson Blair MD at [facility] [place] N/A: AORTA WL GORE 08/09/2020 [id number] / [id number] / Endol Icast 8x59mm 120cm N [id number] Ea1 - [id number] Implanted:Qty: 1 on 01/05/2018 by Bryson Blair MD at [facility] [place] N/A: AORTA GETINGE CASTLE 09/08/2019 [id number] / [id number] / Endol Icast 9x59mm 120cm N [id number] Ea1 - [id number] Implanted:Qty: 1 on 01/05/2018 by Bryson Blair MD at [facility] [place] N/A: AORTA MAQUET 04/16/2020 [id number] / [id number] / Endol Icast 7x59mm 120cm N [id number] Ea1 - [id number] Implanted:Qty: 1 on 01/05/2018 by Bryson Blair MD at [facility] [place] N/A: AORTA GETINGE CASTLE 02/12/2020 [id number] / [id number] / Stnt Protege 9x60mm 120cm N [id number] Ea1 - [id number] Implanted:Qty: 1 on 01/05/2018 by Bryson Blair MD at [facility] [place] N/A: [employer]ORTA MEDTRONIC 10/06/2020 [id number] 60-120 / / [id number] Stnt Viabahn Vbx [id number] N [id number] Ea1 - [id number] Implanted:Qty: 1 on 01/05/2018 by Bryson Blair MD at [facility] [place] N/A: [employer]ORTA WL GORE 10/28/2020 [id number] / [id number] / Stnt Viabahn Vbx 8x59mm 135cm N [id number] Ea1 - [id number] Implanted:Qty: 1 on 01/05/2018 by Bryson Blair MD at [facility] [place] N/A: AORTA WL GORE 10/23/2020 [id number] / [id number] / Stnt Viabahn Vbx 8x59mm 135cm N [id number] Ea1 - [id number] Implanted:Qty: 1 on 01/05/2018 by Bryson Blair MD at [facility] [place] N/A: AORTA WL GORE 10/18/2020 [id number] / [id number] / Stnt Protege 9x60mm 120cm N [id number] 0 Ea1 - [id number] Implanted:Qty: 1 on 01/05/2018 by Bryson Blair MD at [facility] [place] N/A: [employer] 10/06/2020 [id number] 60-120 / / [id number] Endol Icast 6x59mm 120cm N [id number] Ea1 - [id number] Implanted:Qty: 1 on 01/05/2018 by Bryson Blair MD at [facility] [place] N/A: [employer]ORTA GETINGE CASTLE 12/06/2019 [id number] / [id number] / Endol Icast 8x59mm 120cm N 80058 Ea1 - [id number] Implanted:Qty: 1 on 01/05/2018 by Bryson Blair MD at [facility] [place] N/A: [employer]ORTA GETINGE CASTLE 11/26/2019 59966 / [id number] / Stnt Viabahn 0.035 8x5 120cm N [id number] Ea1 - [id number] Implanted:Qty: 1 on 01/05/2018 by Bryson Blair MD at [facility] [place] N/A: AORTA WL GORE 09/30/2020 [id number] / [id number] / Stnt Protege 9x60mm 120cm N [id number] 0 Ea1 - [id number] Implanted:Qty: 1 on 01/05/2018 by Bryson Blair MD at [facility] [place] N/A: [employer] 08/30/2020 [id number] 60-120 / / [id number] Endol Endur Ii [id number] N [id number] Ea1 - [id number] Implanted:Qty: 1 on 01/05/2018 by Bryson Blair MD at [facility] [place] N/A: [employer] 11/21/2019 [id number] / [id number] / Endol Endur Ii [id number] N [id number] Ea1 - [id number] Implanted:Qty: 1 on 01/05/2018 by Bryson Blair MD at [facility] [place] N/A: [employer] 08/05/2018 [id number] / [id number] / Endol Icast 9x59mm 120cm N [id number] Ea1 - [id number] Implanted:Qty: 1 on 01/05/2018 by Bryson Blair MD at [facility] [place] N/A: AORTA MAQUET 11/25/2019 23811 / [id number] / Endol Icast 9x59mm 120cm N 48893 Ea1 - [id number] Implanted:Qty: 1 on 01/05/2018 by Bryson Blair MD at [facility] [place] N/A: AORTA MAQUET 11/25/2019 [id number] / [id number] / Patch Vascuguard 0.8x8cm N [id number] Ea1 - [id number] Implanted:Qty: 1 on 01/05/2018 by Bryson Blair MD at [facility] [place] Right: ARTERIAL ZAPATA 08/17/2022 [id number] / / [id number] Stnt Viabahn 0.035 7x5 120cm N [id number] Ea1 - [id number] Implanted:Qty: 1 on 01/05/2018 by Bryson Blair MD at [facility] [place] N/A: [employer]ORTA WL GORE 05/15/2020 [id number] / [id number] / Stnt Viabahn 0.035 7x5 120cm N [id number] Ea1 - [id number] Implanted:Qty: 1 on 01/05/2018 by Bryson Blair MD at [facility] [place] N/A: AORTA WL GORE 02/13/2020 [id number] / [id number] / Stnt Viabahn 0.035 10x5 120cm N [id number] Ea1 - [id number] Implanted:Qty: 1 on 01/05/2018 by Bryson Blair MD at [facility] [place] N/A: AORTA WL GORE 07/07/2020 [id number] / [id number] / Stnt Viabahn 0.035 10x5 120cm N [id number] Ea1 - [id number] Implanted:Qty: 1 on 01/05/2018 by Bryson Blair MD at [facility] [place] N/A: AORTA WL GORE 09/23/2020 [id number] / [id number] / Endol Endurant [id number] N [id number] Ea1 - [id number] Implanted:Qty: 1 on 01/05/2018 by Bryson Blair MD at [facility] [place] N/A: [employer] 05/05/2018 [id number] / [id number] / Stnt Protege 9x40mm 120cm N [id number] 0 Ea1 - [id number] Implanted:Qty: 1 on 01/05/2018 by Bryson Blair MD at [facility] [place] N/A: [employer]A [employer] 07/27/2020 [id number] 40-120 / / [id number] Patch Vascuguard 0.8x8cm N [id number] Ea1 - [id number] Implanted:Qty: 1 on 04/21/2018 by Bryson Blair MD at [facility] [place] Left: GROIN ZAPATA 10/26/2022 [id number] / / [id number] Explanted Type Area Second Baker Device Identifier Shelf Expiration Date Model / Serial / Lot Wire Ss 20g N 22-0170 Ea1 - [id number] Implanted:Bryson Blair MD (Quantity not on file) Explanted:Qty: 1 on 01/05/2018 by Bryson Blair MD at [facility] [place] [place] [employer] 22-017 0 / / Description:used to build en dograft Procedures Procedure Name Priority Date/Time Associated Diagnosis Comments BASIC METABOLIC PANEL Routine 11/27/2018 4:14 AM DE ALCHOLIZER XRAY CHEST PA AND LATERAL STAT 11/21/2018 6:21 PM DE ALCHOLIZER COMPREHENSIVE METABOLIC PANEL STAT 11/21/2018 4:59 PM DE ALCHOLIZER TSH REFLEX Routine 11/21/2018 4:59 PM DE ALCHOLIZER LIPID PANEL Routine 04/05/2014 Hyperlipidemia Therapeutic drug monitoring from Last 3 Months or Most Recently Relevant to Health Maintenance Results * BASIC METABOLIC PANEL (11/27/2018 4:14 AM DE ALCHOLIZER) Glucose 95 70 - 100 mg/dL 11/27/2018 5:03 AM [facility] BUN 10 5 - 20 mg/dL 11/27/2018 5:03 AM [facility] Creatinine 0.83 0.50 - 1.30 mg/dL 11/27/2018 5:03 AM [facility] BUN/Creatinine Ratio 12.0 10.0 - 25.0 11/27/2018 5:03 AM [facility] Sodium 139 135 - 145 meq/L 11/27/2018 5:03 AM [facility] Potassium 3.8 3.5 - 5.4 meq/L 11/27/2018 5:03 AM [facility] Chloride 104 99 - 109 meq/L 11/27/2018 5:03 AM [facility] CO2 31 24 - 34 meq/L 11/27/2018 5:03 AM [facility] Anion Gap with K 8 6 - 20 meq/L 11/27/2018 5:03 AM [facility] Calcium 8.6 8.4 - 10.5 mg/dL 11/27/2018 5:03 AM [facility] Age 83 Years 11/27/2018 5:03 AM [facility] eGFR Non- 66 mL/min/1. 73m2 11/27/2018 5:03 AM [facility] eGFR 80 mL/min/1. 73m2 11/27/2018 5:03 AM DE ALCHOLIZER [facility] Comment: The estimated Glomerular Filtration Rate [...] with age. Blood BLOOD SPECIMEN / Unknown 11/27/2018 4:14 AM DE ALCHOLIZER 11/27/2018 4:45 AM DE ALCHOLIZER Josh Christianson MD LAB BLOOD [facility] [address] [place] [address] * XRAY CHEST PA AND LATERAL - (11/21/2018 6:21 PM DE ALCHOLIZER) Anatomical Region Laterality Modality Chest, Lung Radiographic Deysi ging 11/22/2018 9:01 AM DE ALCHOLIZER Narrative 11/22/2018 9:02 AM DE ALCHOLIZER Patient Name: ?? AMY KIMBLE Date of : ??1935 Procedure: XRAY CHEST PA AND LATERAL Date of Service: 11/21/2018 EXAM: XRAY CHEST PA AND LATERAL INDICATION:fall, confusion ?? COMPARISON(S): 03/28/2018 FINDINGS: The patient has a stent graft material within the descending/upper abdominal aorta. The heart is not enlarged. No pleural effusions have developed. There are no lung masses. No focal airspace opacities are present. A left shoulder prosthesis is present. IMPRESSION: No acute parenchymal or cardiovascular changes are present. Finalized by: Clare Srivastava MD on 11/22/2018 9:02 AM Patient/Procedure Information: [facility] MRN/LIZZY: [id number] Order Number: [id number] Accession Number: [id number] Ordering Provider: LEEANN VILLALBA Authorizing Provider: LEEANN VILLALBA Procedure Note Clare Srivastava MD - 11/22/2018 Patient Name: AMY KIMBLE Date of : 1935 Procedure: XRAY CHEST PA AND LATERAL Date of Service: 11/21/2018 EXAM: XRAY CHEST PA AND LATERAL INDICATION:fall, confusion COMPARISON(S): 03/28/2018 FINDINGS: The patient has a stent graft material within the descending/upperabdominal aorta. The heart is not enlarged. No pleural effusions have developed. There areno lung masses. No focal airspace opacities are present. A left shoulder prosthesis is present. IMPRESSION: No acute parenchymal or cardiovascular changes are present. Finalized by: Clare Srviastava MD on 11/22/2018 9:02 AM Patient/Procedure Information: [facility] MRN/LIZZY: [id number] Order Number: [id number] Accession Number: [id number] Ordering Provider: LEEANN VILLALBA Authorizing Provider: LEEANN VILLALBA Leeann GARCIA RADIOLOGY DIAG NOSTIC * (ABNORMAL) TSH REFLEX (11/21/2018 4:59 PM DE ALCHOLIZER) TSH 0.22(L) 0.35 - 4.94 uIU/mL 11/21/2018 10:01 PM [facility] Blood BLOOD SPECIMEN / Unknown 11/21/2018 4:59 PM DE ALCHOLIZER 11/21/2018 5:20 PM DE ALCHOLIZER Nabeel Black MD LAB BLOOD [facility] [address], [place] [address] * (ABNORMAL) COMPREHENSIVE METABOLIC PANEL (11/21/2018 4:59 PM DE ALCHOLIZER) Glucose 105(H) 70 - 100 mg/dL 11/21/2018 5:36 PM [facility] BUN 20 5 - 20 mg/dL 11/21/2018 5:36 PM [facility] Creatinine 1.31(H) 0.50 - 1.30 mg/dL 11/21/2018 5:36 PM [facility] BUN/Creatinine Ratio 15.3 10.0 - 25.0 11/21/2018 5:36 PM [facility] Sodium 140 135 - 145 meq/L 11/21/2018 5:36 PM [facility] Potassium 3.5 3.5 - 5.4 meq/L 11/21/2018 5:36 PM [facility] Chloride 99 99 - 109 meq/L 11/21/2018 5:36 PM [facility] CO2 33 24 - 34 meq/L 11/21/2018 5:36 PM [facility] Anion Gap with K 12 6 - 20 meq/L 11/21/2018 5:36 PM [facility] Calcium 9.1 8.4 - 10.5 mg/dL 11/21/2018 5:36 PM [facility] Protein Total 7.1 6.3 - 8.2 g/dL 11/21/2018 5:36 PM [facility] Albumin 3.6 3.5 - 4.8 g/dL 11/21/2018 5:36 PM [facility] Alkaline Phosphatase 90 38 - 126 U/L 11/21/2018 5:36 PM [facility] AST - SGOT 77(H) 14 - 59 U/L 11/21/2018 5:36 PM [facility] ALT - SGPT 33 0 - 50 U/L 11/21/2018 5:36 PM [facility] Bilirubin Total 1.2 0.0 - 1.3 mg/dL 11/21/2018 5:36 PM [facility] Corrected Calcium 9.4 8.9 - 10.5 mg/dL 11/21/2018 5:36 PM [facility] Age 83 Years 11/21/2018 5:36 PM [facility] eGFR Non- 39 mL/min/1. 73m2 11/21/2018 5:36 PM [facility] eGFR 47 mL/min/1. 73m2 11/21/2018 5:36 PM [facility] Comment: The estimated Glomerular Filtration Rate [...] with age. Blood BLOOD SPECIMEN / Unknown 11/21/2018 4:59 PM DE ALCHOLIZER 11/21/2018 5:22 PM DE ALCHOLIZER Narrative [facility] - 11/21/2018 5:36 PM DE ALCHOLIZER For patients with a GFR <45 a referral to Nephrology is recommended. Katelynn Khan MD LAB BLOOD Performing Organization Address City/State/[facility] Co de Phone Number [facility] [address], [place] [address] * LIPID PANEL (04/05/2014) Blood specimen (specimen) BLOOD SPECIMEN / Unknown Bridger Love MD LAB BLOOD from Last 3 Months or Most Recently Relevant to Health Maintenance Advance Directives For more information, please contact: [phone] Documents on File Type Date Recorded Patient Helper Electrical Expl anation Advance Directives and Livin g Will 01/27/2018 Advance Directives and Livin g Will 01/27/2018 Power of Log Grader 01/05/2018 4:31 AM * Full Code (Latest Code Status on File) Date Activated Date Inactivated Comments 11/21/2018 9:03 PM 11/30/2018 5:11 PM * Full Code Date Activated Date Inactivated Comments 05/13/2018 10:02 AM 05/14/2018 10:23 PM * Full Code Date Activated Date Inactivated Comments 04/21/2018 11:24 AM 04/24/2018 9:26 PM * Full Code Date Activated Date Inactivated Comments 01/05/2018 4:42 AM 01/12/2018 7:22 PM * Full Code Date Activated Date Inactivated Comments 04/27/2017 1:17 PM 04/28/2017 6:31 PM Care Teams Supervisor [employer] Relationship Specialty Start Date End Date Provider, No Attributed, RESOURCE [address] [place] [address] PCP - Attributed Provider 07/22/16 Eric Harrington MD [address] [place] [address] PCP - General 08/15/19
--- OUTSIDE RECORDS SUMMARY | 2024-07-27 12:30 | XMS_ITS | Clinical Summary ---
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 [...] Completed 10/27/2023 Medical Devices Implanted Type Area Paper Making Machine Operator Device Identifier Shelf Expiration Date Model / Serial / Lot Screw Cortex 3.5x26 Implanted:Qty: 1 on 11/12/2020 at [facility] Left: Elbow [id number] / / Description:SCREW CORTEX 3.5 X26 Evos 2.2qpm26bg Lock Screw Implanted:Qty: 1 on 11/12/2020 at [facility] Left: Elbow [id number] / / Description:EVOS 2.9PRJ47ZN LOCK SCREW Screw Lock 2.7x60 Implanted:Qty: 1 on 11/12/2020 at [facility] Left: Elbow [id number] / / Description:SCREW LOCK 2.7X6 0 Screw Lock 2.7x55 Implanted:Qty: 1 on 11/12/2020 at [facility] Left: Elbow [id number] / / Description:SCREW LOCK 2.7X5 5 Screw Bone 3.5x22mm Evos Small Cortex Slf Tppng - [id number] Implanted:Qty: 1 on 11/12/2020 at [facility] Left: Elbow [employer] [id number] / / Screw Bone 3.5x18mm Evos Small Cortex Slf Tppng - [id number] Implanted:Qty: 1 on 11/12/2020 at [facility] Left: Elbow [employer] [id number] / / Plate Olecranon 2.7/3.5 Implanted:Qty: 1 on 11/12/2020 at [facility] Left: Elbow [id number] / / Description:PLATE OLECRANON 2.7/3.5 Explanted Type Area Paper Making Machine Operator Device Identifier Shelf Expiration Date Model / Serial / Lot Sandy-Loc K-Wire 1.25mm Explanted:Qty: 5 on 11/12/2020 at [facility] Left: Elbow [id number] / / Description:SANDY-LOC K-WIRE 1.25MM Washer 2.7 Explanted:Qty: 1 on 11/12/2020 at [facility] Left: Elbow [id number] / / Description:WASHER 2.7 Evos 2.2cgu89ve Lock Screw Explanted:Qty: 1 on 11/12/2020 at [facility] Left: Elbow [id number] / / Description:EVOS 2.1ISP08ZI LOCK SCREW Screw Bone 3.5x24mm Evos Small Cortex Slf Tppng - [id number] Explanted:Qty: 1 on 11/12/2020 at [facility] Left: Elbow [employer] [id number] / / Sandy-Loc K-Wire 1.6mm Explanted:Qty: 2 on 11/12/2020 at [facility] Left: Elbow [id number] / / Description:SANDY-LOC K-WIRE 1.6MM Evos 2.8oze42hk Ctx Screw Explanted:Qty: 1 on 11/12/2020 at [facility] Left: Elbow [id number] / / Description:EVOS 2.0WCJ48QN CTX SCREW Additional Health Concerns Infection Onset [...] Documents on File Type Date Recorded Patient Sales Contractor Expl anation Power of Title I Coordinator 09/01/2019 1:08 PM Power of Title I Coordinator 08/03/2019 3:11 PM POLST 03/31/2019 12:00 AM [...] Agents on File Name Relationship Healthcare Agent [facility] Communication Phong Pardo Health Care Agent Care Teams Stage Manager Relationship Specialty Start Date End Date Steph Harrington NP [address] [place] [address] [id number] PCP - General Geriatric Medicine - Internal Medicine 11/20/19 Eric Harrington MD [address] [place] [id number] Provider Family Practice 11/20/19
--- OUTSIDE RECORDS SUMMARY | 2024-07-27 12:30 | XMS_ITS | Encounter Summary ---
Author Organization [facility] Address [address] [place] [address] Care Team Providers Care Mechanical Manager Name Role Phone Griselda Chavez MD Primary Care Provider [phone] Provider, No Attributed RESOURCE Unavailable Unavailable Ranjan Alamo MD Unavailable [phone] Eric Harrington MD Primary Care Provider Unavail able Eric Harrington MD Primary Care Provider Unavail able Encounter Details Date Type Department Care Team (Late st Contact Info) Description 01/19/2018 Lab Requisition [facility] Patient Financial Services [place], [place] Tay Ignacio G, DO [address] [place], [place] [address] Social History Tobacco Use Types Packs/Day Years [...] Associated Diagnosis Comments CULTURE BACTERIAL, URINE Routine 01/19/2018 URINALYSIS, REFLEX TO CULTURE Routine 01/19/2018 documented in this encounter Results * (ABNORMAL) CULTURE BACTERIAL, URINE (01/19/2018) Culture Result >100,000 CFU/mL Escherichia coli(!) KALEIGH 01/21/2018 3:54 AM T [facility] Urine URINE SPECIMEN OBTAINED BY CLEAN CATCH PROCEDURE / Unknown 01/19/2018 01/19/2018 10:56 AM T Narrative Organism Antibiotic Method Susceptibility Escherichia coli Ampicillin KALEIGH 4.0 ug/mL: Sensitive Escherichia coli Ampicillin/sulbactam KALEIGH <=2.0 ug/mL: Sensitive Escherichia coli Cefazolin KALEIGH <=4.0 ug/mL: Sensitive Escherichia coli Ceftriaxone KALEIGH <=1.0 ug/mL: Sensitive Escherichia coli Ciprofloxacin KALEIGH <=0.25 ug/mL: Sensitive Escherichia coli Gentamicin KALEIGH <=1.0 ug/mL: Sensitive Escherichia coli Nitrofurantoin KALEIGH <=16.0 ug/mL: Sensitive Comment:Nitrofuranto in should not be used for pyelonephritis due to low renal concentration. Escherichia coli Piperacillin/Tazobactam KALEIGH <=4.0 ug/mL: Sensitive Escherichia coli Tobramycin KALEIGH <=1.0 ug/mL: Sensitive Escherichia coli Trimethoprim/Sulfame thoxaz ole KALEIGH <=20.0 ug/mL: Sensitive Comment: Cefazolin predicts susceptibility to oral agents cephalexin, cefdinir, cefpodoxime and cefuroxime when used for therapy of uncomplicated UTIs. Ceftriaxone: ??3rd generation cephalosporin (cefotaxime) may demonstrate a similar antimicrobial activity. Tay Ignacio DO LAB MICROBIOLOGY [facility] [address] [place] [address] * (ABNORMAL) URINALYSIS, REFLEX TO CULTURE (01/19/2018) Color Urine Yellow 01/19/2018 11:[address] [facility] Clarity Urine Cloudy 01/19/2018 11:[address] [facility] Glucose Urine Negative Negative 01/19/2018 11:[address] [facility] Bilirubin Urine Negative Negative 8 11:[address] [facility] Ketones Urine Negative Negative 01/19/2018 11:[address] [facility] Specific [place] 1.010 1.005 - 1.030 01/19/2018 11:[address] [facility] Blood Urine Trace(A) Negative 01/19/2018 11:[address] [facility] pH Urine 7.0 5.0, 5.5, 6.0, 6.5, 7.0, 7.5, 8.0 01/19/2018 11:[address] [facility] Protein Urine Negative Negative, Trace 01/19/2018 11:[address] [facility] Urobilinogen 0.2 EU/dL 0.2 EU/dL, 1.0 EU/dL 01/19/2018 11:[address] [facility] Nitrite Positive(A) Negative 01/19/2018 11:[address] [facility] Leukocyte Esterase Urine Large(A) Negative 01/19/2018 11:[address] [facility] WBC Urine 51-200 /hpf(A) Negative, 0-5 /hpf 01/19/2018 11:[address] [facility] RBC Urine 3-10 /hpf(A) Negative, 0-2 /hpf 01/19/2018 11:[address] [facility] Squamous Epithelial Few Negative, Few 01/19/2018 11:[address] [facility] Bacteria Negative Negative 01/19/2018 11:[address] [facility] Hyaline Cast 3-5 /lpf(A) Negative, 0-2 /lpf 01/19/2018 11:[address] [facility] Urine URINE SPECIMEN OBTAINED BY CLEAN CATCH PROCEDURE / Unknown 01/19/2018 01/19/2018 10:56 AM CDT Narrative [facility] - 01/19/2018 11:14 AM CDT A urine culture will be performed when one or more of the following criteria is met: Nitrite-Positive Leukocyte Esterase-Positive WBC-Greater than 5 Tay Ignacio DO LAB NON BLOOD [facility] [address] [place] [address] documented in this encounter Visit Diagnoses Not on filedocumented in this encounter Care Teams Mechanical Manager Relationship Specialty Start Date End Date Griselda Chavez MD [address] [place] [address] PCP - General 02/11/10 12/19/18 Provider, No Attributed, RESOURCE [address] PCP - Attributed Provider 07/22/16 Eric Harrington MD [address] [place] [address] PCP - General Family Medicine 12/20/18 08/14/19 Eric Harrington MD [address] [place] [address] PCP - General 08/15/19 Ranjan Alamo MD [address] [place] [address] Vascular Surgery (Surgery) 11/12/16 01/17/22 documented as of this encounter
--- OUTSIDE RECORDS SUMMARY | 2024-07-27 12:30 | XMS_ITS | Encounter Summary ---
Author Organization [facility] Address [address] [place] [address] Care Team Providers Care Housekeeper Supervisor Name Role Phone Griselda Chavez MD Primary Care Provider [phone] Provider, No Attributed RESOURCE Unavailable Unavailable Ranjan Alamo MD Unavailable [phone] Eric Harrington MD Primary Care Provider Unavail able Eric Harrington MD Primary Care Provider Unavail able Encounter Details Date Type Department Care Team (Late st Contact Info) Description 12/04/2017 Lab Requisition [facility] Patient Financial Services JonesCHAP[place] Gautam Janice, MD [address] [facility] [address] [place] [address] Bipolar disorder; Other long term care social worker (current) drug therapy Social History Tobacco Use Types Packs/Day Years [...] h e/she have serious difficulty hearing? No 05/14/2017 Is this person blind or does he/she have difficulty seeing even when wearing glasses? No 05/14/2017 Do you have difficulty with walking, balance, climbing stairs, or had a fall in the last 3 months? Yes 05/14/2017 documented as of this encounter Plan of Treatment Not on file documented as of this encounter Procedures Procedure Name Priority Date/Time Associated Diagnosis Comments LAMOTRIGINE Routine 12/04/2017 9:27 AM CDT Bipolar disorder Other long term care social worker (current) drug therapy documented in this encounter Results * LAMOTRIGINE (12/04/2017 9:27 AM CDT) Lamotrigine 2.5 2.5 - 15.0 mcg/mL 12/07/2017 2:51 PM CDT [facility] Comment: ADDITIONAL INFORMATION This test was developed and its performance characteristics determined by [facility] in a manner consistent with CLIA requirements. This test has not been cleared or approved by the U.S. Food and Drug Administration. Test Performed by: [facility] [address] [place] [address] Blood BLOOD SPECIMEN / Unknown 12/04/2017 9:27 AM CDT 12/04/2017 5:48 PM CDT Griselda Chavez MD LAB BLOOD [facility] [address] [place] [address] documented in this encounter Visit Diagnoses Diagnosis Bipolar disorder (HCC) Bipolar disorder, unspecified Other shelter (current) drug therapy documented in this encounter Care Teams Housekeeper Supervisor Relationship Specialty Start Date End Date Griselda Chavez MD [address] [place] [address] PCP - General 02/11/10 12/19/18 Provider, No Attributed, RESOURCE [address] PCP - Attributed Provider 07/22/16 Eric Harrington MD [address] [place] [address] PCP - General Family Medicine 12/20/18 08/14/19 Eric Harrington MD [address] [place] [address] PCP - General 08/15/19 Ranjan Alamo MD [address] [facility] [place] [address] Vascular Surgery (Surgery) 11/12/16 01/17/22 documented as of this encounter
--- OUTSIDE RECORDS SUMMARY | 2024-07-27 12:30 | XMS_ITS | Encounter Summary ---
Author Organization [facility] Address [address] [address] [place] [address] Care Team Providers Care Commission Auditor Name Role Phone Griselda Chavez MD Primary Care Provider [phone] Provider, No Attributed RESOURCE Unavailable Unavailable Ranjan Alamo MD Unavailable [phone] Eric Harrington MD Primary Care Provider Unavail able Eric Harrington MD Primary Care Provider Unavail able Encounter Details Date Type Department Care Team (Late st Contact Info) Description 11/17/2018 Lab Requisition [facility] [place], Griselda Godfrey MD [address] [place] [address] Anemia Social History Tobacco Use Types Packs/Day Years [...] h e/she have serious difficulty hearing? No 05/13/2018 Is this person blind or does he/she have difficulty seeing even when wearing glasses? No 05/13/2018 Do you have difficulty with walking, balance, climbing stairs, or had a fall in the last 3 months? Yes 05/13/2018 Does the patient have difficulty dressing or bat ladonna? No 05/13/2018 Because of a physical, menta l, or emotional condition; does this person have difficulty doing errands alone such as visiting a doctor's office or shopping? No 05/13/2018 Cognitive Status Response Date of Assessm ent Because of a physical, menta l, or emotional condition; does this person have serious difficulty concentrating, remembering, or making decisions? No 05/13/2018 documented as of this encounter Plan of Treatment Not on file documented as of this encounter Procedures Procedure Name Priority Date/Time Associated Diagnosis Comments IRON AND TIBC Routine 11/17/2018 3:41 PM CHEMICAL TREATMENT OPERATOR Anemia [ICD-10-CM] documented in this encounter Results * (ABNORMAL) IRON AND TIBC (11/17/2018 3:41 PM CHEMICAL TREATMENT OPERATOR) Iron Total 49 37 - 170 ug/dL 11/18/2018 12:17 AM [facility] TIBC 249(L) 250 - 460 ug/dL 11/18/2018 12:17 AM [facility] Iron Saturation 20 15 - 40 % Sat 11/18/2018 12:17 AM [facility] Blood BLOOD SPECIMEN / Unknown 11/17/2018 3:41 PM CHEMICAL TREATMENT OPERATOR 11/17/2018 11:32 PM CHEMICAL TREATMENT OPERATOR Griselda Chavze MD LAB BLOOD [facility] [address] [place] [address] documented in this encounter Visit Diagnoses Diagnosis Anemia Anemia, unspecified documented in this encounter Care Teams Commission Auditor Relationship Specialty Start Date End Date Griselda Chavez MD [address] [place] [address] PCP - General 02/11/10 12/19/18 Provider, No Attributed, RESOURCE [address] PCP - Attributed Provider 07/22/16 Eric Harrington MD [address] [place] [address] PCP - General Family Medicine 12/20/18 08/14/19 Eric Harrington MD [address] [place] [address] PCP - General 08/15/19 Ranjan Alamo MD [address] [place] [address] Vascular Surgery (Surgery) 11/12/16 01/17/22 documented as of this encounter
--- OUTSIDE RECORDS SUMMARY | 2024-07-27 12:30 | XMS_ITS | Encounter Summary ---
Author Organization [facility] Address [address] [place] [address] Care Team Providers Care Furnace Operator And Tender Name Role Phone Griselda Chavez MD Primary Care Provider [phone] Provider, No Attributed RESOURCE Unavailable Unavailable Ranjan Alamo MD Unavailable [phone] Eric Harrington MD Primary Care Provider Unavail able Eric Harrington MD Primary Care Provider Unavail able Encounter Details Date Type Department Care Team (Late st Contact Info) Description 07/16/2017 Lab Requisition [facility] [place] Kelly M, MD [address] [facility] [place] [id number] Skin change Social History Tobacco Use Types Packs/Day Years [...] Procedure Name Priority Date/Time Associated Diagnosis Comments CONTRACTS SPECIALIST ONLY Routine 07/15/2017 documented in this encounter Results * CONTRACTS SPECIALIST ONLY (07/15/2017) GROSS DESCRIPTION Specimen Skin Dimensions: 1F 3.0 cm x 1.3 cm x 0.2-0.5 cm ESB 3B 07/21/2017 2:52 PM CDT [facility] CASE REPORT [facility] ?Case: [id number] ? Authorizing Provider: ??Rossy Rodriguez MD ? Collected: ? 07/15/2017 ? First Screen: ?Maile Malave ?Received: ?07/16/2017 1238 ? Specimen: ?[facility]-Ski n, Skin, LEFT DISTAL LATERAL POSTERIOR UPPER ARM ? 07/21/2017 2:52 PM CDT [facility] EMBEDDED IMAGES 7 2:52 PM CDT [facility] Misc SKIN SWAB / Unknown 07/15/2017 07/16/2017 12:38 PM CDT Rossy Rodriguez MD PATHOLOGY [facility] [address] [address] documented in this encounter Visit Diagnoses Diagnosis Skin change Other symptoms involving skin and integumentary tissues documented in this encounter Care Teams Furnace Operator And Tender Relationship Specialty Start Date End Date Griselda Chavez MD [address] [place] [address] PCP - General 02/11/10 12/19/18 Provider, No Attributed, RESOURCE [address] PCP - Attributed Provider 07/22/16 Eric Harrington MD [address] [facility] [address] PCP - General Family Medicine 12/20/18 08/14/19 Eric Harrington MD [address] [place] [address], [place] [address] PCP - General 08/15/19 Ranjan Alamo MD [address] [place] [address] Vascular Surgery (Surgery) 11/12/16 01/17/22 documented as of this encounter
--- OUTSIDE RECORDS SUMMARY | 2024-07-27 12:30 | XMS_ITS | Encounter Summary ---
Author Organization [facility] Address [address] [place] [address] Care Team Providers Care Mobile Ui/Ux Designer Name Role Phone Griselda Chavez MD Primary Care Provider [phone] Provider, No Attributed RESOURCE Unavailable Unavailable Ranjan Alamo MD Unavailable [phone] Eric Harrington MD Primary Care Provider Unavail able Eric Harrington MD Primary Care Provider Unavail able Encounter Details Date Type Department Care Team (Late st Contact Info) Description 05/28/2018 Lab Requisition [facility] [place], [place] Vernell Major, RADHA [address] [facility] [place] [address] Skin change Social History Tobacco Use Types [...] Procedure Name Priority Date/Time Associated Diagnosis Comments GALLEY COOK ONLY Routine 05/27/2018 Skin change documented in this encounter Results * GALLEY COOK ONLY (05/27/2018) GROSS DESCRIPTION A/Specimen Skin Dimensions: 1F 0.8 cm x 0.6 cm x 0.1 cm (3) ESB 1B B/Specimen Skin Dimensions: 1F 0.9 cm x 0.8 cm x 0.1 cm (3) ESB 1B C/Specimen Skin Dimensions: 1F 0.3 cm x 0.2 cm x 0.2 cm (1) ESB 1B 06/01/2018 11:46 AM CDT [facility] CASE REPORT [facility] ?Case: [id number] ? Authorizing Provider: ??Vernell Davalos PA ? Collected: ? 05/27/2018 ? First Screen: ?Maile Malave ?Received: ?05/28/2018 1214 ? Specimens: ?? [facility]-Ski n, Skin, RIGHT LATERAL MALLEOULUS ? [facility], Skin, RIGHT MEDIAL SUPERIOR CHEST ? [facility], Skin, LEFT NARES ? 06/01/2018 11:46 AM CDT [facility] EMBEDDED IMAGES 11:46 AM CDT [facility] Misc SKIN SWAB / Unknown 05/27/2018 05/28/2018 12:14 PM CDT Miscellaneous samples (specimen) SPECIMEN FROM SKIN / Unknown 05/27/2018 05/28/2018 12:14 PM CDT Miscellaneous samples (specimen) SPECIMEN FROM SKIN / Unknown 05/27/2018 05/28/2018 12:16 PM CDT [facility] GARCIA PATHOLOGY Performing Organization Address [facility]State/[facility] Co de Phone Number [facility] [address] [phone] documented in this encounter Visit Diagnoses Diagnosis Skin change Other symptoms involving skin and integumentary tissues documented in this encounter Care Teams Mobile Ui/Ux Designer Relationship Specialty Start Date End Date Griselda Chavez MD [address] [place], [place] [address] PCP - General 02/11/10 12/19/18 Provider, No Attributed, RESOURCE [address] PCP - Attributed Provider 07/22/16 Eric Harrington MD [address] [place] [address] PCP - General Family Medicine 12/20/18 08/14/19 Eric Harrington MD [address] [place] [address] PCP - General 08/15/19 Ranjan Alamo MD [address] [facility] [place] [address] Vascular Surgery (Surgery) 11/12/16 01/17/22 documented as of this encounter
--- OUTSIDE RECORDS SUMMARY | 2024-07-27 12:30 | XMS_ITS | Encounter Summary ---
Author Organization [facility] Address [address] [place] [address] Care Team Providers Care Clinical Law Professor Name Role Phone Griselda Chavez MD Primary Care Provider [phone] Provider, No Attributed RESOURCE Unavailable Unavailable Ranjan Alamo MD Unavailable Eric Harrington MD Primary Care Provider Unavail able Eric Harrington MD Primary Care Provider Unavail able Encounter Details Date Type Department Care Team (Late st Contact Info) Description 08/25/2017 Lab Requisition [facility] Patient Financial Services [place] aDve Phillip Hernandez, PA-C [address] [place] [id number] Cellulitis of finger of left hand Social History Tobacco Use Types Packs/Day Years [...] Priority Date/Time Associated Diagnosis Comments CULTURE BACTERIAL, OTHER Routine 08/25/2017 10:30 AM [facility] Cellulitis of finger of left hand documented in this encounter Results * (ABNORMAL) CULTURE BACTERIAL, OTHER (08/25/2017 10:30 AM [facility]) Culture Result Few Staphylococcus epidermidis(!) KALEIGH 08/28/2017 12:01 PM [facility] Comment: This is a Coagulase Negative Staphylococcus species. No susceptibility performed Culture ENTIRE FINGER / Unknown 08/25/2017 10:30 AM [facility] 08/25/2017 10:08 PM [facility] Phillip Hernandez PA-C LAB MICROBIOLOGY [facility] [address] [facility] [place] [address] documented in this encounter Visit Diagnoses Diagnosis Cellulitis of finger of left hand Cellulitis and abscess of finger, unspecified documented in this encounter Care Teams Clinical Law Professor Relationship Specialty Start Date End Date Griselda Chavez MD [address] [place] [address] PCP - General 02/11/10 12/19/18 Provider, No Attributed, RESOURCE [address] PCP - Attributed Provider 07/22/16 Eric Harrington MD [address] [facility] [place] [address] PCP - General Family Medicine 12/20/18 08/14/19 Eric Harrington MD [address] [place] [address] PCP - General 08/15/19 Ranjan Alamo MD [address] [facility] [place] [address] Vascular Surgery (Surgery) 11/12/16 01/17/22 documented as of this encounter
--- OUTSIDE RECORDS SUMMARY | 2024-07-27 12:31 | XMS_ITS | Encounter Summary ---
Author Organization [facility] Address [address] [place] [address] Care Team Providers Care Bread Dough Mixer Name Role Phone Griselda Chavez MD Primary Care Provider [phone] Provider, No Attributed RESOURCE Unavailable Unavailable Ranjan Alamo MD Unavailable Eric Harrington MD Primary Care Provider Unavail able Eric Harrington MD Primary Care Provider Unavail able Encounter Details Date Type Department Care Team (Late st Contact Info) Description 09/19/2016 Lab Requisition [facility] [place], MD [address] [place], [place] [phone] Bipolar disorder Social History Tobacco Use Types Packs/Day Years Used Date Smoking Tobacco: Former Cigarettes Q uit: 07/29/2003 Smokeless Tobacco: Never Alcohol Use Standard Drinks/Week Comments Yes 1 (1 standard drink = 0.6 oz pur e alcohol) Sex and Gender Information Value Date Recorded Sex Assigned at Not on file Gender Identity Not on file Sexual Orientation Not on file documented as of this encounter Plan of Treatment Not on file documented as of this encounter Procedures Procedure Name Priority Date/Time Associated Diagnosis Comments LEVETIRACETAM Routine 09/19/2016 9:30 AM APPRENTICE PLANT ATTENDANT Bipolar disorder documented in this encounter Results * LEVETIRACETAM (09/19/2016 9:30 AM APPRENTICE PLANT ATTENDANT) Levetiracetam <2.0 <=100.0 mcg/mL 09/22/2016 9:13 AM APPRENTICE PLANT ATTENDANT [facility] Blood BLOOD SPECIMEN / Unknown 09/19/2016 9:30 AM APPRENTICE PLANT ATTENDANT 09/19/2016 10:53 PM APPRENTICE PLANT ATTENDANT Narrative [facility] - 09/22/2016 9:13 AM APPRENTICE PLANT ATTENDANT Theraputic Range: Peak: ??10.0-63.0 mcg/mL Trough:3.0-34.0 mcg/mL Griselda Chavez MD LAB BLOOD [address] [address] documented in this encounter Visit Diagnoses Diagnosis Bipolar disorder (HCC) Bipolar disorder, unspecified documented in this encounter Care Teams Bread Dough Mixer Relationship Specialty Start Date End Date Griselda Chavez MD [address] [place] [address] PCP - General 02/11/10 12/19/18 Provider, No Attributed, RESOURCE [address] PCP - Attributed Provider 07/22/16 Eric Harrington MD [address] [place] [address] PCP - General Family Medicine 12/20/18 08/14/19 Eric Harrington MD [address] [place] [address] PCP - General 08/15/19 Ranjan Alamo MD [address] [facility] [place] [address] Vascular Surgery (Surgery) 11/12/16 01/17/22 documented as of this encounter
--- OUTSIDE RECORDS SUMMARY | 2024-07-27 12:31 | XMS_ITS | Encounter Summary ---
Author Organization [facility] Address [address] [place] [address] Care Team Providers Care Sap Plant Maintenance Consultant Name Role Phone Griselda Chavez MD Primary Care Provider [phone] Provider, No Attributed RESOURCE Unavailable Unavailable Ranjan Alamo MD Unavailable [phone] Eric Harrington MD Primary Care Provider Unavail able Eric Harrington MD Primary Care Provider Unavail able Encounter Details Date Type Department Care Team (Late st Contact Info) Description 12/13/2015 Lab Requisition [place] [facility] Patient Financial Services [place] G[place] Janice, MD [address] [place], [place] [phone] Other intermediate card tender (current) drug therapy Social History Tobacco Use [...] Priority Date/Time Associated Diagnosis Comments LAMOTRIGINE Routine 12/13/2015 9:40 AM CDT Other chcf (current) drug therapy documented in this encounter Results * (ABNORMAL) LAMOTRIGINE (12/13/2015 9:40 AM CDT) Lamotrigine 2.1(L) 2.5 - 15.0 mcg/mL 12/15/2015 2:[address] [facility] Comment: Test Performed by: [facility] [address] [place] [address] Sound Effects Manager: Lucas Desai II, M.D., Ph.D. Blood specimen (specimen) BLOOD SPECIMEN / Unknown 12/13/2015 9:40 AM CDT 12/13/2015 9:49 PM CDT Griselda Chavez MD LAB BLOOD [facility] [address] [place], [place] [phone] documented in this encounter Visit Diagnoses Diagnosis Other chcf (current) drug therapy documented in this encounter Care Teams Sap Plant Maintenance Consultant Relationship Specialty Start Date End Date Griselda Chavez MD [address] [place] [address] PCP - General 02/11/10 12/19/18 Provider, No Attributed, RESOURCE [address] PCP - Attributed Provider 07/22/16 Eric Harrington MD [address] [place] [address] PCP - General Family Medicine 12/20/18 08/14/19 Eric Harrington MD [address] [place] [address] PCP - General 08/15/19 Ranjan Alamo MD [address] [place] [address] Vascular Surgery (Surgery) 11/12/16 01/17/22 documented as of this encounter
--- OUTSIDE RECORDS SUMMARY | 2024-07-27 12:31 | XMS_ITS | Encounter Summary ---
Author Organization [facility] Address [address] [address] [place] [address] Care Team Providers Care Credit Consultant Name Role Phone Griselda Chavez MD Primary Care Provider [phone] Provider, No Attributed RESOURCE Unavailable Unavailable Ranjan Alamo MD Unavailable [phone] Eric Harrington MD Primary Care Provider Unavail able Eric Harrington MD Primary Care Provider Unavail able Encounter Details Date Type Department Care Team (Late st Contact Info) Description 04/17/2015 Lab Requisition [place] [facility] Patient Financial Services [place] Sandra Janice, MD [address] [place], [place] [phone] Encounter for long-term (current) use of other medications Social History Tobacco Use Types Packs/Day Years [...] Priority Date/Time Associated Diagnosis Comments LAMOTRIGINE Routine 04/17/2015 3:55 PM CDT Encounter for long-term (current) use of other medications [ICD-9-CM] documented in this encounter Results * LAMOTRIGINE (04/17/2015 3:55 PM CDT) Lamotrigine 2.0 2.5 - 15.0 mcg/mL 04/19/2015 11:46 AM CDT [facility] Comment: Test Performed by: [facility] [address] [place] [address] Pipeline Systems Operator: Lucas Desai II, M.D., Ph.D. Blood specimen (specimen) BLOOD SPECIMEN / Unknown 04/17/2015 3:55 PM CDT 04/17/2015 10:34 PM CDT Griselda Chavez MD LAB BLOOD [facility] [address] [place] [address] documented in this encounter Visit Diagnoses Diagnosis Encounter for long-term (current) use of other medications documented in this encounter Care Teams Credit Consultant Relationship Specialty Start Date End Date Griselda Chavez MD [address] [place] [address] PCP - General 02/11/10 12/19/18 Provider, No Attributed, RESOURCE [address] PCP - Attributed Provider 07/22/16 Eric Harrington MD [address] [place] [address] PCP - General Family Medicine 12/20/18 08/14/19 Eric Harrington MD [address] [place] [address] PCP - General 08/15/19 Ranjan Alamo MD [address] [place] [address] Vascular Surgery (Surgery) 11/12/16 01/17/22 documented as of this encounter
--- OUTSIDE RECORDS SUMMARY | 2024-07-27 12:31 | XMS_ITS | Encounter Summary ---
Author Organization [facility] Address [address] [place] [address] Care Team Providers Care Label Folder Name Role Phone Griselda Chavez MD Primary Care Provider [phone] Provider, No Attributed RESOURCE Unavailable Unavailable Ranjan Alamo MD Unavailable [phone] Eric Harrington MD Primary Care Provider Unavail able Eric Harrington MD Primary Care Provider Unavail able Encounter Details Date Type Department Care Team (Late st Contact Info) Description 11/11/2016 Lab Requisition [facility] [facility] Patient Financial Services [place] Gautam Janice, MD [address] [place], [place] [phone] Other specified diseases of blood and blood-forming organs Social History Tobacco Use Types Packs/Day Years [...] Name Priority Date/Time Associated Diagnosis Comments LAB ONLY-PERIPHERAL SMEAR SPECIMEN TRACKING Routine 11/10/2016 4:45 PM MOTOR VEHICLE DISPATCHER Other specified diseases of blood and blood-forming organs LAB ONLY - TOTAL PROTEIN EPP Routine 11/10/2016 4:45 PM MOTOR VEHICLE DISPATCHER Other specified diseases of blood and blood-forming organs LAB ONLY - ELECTROPHORESIS, SERUM Routine 11/10/2016 4:45 PM MOTOR VEHICLE DISPATCHER Other specified diseases of blood and blood-forming organs PROTEIN ELECTROPHORESIS, SERUM Routine 11/10/2016 4:45 PM MOTOR VEHICLE DISPATCHER RETIC COUNT Routine 11/10/2016 4:45 PM MOTOR VEHICLE DISPATCHER Other specified diseases of blood and blood-forming organs FOLATE, SERUM Routine 11/10/2016 4:45 PM MOTOR VEHICLE DISPATCHER Other specified diseases of blood and blood-forming organs VITAMIN B12 Routine 11/10/2016 4:45 PM MOTOR VEHICLE DISPATCHER Other specified diseases of blood and blood-forming organs documented in this encounter Results * LAB ONLY - ELECTROPHORESIS, SERUM (11/10/2016 4:45 PM MOTOR VEHICLE DISPATCHER) Albumin SPEP 4.3 3.0 - 5.3 g/dL 11/12/2016 2:42 PM MOTOR VEHICLE DISPATCHER [facility] 2 Alpha 1 Globulin 0.2 0.1 - 0.3 g/dL 11/12/2016 2:42 PM MOTOR VEHICLE DISPATCHER [facility] 2 Alpha 2 Globulin 0.7 0.5 - 1.0 g/dL 11/12/2016 2:42 PM MOTOR VEHICLE DISPATCHER [facility] 2 Beta Globulin 0.7 0.5 - 1.2 g/dL 11/12/2016 2:42 PM MOTOR VEHICLE DISPATCHER [facility] 2 Gamma Globulin 0.6 0.4 - 1.6 g/dL 11/12/2016 2:42 PM MOTOR VEHICLE DISPATCHER [facility] 2 EPP Serum Total 6.5 6.3 - 8.2 11/12/2016 2:42 PM MOTOR VEHICLE DISPATCHER [facility] EPP Serum Interpretation 1 11/12/2016 2:42 PM MOTOR VEHICLE DISPATCHER [facility] Comment:Protein electrophore sis within Normal limits. EPP Interp By Alcon Cárdenas M.D. 11/12/2016 2:42 PM MOTOR VEHICLE DISPATCHER [facility] Blood BLOOD SPECIMEN / Unknown 11/10/2016 4:45 PM MOTOR VEHICLE DISPATCHER 11/11/2016 9:36 PM MOTOR VEHICLE DISPATCHER Griselda Chavez MD LAB ONLY ORDERS Performing Organization Address City/[facility] Co de Phone Number [facility] [address] [place] [address] * LAB ONLY - TOTAL PROTEIN EPP (11/10/2016 4:45 PM MOTOR VEHICLE DISPATCHER) Protein Total 6.5 6.3 - 8.2 g/dL 11/11/2016 10:10 PM MOTOR VEHICLE DISPATCHER [facility] Blood BLOOD SPECIMEN / Unknown 11/10/2016 4:45 PM MOTOR VEHICLE DISPATCHER 11/11/2016 9:36 PM MOTOR VEHICLE DISPATCHER Griselda Chavez MD LAB ONLY ORDERS Performing Organization Address [facility] Phone Number [facility] [address] [place] [address] * LAB ONLY-PERIPHERAL SMEAR SPECIMEN TRACKING (11/10/2016 4:45 PM MOTOR VEHICLE DISPATCHER) Not Applicable BLOOD SPECIMEN / Unknown 11/10/2016 4:45 PM MOTOR VEHICLE DISPATCHER 11/11/2016 9:36 PM MOTOR VEHICLE DISPATCHER Griselda Chavez MD LAB ONLY ORDERS Performing Organization Address [facility] Co co Phone Number [facility] [address] [place] [address], [place] [address] * VITAMIN B12 (11/10/2016 4:45 PM MOTOR VEHICLE DISPATCHER) Vitamin B12 813 239 - 961 pg/mL 11/11/2016 10:52 PM MOTOR VEHICLE DISPATCHER [facility] Blood BLOOD SPECIMEN / Unknown 11/10/2016 4:45 PM MOTOR VEHICLE DISPATCHER 11/11/2016 9:36 PM MOTOR VEHICLE DISPATCHER Griselda Chavez MD LAB BLOOD Performing Organization Address [facility] Co de Phone Number [facility] [address] [place] [address], [place] [address] * RETIC COUNT (11/10/2016 4:45 PM MOTOR VEHICLE DISPATCHER) Reticulocyte Percent 2.3 0.5 - 2.3 % 11/11/2016 9:44 PM MOTOR VEHICLE DISPATCHER [facility] Reticulocyte Absolute 98,000 20,000 - 110,000 /MM3 11/11/2016 9:44 PM [facility] Immature Retic Fraction 10.0 2.0 - 16.0 % 11/11/2016 9:44 PM [facility] Blood BLOOD SPECIMEN / Unknown 11/10/2016 4:45 PM MOTOR VEHICLE DISPATCHER 11/11/2016 9:36 PM MOTOR VEHICLE DISPATCHER Griselda Chavez MD LAB BLOOD [facility] [address] [place] [phone] * FOLATE, SERUM (11/10/2016 4:45 PM MOTOR VEHICLE DISPATCHER) Pathologist [facility] Folate Serum >20.0 7.0 - 31.4 ng/mL 11/11/2016 10:57 PM [facility] Blood BLOOD SPECIMEN / Unknown 11/10/2016 4:45 PM MOTOR VEHICLE DISPATCHER 11/11/2016 9:36 PM MOTOR VEHICLE DISPATCHER Griselda Chavez MD LAB BLOOD [facility] [address] [place] [address] documented in this encounter Visit Diagnoses Diagnosis Other specified diseases of blood and blood-forming organs documented in this encounter Care Teams Label Folder Relationship Specialty Start Date End Date Griselda Chavez MD [address] [place], [place] [phone] PCP - General 02/11/10 12/19/18 Provider, No Attributed, RESOURCE [address] [place] [address] PCP - Attributed Provider 07/22/16 Eric Harrington MD [address] [place] [address], [place] [address] PCP - General Family Medicine 12/20/18 08/14/19 Eric Harrington MD [address] [place] [address] PCP - General 08/15/19 Ranjan Alamo MD [address] [place] [address], [place] [address] Vascular Surgery (Surgery) 11/12/16 01/17/22 documented as of this encounter
== END 2024-07-27 13:54 | disposition home or self-care (01) ==
LOC: ED 12:28
PROVIDERS: Emergency Provider Emergency Medicine Emergency Medical Services; PCP Family Medicine
DX: S22.42XA Multiple fractures of ribs, left side, initial encounter for closed fracture (principal); W18.11XA Fall from or off toilet without subsequent striking against object, initial encounter
CPT/HCPCS: 71101; 96372; 99284; A9270; J2270

== ENCOUNTER 2024-11-15 12:22 | Outpatient (REF) | payer BC, SELFPAY ==
[2024-11-15 12:49] LABS: Basophils Absolute Auto 0.02 K/uL (0.00-0.30); Basophils Percent Auto 0.4 % (0.0-3.0); Eosinophils Percent Auto 1.8 % (0.0-7.0); Hematocrit 36.3 % (33.0-51.0); Hemoglobin* 10.6 gm/dL (12.0-16.0); Immature Granulocytes Abs Auto 0.01 K/uL (0.00-0.30); Immature Granulocytes Pct Auto 0.2 %; Lymphocytes Percent Auto 18.9 % (20-44); Mean Corpuscular HGB Conc 29 gm/dL (32-36); Mean Corpuscular Hemoglobin 29 pg (26-34); Mean Corpuscular Volume 98 fL (80-100); Monocytes Percent Auto 12.5 % (0.0-11.0); Neutrophils Absolute Auto 3.61 K/uL (1.7-7.0); Neutrophils Percent Auto 66.2 % (42.0-72.0); Platelet Count* 207 K/uL (140-440); RDW Coefficient of Variation % 14.9 % (11.5-15.5); Red Blood Count 3.71 m/uL (4.00-5.20); White Blood Count* 5.45 K/uL (4.50-11.00)
[2024-11-15 12:51] LABS: Slide Review Reflex No
[2024-11-15 13:05] LABS: Chloride* 95 mmol/L (96-114); Potassium* 4.2 mmol/L (3.6-5.1); Sodium* 139 mmol/L (135-149)
[2024-11-15 13:08] LABS: Blood Urea Nitrogen* 23 mg/dL (7-30); Creatinine* 1.1 mg/dL (0.5-1.5); Estimated Glomerular Filt Rate 48 ml/min
[2024-11-15 13:09] LABS: Anion Gap 8 mEq/L (7-15); Calcium* 9.2 mg/dL (8.4-10.6); Carbon Dioxide* 36 mmol/L (20-32); Glucose* 98 mg/dL (60-115)
[2024-11-15 14:54] LABS: Digoxin* 0.6 ng/mL (0.8-2.0)
== END 2024-11-15 12:23 | disposition home or self-care (01) ==
LOC: NPINS 12:22
PROVIDERS: PCP Family Medicine; Visit Provider Nurse Practitioner Gerontology
DX: E03.9 Hypothyroidism, unspecified (principal); Z51.81 Encounter for therapeutic drug level monitoring
CPT/HCPCS: 80048; 80162; 84443; 85025